=== PATIENT | male | born 1950 | race American Indian/Alaskan Native ===

== ENCOUNTER 2016-04-10 16:20 | Inpatient (IN) | payer MEDICARE, OTHER ==
[2016-04-10] MEDS ORDERED: NACL 0.9% 1000 ML 1,000 ML IV ONE ×2 (16:37→18:18)
[2016-04-10] MEDS ORDERED: DUONEB 0.5 MG-3 MG/3 ML SOLN IH ONE ×2 (16:52→20:00)
[2016-04-10] MEDS ORDERED: BABY ASPIRIN PO ONE (16:55)
--- NOTE | 2016-04-10 16:55 | Emergency Department Report ---
HPI - General Chief Complaint: Dyspnea/Respdistress Time Seen by Provider: 04/10/16 16:43 - HPI HPI: The patient is a 66-year-old male with a history of diabetes, HSV 2, autoimmune skin lesions, CVA, and residual left-sided hemiparesis, who presents for evaluation of dyspnea. The patient arrives via EMS from a detention. The patient admits to cough, constant dyspnea, and increased work of breathing since yesterday, for greater than the past 24 hours, worsening last night, severe for the past 2-4 hours. Per EMS the patient was found was seen to have an O2 sat in the 70%s, increased only into the mid 80s with supplement oxygenation. ED Past Medical Hx - Past Medical History Previous Medical History?: Yes Hx Hypertension: Yes Hx Diabetes: Yes Hx Dementia: Yes Hx HIV: No - Surgical History Past Surgical History?: Yes - Social History Smoking Status: Never Smoker Substance Use Type: None - Medications Home Medications: Home Medications Medication Instructions Recorded Confirmed Last Taken Type Atorvastatin Calcium [Lipitor] 20 mg PO HS 03/29/16 04/10/16 Unknown History Ibuprofen [Motrin 800 MG tab] 800 mg PO Q6HR PRN 03/29/16 04/10/16 Unknown History amLODIPine [Norvasc] 10 mg PO QAM 03/29/16 04/10/16 Unknown History cloNIDine [Catapres] 0.2 mg PO BID 03/29/16 04/10/16 Unknown History metFORMIN [Glucophage] 500 mg PO BIDDIAB tablet 04/01/16 04/10/16 Unknown Rx Insulin Aspart [NovoLOG Flexpen] 0 units SQ AC 04/10/16 04/10/16 Unknown History Zinc Sulfate 220 mg PO DAILY 04/10/16 04/10/16 Unknown History predniSONE [Deltasone] 10 mg PO QDAY 04/10/16 04/10/16 Unknown History ED Review of Systems ROS: Stated complaint: DIFFICULTY BREATHING Other details as noted in HPI Constitutional: denies: fever ENT: denies: throat or neck pain Respiratory: reports shortness of breath Cardiovascular: denies: chest pain Endocrine: denies unexplained weight loss or gain Gastrointestinal: denies: abdominal pain, nausea Genitourinary: denies: dysuria Musculoskeletal: denies: leg swelling Skin: denies: rash Neurological: denies: headache Hematological/Lymphatic: denies: easy bleeding or easy bruising Psych: denies sadness or hopelessness Physical Exam - Physical Exam Vital Signs: Vital Signs 04/10/16 16:31 Temperature 99.9 F H Pulse Rate 102 H Respiratory 52 H Rate Blood Pressure 103/71 Blood Pressure 103/72 [Left] O2 Sat by Pulse 78 L Oximetry Physical Exam: General: well-nourished, well-developed, no acute distress Head: Normocephalic, atraumatic Eyes: normal sclera ENT: Mucous membranes are pale and dry Neck: trachea midline, neck supple, No neck stiffness, no cervical adenopathy Respiratory: Patient tachypnea with severe costal retractions, Diminished breath sounds and wheezing present throughout lung sanchez, rhonchi present to right mid and lower lung sanchez, patient in mild to moderate respiratory distress Cardio: S1 and S2 present, no murmurs, rubs, gallops, capillary refill is delayed Abdomen: Normoactive bowel sounds, soft abdomen, no rigidity, no guarding or rebound tenderness Musc: No pitting edema Skin: No rash Neuro: alert, disoriented, patient follow commands, gag refles intact, left sided weakness present, Psych: Normal affect ED Course Vital Signs 04/10/16 16:31 Temperature 99.9 F H Pulse Rate 102 H Respiratory 52 H Rate Blood Pressure 103/71 Blood Pressure 103/72 [Left] O2 Sat by Pulse 78 L Oximetry ED Medical Decision Making - Lab Data Result diagrams: 04/10/16 16:54 04/10/16 16:54 - Medical Decision Making The patient was seen and examined by myself. Prior to arrival the patient was given an albuterol breathing treatment, IV magnesium, and IV Solu-Medrol via EMS in route. The patient is placed on a groundwater monitoring technician and continuous pulse ox. On initial evaluation, the patient was found to be in respiratory distress, with oxygen saturation of 85% on pulse ox. The patient was placed on BiPAP. The patient oxygen saturation increases to 90%. Evaluation orders were placed. Rectal Tylenol was ordered. Chest x-ray reveals right lower lobe pneumonia, and was negative for cardiomegaly or pulmonary vascular congestion findings suggestive of acute congestive heart failure. Zosyn, Levaquin, and vancomycin were ordered for treatment of likely healthcare associated pneumonia. Multiple bedside assessments were performed to evaluate patient for responsiveness to positive pressure ventilation. Lab results reveal PCO2 of 47 on ABG, elevated lactic acid 3.2, elevated glucose of 390, BUN 30, Cr. 1.2, BUN:Cr ratio >2:1, and elevated sodium level of 159. The patient is given half normal saline fluid bolus for treatment of dehydration, hyperglycemia, and hypertonic hypernatremia. The patient is also given a 5 mg IV insulin bolus for treatment of hyperglycemia. The patient was reevaluated and found to have normalization of oxygen saturation, O2 sat now 95- 98% on pulse ox. The on-call hospitalist service was contacted. They agreed to admit the patient for further treatment and close monitoring. The ED admit order was placed. The patient was admitted in guarded condition. Critical Care Time: Yes Critical care time in (mins) excluding proc time.: 35 Critical care attestation.: Due to the critical nature of this patients presentation, which necessitated multiple bedside assessments, manipulation and supportive measures to prevent further life threatening deterioration, I would like to bill for a total of 35 minutes of critical care time. This was exclusive of any separately billable procedures. Critical Care Time: 35 ED Disposition Clinical Impression: Dehydration, Acute hypernatremia, Acute hyperglycemia, Lactic acidosis Sepsis Qualifiers: Sepsis type: sepsis due to unspecified organism Qualified Code(s): A41.9 - Sepsis, unspecified organism Pneumonia Qualifiers: Pneumonia type: due to unspecified organism Laterality: right Lung location: lower lobe of lung Qualified Code(s): J18.9 - Pneumonia, unspecified organism Disposition: OP ADMITTED IP TO THIS HOSP Is pt being admited?: Yes Does the pt Need Aspirin: Yes Condition: Critical Instructions: Bacterial Pneumonia (ED) Time of Disposition: 16:53
[2016-04-10] MEDS ORDERED: VANCOMYCIN/NS 1 GM/250 ML 250 ML IV ONE (17:00)
[2016-04-10] MEDS ORDERED: LEVAQUIN 750MG/150ML 150 ML IV ONE (17:00)
[2016-04-10 17:09] LABS: Bilirubin,Urine NEG (Negative); Blood,Urine SM (Negative); Ketones,Urine NEG (Negative); Leukocyte Esterase,Urine SM (Negative); Mucus,Urine 1+ /HPF; Nitrite,Urine NEG (Negative)
--- NOTE | 2016-04-10 17:25 | Admit Criteria Form ---
Admission Criteria Documentation: SEVERE SEPSIS Clinical Indications for Admission to Inpatient Care (Place 'X' for any and all applicable criteria): Hospital admission is needed for appropriate care of the patient because of ANY ONE of the following: [X]I. Hemodynamic instability indicated by ANY ONE of the following(1)(2)(3)( 4)(5): []a. Vital sign abnormality not readily corrected by appropriate treatment within 12 to 24 hours indicated by ANY ONE of the following: []i) Tachycardia that persists despite appropriate treatment []ii) Hypotension that persists despite appropriate treatment []iii) Orthostatic vital sign changes that persist despite appropriate treatment [X]b. Vital sign abnormality that is severe indicated by ANY ONE of the following: [X]i. Inadequate perfusion indicated by ANY ONE of the following: [X]1) Lactic acidosis (greater than 2 mmol/L) []2) New abnormal capillary refill (greater than 3 seconds) []3) Reduced urine output []4) New altered mental status []5) Myocardial Ischemia []ii. Mean arterial pressure [A] less than 60 mm Hg []iii. Mean arterial pressure[A] less than 70 mm Hg after 30 minutes of appropriate treatment (eg, fluid resuscitation) []iv. Sustained heart rate greater than 120 beats per minute in adult []v. IV inotropic or vasopressor medication required to maintain adequate blood pressure or perfusion []II. Systemic or infectious condition causing severe symptoms or findings not responsive to emergency or observation care treatment (as appropriate) indicated by ANY ONE of the following: []a. Cardiac arrhythmias of immediate concern(1)(2)(3) []b. Severe endocrine disorder (eg, thyrotoxicosis, adrenal insufficiency)(4)(5) []c. Seizures (eg, new or recurrent)(6) []d. New-onset end organ failure or dysfunction as indicated by ANY ONE of the following: []i. Acute unexplained hypoxemia (eg, not from lung infection or chronic disease)(7)(8)(9) []ii. Acute renal failure as indicated by new onset of ANY ONE of the following(10)(11)(12)(13)(14): []1) 3-fold rise in serum creatinine from baseline []2) Serum creatinine greater than 4 mg/dL (354 micromoles/L) with acute rise greater than 0.5 mg/dL (44.2 micromoles/L) []3) Reduction of more than 75% in estimated glomerular filtration rate from baseline. []4) Estimated glomerular filtration rate less than 35 mL/min/1.73m2 ( 0.59 mL/sec/1.73m2) in child younger than 18 years. []5) Cessation of urine output indicated by ALL of the following: []A. Adequate volume status []B. Inadequate urine output as indicated by ANY ONE of the following: []a. Urine output less than 0.3 mL/kg/hr for 24 hours []b. Anuria (urine output less than 0.1 mL/kg/hr) for 12 hours []iii. Acute mental status changes(15) []iv. Acute hepatic failure (eg, plasma bilirubin greater than 4 mg/ dL (68 micromoles/L), new INR greater than 2.0)(16)(17) []e. Unmanageable nausea and vomiting(18) []f. New-onset or uncontrolled central diabetes insipidus(19)(20) []g. Clinically significant dehydration(18)(21) []h. Hypoglycemia(22) []i. Acidosis (pH less than 7.35) or alkalosis (pH greater than 7.45)( 22)(23) []j. Toxic drug level that indicates need for specific monitoring or treatment(24)(25) []k. Severe electrolyte abnormalities indicated by ALL of the following( 1)(2)(3): []i. Electrolytes and associated findings are not as expected for patient baseline or acceptable treatment effects. []ii. Severe abnormalities indicated by ANY ONE of the following: []1) Sodium less than 130 mEq/L (mmol/L) (new) []2) Sodium less than 135 mEq/L (mmol/L) with ANY ONE of the following: []A. Uncorrectable (to near normal or chronic baseline) after trial of outpatient and emergency treatment []B. Altered mental status []C. Seizures []D. Severe medical etiology requiring inpatient management (eg , heart failure, hypovolemia) []3) Sodium greater than 155 mEq/L (mmol/L) []4) Sodium greater than 150 mEq/L (mmol/L) with ANY ONE of the following: []A. Uncorrectable (to near normal or chronic baseline) with outpatient and emergency treatment []B. Altered mental status []C. Seizures []D. Severe medical etiology (eg, hypovolemia, diabetes insipidus) []5) Potassium less than 2.5 mEq/L (mmol/L) despite outpatient and emergency treatment []6) Potassium less than 3 mEq/L (mmol/L) with ANY ONE of the following : []A. Weakness []B. Cardiac abnormality (eg, arrhythmia, conduction disturbance ) []C. Cardiac ischemia []D. Ileus []E. Ongoing medical cause requiring inpatient management (eg, acute renal wasting or SIADH) []F. Other severe symptoms []7) Potassium greater than 6.5 mEq/L (mmol/L) []8) Potassium greater than 5 mEq/L (mmol/L) with ANY ONE of the following: []A. Uncorrectable (to near normal or chronic baseline) with outpatient and emergency treatment []B. Severe ECG findings[A] []C. Acute worsening of renal failure (creatinine greater than 2.5 mg/dL (221 micromoles/L) or significant elevation for age and size) []D. Severe weakness []E. Severe medical etiology (eg, hemolysis, infection, drug overdose) []9) Calcium less than 7 mg/dL (1.75 mmol/L) despite outpatient and emergency treatment(5) []10) Calcium less than 8 mg/dL (2 mmol/L) with significant symptoms or findings (eg, altered mental status, muscle spasms, seizures, breathing difficulty, cardiac abnormality (eg, arrhythmia or conduction disturbance))(5) []11) Calcium greater than 14 mg/dL (3.5 mmol/L)(5) []12) Calcium greater than 12 mg/dL (3 mmol/L) with ANY ONE of the following(5): []A. Uncorrectable (to near normal or chronic baseline) with outpatient and emergency treatment []B. Significant dehydration or hypovolemia as indicated by ALL of the following(3)(6)(7): []a. Not resolved with initial treatments []b. Clinically significant dehydration as indicated by ANY ONE of the following: [](1) Vomiting refractory to outpatient treatment (ie, precluding oral rehydration) [](2) Inability to drink [](3) Hypernatremia or other electrolyte abnormality unable to be corrected with outpatient and emergency treatment [](4) Failure to remain hydrated with outpatient therapy [](5) Reduced urine output [](6) Hypotension [](7) Serious cause for dehydration requiring acute hospitalization ( eg, bowel obstruction, increased intracranial pressure, infectious cause) [](8) Child with ANY ONE of the following(8): [](i) Severe abdominal tenderness [](ii) Adequate care not available at home [](iii) Severe dehydration (greater than 9% loss of body weight) []C. Significant symptoms or findings (eg, altered mental status , cardiac abnormality (eg, arrhythmia, conduction disturbance), malignant etiology requiring inpatient treatment) []13) Phosphorus less than 1 mg/dL (0.32 mmol/L) []14) Phosphorus less than 1.5 mg/dL (0.48 mmol/L) with ANY ONE of the following: []A. Patient unresponsive to outpatient and emergency treatment []B. Significant symptoms or findings (eg, weakness, altered mental status, breathing difficulty, seizures, rhabdomyolysis) []15) Phosphorus greater than 10 mg/dL (3.2 mmol/L) []16) Phosphorus greater than 4.5 mg/dL (1.45 mmol/L) (new) with ANY ONE of the following: []A. Severe medical etiology (eg, crush injury, acute renal failure) []B. Associated hypocalcemia with significant findings (eg, neurologic symptoms, altered mental status, muscle spasms, seizures, breathing difficulty, cardiac abnormality (eg, arrhythmia, conduction disturbance)) []16) Magnesium less than 1 mg/dL (0.41 mmol/L) []17) Magnesium less than 1.5 mg/dL (0.62 mmol/L) with ANY ONE of the following: []A. Patient unresponsive to outpatient and emergency treatment []B. Associated hypocalcemia with significant findings (eg, altered mental status, muscle spasms, seizures, breathing difficulty, cardiac abnormality (eg, arrhythmia, conduction disturbance)) []C. Associated hypokalemia (potassium less than 3 mEq/L (mmol/L )) with risk of arrhythmia []18) Magnesium greater than 4 mEq/L (2 mmol/L) []19) Magnesium greater than 2.5 mEq/L (1.25 mmol/L) with significant symptoms or findings (eg, weakness, altered mental status, cardiac abnormality (eg, arrhythmia, conduction disturbance), breathing difficulty, severe medical etiology (eg, renal failure, hypovolemia)) []20) Uric acid greater than 20 mg/dL (1190 micromoles/L)(9) []21) Uric acid greater than 8 mg/dL (476 micromoles/L) with significant symptoms or findings of tumor lysis syndrome (eg, creatinine greater than 1.5 times upper limit of normal, cardiac abnormality (eg , arrhythmia, conduction disturbance), seizure)(9) []III. High fever or other high-risk infection situation as indicated by ANY ONE of the following(26)(27)(28): []a. Outpatient and observation care antimicrobial treatment unavailable, not effective, or not appropriate []b. Documented bacteremia []c. Temperature greater than 104.9 degrees F (40.5 degrees C) (oral) []d. Temperature greater than 103.1 degrees F (39.5 degrees C) (oral) or less than 96.8 degrees F (36 degrees C) (rectal) that does not respond to emergency treatment and observation care []IV. High-risk febrile neutropenia[A] as indicated by ANY ONE of the following(29)(30)(31)(32): []a. Profound neutropenia[B] anticipated to extend for more than 7 days []b. Hemodynamic instability []c. Hypoxemia []d. Tachypnea []e. Altered mental status []f. New-onset abdominal pain []g. New-onset vomiting or diarrhea []h. Oral or gastrointestinal mucositis that interferes with swallowing or causes severe diarrhea []i. Focal infection (eg, cellulitis, pneumonia, central line or catheter infection, perirectal abscess) []j. Renal insufficiency (eg, GFR of less than 30 mL/min/1.73m2 (0.5 mL/sec /1.73m2)). []k. Severe liver dysfunction (transaminase levels greater than 5 times normal) []l. Platelet count less than 50,000/mm3 (50 x109/L)(33) []m. Leukemia or lymphoma induction therapy []n. Leukemia not in complete remission or with evidence of disease progression []o. Bone marrow transplant patient []p. Alemtuzumab being used for therapy []q. [employer] for Supportive Care in Cancer (MASCC) Risk Index score of less than 21[C](33)(35). []V. Isolation required (eg, tuberculosis that requires isolation, Ebola infection)[D](36)(37)(38)(39)(40) []. Gangrene that requires treatment beyond emergency or observation level care(41)(42) []VII. Antitoxin administration and ongoing observation required (eg, tetanus, botulism)(43)(44) []. Suspected infection with rapid progression or severe symptoms as indicated by ANY ONE of the following(45): []a. Streptococcal or staphylococcal toxic shock(46) []b. Diphtheria(47) []c. Hantavirus(48) []d. Severe acute respiratory syndrome(8)(49) []e. Anthrax(50) []f. Ebola[D](36)(37)(38) []g. Necrotizing soft tissue infection(41)(42) []h. Plague(50) []i. Other suspected infection that requires care beyond emergency or observation level care []VII. Severe adverse drug or systemic toxin reaction as indicated by ANY ONE of the following(24): []a. Serotonin syndrome(51)(52) []b. Neuroleptic malignant syndrome(51)(52) []c. Cholinergic syndrome with severe symptoms (eg, bronchorrhea, weakness , mental status changes, seizures)(53) []d. Anticholinergic syndrome []e. Sympathetic syndrome with severe symptoms (eg, seizures, mental status changes, cardiac dysrhythmias) []f. Other severe adverse drug or systemic toxin reaction that remains after emergency or observation level care (as appropriate) []VIII. Allergic reaction with severe symptoms (not responsive to emergency or observation care treatment as appropriate), including ANY ONE of the following(54): []a. Airway edema (pharyngeal, epiglottic, or laryngeal edema) []b. Stridor []c. Respiratory failure []d. Bronchospasm []e. Hypotension []IX. Environmental emergency (not responsive to emergency or observation care treatment as appropriate) as indicated by ANY ONE of the following(55)(56): []a. Hyperthermia []b. Heat stroke []c. Heat exhaustion []d. Hypothermia (temperature less than 95 degrees F (35 degrees C) rectal) (57) []e. Electrocution(58) []X. Complications of transplanted organ (ie, not covered elsewhere)[E] indicated by ANY ONE of the following(59): []a. Acute graft rejection (or graft vs. host disease)[F] requiring inpatient management (eg, intravenous immunosuppression)(60)(61)(62)( 63) []b. Acute failure of transplanted organ necessitating inpatient care (eg, cannot be managed in other setting) []c. Infection requiring inpatient management (eg, Hemodynamic instability, need for intravenous antimicrobial treatment)(64)(65) []d. Other complication of transplanted organ requiring inpatient management []XI. Systemic or Infectious Condition condition, symptom, or finding for which emergency and observation care have failed or are not considered appropriate. See General Criteria: Observation Care, General Admission Criteria or Pediatric General Admission Criteria guideline as appropriate. (Contents from SEVERE SEPSIS and SYSTEMIC OR INFECTIOUS CONDITION clinical indications for admission to inpatient care have been integrated in this form) The original [facility] content created by [facility] has been revised. The portions of the content which have been revised are identified through the use of italic text or in bold and [facility] has neither reviewed nor approved the modified material. All other unmodified content is copyright [facility]. Please see references footnoted in the original [facility] edition 2016 Admission Criteria Met: Yes
[2016-04-10 17:26] LABS: Hematocrit 41.3 % (35.5-45.6); Hemoglobin 13.1 gm/dl (11.8-15.2); Mean Corpuscular HGB Conc 32 % (32-34); Mean Corpuscular Volume 79 fl (84-94); Platelet Count 191 K/mm3 (140-440); Red Blood Count 5.24 M/mm3 (3.65-5.03); Red Cell Distribution Width 17.2 % (13.2-15.2); White Blood Count 10.8 K/mm3 (4.5-11.0)
[2016-04-10 17:29] LABS: Mean Corpuscular Hemoglobin 25 pg (28-32)
[2016-04-10 17:43] LABS: INR 1.13 (0.87-1.13)
[2016-04-10 17:49] LABS: Alanine Aminotransferase 37 units/L (7-56); Albumin 2.5 g/dL (3.9-5); Albumin/Globulin Ratio 0.5 %; Alkaline Phosphatase 102 units/L (35-129); Anion Gap 21 mmol/L; Bilirubin,Total 1.4 mg/dL (0.1-1.2); Blood Urea Nitrogen 30 mg/dL (9-20); Calcium 8.9 mg/dL (8.4-10.2); Carbon Dioxide 26 mmol/L (22-30); Chloride 115.6 mmol/L (98-107); Glucose 390 mg/dL (75-100); Sodium 159 mmol/L (137-145); Total Protein 7.7 g/dL (6.3-8.2)
[2016-04-10 17:56] LABS: ISTAT Base Excess 3; ISTAT HCO3 26.3; ISTAT PCO2 36.2 (35-45); ISTAT PH 7.469 (7.35-7.45); ISTAT PO2 47 (80-105); ISTAT SO2 86; ISTAT TCO2 27
[2016-04-10 18:05] LABS: Basophils % (Manual) 0 % (0.0-1.8); Blastocytes % (Manual) 0 %; Eosinophils % (Manual) 0 % (0.0-4.3); Hypochromasia 1+
[2016-04-10 18:06] LABS: Diff Status Complete; Large Platelets 1+; Platelet Estimate Consistent w Auto; Poikilocytosis 1+
[2016-04-10] MEDS ORDERED: NACL 0.9% 1000 ML 500 ML IV ONE (18:14)
[2016-04-10] MEDS: ZOSYN/NS 3.375GM/50ML 50 ML IV SCH (18:50)
[2016-04-10] MEDS ORDERED: NACL 0.45% 1000 ML 1,000 ML IV ONE (19:14)
[2016-04-10] MEDS ORDERED: TYLENOL PR ONE (19:18)
[2016-04-10] MEDS ORDERED: NACL 0.45% 1000 ML 500 ML IV SCH (20:00)
[2016-04-11] MEDS: ZOSYN/NS 3.375GM/50ML 50 ML IV SCH (00:45)
--- NOTE | 2016-04-11 02:15 | Event Note ---
Date: 04/11/16 See H/p in reports
[2016-04-11] MEDS ORDERED: DULCOLAX PR PRN (02:16)
[2016-04-11] MEDS ORDERED: DILAUDID IV PRN ×2 (02:16→02:25)
[2016-04-11] MEDS ORDERED: XANAX PO PRN (02:16)
[2016-04-11] MEDS ORDERED: ALUM-MAG HYDROX-SIMETH 200-200-20MG/5ML PO PRN (02:16)
[2016-04-11] MEDS ORDERED: MILK OF MAGNESIA PO PRN (02:16)
[2016-04-11] MEDS ORDERED: DUONEB 0.5 MG-3 MG/3 ML SOLN IH PRN (02:22)
[2016-04-11] MEDS ORDERED: PROVENTIL IH PRN (02:30)
[2016-04-11] MEDS: DUONEB 0.5 MG-3 MG/3 ML SOLN IH SCH ×4 (02:43→21:11)
[2016-04-11] MEDS: CATAPRES PO SCH ×3 (05:01→21:48)
[2016-04-11 05:34] LABS: Hemoglobin 12.5 gm/dl (11.8-15.2); Mean Corpuscular HGB Conc 31 % (32-34); Mean Corpuscular Volume 80 fl (84-94); Red Cell Distribution Width 17.5 % (13.2-15.2); White Blood Count 11.7 K/mm3 (4.5-11.0)
[2016-04-11 05:35] LABS: Mean Corpuscular Hemoglobin 25 pg (28-32)
[2016-04-11 05:44] LABS: Albumin 1.9 g/dL (3.9-5); Albumin/Globulin Ratio 0.4 %; BUN/Creatinine Ratio 30.66; Calcium 8.3 mg/dL (8.4-10.2); Chloride 117.6 mmol/L (98-107); Potassium 4.5 mmol/L (3.6-5.0)
[2016-04-11 07:16] LABS: Basophils % (Manual) 0 % (0.0-1.8); Blastocytes % (Manual) 0 %; Eosinophils % (Manual) 0 % (0.0-4.3)
[2016-04-11 07:17] LABS: Anisocytosis 1+; Burr Cells 1+; Diff Status Complete; Elliptocytes Rare; Large Platelets 1+; Ovalocytes 1+; Platelet Count 109 K/mm3 (140-440); Platelet Estimate R; Poikilocytosis 1+
[2016-04-11] MEDS ORDERED: ZOSYN/NS 4.5GM/100ML 100 ML IV SCH (08:00)
--- NOTE | 2016-04-11 09:12 | XRay Report ---
AP CHEST: HISTORY: Sepsis, fever. FINDINGS: No comparison. Right lower lobe infiltrate and atelectasis is suspected. There is opacity in the left lower lobe posterior to the heart as well which could represent infiltrate or atelectasis. The upper lung zones are clear. Normal heart size. No large pleural effusion or pneumothorax. IMPRESSION: Right lower lobe infiltrate concerning for pneumonia.
--- NOTE | 2016-04-11 09:47 | Progress Note ---
Assessment and Plan Assessment and plan: 1. Acute hypoxic respiratory failure. Patient will be continued on BiPAP. Pulmonary consultation pending. Etiology secondary to sepsis/pneumonia. 2. Sepsis. Etiology secondary to pneumonia/UTI. Patient with elevated lactic acid levels of 3.2 and 4.3 respectively. Continue to trend lactic acid levels. Follow-up blood and urine cultures. UA reveals 15 WBCs. Chest x-ray revealed right lower lobe pneumonia. 3. Healthcare associated pneumonia. Patient presented from longterm. Patient may also have component of aspiration pneumonia. Continue IV antibiotics and follow-up chest x-ray. 4. UTI. Follow-up urine cultures. 5. Hypernatremia. Continue hypotonic IV fluids. Follow-up BMP. 6. Toxic metabolic encephalopathy. Continue to treat underlying causes. 7. Diabetes mellitus type 2, uncontrolled. Patient currently on 125 mg of Solu -Medrol. We will taper steroids. We'll start long acting insulin. 8. Oropharyngeal dysphagia. Speech evaluation. The high probability of a clinically significant, sudden or life threatening deterioration of the [respiratory, endocrine and neurology] system(s) required my full and direct attention, intervention and personal management. The aggregate critical care time was [32] minutes. This time is in addition to time spent performing reported procedures but includes the following: [x] Data Review and interpretation [x] Patient assessment and monitoring of vital signs [x] Documentation [x] Medication orders and management History Interval history: The patient is a 66-year-old male with a history of diabetes, HSV 2, autoimmune skin lesions, CVA, and residual left-sided hemiparesis, who presents for evaluation of dyspnea. Patient presents from the longterm with acute hypoxic respiratory failure with saturations in the 70s. Patient currently on BiPAP. No new issues overnight. Hospitalist Physical - Constitutional Vitals: Temp Pulse Resp BP Pulse Ox 98.3 F 54 L 25 H 123/79 100 04/11/16 08:00 04/11/16 09:10 04/11/16 09:10 04/11/16 08:54 04/11/16 08:54 General appearance: Present: no acute distress, well-nourished, other (on Bipap) - EENT Eyes: Present: PERRL, EOM intact ENT: hearing intact, clear oral mucosa, dentition normal - Neck Neck: Present: supple, normal ROM - Respiratory Respiratory effort: normal Respiratory: bilateral: diminished, rhonchi - Cardiovascular Rhythm: regular Heart Sounds: Present: S1 & S2. Absent: gallop, rub - Extremities Extremities: no ischemia, No edema, Full ROM - Abdominal General gastrointestinal: soft, non-tender, non-distended, normal bowel sounds - Integumentary Integumentary: Present: clear, warm, dry - Neurologic Neurologic: CNII-XII intact, moves all extremities Results - Labs CBC & Chem 7: 04/11/16 05:02 04/11/16 05:02 Labs: Laboratory Last Values WBC 11.7 K/mm3 (4.5-11.0) H 04/11/16 05:02 RBC 5.00 M/mm3 (3.65-5.03) 04/11/16 05:02 Hgb 12.5 gm/dl (11.8-15.2) 04/11/16 05:02 Hct 40.0 % (35.5-45.6) 04/11/16 05:02 MCV 80 fl (84-94) L 04/11/16 05:02 MCH 25 pg (28-32) L 04/11/16 05:02 MCHC 31 % (32-34) L 04/11/16 05:02 RDW 17.5 % (13.2-15.2) H 04/11/16 05:02 Plt Count 109 K/mm3 (140-440) L 04/11/16 05:02 Add Manual Diff Complete 04/11/16 05:02 Total Counted 100 04/11/16 05:02 Seg Neutrophils % Head Of Art 04/11/16 05:02 Seg Neuts % (Manual) 91.0 % (40.0-70.0) H 04/11/16 05:02 Band Neutrophils % 3.0 % 04/11/16 05:02 Lymphocytes % (Manual) 3.0 % (13.4-35.0) L 04/11/16 05:02 Reactive Lymphs % (Man) 0 % 04/11/16 05:02 Monocytes % (Manual) 0 % (0.0-7.3) 04/11/16 05:02 Eosinophils % (Manual) 0 % (0.0-4.3) 04/11/16 05:02 Basophils % (Manual) 0 % (0.0-1.8) 04/11/16 05:02 Metamyelocytes % 3.0 % 04/11/16 05:02 Myelocytes % 0 % 04/11/16 05:02 Promyelocytes % 0 % 04/11/16 05:02 Blast Cells % 0 % 04/11/16 05:02 Nucleated RBC % 1.0 % (0.0-0.9) H 04/11/16 05:02 Seg Neutrophils # Man 10.6 K/mm3 (1.8-7.7) H 04/11/16 05:02 Band Neutrophils # 0.4 K/mm3 04/11/16 05:02 Lymphocytes # (Manual) 0.4 K/mm3 (1.2-5.4) L 04/11/16 05:02 Abs React Lymphs (Man) 0.0 K/mm3 04/11/16 05:02 Monocytes # (Manual) 0.0 K/mm3 (0.0-0.8) 04/11/16 05:02 Eosinophils # (Manual) 0.0 K/mm3 (0.0-0.4) 04/11/16 05:02 Basophils # (Manual) 0.0 K/mm3 (0.0-0.1) 04/11/16 05:02 Metamyelocytes # 0.4 K/mm3 04/11/16 05:02 Myelocytes # 0.0 K/mm3 04/11/16 05:02 Promyelocytes # 0.0 K/mm3 04/11/16 05:02 Blast Cells # 0.0 K/mm3 04/11/16 05:02 WBC Morphology Not Reportable 04/11/16 05:02 Hypersegmented Neuts Not Reportable 04/11/16 05:02 Hyposegmented Neuts Not Reportable 04/11/16 05:02 Hypogranular Neuts Not Reportable 04/11/16 05:02 Smudge Cells Not Reportable 04/11/16 05:02 Toxic Granulation Not Reportable 04/11/16 05:02 Toxic Vacuolation Not Reportable 04/11/16 05:02 Dohle Bodies Not Reportable 04/11/16 05:02 Pelger-Huet Anomaly Not Reportable 04/11/16 05:02 Ky Rods Not Reportable 04/11/16 05:02 Platelet Estimate R 04/11/16 05:02 Clumped Platelets Not Reportable 04/11/16 05:02 Plt Clumps, EDTA Not Reportable 04/11/16 05:02 Large Platelets 1+ 04/11/16 05:02 Giant Platelets Not Reportable 04/11/16 05:02 Platelet Satelliting Not Reportable 04/11/16 05:02 Plt Morphology Comment Not Reportable 04/11/16 05:02 RBC Morphology Not Reportable 04/11/16 05:02 Dimorphic RBCs Not Reportable 04/11/16 05:02 Polychromasia Not Reportable 04/11/16 05:02 Hypochromasia Not Reportable 04/11/16 05:02 Poikilocytosis 1+ 04/11/16 05:02 Anisocytosis 1+ 04/11/16 05:02 Microcytosis Not Reportable 04/11/16 05:02 Macrocytosis Not Reportable 04/11/16 05:02 Spherocytes Not Reportable 04/11/16 05:02 Pappenheimer Bodies Not Reportable 04/11/16 05:02 Sickle Cells Not Reportable 04/11/16 05:02 Target Cells Not Reportable 04/11/16 05:02 Tear Drop Cells Not Reportable 04/11/16 05:02 Ovalocytes 1+ 04/11/16 05:02 Helmet Cells Not Reportable 04/11/16 05:02 [place] Bodies Not Reportable 04/11/16 05:02 [place] Rings Not Reportable 04/11/16 05:02 [place] Cells 1+ 04/11/16 05:02 Bite Cells Not Reportable 04/11/16 05:02 Crenated Cell Not Reportable 04/11/16 05:02 Elliptocytes Rare 04/11/16 05:02 Acanthocytes (Spur) Not Reportable 04/11/16 05:02 Rouleaux Not Reportable 04/11/16 05:02 Hemoglobin C Crystals Not Reportable 04/11/16 05:02 Schistocytes Not Reportable 04/11/16 05:02 Malaria parasites Not Reportable 04/11/16 05:02 [place] Bodies Not Reportable 04/11/16 05:02 Hem Pathologist Commnt No 04/11/16 05:02 PT 14.4 Sec. (12.2-14.9) 04/10/16 16:54 INR 1.13 (0.87-1.13) 04/10/16 16:54 POC ABG pH 7.469 (7.35-7.45) H 04/10/16 17:40 POC ABG pCO2 36.2 (35-45) 04/10/16 17:40 POC ABG pO2 47 (80-105) L 04/10/16 17:40 POC ABG HCO3 26.3 04/10/16 17:40 POC ABG Total CO2 27 04/10/16 17:40 POC ABG O2 Sat 86 04/10/16 17:40 POC ABG Base Excess 3 04/10/16 17:40 VBG pH 7.437 (7.320-7.420) H 04/10/16 16:54 FiO2 100 % 04/10/16 17:40 Sodium 156 mmol/L (137-145) H 04/11/16 05:02 Potassium 4.5 mmol/L (3.6-5.0) 04/11/16 05:02 Chloride 117.6 mmol/L (98-107) H 04/11/16 05:02 Carbon Dioxide 21 mmol/L (22-30) L 04/11/16 05:02 Anion Gap 22 mmol/L 04/11/16 05:02 BUN 46 mg/dL (9-20) H 04/11/16 05:02 Creatinine 1.5 mg/dL (0.8-1.5) 04/11/16 05:02 Estimated GFR 56 ml/min 04/11/16 05:02 BUN/Creatinine Ratio 30.66 % 04/11/16 05:02 Glucose 496 mg/dL (75-100) H 04/11/16 05:02 Lactic Acid 4.3 mmol/L (0.7-2.0) H* 04/10/16 19:41 Calcium 8.3 mg/dL (8.4-10.2) L 04/11/16 05:02 Total Bilirubin 1.0 mg/dL (0.1-1.2) 04/11/16 05:02 AST 36 units/L (5-40) 04/11/16 05:02 ALT 40 units/L (7-56) 04/11/16 05:02 Alkaline Phosphatase 94 units/L (35-129) 04/11/16 05:02 NT-Pro-B Natriuret Pep 1287 pg/mL (0-900) H 04/10/16 17:06 Total Protein 7.0 g/dL (6.3-8.2) 04/11/16 05:02 Albumin 1.9 g/dL (3.9-5) L 04/11/16 05:02 Albumin/Globulin Ratio 0.4 % 04/11/16 05:02 Urine Color Eri (Yellow) 04/10/16 16:56 Urine Turbidity Clear (Clear) 04/10/16 16:56 Urine pH 5.0 (5.0-7.0) 04/10/16 16:56 Ur Specific [place] 1.020 (1.003-1.030) 04/10/16 16:56 Urine Protein 30 mg/dl mg/dL (Negative) 04/10/16 16:56 Urine Glucose (UA) 50 mg/dL (Negative) 04/10/16 16:56 Urine Ketones Neg mg/dL (Negative) 04/10/16 16:56 Urine Blood Sm (Negative) 04/10/16 16:56 Urine Nitrite Neg (Negative) 04/10/16 16:56 Urine Bilirubin Neg (Negative) 04/10/16 16:56 Urine Urobilinogen 4.0 mg/dL (<2.0) 04/10/16 16:56 Ur Leukocyte Esterase Sm (Negative) 04/10/16 16:56 Urine WBC (Auto) 15.0 /HPF (0.0-6.0) H 04/10/16 16:56 Urine RBC (Auto) 7.0 /HPF (0.0-6.0) 04/10/16 16:56 Amorphous Crystals Few 04/10/16 16:56 Urine Mucus 1+ /HPF 04/10/16 16:56
[2016-04-11] MEDS: NORVASC PO SCH (10:00)
[2016-04-11] MEDS ORDERED: LOVENOX SUB-Q SCH (10:00)
[2016-04-11] MEDS ORDERED: DELTASONE PO SCH (10:00)
--- NOTE | 2016-04-11 11:17 | Consultation ---
History of Present Illness Consult date: 04/11/16 Requesting physician: ROBBIE BURGESS Reason for consult: other (Acute Hypoxemic Respiratory Failure; HCAP) History of present illness: PULMONARY/CCM CONSULT NOTE (Full dictation # [id number]) Please see dictated notes for full details A&P: Acute Hypoxemic Respiratory Failure HCAP (Likely Aspiration) Oropharyngeal Dysphagia H/O Autoimmune dermatitia, HTN, CVA, Dementia, DM - continue RTC BIPAP and wean FiO2 to keep sats > 92% acutely - VTE w/up - aspiration precautions - continue bronchodilators and pulmonary toilet - systemic steroid taper - enteral nutriotion and ST evaluation once off BIPAP - change to Levaquin - folllow C&S - GI & VTE prophylaxis as is - Flu & pneumovax per protocol ...thanks for the consult ...we will follow along Medications and Allergies Allergies Allergy/AdvReac Type Severity Reaction Status Date / Time No Known Allergies Allergy Unverified 03/21/16 15:30 Home Medications Medication Instructions Recorded Confirmed Last Taken Type Atorvastatin Calcium [Lipitor] 20 mg PO HS 03/29/16 04/10/16 Unknown History Ibuprofen [Motrin 800 MG tab] 800 mg PO Q6HR PRN 03/29/16 04/10/16 Unknown History amLODIPine [Norvasc] 10 mg PO QAM 03/29/16 04/10/16 Unknown History cloNIDine [Catapres] 0.2 mg PO BID 03/29/16 04/10/16 Unknown History metFORMIN [Glucophage] 500 mg PO BIDDIAB tablet 04/01/16 04/10/16 Unknown Rx Insulin Aspart [NovoLOG Flexpen] 0 units SQ AC 04/10/16 04/10/16 Unknown History Zinc Sulfate 220 mg PO DAILY 04/10/16 04/10/16 Unknown History predniSONE [Deltasone] 10 mg PO QDAY 04/10/16 04/10/16 Unknown History Active Meds: Active Medications Al Hydrox/Mg Hydrox/Simethicone (Alum-Mag Hydrox-Simeth [phone]/5ml) 30 ml PO Q4H PRN PRN Reason: Indigestion Albuterol (Proventil) 2.5 mg IH Q3HRT PRN PRN Reason: Wheezing Albuterol/Ipratropium (Duoneb 0.5 Mg-3 Mg/3 Ml Soln) 1 ampul IH Q6HRT [facility] Last Admin: 04/11/16 02:43 Dose: 1 ampul Alprazolam (Xanax) 0.25 mg PO Q8H PRN PRN Reason: Anxiety Amlodipine Besylate (Norvasc) 10 mg PO QAM [facility] Bisacodyl (Dulcolax) 10 mg UT QDAY PRN PRN Reason: constipation unrelieved by MOM Clonidine HCl (Catapres) 0.2 mg PO BID [facility] Last Admin: 04/11/16 05:01 Dose: Not Given Enoxaparin Sodium (Lovenox) 40 mg SUB-Q QDAY [facility] Last Admin: 04/11/16 09:24 Dose: 40 mg Famotidine (Pepcid) 20 mg IV BID [facility] Hydromorphone HCl (Dilaudid) 0.5 mg IV Q3H PRN PRN Reason: Pain , Severe (7-10) Sodium Chloride (Nacl 0.45% 1000 Ml) 500 mls @ 250 mls/hr IV DIRECT [facility] Last Admin: 04/10/16 19:44 Dose: 250 mls/hr Piperacillin Sod/Tazobactam Sod (Zosyn/Ns 4.5gm/100ml) 100 mls @ 200 mls/hr IV Q8H [facility] PRN Reason: Protocol Last Admin: 04/11/16 09:24 Dose: 200 mls/hr Sodium Chloride (Nacl 0.45% 1000 Ml) 1,000 mls @ 75 mls/hr IV DIRECT [facility] Influenza Virus Vaccine Quadrival (Fluarix Quad [id number](36 Mos+)) 60 mcg IM .ONCE ONE Stop: 04/12/16 12:01 Insulin Detemir (Levemir) 10 units SUB-Q QHS [facility] Magnesium Hydroxide (Milk Of Magnesia) 30 ml PO Q4H PRN PRN Reason: Constipation Methylprednisolone Sodium Succinate (Solu-Medrol) 125 mg IV Q8HR [facility] Last Admin: 04/11/16 07:32 Dose: 125 mg Pneumococcal Polyvalent Vaccine (Pneumovax 23) 0.5 ml IM .ONCE ONE Stop: 04/12/16 12:01 Physical Examination Vital signs: Vital Signs Pulse Resp Pulse Ox 103 H 17 80 L 04/10/16 16:30 04/10/16 16:30 04/10/16 16:30 Results - Laboratory Findings CBC and BMP: 04/11/16 05:02 04/11/16 05:02 ABG POC ABG pH 7.469 (7.35-7.45) H 04/10/16 17:40 POC ABG pCO2 36.2 (35-45) 04/10/16 17:40 POC ABG pO2 47 (80-105) L 04/10/16 17:40 POC ABG HCO3 26.3 04/10/16 17:40 POC ABG Total CO2 27 04/10/16 17:40 POC ABG O2 Sat 86 04/10/16 17:40 PT/INR, D-dimer PT 14.4 Sec. (12.2-14.9) 04/10/16 16:54 INR 1.13 (0.87-1.13) 04/10/16 16:54 Abnormal lab findings: Abnormal Labs 04/11/16 04/11/16 05:02 05:02 WBC 11.7 H MCV 80 L MCH 25 L MCHC 31 L RDW 17.5 H Plt Count 109 L Seg Neuts % (Manual) 91.0 H Lymphocytes % (Manual) 3.0 L Nucleated RBC % 1.0 H Seg Neutrophils # Man 10.6 H Lymphocytes # (Manual) 0.4 L Sodium 156 H Chloride 117.6 H Carbon Dioxide 21 L BUN 46 H Glucose 496 H Calcium 8.3 L Albumin 1.9 L
[2016-04-11] MEDS: LEVEMIR SUB-Q SCH ×2 (11:54→21:47)
[2016-04-11] MEDS: LEVAQUIN 500MG/100ML 100 ML IV SCH (11:55)
[2016-04-11] MEDS: NACL 0.45% 1000 ML 1,000 ML IV SCH (11:58)
[2016-04-11 12:11] LABS: Magnesium 3.6 mg/dL (1.7-2.3)
[2016-04-11] MEDS ORDERED: SODIUM BICARBONATE FEEDTUBE PRN (13:40)
[2016-04-11] MEDS ORDERED: PANCREAZE DR 10,500 UNIT FEEDTUBE PRN (13:40)
[2016-04-11] MEDS ORDERED: SIMPLE SYRUP FEEDTUBE PRN ×2 (13:40)
[2016-04-11] MEDS ORDERED: LEVAQUIN 750MG/150ML 150 ML IV SCH (14:00)
--- NOTE | 2016-04-11 14:27 | History and Physical Report ---
CHIEF COMPLAINT: Increasing shortness of breath for the last 2 days, more so for the last 1 day. HISTORY OF PRESENT ILLNESS: A 66-year-old male with history of diabetes, hypertension, dementia, and COPD sent in from [facility] for increasing shortness of breath for the last 2 days. increased work of breathing since yesterday. Also, no fever. Cough productive of mucoid purulent sputum. O2 sat is 70% in the [facility], increased only to mid 80s with oxygen supplementation. The patient also has autoimmune skin lesions and CVA with left-sided hemiparesis. PAST MEDICAL HISTORY: Significant for hypertension, diabetes, dementia, cerebrovascular accident with left-sided hemiparesis, autoimmune skin lesions. PAST SURGICAL HISTORY: None. SOCIAL HISTORY: He does not smoke. No alcohol, no recreational drugs. FAMILY HISTORY: Significant for hypertension. CURRENT MEDICATIONS: Lipitor 20 mg daily, amlodipine 10 mg p.o. daily, clonidine 0.2 b.i.d., metformin 500 b.i.d., insulin 6 units subcutaneous a.c., zinc sulfate 220 mg p.o. daily, and prednisone 10 mg p.o. daily. REVIEW OF SYSTEMS: Significant for increasing shortness of breath and low oxygen saturations. Increased work of breathing. No fever, no chills. Also, skin lesions. Otherwise, review of systems is essentially negative. PHYSICAL EXAMINATION: GENERAL: Elderly male, cooperative during the examination. VITAL SIGNS: Blood pressure is 103/72, pulse oximetry is 78 on room air, respiratory rate is 52, temperature is 99.9, pulse is 102.8. HEENT: Unremarkable. Pupils equal and reactive. NECK: Supple, no lymphadenopathy, no thyromegaly. Accessory muscles of respiration are prominent. LUNGS AND CHEST: Bilateral inspiratory and expiratory rhonchi present. Intercostal retractions are present. Diminished breath sounds are present. CVS: S1, S2 heard. No gallop, no murmur, no rub. Apical impulse in the left fifth intercostal space and midclavicular line. ABDOMEN: Soft and benign. No hepatosplenomegaly. No guarding, no rigidity. Hernial orifices are normal. EXTREMITIES: Good pedal pulses. No pedal edema. CENTRAL NERVOUS SYSTEM: Alert, but oriented. Nonfocal exam. Trying to work hard for breathing. SKIN: Skin lesions all over consistent with severe dermatitis. He has a history of bullous dermatitis and bullous pemphigoid. Otherwise, other than increased work of breathing and low oxygen saturations, review of systems is essentially negative. On examination, elderly male with skin lesions all over. As mentioned, temperature is 99.9, pulse is 102, respiratory rate is 52, sats are 78%. LABORATORY DATA: Significant for white count of 10,800, H and H is 13.1 and 41.3, platelet count is 191,000. Blood gas, pH is 7.469, pCO2 of 36.2, pO2 of 47, bicarbonate of 26.3. Total CO2 of 27 and FiO2 100. Lactic acid 4.3, BUN and creatinine 30 and 1.2. Sodium is 159. BNP is elevated at 1287. Urine shows white blood cells 15. ASSESSMENT AND PLAN: 1. Acute respiratory failure with hypoxia. Continue breathing treatments and BiPAP machine, intubate if necessary. The patient also started on DuoNebs q.6 round the clock and q.3 p.r.n. and also IV Levaquin 750 mg daily, and methylprednisolone 40 mg IV q. 12. Prognosis, poor. 2. Insulin-dependent diabetes. Continue insulin 6 units a.c., metformin 500 b.i.d., and also long acting insulin Lantus 20 units at night time. 3. Bullous pemphigoid. Continue prednisone 10 mg daily. 4. Hyperlipidemia. Continue atorvastatin 20 mg daily. 5. Hypertension. Continue amlodipine 10 mg daily and clonidine 0.2 b.i.d. 6. Deep venous thrombosis prophylaxis, Lovenox 40 mg subcutaneous daily. CRITICAL CARE STATEMENT: There is a high probability of a clinically significant sudden or life-threatening deterioration or cardiorespiratory system required my full and direct attention, intervention, and personal management. The aggregate critical care time was 40 minutes. The time in addition to time spent performing reported procedures, but includes the following, 1. Data review and interpretation. 2. The patient's assessment and monitoring of her vital signs. 3. Documentation. 4. Medication orders and management. JOB# [id number] MUKESH/AZAM
[2016-04-11] MEDS ORDERED: AQUAPHOR TP PRN (15:07)
[2016-04-11] MEDS: HEPARIN/ 0.45% NACL-25,000 UNIT/500 ML 500 ML IV SCH (15:29)
[2016-04-11] MEDS: NOVOLOG SUB-Q SCH (15:46)
--- NOTE | 2016-04-11 16:17 | XRay Report ---
ABDOMEN RADIOGRAPH: INDICATION: Dobbhoff placement. COMPARISON: None similar. FINDINGS: Frontal abdominal radiograph demonstrates Dobbhoff tube in the proximal stomach, turned upon itself distally with its tip at the gastric fundus, pointing medially towards the GE junction. Generalized bowel gaseous distention with few small bowel loops measuring up to approximately 4 cm caliber. Grossly clear visualized lung bases. EKG leads. Few spinal degenerative changes. CONCLUSION: 1. Dobbhoff tube in the proximal stomach, as described, that may be remanipulated to attempt tip placement along the distal stomach, if so appropriate. 2. Possible small bowel ileus. Thank you for the opportunity to participate in this patient's care.
--- NOTE | 2016-04-11 17:45 | Echocardiography Report ---
Transthoracic Echocardiogram Indication: CHF BP: 115/89 Conclusions *Poor quality echo-no windows available for visualization of cardiac structures. *If clinically indicated, suggest MARISA or MUGA scan for cardiac structure/function assessment. Findings Procedure Info: The study quality is poor. The study is technically limited due to poor acoustic windows. The study is technically limited due to poor parasternal windows. The study is technically limited due to poor apical windows. The study is technically limited due to patient body habitus. The study was technically limited due to the patient's inability to lay in the left lateral decubitus position. Left Ventricle: The left ventricle is not well visualized. Summary: A transesophageal echocardiogram is recommended. Measurements Diastolic/Systolic Function Name Value Normal Range MV E-wave Vmax 0.31 m/sec - MV deceleration time 141 msec - MV A-wave Vmax 0.46 m/sec - MV E:A ratio 0.7 ratio - Mitral Valve Name Value Normal Range MV PHT 50 msec - MVA (PHT) 4.4 cm2 -
[2016-04-11] MEDS: PEPCID IV SCH (21:48)
[2016-04-12] MEDS: DUONEB 0.5 MG-3 MG/3 ML SOLN IH SCH ×7 (02:33→21:25)
[2016-04-12] MEDS: NACL 0.45% 1000 ML 1,000 ML IV SCH ×3 (02:43→23:11)
--- NOTE | 2016-04-12 03:34 | Consultation ---
CONSULTING PHYSICIAN: Ángela Pineda MD REASON FOR CONSULTATION: Acute hypoxemic respiratory failure. CHIEF COMPLAINT AND HISTORY OF PRESENT ILLNESS: The patient is a 66-year-old -Russian male, group home resident, past medical history significant amongst other things for a cerebrovascular accident, questionable dysphagia, brought in from the Emergency Room secondary to cough, dyspnea, increased work of breathing going on for about 24-48 hours, got really severe on the day of presentation. In the ER, he was found to be saturating in the 70s on room air. He ultimately required being placed on bilevel positive airway pressure ventilation therapy on 100% FiO2 and transferred to the Intensive Care Unit, where I stopped by to see him. When I stopped by to see him, he remained on the BiPAP machine lethargic. He was able to node his head yes or no. He denied pain in terms of chest pain. Denied any recent vomiting. The patient's tobacco use/abuse history is unknown. The emergency records say he was a never smoker. That really is as much of the history of presentation as I have. PAST MEDICAL HISTORY: According to his medical records include the following: The group home records mention cerebrovascular accident, again residual left-sided hemiparesis, oropharyngeal dysphagia, posttraumatic stress disorder, essential hypertension, diabetes type 2, insomnia, benign prostatic hyperplasia, hypertension, element of dementia, history of herpes simplex virus type 2 and has a skin lesion all over his body that is supposed to be an autoimmune. PAST SURGICAL HISTORY: Records say yes, but unclear what surgery he has had. MEDICATIONS: He was on at the time I stopped by to see him, according to the medication administration record included the following: DuoNeb treatments nebulized q. 6 hours, Xanax 0.25 mg p.o. q. 8 hours p.r.n., p.r.n. milk of magnesia, Norvasc 10 mg p.o. q.a.m. scheduled, clonidine 0.2 mg p.o. b.i.d., p.r.n. Dulcolax, Lovenox 40 mg subcutaneous daily, Pepcid 20 mg IV b.i.d., Dilaudid 0.5 mg IV q. 3 hours p.r.n., Levemir 10 units subcutaneous at bedtime that is Levemir insulin, Solu-Medrol 125 mg IV q. 8 hours, Zosyn 4.5 grams IV q. 8 hours. ALLERGIES: No known drug allergies. DIET: Appears to be a well built gentleman, acute weight loss or gain history though is unknown. FAMILY AND SOCIAL HISTORY: [facility] resident, had denied tobacco, alcohol, or illicit drug use or abuse at presentation. REVIEW OF SYSTEMS: Difficult to obtain secondary to the patient's medical and mental condition. Since he has been here, no gross hematochezia or melena, no gross hematuria, no hematemesis, no hemoptysis, no emesis, no seizure activity. Complete review of systems otherwise is unobtainable or as in the body of history above. PHYSICAL EXAMINATION: VITAL SIGNS: At presentation, he had a low grade fever of 99.9, pulse of 103, respiratory rate 17, blood pressure 103/71, respiratory rate soon went up to 52, oxygen sats 78%, inspired oxygen concentration was not reported. HEENT: Difficult to open his eyes; however, pupils appear to be equal, about 2-3 mm, sluggishly reactive to light. Extraocular muscle movements could not be assessed. He had a BiPAP mask machine over his eyes, so difficult to evaluate. Grossly, there were no palpable lymph nodes in the supraclavicular or submandibular lymph node chains. LUNGS: Auscultation of both lung sanchez, diminished bilateral breath sounds, occasional basilar rales, no wheezing, but prolonged expiratory phase. HEART: Sounds 1 and 2 are heard. There were regular rate and rhythm at the time of my evaluation. ABDOMEN: Soft. Bowel sounds are positive. Did not appear tender. EXTREMITIES: Without overt digital clubbing, cyanosis, or pedal edema. He had some slight left upper extremity edema. NEUROLOGIC: He had the residual left-sided weakness and was lethargic SKIN: He had the skin lesions all over his skin and look almost like target lesions, but multiples skin lesions with deep pigmentation and central areas of eschar formation. LABORATORY DATA: From my review are as follows: White cell count 10,800, hemoglobin 13.1, hematocrit 41.3, platelets 191. Serum INR was 1.13. Arterial blood gas showed a pH of 7.47, pCO2 of 36, pO2 of 47 that was on 100% FiO2. It is unclear if that was on BiPAP. Serum sodium was 159, potassium 4.0, chloride 116, bicarbonate 26, BUN 30, creatinine 1.2, glucose 390. Lactic acid level was . Total bilirubin 1.4. BNP was elevated at 1287. Urinalysis negative for nitrites, small leukocyte esterase, white cells 15 per high power field. Microbiology studies, all no growth to date. Influenza A and B rapid screen were negative. Chest x-ray has been reviewed. I have also reviewed the radiologist's interpretation, and I do agree with it. Main finding is right lower lobe infiltrate that indeed is consistent with a pneumonia and in this gentleman, I will suggest an aspiration pneumonia. ASSESSMENT AND PLAN: We have an elderly gentleman in with an acute hypoxemic respiratory failure that appears to be respiratory related, and probably due to an aspiration pneumonia. From a respiratory standpoint, he is improving and tolerating BiPAP well so far. We will keep him on bilevel positive airway pressure ventilation therapy with close observation in the Intensive Care Unit for now. Bronchodilators will be continued. Aspiration precautions will be maintained. We will have a low threshold for intubation. He will be treated with antibiotics as discussed below in the Infectious Disease section of this report. Oxygen will be weaned to keep sats greater than or equal to about 92%. He is on bilevel positive airway pressure ventilation therapy 02/04 with a backup rate of 14, I believe, I will continue with current settings. Considering his relatively sedentary lifestyle, venous thromboembolic disorder workup is going to be done, I am bothered about the left upper extremity in particular. I will go ahead and get a stat D-dimer level, but also do left upper extremity Dopplers and if those are negative, and the D-dimer is elevated, I will also do a bilateral lower extremity Dopplers plus or minus a CTA of his chest. From a cardiovascular standpoint, blood pressure is relatively stable. He is not on any vasopressors at this time. We will follow him clinically. From a GI and nutritional standpoint, feeding tube will be placed, a Dobhoff tube. Aspiration precautions will be maintained. He is appropriately on GI prophylaxis, enteral nutrition will be the feeding modality of choice, and he will need a swallow evaluation before his resuming diet as I do feel he might have aspirated. From an infectious disease standpoint, I will get a CRP level, the leukocytosis is not that impressive and certainly, we will get a CRP to try and help guide otherwise. Anti-infectives will ultimately be deescalated based on results of clinical and microbiologic data. I will go ahead and trend the lactic acid level also, and we will reduce his steroids which I am not sure if it is for COPD reasons of for stress dosing, but I will certainly begin to taper that right away. From a renal standpoint, there were no major electrolyte abnormalities. I will go ahead and also order magnesium and phosphorus levels and correct as necessary. I do note the relative hypoalbuminemia. Inputs and outputs will be monitored. Electrolytes will be corrected as necessary if the numbers suggest an element of prerenal azotemia. From a RESOURCE MANAGEMENT SPECIALIST standpoint, no gross new major focal deficits, no acute indication for neuro imaging. We will follow him clinically. From a general and hospital healthcare maintenance standpoint, he is appropriately on GI and DVT prophylaxis. Flu and pneumonia vaccination have been addressed per protocol. Thank you very much for the consult Dr. Pineda. We will follow along and make further recommendations as picture progresses/becomes clearer. At this time, I have spent about 35-40 minutes of critical care time without overlap and excluding any procedural time that may be necessary. He is critically ill on life-sustaining interventions including continuous noninvasive ventilation and at high risk for further deterioration including . JOB# [id number] TAISHA/AZAM
[2016-04-12 05:06] LABS: Hematocrit 35.8 % (35.5-45.6); Mean Corpuscular HGB Conc 31 % (32-34); Mean Corpuscular Volume 80 fl (84-94); Platelet Count 120 K/mm3 (140-440); Red Blood Count 4.49 M/mm3 (3.65-5.03); Red Cell Distribution Width 17.6 % (13.2-15.2); White Blood Count 16.4 K/mm3 (4.5-11.0)
[2016-04-12 05:07] LABS: Mean Corpuscular Hemoglobin 25 pg (28-32)
[2016-04-12 05:19] LABS: BUN/Creatinine Ratio 39.09; Blood Urea Nitrogen 43 mg/dL (9-20); Calcium 8.3 mg/dL (8.4-10.2); Carbon Dioxide 25 mmol/L (22-30); Chloride 122.8 mmol/L (98-107); Glucose 485 mg/dL (75-100); Potassium 3.3 mmol/L (3.6-5.0)
[2016-04-12 05:22] LABS: Anion Gap 17 mmol/L
[2016-04-12 05:23] LABS: Sodium 161 mmol/L (137-145)
[2016-04-12 07:06] LABS: ISTAT Base Excess 5; ISTAT HCO3 28.9; ISTAT PCO2 41.1 (35-45); ISTAT PH 7.454 (7.35-7.45); ISTAT PO2 116 (80-105); ISTAT SO2 99; ISTAT TCO2 30
[2016-04-12 07:54] LABS: Basophils % (Manual) 0 % (0.0-1.8); Blastocytes % (Manual) 0 %; Eosinophils % (Manual) 0 % (0.0-4.3); Total Cells Counted Percent 0
[2016-04-12 07:55] LABS: Anisocytosis 1+; Burr Cells 1+; Diff Status Complete; Elliptocytes Rare; Large Platelets 1+; Ovalocytes 1+; Platelet Estimate Appears Decreased; Poikilocytosis 1+
[2016-04-12] MEDS: LEVAQUIN 500MG/100ML 100 ML IV SCH ×2 (08:49→13:07)
[2016-04-12] MEDS: NORVASC PO SCH ×2 (08:49→13:07)
[2016-04-12] MEDS: CATAPRES PO SCH ×3 (08:50→23:09)
[2016-04-12] MEDS: NOVOLOG SUB-Q SCH ×5 (08:50→17:49)
[2016-04-12] MEDS: PEPCID IV SCH ×2 (08:50→13:06)
--- NOTE | 2016-04-12 09:41 | Progress Note ---
Assessment and Plan - Patient Problems (1) Acute hypoxemic respiratory failure Current Visit: Yes Status: Acute Plan to address problem: - continue qhs BIPAP for now - continue bronchodilators and pulmonary toilet - continue aspiration precautions - wean oxygen to keep sats > 94% - continue empiric AB's (2) HCAP (healthcare-associated pneumonia) Current Visit: Yes Status: Acute Plan to address problem: - as above (3) Sepsis syndrome Current Visit: Yes Status: Acute Plan to address problem: - as above - volume resuscitation (4) Pemphigus vulgaris Current Visit: Yes Status: Acute Plan to address problem: - continue systemic steroids at higher than baseline dose acutely - prn topical AB's / antifungals (5) Altered mental status Current Visit: Yes Status: Acute Plan to address problem: - suspect not far from baseline re: history of CVA but will discuss with (6) Discharge planning issues Current Visit: Yes Status: Acute Plan to address problem: - hopefully improves and can transfer back to [place] ..remains critically ill on life sustaining interventions including continuous MVS and at risk for further deterioration ...33' CCT Subjective Date of service: 04/12/16 Principal diagnosis: Acute Hypoxemic Respiratory Failure; VTE Interval history: Seen and examined at bedside; 24 hour events reviewed; nursing and respiratory care staff consulted; no adverse overnight events reported to me; remains on BIPAP but oxygenating better; no emesis or overt aspiration; no gross bleeding Objective Vital Signs - 12hr 04/11/16 04/11/16 04/11/16 21:42 22:00 23:00 Temperature Pulse Rate 92 H 83 Pulse Rate [ Anterior Bilateral Throughout] Respiratory 30 H 22 Rate Respiratory Rate [Anterior Bilateral Throughout] Respiratory 26 H Rate [denies] Blood Pressure 129/92 119/82 O2 Sat by Pulse 95 98 Oximetry 04/12/16 04/12/16 04/12/16 00:00 01:00 02:00 Temperature 98.3 F Pulse Rate 80 74 77 Pulse Rate [ Anterior Bilateral Throughout] Respiratory 24 24 23 Rate Respiratory Rate [Anterior Bilateral Throughout] Respiratory Rate [denies] Blood Pressure 115/79 122/83 111/78 O2 Sat by Pulse 98 96 97 Oximetry 04/12/16 04/12/16 04/12/16 02:08 02:16 02:20 Temperature Pulse Rate 77 77 79 Pulse Rate [ Anterior Bilateral Throughout] Respiratory 22 25 H 26 H Rate Respiratory Rate [Anterior Bilateral Throughout] Respiratory Rate [denies] Blood Pressure 111/78 111/78 111/78 O2 Sat by Pulse 98 100 100 Oximetry 04/12/16 04/12/16 04/12/16 02:33 02:52 03:00 Temperature Pulse Rate 76 85 Pulse Rate [ 100 H 84 Anterior Bilateral Throughout] Respiratory 16 26 H Rate Respiratory 26 H 24 Rate [Anterior Bilateral Throughout] Respiratory Rate [denies] Blood Pressure 111/78 129/81 O2 Sat by Pulse 100 99 Oximetry 04/12/16 04/12/16 04/12/16 03:12 04:00 05:00 Temperature 98.5 F Pulse Rate 79 81 79 Pulse Rate [ Anterior Bilateral Throughout] Respiratory 13 23 23 Rate Respiratory Rate [Anterior Bilateral Throughout] Respiratory Rate [denies] Blood Pressure 129/81 114/75 115/76 O2 Sat by Pulse 100 99 100 Oximetry 04/12/16 04/12/16 04/12/16 05:20 05:42 05:50 Temperature Pulse Rate 70 69 70 Pulse Rate [ Anterior Bilateral Throughout] Respiratory 15 16 14 Rate Respiratory Rate [Anterior Bilateral Throughout] Respiratory Rate [denies] Blood Pressure 115/76 115/76 115/76 O2 Sat by Pulse 100 100 100 Oximetry 04/12/16 04/12/16 04/12/16 06:00 06:36 07:00 Temperature Pulse Rate 76 77 76 Pulse Rate [ Anterior Bilateral Throughout] Respiratory 26 H 20 21 Rate Respiratory Rate [Anterior Bilateral Throughout] Respiratory Rate [denies] Blood Pressure 118/75 118/75 121/77 O2 Sat by Pulse 100 100 100 Oximetry 04/12/16 04/12/16 04/12/16 07:48 08:39 08:49 Temperature 98.1 F Pulse Rate 73 Pulse Rate [ 86 Anterior Bilateral Throughout] Respiratory Rate Respiratory 24 Rate [Anterior Bilateral Throughout] Respiratory Rate [denies] Blood Pressure 127/79 O2 Sat by Pulse Oximetry 04/12/16 08:50 Temperature Pulse Rate 73 Pulse Rate [ Anterior Bilateral Throughout] Respiratory Rate Respiratory Rate [Anterior Bilateral Throughout] Respiratory Rate [denies] Blood Pressure 127/79 O2 Sat by Pulse Oximetry Constitutional: no acute distress, lethargic Eyes: non-icteric ENT: oropharynx moist Neck: supple, no lymphadenopathy Effort: mildly labored Ascultation: Bilateral: diminished breath sounds, rales Cardiovascular: regular rate and rhythm Gastrointestinal: normoactive bowel sounds, soft, non-tender, non-distended Integumentary: other (diffuse skin rash; ? pemphigus vulgaris) Extremities: no cyanosis, no edema, pulses normal, no ischemia or petechiae Neurologic: unable to assess Psychiatric: other (unable to assess) CBC and BMP: 04/14/16 04:34 04/14/16 12:58 ABG, PT/INR, D-dimer: ABG POC ABG pH 7.454 (7.35-7.45) H 04/12/16 06:54 POC ABG pCO2 41.1 (35-45) 04/12/16 06:54 POC ABG pO2 116 (80-105) H 04/12/16 06:54 POC ABG HCO3 28.9 04/12/16 06:54 POC ABG Total CO2 30 04/12/16 06:54 POC ABG O2 Sat 99 04/12/16 06:54 PT/INR, D-dimer PT 14.4 Sec. (12.2-14.9) 04/10/16 16:54 INR 1.13 (0.87-1.13) 04/10/16 16:54 D-Dimer 3652.03 ng/mlDDU (0-234) H 04/11/16 11:37 Abnormal lab findings: Abnormal Labs 04/11/16 04/11/16 04/11/16 05:02 05:02 11:37 WBC 11.7 H Hgb MCV 80 L MCH 25 L MCHC 31 L RDW 17.5 H Plt Count 109 L Seg Neuts % (Manual) 91.0 H Lymphocytes % (Manual) 3.0 L Nucleated RBC % 1.0 H Seg Neutrophils # Man 10.6 H Lymphocytes # (Manual) 0.4 L D-Dimer Heparin Anti-Xa Level POC ABG pH POC ABG pO2 Sodium 156 H Potassium Chloride 117.6 H Carbon Dioxide 21 L BUN 46 H Glucose 496 H POC Glucose Lactic Acid Calcium 8.3 L Phosphorus 5.0 H Magnesium 3.6 H C-Reactive Protein Albumin 1.9 L 04/11/16 04/11/16 04/11/16 11:37 11:37 11:37 WBC Hgb MCV MCH MCHC RDW Plt Count Seg Neuts % (Manual) Lymphocytes % (Manual) Nucleated RBC % Seg Neutrophils # Man Lymphocytes # (Manual) D-Dimer 3652.03 H Heparin Anti-Xa Level POC ABG pH POC ABG pO2 Sodium Potassium Chloride Carbon Dioxide BUN Glucose POC Glucose Lactic Acid 2.5 H* Calcium Phosphorus Magnesium C-Reactive Protein 42.40 H Albumin 04/11/16 04/11/16 04/11/16 15:34 21:04 21:40 WBC Hgb MCV MCH MCHC RDW Plt Count Seg Neuts % (Manual) Lymphocytes % (Manual) Nucleated RBC % Seg Neutrophils # Man Lymphocytes # (Manual) D-Dimer Heparin Anti-Xa Level 0.27 L POC ABG pH POC ABG pO2 Sodium Potassium Chloride Carbon Dioxide BUN Glucose POC Glucose 430 H > 500 H Lactic Acid Calcium Phosphorus Magnesium C-Reactive Protein Albumin 04/11/16 04/12/16 04/12/16 22:37 02:07 04:45 WBC 16.4 H Hgb 11.0 L MCV 80 L MCH 25 L MCHC 31 L RDW 17.6 H Plt Count 120 L Seg Neuts % (Manual) 91.0 H Lymphocytes % (Manual) 1.0 L Nucleated RBC % Seg Neutrophils # Man 14.9 H Lymphocytes # (Manual) 0.2 L D-Dimer Heparin Anti-Xa Level POC ABG pH POC ABG pO2 Sodium Potassium Chloride Carbon Dioxide BUN Glucose 515 H* POC Glucose 399 H Lactic Acid Calcium Phosphorus Magnesium C-Reactive Protein Albumin 04/12/16 04/12/16 04/12/16 04:45 06:19 06:54 WBC Hgb MCV MCH MCHC RDW Plt Count Seg Neuts % (Manual) Lymphocytes % (Manual) Nucleated RBC % Seg Neutrophils # Man Lymphocytes # (Manual) D-Dimer Heparin Anti-Xa Level 0.21 L POC ABG pH 7.454 H POC ABG pO2 116 H Sodium 161 H* Potassium 3.3 L D Chloride 122.8 H Carbon Dioxide BUN 43 H Glucose 485 H POC Glucose Lactic Acid Calcium 8.3 L Phosphorus Magnesium C-Reactive Protein Albumin 04/12/16 07:38 WBC Hgb MCV MCH MCHC RDW Plt Count Seg Neuts % (Manual) Lymphocytes % (Manual) Nucleated RBC % Seg Neutrophils # Man Lymphocytes # (Manual) D-Dimer Heparin Anti-Xa Level POC ABG pH POC ABG pO2 Sodium Potassium Chloride Carbon Dioxide BUN Glucose POC Glucose 423 H Lactic Acid Calcium Phosphorus Magnesium C-Reactive Protein Albumin
--- NOTE | 2016-04-12 09:47 | Progress Note ---
Assessment and Plan Assessment and plan: 1. Acute hypoxic respiratory failure. Patient will be continued on BiPAP at night. Pulmonary following. Etiology secondary to sepsis/pneumonia. 2. Sepsis. Etiology secondary to pneumonia/UTI. Patient with elevated lactic acid levels of 3.2 and 4.3 respectively. Continue to trend lactic acid levels. Follow-up blood and urine cultures. UA reveals 15 WBCs. Chest x-ray revealed right lower lobe pneumonia. 3. Healthcare associated pneumonia. Patient presented from care home. Patient may also have component of aspiration pneumonia. Continue IV antibiotics and follow-up chest x-ray. 4. UTI. Follow-up urine cultures. 5. Hypernatremia. Worse today. Continue hypotonic IV fluids. Add free water every 6 hours. Follow-up BMP. 6. Toxic metabolic encephalopathy. Continue to treat underlying causes. 7. Diabetes mellitus type 2, uncontrolled. Change Solu-Medrol from 40 mg twice a day to prednisone 20 mg daily. Increase long acting insulin to 25 units daily. 8. Oropharyngeal dysphagia. Speech evaluation. 9. Hypokalemia. Replete potassium. 10. DVT. Patient currently with heparin drip. The high probability of a clinically significant, sudden or life threatening deterioration of the [respiratory, endocrine and neurology] system(s) required my full and direct attention, intervention and personal management. The aggregate critical care time was [31] minutes. This time is in addition to time spent performing reported procedures but includes the following: [x] Data Review and interpretation [x] Patient assessment and monitoring of vital signs [x] Documentation [x] Medication orders and management History Interval history: The patient is a 66-year-old male with a history of diabetes, HSV 2, autoimmune skin lesions, CVA, and residual left-sided hemiparesis, who presents for evaluation of dyspnea. Patient presents from the care home with acute hypoxic respiratory failure with saturations in the 70s. Patient currently on BiPAP. No new issues overnight. Hospitalist Physical - Constitutional Vitals: Temp Pulse Resp BP Pulse Ox 98.1 F 73 24 127/79 100 04/12/16 07:48 04/12/16 08:50 04/12/16 08:39 04/12/16 08:50 04/12/16 07:00 General appearance: Present: no acute distress, well-nourished, other (on Bipap) - EENT Eyes: Present: PERRL, EOM intact ENT: hearing intact, clear oral mucosa, dentition normal - Neck Neck: Present: supple, normal ROM - Respiratory Respiratory effort: normal Respiratory: bilateral: diminished, rhonchi - Cardiovascular Rhythm: regular Heart Sounds: Present: S1 & S2. Absent: gallop, rub - Extremities Extremities: no ischemia, No edema, Full ROM - Abdominal General gastrointestinal: soft, non-tender, non-distended, normal bowel sounds - Integumentary Integumentary: Present: clear, warm, dry - Neurologic Neurologic: CNII-XII intact, moves all extremities Results - Labs CBC & Chem 7: 04/12/16 04:45 04/12/16 04:45 Labs: Laboratory Last Values WBC 16.4 K/mm3 (4.5-11.0) H 04/12/16 04:45 RBC 4.49 M/mm3 (3.65-5.03) 04/12/16 04:45 Hgb 11.0 gm/dl (11.8-15.2) L 04/12/16 04:45 Hct 35.8 % (35.5-45.6) 04/12/16 04:45 MCV 80 fl (84-94) L 04/12/16 04:45 MCH 25 pg (28-32) L 04/12/16 04:45 MCHC 31 % (32-34) L 04/12/16 04:45 RDW 17.6 % (13.2-15.2) H 04/12/16 04:45 Plt Count 120 K/mm3 (140-440) L 04/12/16 04:45 Add Manual Diff Complete 04/12/16 04:45 Total Counted 100 04/12/16 04:45 Seg Neutrophils % Apparel Rental Clerk 04/12/16 04:45 Seg Neuts % (Manual) 91.0 % (40.0-70.0) H 04/12/16 04:45 Band Neutrophils % 8.0 % 04/12/16 04:45 Lymphocytes % (Manual) 1.0 % (13.4-35.0) L 04/12/16 04:45 Reactive Lymphs % (Man) 0 % 04/12/16 04:45 Monocytes % (Manual) 0 % (0.0-7.3) 04/12/16 04:45 Eosinophils % (Manual) 0 % (0.0-4.3) 04/12/16 04:45 Basophils % (Manual) 0 % (0.0-1.8) 04/12/16 04:45 Metamyelocytes % 0 % 04/12/16 04:45 Myelocytes % 0 % 04/12/16 04:45 Promyelocytes % 0 % 04/12/16 04:45 Blast Cells % 0 % 04/12/16 04:45 Nucleated RBC % Not Reportable 04/12/16 04:45 Seg Neutrophils # Man 14.9 K/mm3 (1.8-7.7) H 04/12/16 04:45 Band Neutrophils # 1.3 K/mm3 04/12/16 04:45 Lymphocytes # (Manual) 0.2 K/mm3 (1.2-5.4) L 04/12/16 04:45 Abs React Lymphs (Man) 0.0 K/mm3 04/12/16 04:45 Monocytes # (Manual) 0.0 K/mm3 (0.0-0.8) 04/12/16 04:45 Eosinophils # (Manual) 0.0 K/mm3 (0.0-0.4) 04/12/16 04:45 Basophils # (Manual) 0.0 K/mm3 (0.0-0.1) 04/12/16 04:45 Metamyelocytes # 0.0 K/mm3 04/12/16 04:45 Myelocytes # 0.0 K/mm3 04/12/16 04:45 Promyelocytes # 0.0 K/mm3 04/12/16 04:45 Blast Cells # 0.0 K/mm3 04/12/16 04:45 WBC Morphology Not Reportable 04/12/16 04:45 Hypersegmented Neuts Not Reportable 04/12/16 04:45 Hyposegmented Neuts Not Reportable 04/12/16 04:45 Hypogranular Neuts Not Reportable 04/12/16 04:45 Smudge Cells Not Reportable 04/12/16 04:45 Toxic Granulation Not Reportable 04/12/16 04:45 Toxic Vacuolation Not Reportable 04/12/16 04:45 Dohle Bodies Not Reportable 04/12/16 04:45 Pelger-Huet Anomaly Not Reportable 04/12/16 04:45 Ky Rods Not Reportable 04/12/16 04:45 Platelet Estimate Appears decreased 04/12/16 04:45 Clumped Platelets Not Reportable 04/12/16 04:45 Plt Clumps, EDTA Not Reportable 04/12/16 04:45 Large Platelets 1+ 04/12/16 04:45 Giant Platelets Not Reportable 04/12/16 04:45 Platelet Satelliting Not Reportable 04/12/16 04:45 Plt Morphology Comment Not Reportable 04/12/16 04:45 RBC Morphology Not Reportable 04/12/16 04:45 Dimorphic RBCs Not Reportable 04/12/16 04:45 Polychromasia Not Reportable 04/12/16 04:45 Hypochromasia Not Reportable 04/12/16 04:45 Poikilocytosis 1+ 04/12/16 04:45 Anisocytosis 1+ 04/12/16 04:45 Microcytosis Not Reportable 04/12/16 04:45 Macrocytosis Not Reportable 04/12/16 04:45 Spherocytes Not Reportable 04/12/16 04:45 Pappenheimer Bodies Not Reportable 04/12/16 04:45 Sickle Cells Not Reportable 04/12/16 04:45 Target Cells Not Reportable 04/12/16 04:45 Tear Drop Cells Not Reportable 04/12/16 04:45 Ovalocytes 1+ 04/12/16 04:45 Helmet Cells Not Reportable 04/12/16 04:45 Stein-[place] Bodies Not Reportable 04/12/16 04:45 [place] Rings Not Reportable 04/12/16 04:45 [place] Cells 1+ 04/12/16 04:45 Bite Cells Not Reportable 04/12/16 04:45 Crenated Cell Not Reportable 04/12/16 04:45 Elliptocytes Rare 04/12/16 04:45 Acanthocytes (Spur) Not Reportable 04/12/16 04:45 Rouleaux Not Reportable 04/12/16 04:45 Hemoglobin C Crystals Not Reportable 04/12/16 04:45 Schistocytes Not Reportable 04/12/16 04:45 Malaria parasites Not Reportable 04/12/16 04:45 [place] Bodies Not Reportable 04/12/16 04:45 Hem Pathologist Commnt No 04/12/16 04:45 PT 14.4 Sec. (12.2-14.9) 04/10/16 16:54 INR 1.13 (0.87-1.13) 04/10/16 16:54 APTT 34.3 Sec. (24.2-36.6) 04/11/16 11:50 D-Dimer 3652.03 ng/mlDDU (0-234) H 04/11/16 11:37 Heparin Anti-Xa Level 0.21 U.I./ml (0.3-0.7) L 04/12/16 06:19 POC ABG pH 7.454 (7.35-7.45) H 04/12/16 06:54 POC ABG pCO2 41.1 (35-45) 04/12/16 06:54 POC ABG pO2 116 (80-105) H 04/12/16 06:54 POC ABG HCO3 28.9 04/12/16 06:54 POC ABG Total CO2 30 04/12/16 06:54 POC ABG O2 Sat 99 04/12/16 06:54 POC ABG Base Excess 5 04/12/16 06:54 VBG pH 7.437 (7.320-7.420) H 04/10/16 16:54 FiO2 3 % 04/12/16 06:54 Sodium 161 mmol/L (137-145) H* 04/12/16 04:45 Potassium 3.3 mmol/L (3.6-5.0) L D 04/12/16 04:45 Chloride 122.8 mmol/L (98-107) H 04/12/16 04:45 Carbon Dioxide 25 mmol/L (22-30) 04/12/16 04:45 Anion Gap 17 mmol/L 04/12/16 04:45 BUN 43 mg/dL (9-20) H 04/12/16 04:45 Creatinine 1.1 mg/dL (0.8-1.5) 04/12/16 04:45 Estimated GFR > 60 ml/min 04/12/16 04:45 BUN/Creatinine Ratio 39.09 % 04/12/16 04:45 Glucose 485 mg/dL (75-100) H 04/12/16 04:45 POC Glucose 423 (70-105) H 04/12/16 07:38 Lactic Acid 2.5 mmol/L (0.7-2.0) H* 04/11/16 11:37 Calcium 8.3 mg/dL (8.4-10.2) L 04/12/16 04:45 Phosphorus 5.0 mg/dL (2.5-4.5) H 04/11/16 11:37 Magnesium 3.6 mg/dL (1.7-2.3) H 04/11/16 11:37 Total Bilirubin 1.0 mg/dL (0.1-1.2) 04/11/16 05:02 AST 36 units/L (5-40) 04/11/16 05:02 ALT 40 units/L (7-56) 04/11/16 05:02 Alkaline Phosphatase 94 units/L (35-129) 04/11/16 05:02 C-Reactive Protein 42.40 mg/dL (0.00-1.30) H 04/11/16 11:37 NT-Pro-B Natriuret Pep 1287 pg/mL (0-900) H 04/10/16 17:06 Total Protein 7.0 g/dL (6.3-8.2) 04/11/16 05:02 Albumin 1.9 g/dL (3.9-5) L 04/11/16 05:02 Albumin/Globulin Ratio 0.4 % 04/11/16 05:02 Urine Color Eri (Yellow) 04/10/16 16:56 Urine Turbidity Clear (Clear) 04/10/16 16:56 Urine pH 5.0 (5.0-7.0) 04/10/16 16:56 Ur Specific [place] 1.020 (1.003-1.030) 04/10/16 16:56 Urine Protein 30 mg/dl mg/dL (Negative) 04/10/16 16:56 Urine Glucose (UA) 50 mg/dL (Negative) 04/10/16 16:56 Urine Ketones Neg mg/dL (Negative) 04/10/16 16:56 Urine Blood Sm (Negative) 04/10/16 16:56 Urine Nitrite Neg (Negative) 04/10/16 16:56 Urine Bilirubin Neg (Negative) 04/10/16 16:56 Urine Urobilinogen 4.0 mg/dL (<2.0) 04/10/16 16:56 Ur Leukocyte Esterase Sm (Negative) 04/10/16 16:56 Urine WBC (Auto) 15.0 /HPF (0.0-6.0) H 04/10/16 16:56 Urine RBC (Auto) 7.0 /HPF (0.0-6.0) 04/10/16 16:56 Amorphous Crystals Few 04/10/16 16:56 Urine Mucus 1+ /HPF 04/10/16 16:56
[2016-04-12] MEDS ORDERED: K-DUR PO ONE (09:49)
[2016-04-12] MEDS ORDERED: FLUARIX QUAD 2016-2017(36 MOS+) IM ONE (12:00)
[2016-04-12] MEDS ORDERED: PNEUMOVAX 23 IM ONE (12:00)
[2016-04-12] MEDS ORDERED: POTASSIUM CHLORIDE FEEDTUBE ONE (14:00)
[2016-04-12] MEDS ORDERED: LEVEMIR SUB-Q SCH (22:00)
[2016-04-12] MEDS: LEVEMIR SUB-Q SCH (23:09)
[2016-04-13] MEDS: DUONEB 0.5 MG-3 MG/3 ML SOLN IH SCH ×4 (01:19→20:23)
--- NOTE | 2016-04-13 08:59 | Progress Note ---
Assessment and Plan Assessment and plan: 1. Acute hypoxic respiratory failure. Patient will be continued on BiPAP at night. Pulmonary following. Etiology secondary to sepsis/pneumonia. 2. Sepsis. Etiology secondary to pneumonia/UTI. Patient with elevated lactic acid levels of 3.2 and 4.3 respectively. Continue to trend lactic acid levels. Follow-up blood and urine cultures. UA reveals 15 WBCs. Chest x-ray revealed right lower lobe pneumonia. 3. Healthcare associated pneumonia. Patient presented from halfway. Patient may also have component of aspiration pneumonia. Continue IV antibiotics and follow-up chest x-ray. 4. UTI. Follow-up urine cultures. 5. Hypernatremia. Continue hypotonic IV fluids. Cont. free water every 6 hours. Follow-up BMP. 6. Toxic metabolic encephalopathy. Continue to treat underlying causes. 7. Diabetes mellitus type 2, uncontrolled. Change Solu-Medrol from 40 mg twice a day to prednisone 20 mg daily. Increase long acting insulin to 25 units daily. 8. Oropharyngeal dysphagia. Speech evaluation. 9. Hypokalemia. Replete potassium. 10. DVT. Patient currently with heparin drip. The high probability of a clinically significant, sudden or life threatening deterioration of the [respiratory, endocrine and neurology] system(s) required my full and direct attention, intervention and personal management. The aggregate critical care time was [31] minutes. This time is in addition to time spent performing reported procedures but includes the following: [x] Data Review and interpretation [x] Patient assessment and monitoring of vital signs [x] Documentation [x] Medication orders and management History Interval history: The patient is a 66-year-old male with a history of diabetes, HSV 2, autoimmune skin lesions, CVA, and residual left-sided hemiparesis, who presents for evaluation of dyspnea. Patient presents from the halfway with acute hypoxic respiratory failure with saturations in the 70s. Patient currently on BiPAP. No new issues overnight. Hospitalist Physical - Constitutional Vitals: Temp Pulse Resp BP Pulse Ox 98.9 F 74 20 121/79 98 04/13/16 01:00 04/13/16 07:59 04/13/16 07:59 04/13/16 01:00 04/13/16 07:59 General appearance: Present: mild distress, well-nourished, other (on Bipap) - EENT Eyes: Present: PERRL, EOM intact ENT: hearing intact, clear oral mucosa, dentition normal - Neck Neck: Present: supple, normal ROM - Respiratory Respiratory effort: normal Respiratory: bilateral: diminished, rhonchi - Cardiovascular Rhythm: regular Heart Sounds: Present: S1 & S2. Absent: gallop, rub - Extremities Extremities: no ischemia, No edema, Full ROM - Abdominal General gastrointestinal: soft, non-tender, non-distended, normal bowel sounds - Integumentary Integumentary: Present: clear, warm, dry - Neurologic Neurologic: CNII-XII intact, moves all extremities Results - Labs CBC & Chem 7: 04/12/16 04:45 04/12/16 04:45 Labs: Laboratory Last Values WBC 16.4 K/mm3 (4.5-11.0) H 04/12/16 04:45 RBC 4.49 M/mm3 (3.65-5.03) 04/12/16 04:45 Hgb 11.0 gm/dl (11.8-15.2) L 04/12/16 04:45 Hct 35.8 % (35.5-45.6) 04/12/16 04:45 MCV 80 fl (84-94) L 04/12/16 04:45 MCH 25 pg (28-32) L 04/12/16 04:45 MCHC 31 % (32-34) L 04/12/16 04:45 RDW 17.6 % (13.2-15.2) H 04/12/16 04:45 Plt Count 120 K/mm3 (140-440) L 04/12/16 04:45 Add Manual Diff Complete 04/12/16 04:45 Total Counted 100 04/12/16 04:45 Seg Neutrophils % Public Policy Mediator 04/12/16 04:45 Seg Neuts % (Manual) 91.0 % (40.0-70.0) H 04/12/16 04:45 Band Neutrophils % 8.0 % 04/12/16 04:45 Lymphocytes % (Manual) 1.0 % (13.4-35.0) L 04/12/16 04:45 Reactive Lymphs % (Man) 0 % 04/12/16 04:45 Monocytes % (Manual) 0 % (0.0-7.3) 04/12/16 04:45 Eosinophils % (Manual) 0 % (0.0-4.3) 04/12/16 04:45 Basophils % (Manual) 0 % (0.0-1.8) 04/12/16 04:45 Metamyelocytes % 0 % 04/12/16 04:45 Myelocytes % 0 % 04/12/16 04:45 Promyelocytes % 0 % 04/12/16 04:45 Blast Cells % 0 % 04/12/16 04:45 Nucleated RBC % Not Reportable 04/12/16 04:45 Seg Neutrophils # Man 14.9 K/mm3 (1.8-7.7) H 04/12/16 04:45 Band Neutrophils # 1.3 K/mm3 04/12/16 04:45 Lymphocytes # (Manual) 0.2 K/mm3 (1.2-5.4) L 04/12/16 04:45 Abs React Lymphs (Man) 0.0 K/mm3 04/12/16 04:45 Monocytes # (Manual) 0.0 K/mm3 (0.0-0.8) 04/12/16 04:45 Eosinophils # (Manual) 0.0 K/mm3 (0.0-0.4) 04/12/16 04:45 Basophils # (Manual) 0.0 K/mm3 (0.0-0.1) 04/12/16 04:45 Metamyelocytes # 0.0 K/mm3 04/12/16 04:45 Myelocytes # 0.0 K/mm3 04/12/16 04:45 Promyelocytes # 0.0 K/mm3 04/12/16 04:45 Blast Cells # 0.0 K/mm3 04/12/16 04:45 WBC Morphology Not Reportable 04/12/16 04:45 Hypersegmented Neuts Not Reportable 04/12/16 04:45 Hyposegmented Neuts Not Reportable 04/12/16 04:45 Hypogranular Neuts Not Reportable 04/12/16 04:45 Smudge Cells Not Reportable 04/12/16 04:45 Toxic Granulation Not Reportable 04/12/16 04:45 Toxic Vacuolation Not Reportable 04/12/16 04:45 Dohle Bodies Not Reportable 04/12/16 04:45 Pelger-Huet Anomaly Not Reportable 04/12/16 04:45 Ky Rods Not Reportable 04/12/16 04:45 Platelet Estimate Appears decreased 04/12/16 04:45 Clumped Platelets Not Reportable 04/12/16 04:45 Plt Clumps, EDTA Not Reportable 04/12/16 04:45 Large Platelets 1+ 04/12/16 04:45 Giant Platelets Not Reportable 04/12/16 04:45 Platelet Satelliting Not Reportable 04/12/16 04:45 Plt Morphology Comment Not Reportable 04/12/16 04:45 RBC Morphology Not Reportable 04/12/16 04:45 Dimorphic RBCs Not Reportable 04/12/16 04:45 Polychromasia Not Reportable 04/12/16 04:45 Hypochromasia Not Reportable 04/12/16 04:45 Poikilocytosis 1+ 04/12/16 04:45 Anisocytosis 1+ 04/12/16 04:45 Microcytosis Not Reportable 04/12/16 04:45 Macrocytosis Not Reportable 04/12/16 04:45 Spherocytes Not Reportable 04/12/16 04:45 Pappenheimer Bodies Not Reportable 04/12/16 04:45 Sickle Cells Not Reportable 04/12/16 04:45 Target Cells Not Reportable 04/12/16 04:45 Tear Drop Cells Not Reportable 04/12/16 04:45 Ovalocytes 1+ 04/12/16 04:45 Helmet Cells Not Reportable 04/12/16 04:45 Stein-[place] Bodies Not Reportable 04/12/16 04:45 [place] Rings Not Reportable 04/12/16 04:45 [place] Cells 1+ 04/12/16 04:45 Bite Cells Not Reportable 04/12/16 04:45 Crenated Cell Not Reportable 04/12/16 04:45 Elliptocytes Rare 04/12/16 04:45 Acanthocytes (Spur) Not Reportable 04/12/16 04:45 Rouleaux Not Reportable 04/12/16 04:45 Hemoglobin C Crystals Not Reportable 04/12/16 04:45 Schistocytes Not Reportable 04/12/16 04:45 Malaria parasites Not Reportable 04/12/16 04:45 [place] Bodies Not Reportable 04/12/16 04:45 Hem Pathologist Commnt No 04/12/16 04:45 PT 14.4 Sec. (12.2-14.9) 04/10/16 16:54 INR 1.13 (0.87-1.13) 04/10/16 16:54 APTT 34.3 Sec. (24.2-36.6) 04/11/16 11:50 D-Dimer 3652.03 ng/mlDDU (0-234) H 04/11/16 11:37 Heparin Anti-Xa Level 0.20 U.I./ml (0.3-0.7) L 04/12/16 20:39 POC ABG pH 7.454 (7.35-7.45) H 04/12/16 06:54 POC ABG pCO2 41.1 (35-45) 04/12/16 06:54 POC ABG pO2 116 (80-105) H 04/12/16 06:54 POC ABG HCO3 28.9 04/12/16 06:54 POC ABG Total CO2 30 04/12/16 06:54 POC ABG O2 Sat 99 04/12/16 06:54 POC ABG Base Excess 5 04/12/16 06:54 VBG pH 7.437 (7.320-7.420) H 04/10/16 16:54 FiO2 3 % 04/12/16 06:54 Sodium 161 mmol/L (137-145) H* 04/12/16 04:45 Potassium 3.3 mmol/L (3.6-5.0) L D 04/12/16 04:45 Chloride 122.8 mmol/L (98-107) H 04/12/16 04:45 Carbon Dioxide 25 mmol/L (22-30) 04/12/16 04:45 Anion Gap 17 mmol/L 04/12/16 04:45 BUN 43 mg/dL (9-20) H 04/12/16 04:45 Creatinine 1.1 mg/dL (0.8-1.5) 04/12/16 04:45 Estimated GFR > 60 ml/min 04/12/16 04:45 BUN/Creatinine Ratio 39.09 % 04/12/16 04:45 Glucose 485 mg/dL (75-100) H 04/12/16 04:45 POC Glucose 247 (70-105) H 04/13/16 06:12 Lactic Acid 2.5 mmol/L (0.7-2.0) H* 04/11/16 11:37 Calcium 8.3 mg/dL (8.4-10.2) L 04/12/16 04:45 Phosphorus 5.0 mg/dL (2.5-4.5) H 04/11/16 11:37 Magnesium 3.6 mg/dL (1.7-2.3) H 04/11/16 11:37 Total Bilirubin 1.0 mg/dL (0.1-1.2) 04/11/16 05:02 AST 36 units/L (5-40) 04/11/16 05:02 ALT 40 units/L (7-56) 04/11/16 05:02 Alkaline Phosphatase 94 units/L (35-129) 04/11/16 05:02 C-Reactive Protein 42.40 mg/dL (0.00-1.30) H 04/11/16 11:37 NT-Pro-B Natriuret Pep 1287 pg/mL (0-900) H 04/10/16 17:06 Total Protein 7.0 g/dL (6.3-8.2) 04/11/16 05:02 Albumin 1.9 g/dL (3.9-5) L 04/11/16 05:02 Albumin/Globulin Ratio 0.4 % 04/11/16 05:02 Urine Color Eri (Yellow) 04/10/16 16:56 Urine Turbidity Clear (Clear) 04/10/16 16:56 Urine pH 5.0 (5.0-7.0) 04/10/16 16:56 Ur Specific [place] 1.020 (1.003-1.030) 04/10/16 16:56 Urine Protein 30 mg/dl mg/dL (Negative) 04/10/16 16:56 Urine Glucose (UA) 50 mg/dL (Negative) 04/10/16 16:56 Urine Ketones Neg mg/dL (Negative) 04/10/16 16:56 Urine Blood Sm (Negative) 04/10/16 16:56 Urine Nitrite Neg (Negative) 04/10/16 16:56 Urine Bilirubin Neg (Negative) 04/10/16 16:56 Urine Urobilinogen 4.0 mg/dL (<2.0) 04/10/16 16:56 Ur Leukocyte Esterase Sm (Negative) 04/10/16 16:56 Urine WBC (Auto) 15.0 /HPF (0.0-6.0) H 04/10/16 16:56 Urine RBC (Auto) 7.0 /HPF (0.0-6.0) 04/10/16 16:56 Amorphous Crystals Few 04/10/16 16:56 Urine Mucus 1+ /HPF 04/10/16 16:56
[2016-04-13] MEDS: LEVAQUIN 500MG/100ML 100 ML IV SCH (09:15)
[2016-04-13] MEDS: PEPCID IV SCH ×3 (09:16→23:17)
[2016-04-13] MEDS: CATAPRES PO SCH ×2 (09:16→23:15)
[2016-04-13] MEDS: NORVASC PO SCH (09:17)
[2016-04-13] MEDS: DELTASONE PO SCH (09:17)
[2016-04-13] MEDS: NOVOLOG SUB-Q SCH ×3 (09:17→18:58)
[2016-04-13 10:12] LABS: Hematocrit 40.2 % (35.5-45.6); Hemoglobin 12.6 gm/dl (11.8-15.2); Mean Corpuscular HGB Conc 31 % (32-34); Mean Corpuscular Volume 79 fl (84-94); Platelet Count 107 K/mm3 (140-440); Red Blood Count 5.12 M/mm3 (3.65-5.03); Red Cell Distribution Width 17.6 % (13.2-15.2); White Blood Count 9.2 K/mm3 (4.5-11.0)
[2016-04-13 10:13] LABS: Mean Corpuscular Hemoglobin 25 pg (28-32)
[2016-04-13 10:33] LABS: Anion Gap 17 mmol/L; Blood Urea Nitrogen 36 mg/dL (9-20); Calcium 8.3 mg/dL (8.4-10.2); Carbon Dioxide 26 mmol/L (22-30); Chloride 121.3 mmol/L (98-107); Glucose 254 mg/dL (75-100); Sodium 160 mmol/L (137-145)
--- NOTE | 2016-04-13 11:07 | Progress Note ---
Assessment and Plan (1) Acute hypoxemic respiratory failure Current Visit: Yes Status: Acute Plan to address problem: - continue qhs BIPAP for now - continue bronchodilators and pulmonary toilet - continue aspiration precautions - wean oxygen to keep sats > 94% - continue empiric AB's (2) HCAP (healthcare-associated pneumonia) Current Visit: Yes Status: Acute Plan to address problem: - as above (3) Sepsis syndrome Current Visit: Yes Status: Acute Plan to address problem: - as above - volume resuscitation (4) Pemphigus vulgaris Current Visit: Yes Status: Acute Plan to address problem: - continue systemic steroids at higher than baseline dose acutely - prn topical AB's / antifungals (5) Altered mental status Current Visit: Yes Status: Acute Plan to address problem: - suspect not far from baseline re: history of CVA but will discuss with (6) VTE Current Visit: Yes Status: Acute Plan to address problem: - continue anticoagulation for now (7) Discharge planning issues Current Visit: Yes Status: Acute Plan to address problem: - hopefully improves and can transfer back to [place] Subjective Date of service: 04/13/16 Principal diagnosis: Acute Hypoxemic Respiratory Failure; VTE Interval history: Seen and examined at bedside; 24 hour events reviewed; nursing and respiratory care staff consulted; no adverse overnight events reported to me; resting peacefulkly; remains on supplemental oxygen; no emswis or overt aspiration Objective Vital Signs - 12hr 04/12/16 04/12/16 04/13/16 23:09 23:33 00:00 Temperature Pulse Rate 72 56 L Pulse Rate [ Anterior Bilateral Throughout] Pulse Rate [ Brachial] Pulse Rate [ Right Radial] Respiratory 18 Rate Respiratory Rate [Anterior Bilateral Throughout] Blood Pressure 122/84 O2 Sat by Pulse Oximetry 04/13/16 04/13/16 04/13/16 00:30 01:00 01:20 Temperature 98.9 F Pulse Rate 72 Pulse Rate [ 61 Anterior Bilateral Throughout] Pulse Rate [ 68 Brachial] Pulse Rate [ Right Radial] Respiratory 28 H 18 22 Rate Respiratory 16 Rate [Anterior Bilateral Throughout] Blood Pressure 121/79 O2 Sat by Pulse 96 98 Oximetry 04/13/16 04/13/16 04/13/16 01:36 06:40 07:57 Temperature 98.6 F Pulse Rate Pulse Rate [ 68 74 Anterior Bilateral Throughout] Pulse Rate [ Brachial] Pulse Rate [ 70 Right Radial] Respiratory 22 Rate Respiratory 18 20 Rate [Anterior Bilateral Throughout] Blood Pressure 130/80 O2 Sat by Pulse 94 Oximetry 04/13/16 07:59 Temperature Pulse Rate 74 Pulse Rate [ Anterior Bilateral Throughout] Pulse Rate [ Brachial] Pulse Rate [ Right Radial] Respiratory 20 Rate Respiratory Rate [Anterior Bilateral Throughout] Blood Pressure O2 Sat by Pulse 98 Oximetry Constitutional: no acute distress, lethargic Eyes: non-icteric ENT: oropharynx moist Neck: supple, no lymphadenopathy Effort: mildly labored Ascultation: Bilateral: diminished breath sounds, rhonchi Cardiovascular: regular rate and rhythm Gastrointestinal: normoactive bowel sounds, soft, non-tender, non-distended Integumentary: other (skin rash) Extremities: no cyanosis, pulses normal, no ischemia or petechiae Neurologic: unable to assess, other (residual CVA deficits) CBC and BMP: 04/14/16 04:34 04/14/16 12:58 ABG, PT/INR, D-dimer: ABG POC ABG pH 7.454 (7.35-7.45) H 04/12/16 06:54 POC ABG pCO2 41.1 (35-45) 04/12/16 06:54 POC ABG pO2 116 (80-105) H 04/12/16 06:54 POC ABG HCO3 28.9 04/12/16 06:54 POC ABG Total CO2 30 04/12/16 06:54 POC ABG O2 Sat 99 04/12/16 06:54 PT/INR, D-dimer PT 14.4 Sec. (12.2-14.9) 04/10/16 16:54 INR 1.13 (0.87-1.13) 04/10/16 16:54 D-Dimer 3652.03 ng/mlDDU (0-234) H 04/11/16 11:37 Abnormal lab findings: Abnormal Labs 04/11/16 04/11/16 04/11/16 05:02 05:02 11:37 WBC 11.7 H RBC Hgb MCV 80 L MCH 25 L MCHC 31 L RDW 17.5 H Plt Count 109 L Seg Neuts % (Manual) 91.0 H Lymphocytes % (Manual) 3.0 L Nucleated RBC % 1.0 H Seg Neutrophils # Man 10.6 H Lymphocytes # (Manual) 0.4 L D-Dimer Heparin Anti-Xa Level POC ABG pH POC ABG pO2 Sodium 156 H Potassium Chloride 117.6 H Carbon Dioxide 21 L BUN 46 H Glucose 496 H POC Glucose Lactic Acid Calcium 8.3 L Phosphorus 5.0 H Magnesium 3.6 H C-Reactive Protein Albumin 1.9 L 04/11/16 04/11/16 04/11/16 11:37 11:37 11:37 WBC RBC Hgb MCV MCH MCHC RDW Plt Count Seg Neuts % (Manual) Lymphocytes % (Manual) Nucleated RBC % Seg Neutrophils # Man Lymphocytes # (Manual) D-Dimer 3652.03 H Heparin Anti-Xa Level POC ABG pH POC ABG pO2 Sodium Potassium Chloride Carbon Dioxide BUN Glucose POC Glucose Lactic Acid 2.5 H* Calcium Phosphorus Magnesium C-Reactive Protein 42.40 H Albumin 04/11/16 04/11/16 04/11/16 15:34 21:04 21:40 WBC RBC Hgb MCV MCH MCHC RDW Plt Count Seg Neuts % (Manual) Lymphocytes % (Manual) Nucleated RBC % Seg Neutrophils # Man Lymphocytes # (Manual) D-Dimer Heparin Anti-Xa Level 0.27 L POC ABG pH POC ABG pO2 Sodium Potassium Chloride Carbon Dioxide BUN Glucose POC Glucose 430 H > 500 H Lactic Acid Calcium Phosphorus Magnesium C-Reactive Protein Albumin 04/11/16 04/12/16 04/12/16 22:37 02:07 04:45 WBC 16.4 H RBC Hgb 11.0 L MCV 80 L MCH 25 L MCHC 31 L RDW 17.6 H Plt Count 120 L Seg Neuts % (Manual) 91.0 H Lymphocytes % (Manual) 1.0 L Nucleated RBC % Seg Neutrophils # Man 14.9 H Lymphocytes # (Manual) 0.2 L D-Dimer Heparin Anti-Xa Level POC ABG pH POC ABG pO2 Sodium Potassium Chloride Carbon Dioxide BUN Glucose 515 H* POC Glucose 399 H Lactic Acid Calcium Phosphorus Magnesium C-Reactive Protein Albumin 04/12/16 04/12/16 04/12/16 04:45 06:19 06:54 WBC RBC Hgb MCV MCH MCHC RDW Plt Count Seg Neuts % (Manual) Lymphocytes % (Manual) Nucleated RBC % Seg Neutrophils # Man Lymphocytes # (Manual) D-Dimer Heparin Anti-Xa Level 0.21 L POC ABG pH 7.454 H POC ABG pO2 116 H Sodium 161 H* Potassium 3.3 L D Chloride 122.8 H Carbon Dioxide BUN 43 H Glucose 485 H POC Glucose Lactic Acid Calcium 8.3 L Phosphorus Magnesium C-Reactive Protein Albumin 04/12/16 04/12/16 04/12/16 07:38 11:42 16:41 WBC RBC Hgb MCV MCH MCHC RDW Plt Count Seg Neuts % (Manual) Lymphocytes % (Manual) Nucleated RBC % Seg Neutrophils # Man Lymphocytes # (Manual) D-Dimer Heparin Anti-Xa Level POC ABG pH POC ABG pO2 Sodium Potassium Chloride Carbon Dioxide BUN Glucose POC Glucose 423 H 315 H 159 H Lactic Acid Calcium Phosphorus Magnesium C-Reactive Protein Albumin 04/12/16 04/12/16 04/13/16 20:39 22:47 06:12 WBC RBC Hgb MCV MCH MCHC RDW Plt Count Seg Neuts % (Manual) Lymphocytes % (Manual) Nucleated RBC % Seg Neutrophils # Man Lymphocytes # (Manual) D-Dimer Heparin Anti-Xa Level 0.20 L POC ABG pH POC ABG pO2 Sodium Potassium Chloride Carbon Dioxide BUN Glucose POC Glucose 217 H 247 H Lactic Acid Calcium Phosphorus Magnesium C-Reactive Protein Albumin 04/13/16 04/13/16 04/13/16 09:30 09:30 09:30 WBC RBC 5.12 H Hgb MCV 79 L MCH 25 L MCHC 31 L RDW 17.6 H Plt Count 107 L Seg Neuts % (Manual) Lymphocytes % (Manual) Nucleated RBC % Seg Neutrophils # Man Lymphocytes # (Manual) D-Dimer Heparin Anti-Xa Level 2.00 H POC ABG pH POC ABG pO2 Sodium 160 H Potassium Chloride 121.3 H Carbon Dioxide BUN 36 H Glucose 254 H POC Glucose Lactic Acid Calcium 8.3 L Phosphorus Magnesium C-Reactive Protein Albumin
[2016-04-13 12:37] LABS: Anisocytosis 1+; Basophils % (Manual) 0 % (0.0-1.8); Blastocytes % (Manual) 0 %; Diff Status Complete; Eosinophils % (Manual) 0 % (0.0-4.3); Hypochromasia 1+; Platelet Estimate Appears Decreased; Total Cells Counted Percent 0
[2016-04-13] MEDS: NACL 0.45% 1000 ML 1,000 ML IV SCH (15:54)
[2016-04-13] MEDS ORDERED: HEPARIN 10,000 UNITS/10 ML IV ONE (17:00)
[2016-04-13] MEDS: LEVEMIR SUB-Q SCH (23:15)
[2016-04-14] MEDS: DUONEB 0.5 MG-3 MG/3 ML SOLN IH SCH ×4 (02:44→19:49)
[2016-04-14 05:43] LABS: Basophils % (Auto) 0.2 % (0.0-1.8); Eosinophils % (Auto) 0.5 % (0.0-4.3); Hematocrit 32.6 % (35.5-45.6); Hemoglobin 10.2 gm/dl (11.8-15.2); Mean Corpuscular HGB Conc 31 % (32-34); Mean Corpuscular Volume 79 fl (84-94); Red Blood Count 4.11 M/mm3 (3.65-5.03); Red Cell Distribution Width 17.7 % (13.2-15.2)
[2016-04-14 06:08] LABS: Mean Corpuscular Hemoglobin 25 pg (28-32); Platelet Count 87 K/mm3 (140-440)
[2016-04-14] MEDS: NOVOLOG SUB-Q SCH ×3 (08:52→18:47)
--- NOTE | 2016-04-14 09:53 | Progress Note ---
Assessment and Plan Assessment and plan: 1. Acute hypoxic respiratory failure. Patient will be continued on BiPAP at night. Pulmonary following. Etiology secondary to sepsis/pneumonia. 2. Sepsis. Etiology secondary to pneumonia and bacteremia. Chest x-ray revealed right lower lobe pneumonia. Blood cultures with MSSA--3/4 bottles. 3. MSSA bacteremia. Patient with 3/4 bottles. Culture also wrist reveals Diptheroids indicating contaminant. Patient currently with Levaquin and cultures revealing sensitivities to the antibiotics. 4. Healthcare associated pneumonia. Patient presented from retirement. Patient may also have component of aspiration pneumonia. Continue IV antibiotics and follow-up chest x-ray. 5. UTI. Follow-up urine cultures. 6. Hypernatremia. Continue hypotonic IV fluids. Cont. free water every 6 hours. Follow-up BMP. 7. Toxic metabolic encephalopathy. Continue to treat underlying causes. 8. Diabetes mellitus type 2, uncontrolled. Change Solu-Medrol from 40 mg twice a day to prednisone 20 mg daily. Increase long acting insulin to 25 units daily. 9. Oropharyngeal dysphagia. Speech evaluation pending. Continue NG tube to feedings at 50 mL per hour. 10. Hypokalemia. Replete potassium. 11. DVT. Patient currently with heparin drip. History Interval history: The patient is a 66-year-old male with a history of diabetes, HSV 2, autoimmune skin lesions, CVA, and residual left-sided hemiparesis, who presents for evaluation of dyspnea. Patient presents from the retirement with acute hypoxic respiratory failure with saturations in the 70s. Patient currently on BiPAP. No new issues overnight. Hospitalist Physical - Constitutional Vitals: Temp Pulse Resp BP Pulse Ox 98.5 F 69 18 123/70 97 04/14/16 04:00 04/14/16 07:50 04/14/16 07:50 04/14/16 04:00 04/14/16 07:44 General appearance: Present: no acute distress, well-nourished, other (on Bipap) - EENT Eyes: Present: PERRL, EOM intact ENT: hearing intact, clear oral mucosa, dentition normal - Neck Neck: Present: supple, normal ROM - Respiratory Respiratory effort: normal Respiratory: bilateral: CTA - Cardiovascular Rhythm: regular Heart Sounds: Present: S1 & S2. Absent: gallop, rub - Extremities Extremities: no ischemia, No edema, Full ROM - Abdominal General gastrointestinal: soft, non-tender, non-distended, normal bowel sounds - Integumentary Integumentary: Present: clear, warm, dry - Neurologic Neurologic: CNII-XII intact, moves all extremities Results - Labs CBC & Chem 7: 04/14/16 04:34 04/13/16 09:30 Labs: Laboratory Last Values WBC 9.0 K/mm3 (4.5-11.0) 04/14/16 04:34 RBC 4.11 M/mm3 (3.65-5.03) 04/14/16 04:34 Hgb 10.2 gm/dl (11.8-15.2) L 04/14/16 04:34 Hct 32.6 % (35.5-45.6) L D 04/14/16 04:34 MCV 79 fl (84-94) L 04/14/16 04:34 MCH 25 pg (28-32) L 04/14/16 04:34 MCHC 31 % (32-34) L 04/14/16 04:34 RDW 17.7 % (13.2-15.2) H 04/14/16 04:34 Plt Count 87 K/mm3 (140-440) L 04/14/16 04:34 Lymph % (Auto) 9.3 % (13.4-35.0) L 04/14/16 04:34 [place] % (Auto) 1.9 % (0.0-7.3) 04/14/16 04:34 Eos % (Auto) 0.5 % (0.0-4.3) 04/14/16 04:34 Baso % (Auto) 0.2 % (0.0-1.8) 04/14/16 04:34 Lymph # 0.8 K/mm3 (1.2-5.4) L 04/14/16 04:34 [place] # 0.2 K/mm3 (0.0-0.8) 04/14/16 04:34 Eos # 0.0 K/mm3 (0.0-0.4) 04/14/16 04:34 Baso # 0.0 K/mm3 (0.0-0.1) 04/14/16 04:34 Add Manual Diff Complete 04/13/16 09:30 Total Counted 100 04/13/16 09:30 Seg Neutrophils % 88.1 % (40.0-70.0) H 04/14/16 04:34 Seg Neuts % (Manual) 93.0 % (40.0-70.0) H 04/13/16 09:30 Band Neutrophils % 0 % 04/13/16 09:30 Lymphocytes % (Manual) 7.0 % (13.4-35.0) L 04/13/16 09:30 Reactive Lymphs % (Man) 0 % 04/13/16 09:30 Monocytes % (Manual) 0 % (0.0-7.3) 04/13/16 09:30 Eosinophils % (Manual) 0 % (0.0-4.3) 04/13/16 09:30 Basophils % (Manual) 0 % (0.0-1.8) 04/13/16 09:30 Metamyelocytes % 0 % 04/13/16 09:30 Myelocytes % 0 % 04/13/16 09:30 Promyelocytes % 0 % 04/13/16 09:30 Blast Cells % 0 % 04/13/16 09:30 Nucleated RBC % 1.0 % (0.0-0.9) H 04/13/16 09:30 Seg Neutrophils # 7.9 K/mm3 (1.8-7.7) H 04/14/16 04:34 Seg Neutrophils # Man 8.6 K/mm3 (1.8-7.7) H 04/13/16 09:30 Band Neutrophils # 0.0 K/mm3 04/13/16 09:30 Lymphocytes # (Manual) 0.6 K/mm3 (1.2-5.4) L 04/13/16 09:30 Abs React Lymphs (Man) 0.0 K/mm3 04/13/16 09:30 Monocytes # (Manual) 0.0 K/mm3 (0.0-0.8) 04/13/16 09:30 Eosinophils # (Manual) 0.0 K/mm3 (0.0-0.4) 04/13/16 09:30 Basophils # (Manual) 0.0 K/mm3 (0.0-0.1) 04/13/16 09:30 Metamyelocytes # 0.0 K/mm3 04/13/16 09:30 Myelocytes # 0.0 K/mm3 04/13/16 09:30 Promyelocytes # 0.0 K/mm3 04/13/16 09:30 Blast Cells # 0.0 K/mm3 04/13/16 09:30 WBC Morphology Not Reportable 04/13/16 09:30 Hypersegmented Neuts Not Reportable 04/13/16 09:30 Hyposegmented Neuts Not Reportable 04/13/16 09:30 Hypogranular Neuts Not Reportable 04/13/16 09:30 Smudge Cells Not Reportable 04/13/16 09:30 Toxic Granulation Not Reportable 04/13/16 09:30 Toxic Vacuolation Not Reportable 04/13/16 09:30 Dohle Bodies Not Reportable 04/13/16 09:30 Pelger-Huet Anomaly Not Reportable 04/13/16 09:30 Ky Rods Not Reportable 04/13/16 09:30 Platelet Estimate Appears decreased 04/13/16 09:30 Clumped Platelets Not Reportable 04/13/16 09:30 Plt Clumps, EDTA Not Reportable 04/13/16 09:30 Large Platelets Not Reportable 04/13/16 09:30 Giant Platelets Not Reportable 04/13/16 09:30 Platelet Satelliting Not Reportable 04/13/16 09:30 Plt Morphology Comment Not Reportable 04/13/16 09:30 RBC Morphology Not Reportable 04/13/16 09:30 Dimorphic RBCs Not Reportable 04/13/16 09:30 Polychromasia Not Reportable 04/13/16 09:30 Hypochromasia 1+ 04/13/16 09:30 Poikilocytosis Not Reportable 04/13/16 09:30 Anisocytosis 1+ 04/13/16 09:30 Microcytosis Not Reportable 04/13/16 09:30 Macrocytosis Not Reportable 04/13/16 09:30 Spherocytes Not Reportable 04/13/16 09:30 Pappenheimer Bodies Not Reportable 04/13/16 09:30 Sickle Cells Not Reportable 04/13/16 09:30 Target Cells Not Reportable 04/13/16 09:30 Tear Drop Cells Not Reportable 04/13/16 09:30 Ovalocytes Not Reportable 04/13/16 09:30 Helmet Cells Not Reportable 04/13/16 09:30 [place] Bodies Not Reportable 04/13/16 09:30 [place] Rings Not Reportable 04/13/16 09:30 [place] Cells Not Reportable 04/13/16 09:30 Bite Cells Not Reportable 04/13/16 09:30 Crenated Cell Not Reportable 04/13/16 09:30 Elliptocytes Not Reportable 04/13/16 09:30 Acanthocytes (Spur) Not Reportable 04/13/16 09:30 Rouleaux Not Reportable 04/13/16 09:30 Hemoglobin C Crystals Not Reportable 04/13/16 09:30 Schistocytes Not Reportable 04/13/16 09:30 Malaria parasites Not Reportable 04/13/16 09:30 [place] Bodies Not Reportable 04/13/16 09:30 Hem Pathologist Commnt No 04/13/16 09:30 PT 14.4 Sec. (12.2-14.9) 04/10/16 16:54 INR 1.13 (0.87-1.13) 04/10/16 16:54 APTT 34.3 Sec. (24.2-36.6) 04/11/16 11:50 D-Dimer 3652.03 ng/mlDDU (0-234) H 04/11/16 11:37 Heparin Anti-Xa Level 0.21 U.I./ml (0.3-0.7) L 04/14/16 00:03 POC ABG pH 7.454 (7.35-7.45) H 04/12/16 06:54 POC ABG pCO2 41.1 (35-45) 04/12/16 06:54 POC ABG pO2 116 (80-105) H 04/12/16 06:54 POC ABG HCO3 28.9 04/12/16 06:54 POC ABG Total CO2 30 04/12/16 06:54 POC ABG O2 Sat 99 04/12/16 06:54 POC ABG Base Excess 5 04/12/16 06:54 VBG pH 7.437 (7.320-7.420) H 04/10/16 16:54 FiO2 3 % 04/12/16 06:54 Sodium 160 mmol/L (137-145) H 04/13/16 09:30 Potassium 4.0 mmol/L (3.6-5.0) D 04/13/16 09:30 Chloride 121.3 mmol/L (98-107) H 04/13/16 09:30 Carbon Dioxide 26 mmol/L (22-30) 04/13/16 09:30 Anion Gap 17 mmol/L 04/13/16 09:30 BUN 36 mg/dL (9-20) H 04/13/16 09:30 Creatinine 1.0 mg/dL (0.8-1.5) 04/13/16 09:30 Estimated GFR > 60 ml/min 04/13/16 09:30 BUN/Creatinine Ratio 36.00 % 04/13/16 09:30 Glucose 254 mg/dL (75-100) H 04/13/16 09:30 POC Glucose 182 (70-105) H 04/14/16 06:13 Lactic Acid 2.5 mmol/L (0.7-2.0) H* 04/11/16 11:37 Calcium 8.3 mg/dL (8.4-10.2) L 04/13/16 09:30 Phosphorus 5.0 mg/dL (2.5-4.5) H 04/11/16 11:37 Magnesium 3.6 mg/dL (1.7-2.3) H 04/11/16 11:37 Total Bilirubin 1.0 mg/dL (0.1-1.2) 04/11/16 05:02 AST 36 units/L (5-40) 04/11/16 05:02 ALT 40 units/L (7-56) 04/11/16 05:02 Alkaline Phosphatase 94 units/L (35-129) 04/11/16 05:02 C-Reactive Protein 42.40 mg/dL (0.00-1.30) H 04/11/16 11:37 NT-Pro-B Natriuret Pep 1287 pg/mL (0-900) H 04/10/16 17:06 Total Protein 7.0 g/dL (6.3-8.2) 04/11/16 05:02 Albumin 1.9 g/dL (3.9-5) L 04/11/16 05:02 Albumin/Globulin Ratio 0.4 % 04/11/16 05:02 Urine Color Eri (Yellow) 04/10/16 16:56 Urine Turbidity Clear (Clear) 04/10/16 16:56 Urine pH 5.0 (5.0-7.0) 04/10/16 16:56 Ur Specific [place] 1.020 (1.003-1.030) 04/10/16 16:56 Urine Protein 30 mg/dl mg/dL (Negative) 04/10/16 16:56 Urine Glucose (UA) 50 mg/dL (Negative) 04/10/16 16:56 Urine Ketones Neg mg/dL (Negative) 04/10/16 16:56 Urine Blood Sm (Negative) 04/10/16 16:56 Urine Nitrite Neg (Negative) 04/10/16 16:56 Urine Bilirubin Neg (Negative) 04/10/16 16:56 Urine Urobilinogen 4.0 mg/dL (<2.0) 04/10/16 16:56 Ur Leukocyte Esterase Sm (Negative) 04/10/16 16:56 Urine WBC (Auto) 15.0 /HPF (0.0-6.0) H 04/10/16 16:56 Urine RBC (Auto) 7.0 /HPF (0.0-6.0) 04/10/16 16:56 Amorphous Crystals Few 04/10/16 16:56 Urine Mucus 1+ /HPF 04/10/16 16:56
[2016-04-14] MEDS: NORVASC PO SCH (10:41)
[2016-04-14] MEDS: LEVAQUIN 500MG/100ML 100 ML IV SCH (10:41)
[2016-04-14] MEDS: PEPCID IV SCH ×2 (10:42→22:57)
[2016-04-14] MEDS: CATAPRES PO SCH ×2 (10:42→22:56)
[2016-04-14] MEDS: DELTASONE PO SCH (10:42)
[2016-04-14] MEDS: HEPARIN/ 0.45% NACL-25,000 UNIT/500 ML 500 ML IV SCH (13:47)
--- NOTE | 2016-04-14 13:47 | Progress Note ---
Assessment and Plan (1) Acute hypoxemic respiratory failure Current Visit: Yes Status: Acute Plan to address problem: - continue qhs BIPAP for now - continue bronchodilators and pulmonary toilet - continue aspiration precautions - wean oxygen to keep sats > 94% - continue empiric AB's (2) HCAP (healthcare-associated pneumonia) Current Visit: Yes Status: Acute Plan to address problem: - as above - repeat CXR in am (3) Sepsis syndrome Current Visit: Yes Status: Acute Plan to address problem: - as above - volume resuscitation (4) Pemphigus vulgaris Current Visit: Yes Status: Acute Plan to address problem: - continue systemic steroids at higher than baseline dose acutely - prn topical AB's / antifungals (5) Altered mental status Current Visit: Yes Status: Acute Plan to address problem: - suspect not far from baseline re: history of CVA but will discuss with (6) VTE Current Visit: Yes Status: Acute Plan to address problem: - continue anticoagulation for now (7) Discharge planning issues Current Visit: Yes Status: Acute Plan to address problem: - hopefully improves and can transfer back to [facility] Date of service: 04/14/16 Principal diagnosis: Acute Hypoxemic Respiratory Failure; VTE Interval history: Seen and examined at bedside; 24 hour events reviewed; nursing and respiratory care staff consulted; no adverse overnight events reported to me; his is in the room and states that this is his baseline mental status; breathing improved Objective Vital Signs - 12hr 04/14/16 04/14/16 04/14/16 02:46 03:07 04:00 Temperature 98.5 F Pulse Rate [ 67 67 Anterior Bilateral Throughout] Pulse Rate [ 69 Left] Pulse Rate [ Right Radial] Respiratory 20 Rate Respiratory 21 19 Rate [Anterior Bilateral Throughout] Blood Pressure 123/70 O2 Sat by Pulse 98 Oximetry 04/14/16 04/14/16 04/14/16 07:40 07:44 07:50 Temperature 98.7 F Pulse Rate [ 68 69 Anterior Bilateral Throughout] Pulse Rate [ Left] Pulse Rate [ 63 Right Radial] Respiratory 17 18 Rate Respiratory 18 18 Rate [Anterior Bilateral Throughout] Blood Pressure 117/72 O2 Sat by Pulse 969 H 97 Oximetry 04/14/16 04/14/16 10:41 13:33 Temperature Pulse Rate [ 68 Anterior Bilateral Throughout] Pulse Rate [ Left] Pulse Rate [ Right Radial] Respiratory Rate Respiratory 18 Rate [Anterior Bilateral Throughout] Blood Pressure 126/64 O2 Sat by Pulse Oximetry Constitutional: no acute distress Eyes: non-icteric ENT: oropharynx moist Neck: supple, no lymphadenopathy Effort: mildly labored Ascultation: Bilateral: diminished breath sounds, rhonchi (scant) Cardiovascular: regular rate and rhythm Gastrointestinal: normoactive bowel sounds, soft, non-tender, non-distended Integumentary: other (rash) Neurologic: unable to assess CBC and BMP: 04/14/16 04:34 04/14/16 12:58 ABG, PT/INR, D-dimer: ABG POC ABG pH 7.454 (7.35-7.45) H 04/12/16 06:54 POC ABG pCO2 41.1 (35-45) 04/12/16 06:54 POC ABG pO2 116 (80-105) H 04/12/16 06:54 POC ABG HCO3 28.9 04/12/16 06:54 POC ABG Total CO2 30 04/12/16 06:54 POC ABG O2 Sat 99 04/12/16 06:54 PT/INR, D-dimer PT 14.4 Sec. (12.2-14.9) 04/10/16 16:54 INR 1.13 (0.87-1.13) 04/10/16 16:54 D-Dimer 3652.03 ng/mlDDU (0-234) H 04/11/16 11:37 Abnormal lab findings: Abnormal Labs 04/11/16 04/11/16 04/11/16 05:02 05:02 11:37 WBC 11.7 H RBC Hgb Hct MCV 80 L MCH 25 L MCHC 31 L RDW 17.5 H Plt Count 109 L Lymph % (Auto) Lymph # Seg Neutrophils % Seg Neuts % (Manual) 91.0 H Lymphocytes % (Manual) 3.0 L Nucleated RBC % 1.0 H Seg Neutrophils # Seg Neutrophils # Man 10.6 H Lymphocytes # (Manual) 0.4 L D-Dimer Heparin Anti-Xa Level POC ABG pH POC ABG pO2 Sodium 156 H Potassium Chloride 117.6 H Carbon Dioxide 21 L BUN 46 H Glucose 496 H POC Glucose Lactic Acid Calcium 8.3 L Phosphorus 5.0 H Magnesium 3.6 H C-Reactive Protein Albumin 1.9 L 04/11/16 04/11/16 04/11/16 11:37 11:37 11:37 WBC RBC Hgb Hct MCV MCH MCHC RDW Plt Count Lymph % (Auto) Lymph # Seg Neutrophils % Seg Neuts % (Manual) Lymphocytes % (Manual) Nucleated RBC % Seg Neutrophils # Seg Neutrophils # Man Lymphocytes # (Manual) D-Dimer 3652.03 H Heparin Anti-Xa Level POC ABG pH POC ABG pO2 Sodium Potassium Chloride Carbon Dioxide BUN Glucose POC Glucose Lactic Acid 2.5 H* Calcium Phosphorus Magnesium C-Reactive Protein 42.40 H Albumin 04/11/16 04/11/16 04/11/16 15:34 21:04 21:40 WBC RBC Hgb Hct MCV MCH MCHC RDW Plt Count Lymph % (Auto) Lymph # Seg Neutrophils % Seg Neuts % (Manual) Lymphocytes % (Manual) Nucleated RBC % Seg Neutrophils # Seg Neutrophils # Man Lymphocytes # (Manual) D-Dimer Heparin Anti-Xa Level 0.27 L POC ABG pH POC ABG pO2 Sodium Potassium Chloride Carbon Dioxide BUN Glucose POC Glucose 430 H > 500 H Lactic Acid Calcium Phosphorus Magnesium C-Reactive Protein Albumin 04/11/16 04/12/16 04/12/16 22:37 02:07 04:45 WBC 16.4 H RBC Hgb 11.0 L Hct MCV 80 L MCH 25 L MCHC 31 L RDW 17.6 H Plt Count 120 L Lymph % (Auto) Lymph # Seg Neutrophils % Seg Neuts % (Manual) 91.0 H Lymphocytes % (Manual) 1.0 L Nucleated RBC % Seg Neutrophils # Seg Neutrophils # Man 14.9 H Lymphocytes # (Manual) 0.2 L D-Dimer Heparin Anti-Xa Level POC ABG pH POC ABG pO2 Sodium Potassium Chloride Carbon Dioxide BUN Glucose 515 H* POC Glucose 399 H Lactic Acid Calcium Phosphorus Magnesium C-Reactive Protein Albumin 04/12/16 04/12/16 04/12/16 04:45 06:19 06:54 WBC RBC Hgb Hct MCV MCH MCHC RDW Plt Count Lymph % (Auto) Lymph # Seg Neutrophils % Seg Neuts % (Manual) Lymphocytes % (Manual) Nucleated RBC % Seg Neutrophils # Seg Neutrophils # Man Lymphocytes # (Manual) D-Dimer Heparin Anti-Xa Level 0.21 L POC ABG pH 7.454 H POC ABG pO2 116 H Sodium 161 H* Potassium 3.3 L D Chloride 122.8 H Carbon Dioxide BUN 43 H Glucose 485 H POC Glucose Lactic Acid Calcium 8.3 L Phosphorus Magnesium C-Reactive Protein Albumin 04/12/16 04/12/16 04/12/16 07:38 11:42 16:41 WBC RBC Hgb Hct MCV MCH MCHC RDW Plt Count Lymph % (Auto) Lymph # Seg Neutrophils % Seg Neuts % (Manual) Lymphocytes % (Manual) Nucleated RBC % Seg Neutrophils # Seg Neutrophils # Man Lymphocytes # (Manual) D-Dimer Heparin Anti-Xa Level POC ABG pH POC ABG pO2 Sodium Potassium Chloride Carbon Dioxide BUN Glucose POC Glucose 423 H 315 H 159 H Lactic Acid Calcium Phosphorus Magnesium C-Reactive Protein Albumin 04/12/16 04/12/16 04/13/16 20:39 22:47 06:12 WBC RBC Hgb Hct MCV MCH MCHC RDW Plt Count Lymph % (Auto) Lymph # Seg Neutrophils % Seg Neuts % (Manual) Lymphocytes % (Manual) Nucleated RBC % Seg Neutrophils # Seg Neutrophils # Man Lymphocytes # (Manual) D-Dimer Heparin Anti-Xa Level 0.20 L POC ABG pH POC ABG pO2 Sodium Potassium Chloride Carbon Dioxide BUN Glucose POC Glucose 217 H 247 H Lactic Acid Calcium Phosphorus Magnesium C-Reactive Protein Albumin 04/13/16 04/13/16 04/13/16 09:30 09:30 09:30 WBC RBC 5.12 H Hgb Hct MCV 79 L MCH 25 L MCHC 31 L RDW 17.6 H Plt Count 107 L Lymph % (Auto) Lymph # Seg Neutrophils % Seg Neuts % (Manual) 93.0 H Lymphocytes % (Manual) 7.0 L Nucleated RBC % 1.0 H Seg Neutrophils # Seg Neutrophils # Man 8.6 H Lymphocytes # (Manual) 0.6 L D-Dimer Heparin Anti-Xa Level 2.00 H POC ABG pH POC ABG pO2 Sodium 160 H Potassium Chloride 121.3 H Carbon Dioxide BUN 36 H Glucose 254 H POC Glucose Lactic Acid Calcium 8.3 L Phosphorus Magnesium C-Reactive Protein Albumin 04/13/16 04/13/16 04/13/16 12:29 13:20 17:06 WBC RBC Hgb Hct MCV MCH MCHC RDW Plt Count Lymph % (Auto) Lymph # Seg Neutrophils % Seg Neuts % (Manual) Lymphocytes % (Manual) Nucleated RBC % Seg Neutrophils # Seg Neutrophils # Man Lymphocytes # (Manual) D-Dimer Heparin Anti-Xa Level < 0.10 L POC ABG pH POC ABG pO2 Sodium Potassium Chloride Carbon Dioxide BUN Glucose POC Glucose 230 H 229 H Lactic Acid Calcium Phosphorus Magnesium C-Reactive Protein Albumin 04/13/16 04/14/16 04/14/16 21:22 00:03 04:34 WBC RBC Hgb 10.2 L Hct 32.6 L D MCV 79 L MCH 25 L MCHC 31 L RDW 17.7 H Plt Count 87 L Lymph % (Auto) 9.3 L Lymph # 0.8 L Seg Neutrophils % 88.1 H Seg Neuts % (Manual) Lymphocytes % (Manual) Nucleated RBC % Seg Neutrophils # 7.9 H Seg Neutrophils # Man Lymphocytes # (Manual) D-Dimer Heparin Anti-Xa Level 0.21 L POC ABG pH POC ABG pO2 Sodium Potassium Chloride Carbon Dioxide BUN Glucose POC Glucose 213 H Lactic Acid Calcium Phosphorus Magnesium C-Reactive Protein Albumin 04/14/16 06:13 WBC RBC Hgb Hct MCV MCH MCHC RDW Plt Count Lymph % (Auto) Lymph # Seg Neutrophils % Seg Neuts % (Manual) Lymphocytes % (Manual) Nucleated RBC % Seg Neutrophils # Seg Neutrophils # Man Lymphocytes # (Manual) D-Dimer Heparin Anti-Xa Level POC ABG pH POC ABG pO2 Sodium Potassium Chloride Carbon Dioxide BUN Glucose POC Glucose 182 H Lactic Acid Calcium Phosphorus Magnesium C-Reactive Protein Albumin
[2016-04-14 13:50] LABS: Anion Gap 13 mmol/L; BUN/Creatinine Ratio 31.25; Blood Urea Nitrogen 25 mg/dL (9-20); Carbon Dioxide 29 mmol/L (22-30); Chloride 118.4 mmol/L (98-107); Glucose 140 mg/dL (75-100); Potassium 3.7 mmol/L (3.6-5.0); Sodium 157 mmol/L (137-145)
[2016-04-14] MEDS: NACL 0.45% 1000 ML 1,000 ML IV SCH (18:47)
[2016-04-14] MEDS: LEVEMIR SUB-Q SCH (22:57)
[2016-04-15] MEDS: DUONEB 0.5 MG-3 MG/3 ML SOLN IH SCH ×4 (02:30→19:40)
[2016-04-15] MEDS: HEPARIN/ 0.45% NACL-25,000 UNIT/500 ML 500 ML IV SCH (07:55)
[2016-04-15] MEDS: NACL 0.45% 1000 ML 1,000 ML IV SCH ×2 (07:58→22:40)
[2016-04-15 08:50] LABS: Basophils % (Auto) 0.3 % (0.0-1.8); Eosinophils % (Auto) 1.1 % (0.0-4.3); Hematocrit 32.3 % (35.5-45.6); Hemoglobin 10.3 gm/dl (11.8-15.2); Mean Corpuscular HGB Conc 32 % (32-34); Mean Corpuscular Volume 80 fl (84-94); Red Blood Count 4.05 M/mm3 (3.65-5.03); Red Cell Distribution Width 17.5 % (13.2-15.2)
[2016-04-15 08:57] LABS: Mean Corpuscular Hemoglobin 25 pg (28-32); Platelet Count 85 K/mm3 (140-440)
[2016-04-15 09:00] LABS: Anion Gap 13 mmol/L; Blood Urea Nitrogen 22 mg/dL (9-20); Calcium 8.1 mg/dL (8.4-10.2); Carbon Dioxide 30 mmol/L (22-30); Chloride 117.9 mmol/L (98-107); Glucose 173 mg/dL (75-100); Potassium 3.6 mmol/L (3.6-5.0); Sodium 157 mmol/L (137-145)
[2016-04-15] MEDS: NOVOLOG SUB-Q SCH ×3 (09:55→17:48)
[2016-04-15] MEDS: DELTASONE PO SCH (09:57)
[2016-04-15] MEDS: CATAPRES PO SCH ×2 (09:57→22:36)
[2016-04-15] MEDS: NORVASC PO SCH (09:57)
[2016-04-15] MEDS: PEPCID IV SCH ×2 (09:58→22:40)
[2016-04-15] MEDS: LEVAQUIN 500MG/100ML 100 ML IV SCH (09:58)
--- NOTE | 2016-04-15 10:28 | Progress Note ---
Assessment and Plan Assessment and plan: 1. Acute hypoxic respiratory failure. Patient will be continued on BiPAP at night. Pulmonary following. Etiology secondary to sepsis/pneumonia. 2. Sepsis. Etiology secondary to pneumonia and bacteremia. Chest x-ray revealed right lower lobe pneumonia. Blood cultures with MSSA--3/4 bottles. 3. MSSA bacteremia. Patient with 3/4 bottles. Culture also reveals Diptheroids indicating contaminant. Patient currently with Levaquin and cultures revealing sensitivities to the antibiotics. 4. Healthcare associated pneumonia. [facility] Patient may also have component of aspiration pneumonia. Continue IV antibiotics and follow-up chest x-ray. 5. UTI. Follow-up urine cultures. 6. Hypernatremia. Continue hypotonic IV fluids. Increase free water every 4 hours. Follow-up BMP. 7. Toxic metabolic encephalopathy. Continue to treat underlying causes. 8. Diabetes mellitus type 2, uncontrolled. Change Solu-Medrol from 40 mg twice a day to prednisone 20 mg daily. Increased long acting insulin to 25 units daily. 9. Oropharyngeal dysphagia. Speech evaluation pending. Continue NG tube to feedings at 50 mL per hour. 10. Hypokalemia. Replete potassium. 11. DVT. Patient currently with heparin drip. History Interval history: The patient is a 66-year-old male with a history of diabetes, HSV 2, autoimmune skin lesions, CVA, and residual left-sided hemiparesis, who presents for evaluation of dyspnea. [facility] with acute hypoxic respiratory failure with saturations in the 70s. Patient currently on BiPAP. No new issues overnight. Hospitalist Physical - Constitutional Vitals: Temp Pulse Resp BP Pulse Ox 98.9 F 64 20 140/86 100 04/15/16 08:24 04/15/16 08:24 04/15/16 08:24 04/15/16 09:57 04/15/16 09:29 General appearance: Present: no acute distress, well-nourished, other (on Bipap) - EENT Eyes: Present: PERRL, EOM intact ENT: hearing intact, clear oral mucosa, dentition normal - Neck Neck: Present: supple, normal ROM - Respiratory Respiratory effort: normal Respiratory: bilateral: CTA - Cardiovascular Rhythm: regular Heart Sounds: Present: S1 & S2. Absent: gallop, rub - Extremities Extremities: no ischemia, No edema, Full ROM - Abdominal General gastrointestinal: soft, non-tender, non-distended, normal bowel sounds - Integumentary Integumentary: Present: clear, warm, dry - Neurologic Neurologic: CNII-XII intact, moves all extremities Results - Labs CBC & Chem 7: 04/15/16 07:42 04/15/16 07:42 Labs: Laboratory Last Values WBC 8.0 K/mm3 (4.5-11.0) 04/15/16 07:42 RBC 4.05 M/mm3 (3.65-5.03) 04/15/16 07:42 Hgb 10.3 gm/dl (11.8-15.2) L 04/15/16 07:42 Hct 32.3 % (35.5-45.6) L 04/15/16 07:42 MCV 80 fl (84-94) L 04/15/16 07:42 MCH 25 pg (28-32) L 04/15/16 07:42 MCHC 32 % (32-34) 04/15/16 07:42 RDW 17.5 % (13.2-15.2) H 04/15/16 07:42 Plt Count 85 K/mm3 (140-440) L 04/15/16 07:42 Lymph % (Auto) 10.6 % (13.4-35.0) L 04/15/16 07:42 Ogle % (Auto) 2.2 % (0.0-7.3) 04/15/16 07:42 Eos % (Auto) 1.1 % (0.0-4.3) 04/15/16 07:42 Baso % (Auto) 0.3 % (0.0-1.8) 04/15/16 07:42 Lymph # 0.8 K/mm3 (1.2-5.4) L 04/15/16 07:42 Ogle # 0.2 K/mm3 (0.0-0.8) 04/15/16 07:42 Eos # 0.1 K/mm3 (0.0-0.4) 04/15/16 07:42 Baso # 0.0 K/mm3 (0.0-0.1) 04/15/16 07:42 Add Manual Diff Complete 04/13/16 09:30 Total Counted 100 04/13/16 09:30 Seg Neutrophils % 85.8 % (40.0-70.0) H 04/15/16 07:42 Seg Neuts % (Manual) 93.0 % (40.0-70.0) H 04/13/16 09:30 Band Neutrophils % 0 % 04/13/16 09:30 Lymphocytes % (Manual) 7.0 % (13.4-35.0) L 04/13/16 09:30 Reactive Lymphs % (Man) 0 % 04/13/16 09:30 Monocytes % (Manual) 0 % (0.0-7.3) 04/13/16 09:30 Eosinophils % (Manual) 0 % (0.0-4.3) 04/13/16 09:30 Basophils % (Manual) 0 % (0.0-1.8) 04/13/16 09:30 Metamyelocytes % 0 % 04/13/16 09:30 Myelocytes % 0 % 04/13/16 09:30 Promyelocytes % 0 % 04/13/16 09:30 Blast Cells % 0 % 04/13/16 09:30 Nucleated RBC % 1.0 % (0.0-0.9) H 04/13/16 09:30 Seg Neutrophils # 6.8 K/mm3 (1.8-7.7) 04/15/16 07:42 Seg Neutrophils # Man 8.6 K/mm3 (1.8-7.7) H 04/13/16 09:30 Band Neutrophils # 0.0 K/mm3 04/13/16 09:30 Lymphocytes # (Manual) 0.6 K/mm3 (1.2-5.4) L 04/13/16 09:30 Abs React Lymphs (Man) 0.0 K/mm3 04/13/16 09:30 Monocytes # (Manual) 0.0 K/mm3 (0.0-0.8) 04/13/16 09:30 Eosinophils # (Manual) 0.0 K/mm3 (0.0-0.4) 04/13/16 09:30 Basophils # (Manual) 0.0 K/mm3 (0.0-0.1) 04/13/16 09:30 Metamyelocytes # 0.0 K/mm3 04/13/16 09:30 Myelocytes # 0.0 K/mm3 04/13/16 09:30 Promyelocytes # 0.0 K/mm3 04/13/16 09:30 Blast Cells # 0.0 K/mm3 04/13/16 09:30 WBC Morphology Not Reportable 04/13/16 09:30 Hypersegmented Neuts Not Reportable 04/13/16 09:30 Hyposegmented Neuts Not Reportable 04/13/16 09:30 Hypogranular Neuts Not Reportable 04/13/16 09:30 Smudge Cells Not Reportable 04/13/16 09:30 Toxic Granulation Not Reportable 04/13/16 09:30 Toxic Vacuolation Not Reportable 04/13/16 09:30 Dohle Bodies Not Reportable 04/13/16 09:30 Pelger-Huet Anomaly Not Reportable 04/13/16 09:30 Ky Rods Not Reportable 04/13/16 09:30 Platelet Estimate Appears decreased 04/13/16 09:30 Clumped Platelets Not Reportable 04/13/16 09:30 Plt Clumps, EDTA Not Reportable 04/13/16 09:30 Large Platelets Not Reportable 04/13/16 09:30 Giant Platelets Not Reportable 04/13/16 09:30 Platelet Satelliting Not Reportable 04/13/16 09:30 Plt Morphology Comment Not Reportable 04/13/16 09:30 RBC Morphology Not Reportable 04/13/16 09:30 Dimorphic RBCs Not Reportable 04/13/16 09:30 Polychromasia Not Reportable 04/13/16 09:30 Hypochromasia 1+ 04/13/16 09:30 Poikilocytosis Not Reportable 04/13/16 09:30 Anisocytosis 1+ 04/13/16 09:30 Microcytosis Not Reportable 04/13/16 09:30 Macrocytosis Not Reportable 04/13/16 09:30 Spherocytes Not Reportable 04/13/16 09:30 Pappenheimer Bodies Not Reportable 04/13/16 09:30 Sickle Cells Not Reportable 04/13/16 09:30 Target Cells Not Reportable 04/13/16 09:30 Tear Drop Cells Not Reportable 04/13/16 09:30 Ovalocytes Not Reportable 04/13/16 09:30 Helmet Cells Not Reportable 04/13/16 09:30 Stein-Mchenry Bodies Not Reportable 04/13/16 09:30 [place] Rings Not Reportable 04/13/16 09:30 Alcides Cells Not Reportable 04/13/16 09:30 Bite Cells Not Reportable 04/13/16 09:30 Crenated Cell Not Reportable 04/13/16 09:30 Elliptocytes Not Reportable 04/13/16 09:30 Acanthocytes (Spur) Not Reportable 04/13/16 09:30 Rouleaux Not Reportable 04/13/16 09:30 Hemoglobin C Crystals Not Reportable 04/13/16 09:30 Schistocytes Not Reportable 04/13/16 09:30 Malaria parasites Not Reportable 04/13/16 09:30 Maverick Bodies Not Reportable 04/13/16 09:30 Hem Pathologist Commnt No 04/13/16 09:30 PT 14.4 Sec. (12.2-14.9) 04/10/16 16:54 INR 1.13 (0.87-1.13) 04/10/16 16:54 APTT 34.3 Sec. (24.2-36.6) 04/11/16 11:50 D-Dimer 3652.03 ng/mlDDU (0-234) H 04/11/16 11:37 Heparin Anti-Xa Level 0.41 U.I./ml (0.3-0.7) 04/14/16 12:58 POC ABG pH 7.454 (7.35-7.45) H 04/12/16 06:54 POC ABG pCO2 41.1 (35-45) 04/12/16 06:54 POC ABG pO2 116 (80-105) H 04/12/16 06:54 POC ABG HCO3 28.9 04/12/16 06:54 POC ABG Total CO2 30 04/12/16 06:54 POC ABG O2 Sat 99 04/12/16 06:54 POC ABG Base Excess 5 04/12/16 06:54 VBG pH 7.437 (7.320-7.420) H 04/10/16 16:54 FiO2 3 % 04/12/16 06:54 Sodium 157 mmol/L (137-145) H 04/15/16 07:42 Potassium 3.6 mmol/L (3.6-5.0) 04/15/16 07:42 Chloride 117.9 mmol/L (98-107) H 04/15/16 07:42 Carbon Dioxide 30 mmol/L (22-30) 04/15/16 07:42 Anion Gap 13 mmol/L 04/15/16 07:42 BUN 22 mg/dL (9-20) H 04/15/16 07:42 Creatinine 0.8 mg/dL (0.8-1.5) 04/15/16 07:42 Estimated GFR > 60 ml/min 04/15/16 07:42 BUN/Creatinine Ratio 27.50 % 04/15/16 07:42 Glucose 173 mg/dL (75-100) H 04/15/16 07:42 POC Glucose 199 (70-105) H 04/15/16 07:00 Lactic Acid 2.5 mmol/L (0.7-2.0) H* 04/11/16 11:37 Calcium 8.1 mg/dL (8.4-10.2) L 04/15/16 07:42 Phosphorus 5.0 mg/dL (2.5-4.5) H 04/11/16 11:37 Magnesium 3.6 mg/dL (1.7-2.3) H 04/11/16 11:37 Total Bilirubin 1.0 mg/dL (0.1-1.2) 04/11/16 05:02 AST 36 units/L (5-40) 04/11/16 05:02 ALT 40 units/L (7-56) 04/11/16 05:02 Alkaline Phosphatase 94 units/L (35-129) 04/11/16 05:02 C-Reactive Protein 42.40 mg/dL (0.00-1.30) H 04/11/16 11:37 NT-Pro-B Natriuret Pep 1287 pg/mL (0-900) H 04/10/16 17:06 Total Protein 7.0 g/dL (6.3-8.2) 04/11/16 05:02 Albumin 1.9 g/dL (3.9-5) L 04/11/16 05:02 Albumin/Globulin Ratio 0.4 % 04/11/16 05:02 Urine Color Eri (Yellow) 04/10/16 16:56 Urine Turbidity Clear (Clear) 04/10/16 16:56 Urine pH 5.0 (5.0-7.0) 04/10/16 16:56 Ur Specific [place] 1.020 (1.003-1.030) 04/10/16 16:56 Urine Protein 30 mg/dl mg/dL (Negative) 04/10/16 16:56 Urine Glucose (UA) 50 mg/dL (Negative) 04/10/16 16:56 Urine Ketones Neg mg/dL (Negative) 04/10/16 16:56 Urine Blood Sm (Negative) 04/10/16 16:56 Urine Nitrite Neg (Negative) 04/10/16 16:56 Urine Bilirubin Neg (Negative) 04/10/16 16:56 Urine Urobilinogen 4.0 mg/dL (<2.0) 04/10/16 16:56 Ur Leukocyte Esterase Sm (Negative) 04/10/16 16:56 Urine WBC (Auto) 15.0 /HPF (0.0-6.0) H 04/10/16 16:56 Urine RBC (Auto) 7.0 /HPF (0.0-6.0) 04/10/16 16:56 Amorphous Crystals Few 04/10/16 16:56 Urine Mucus 1+ /HPF 04/10/16 16:56
[2016-04-15] MEDS: LEVEMIR SUB-Q SCH (22:40)
--- NOTE | 2016-04-15 22:58 | Progress Note ---
Assessment and Plan Patient sleeping on 2 litres O2, Weak, Not responding to the verbal stimuli.O2 satuaration 96%. - Patient Problems (1) Acute hypoxemic respiratory failure Current Visit: Yes Status: Acute Plan to address problem: O2 supplementation. Albuterol/atrovent aerosol treatments. Continue Prednisone. Patient is on I/V Heparin. Continue famotadine. (2) HCAP (healthcare-associated pneumonia) Current Visit: Yes Status: Acute Plan to address problem: Patient is on Levaquine. (3) Lactic acidosis Current Visit: Yes Status: Acute Plan to address problem: Improved. (4) Sepsis Current Visit: Yes Status: Acute Qualifiers: Sepsis type: sepsis due to unspecified organism Qualified Code(s): A41.9 - Sepsis, unspecified organism Plan to address problem: Patient is on I/V Levaquine. (5) CVA (cerebral vascular accident) Current Visit: No Status: Chronic Qualifiers: Laterality of affected vessel: left Plan to address problem: Management as per primary care and neuro (6) Elevated d-dimer Current Visit: Yes Status: Acute Plan to address problem: Patient is on I/V Heparin. Venous doppler studies of legs results pending. If venous doppler studies are negative, recommend to get V/Q scan. Subjective Date of service: 04/15/16 Principal diagnosis: Acute Hypoxemic Respiratory Failure; VTE Interval history: Patient sleeping on 2 litres O2, Weak, Not responding to the verbal stimuli.O2 satuaration 96%. Objective Vital Signs - 12hr 04/15/16 04/15/16 04/15/16 14:14 14:25 16:20 Temperature 97.8 F Pulse Rate Pulse Rate [ 68 73 Anterior Bilateral Throughout] Pulse Rate [ 79 From Monitor] Respiratory 20 Rate Respiratory 20 17 Rate [Anterior Bilateral Throughout] Blood Pressure Blood Pressure 118/78 [Left Arm] O2 Sat by Pulse Oximetry 04/15/16 04/15/16 04/15/16 19:41 19:44 19:50 Temperature Pulse Rate Pulse Rate [ 70 72 Anterior Bilateral Throughout] Pulse Rate [ From Monitor] Respiratory Rate Respiratory 21 17 Rate [Anterior Bilateral Throughout] Blood Pressure Blood Pressure [Left Arm] O2 Sat by Pulse 96 Oximetry 04/15/16 22:36 Temperature Pulse Rate 70 Pulse Rate [ Anterior Bilateral Throughout] Pulse Rate [ From Monitor] Respiratory Rate Respiratory Rate [Anterior Bilateral Throughout] Blood Pressure 117/70 Blood Pressure [Left Arm] O2 Sat by Pulse Oximetry Constitutional: no acute distress Eyes: non-icteric ENT: oropharynx moist Neck: supple, no lymphadenopathy Effort: mildly labored Ascultation: Bilateral: diminished breath sounds, rales, rhonchi (scant) Cardiovascular: regular rate and rhythm Gastrointestinal: normoactive bowel sounds, soft, non-tender, non-distended Integumentary: other (rash) Extremities: no cyanosis, pulses normal, no ischemia or petechiae Neurologic: unable to assess Psychiatric: other (unable to assess) CBC and BMP: 04/15/16 07:42 04/15/16 07:42 ABG, PT/INR, D-dimer: ABG POC ABG pH 7.454 (7.35-7.45) H 04/12/16 06:54 POC ABG pCO2 41.1 (35-45) 04/12/16 06:54 POC ABG pO2 116 (80-105) H 04/12/16 06:54 POC ABG HCO3 28.9 04/12/16 06:54 POC ABG Total CO2 30 04/12/16 06:54 POC ABG O2 Sat 99 04/12/16 06:54 PT/INR, D-dimer PT 14.4 Sec. (12.2-14.9) 04/10/16 16:54 INR 1.13 (0.87-1.13) 04/10/16 16:54 D-Dimer 3652.03 ng/mlDDU (0-234) H 04/11/16 11:37 Abnormal lab findings: Abnormal Labs 04/11/16 04/11/16 04/11/16 05:02 05:02 11:37 WBC 11.7 H RBC Hgb Hct MCV 80 L MCH 25 L MCHC 31 L RDW 17.5 H Plt Count 109 L Lymph % (Auto) Lymph # Seg Neutrophils % Seg Neuts % (Manual) 91.0 H Lymphocytes % (Manual) 3.0 L Nucleated RBC % 1.0 H Seg Neutrophils # Seg Neutrophils # Man 10.6 H Lymphocytes # (Manual) 0.4 L D-Dimer Heparin Anti-Xa Level POC ABG pH POC ABG pO2 Sodium 156 H Potassium Chloride 117.6 H Carbon Dioxide 21 L BUN 46 H Glucose 496 H POC Glucose Lactic Acid Calcium 8.3 L Phosphorus 5.0 H Magnesium 3.6 H C-Reactive Protein Albumin 1.9 L 04/11/16 04/11/16 04/11/16 11:37 11:37 11:37 WBC RBC Hgb Hct MCV MCH MCHC RDW Plt Count Lymph % (Auto) Lymph # Seg Neutrophils % Seg Neuts % (Manual) Lymphocytes % (Manual) Nucleated RBC % Seg Neutrophils # Seg Neutrophils # Man Lymphocytes # (Manual) D-Dimer 3652.03 H Heparin Anti-Xa Level POC ABG pH POC ABG pO2 Sodium Potassium Chloride Carbon Dioxide BUN Glucose POC Glucose Lactic Acid 2.5 H* Calcium Phosphorus Magnesium C-Reactive Protein 42.40 H Albumin 04/11/16 04/11/16 04/11/16 15:34 21:04 21:40 WBC RBC Hgb Hct MCV MCH MCHC RDW Plt Count Lymph % (Auto) Lymph # Seg Neutrophils % Seg Neuts % (Manual) Lymphocytes % (Manual) Nucleated RBC % Seg Neutrophils # Seg Neutrophils # Man Lymphocytes # (Manual) D-Dimer Heparin Anti-Xa Level 0.27 L POC ABG pH POC ABG pO2 Sodium Potassium Chloride Carbon Dioxide BUN Glucose POC Glucose 430 H > 500 H Lactic Acid Calcium Phosphorus Magnesium C-Reactive Protein Albumin 04/11/16 04/12/16 04/12/16 22:37 02:07 04:45 WBC 16.4 H RBC Hgb 11.0 L Hct MCV 80 L MCH 25 L MCHC 31 L RDW 17.6 H Plt Count 120 L Lymph % (Auto) Lymph # Seg Neutrophils % Seg Neuts % (Manual) 91.0 H Lymphocytes % (Manual) 1.0 L Nucleated RBC % Seg Neutrophils # Seg Neutrophils # Man 14.9 H Lymphocytes # (Manual) 0.2 L D-Dimer Heparin Anti-Xa Level POC ABG pH POC ABG pO2 Sodium Potassium Chloride Carbon Dioxide BUN Glucose 515 H* POC Glucose 399 H Lactic Acid Calcium Phosphorus Magnesium C-Reactive Protein Albumin 04/12/16 04/12/16 04/12/16 04:45 06:19 06:54 WBC RBC Hgb Hct MCV MCH MCHC RDW Plt Count Lymph % (Auto) Lymph # Seg Neutrophils % Seg Neuts % (Manual) Lymphocytes % (Manual) Nucleated RBC % Seg Neutrophils # Seg Neutrophils # Man Lymphocytes # (Manual) D-Dimer Heparin Anti-Xa Level 0.21 L POC ABG pH 7.454 H POC ABG pO2 116 H Sodium 161 H* Potassium 3.3 L D Chloride 122.8 H Carbon Dioxide BUN 43 H Glucose 485 H POC Glucose Lactic Acid Calcium 8.3 L Phosphorus Magnesium C-Reactive Protein Albumin 04/12/16 04/12/16 04/12/16 07:38 11:42 16:41 WBC RBC Hgb Hct MCV MCH MCHC RDW Plt Count Lymph % (Auto) Lymph # Seg Neutrophils % Seg Neuts % (Manual) Lymphocytes % (Manual) Nucleated RBC % Seg Neutrophils # Seg Neutrophils # Man Lymphocytes # (Manual) D-Dimer Heparin Anti-Xa Level POC ABG pH POC ABG pO2 Sodium Potassium Chloride Carbon Dioxide BUN Glucose POC Glucose 423 H 315 H 159 H Lactic Acid Calcium Phosphorus Magnesium C-Reactive Protein Albumin 04/12/16 04/12/16 04/13/16 20:39 22:47 06:12 WBC RBC Hgb Hct MCV MCH MCHC RDW Plt Count Lymph % (Auto) Lymph # Seg Neutrophils % Seg Neuts % (Manual) Lymphocytes % (Manual) Nucleated RBC % Seg Neutrophils # Seg Neutrophils # Man Lymphocytes # (Manual) D-Dimer Heparin Anti-Xa Level 0.20 L POC ABG pH POC ABG pO2 Sodium Potassium Chloride Carbon Dioxide BUN Glucose POC Glucose 217 H 247 H Lactic Acid Calcium Phosphorus Magnesium C-Reactive Protein Albumin 04/13/16 04/13/16 04/13/16 09:30 09:30 09:30 WBC RBC 5.12 H Hgb Hct MCV 79 L MCH 25 L MCHC 31 L RDW 17.6 H Plt Count 107 L Lymph % (Auto) Lymph # Seg Neutrophils % Seg Neuts % (Manual) 93.0 H Lymphocytes % (Manual) 7.0 L Nucleated RBC % 1.0 H Seg Neutrophils # Seg Neutrophils # Man 8.6 H Lymphocytes # (Manual) 0.6 L D-Dimer Heparin Anti-Xa Level 2.00 H POC ABG pH POC ABG pO2 Sodium 160 H Potassium Chloride 121.3 H Carbon Dioxide BUN 36 H Glucose 254 H POC Glucose Lactic Acid Calcium 8.3 L Phosphorus Magnesium C-Reactive Protein Albumin 04/13/16 04/13/16 04/13/16 12:29 13:20 17:06 WBC RBC Hgb Hct MCV MCH MCHC RDW Plt Count Lymph % (Auto) Lymph # Seg Neutrophils % Seg Neuts % (Manual) Lymphocytes % (Manual) Nucleated RBC % Seg Neutrophils # Seg Neutrophils # Man Lymphocytes # (Manual) D-Dimer Heparin Anti-Xa Level < 0.10 L POC ABG pH POC ABG pO2 Sodium Potassium Chloride Carbon Dioxide BUN Glucose POC Glucose 230 H 229 H Lactic Acid Calcium Phosphorus Magnesium C-Reactive Protein Albumin 04/13/16 04/14/16 04/14/16 21:22 00:03 04:34 WBC RBC Hgb 10.2 L Hct 32.6 L D MCV 79 L MCH 25 L MCHC 31 L RDW 17.7 H Plt Count 87 L Lymph % (Auto) 9.3 L Lymph # 0.8 L Seg Neutrophils % 88.1 H Seg Neuts % (Manual) Lymphocytes % (Manual) Nucleated RBC % Seg Neutrophils # 7.9 H Seg Neutrophils # Man Lymphocytes # (Manual) D-Dimer Heparin Anti-Xa Level 0.21 L POC ABG pH POC ABG pO2 Sodium Potassium Chloride Carbon Dioxide BUN Glucose POC Glucose 213 H Lactic Acid Calcium Phosphorus Magnesium C-Reactive Protein Albumin 04/14/16 04/14/16 04/14/16 06:13 11:23 12:58 WBC RBC Hgb Hct MCV MCH MCHC RDW Plt Count Lymph % (Auto) Lymph # Seg Neutrophils % Seg Neuts % (Manual) Lymphocytes % (Manual) Nucleated RBC % Seg Neutrophils # Seg Neutrophils # Man Lymphocytes # (Manual) D-Dimer Heparin Anti-Xa Level POC ABG pH POC ABG pO2 Sodium 157 H Potassium Chloride 118.4 H Carbon Dioxide BUN 25 H Glucose 140 H POC Glucose 182 H 143 H Lactic Acid Calcium 8.0 L Phosphorus Magnesium C-Reactive Protein Albumin 04/14/16 04/14/16 04/15/16 17:16 21:52 07:00 WBC RBC Hgb Hct MCV MCH MCHC RDW Plt Count Lymph % (Auto) Lymph # Seg Neutrophils % Seg Neuts % (Manual) Lymphocytes % (Manual) Nucleated RBC % Seg Neutrophils # Seg Neutrophils # Man Lymphocytes # (Manual) D-Dimer Heparin Anti-Xa Level POC ABG pH POC ABG pO2 Sodium Potassium Chloride Carbon Dioxide BUN Glucose POC Glucose 132 H 211 H 199 H Lactic Acid Calcium Phosphorus Magnesium C-Reactive Protein Albumin 04/15/16 04/15/16 04/15/16 07:42 07:42 11:35 WBC RBC Hgb 10.3 L Hct 32.3 L MCV 80 L MCH 25 L MCHC RDW 17.5 H Plt Count 85 L Lymph % (Auto) 10.6 L Lymph # 0.8 L Seg Neutrophils % 85.8 H Seg Neuts % (Manual) Lymphocytes % (Manual) Nucleated RBC % Seg Neutrophils # Seg Neutrophils # Man Lymphocytes # (Manual) D-Dimer Heparin Anti-Xa Level POC ABG pH POC ABG pO2 Sodium 157 H Potassium Chloride 117.9 H Carbon Dioxide BUN 22 H Glucose 173 H POC Glucose 130 H Lactic Acid Calcium 8.1 L Phosphorus Magnesium C-Reactive Protein Albumin 04/15/16 04/15/16 17:21 21:22 WBC RBC Hgb Hct MCV MCH MCHC RDW Plt Count Lymph % (Auto) Lymph # Seg Neutrophils % Seg Neuts % (Manual) Lymphocytes % (Manual) Nucleated RBC % Seg Neutrophils # Seg Neutrophils # Man Lymphocytes # (Manual) D-Dimer Heparin Anti-Xa Level POC ABG pH POC ABG pO2 Sodium Potassium Chloride Carbon Dioxide BUN Glucose POC Glucose 197 H 192 H Lactic Acid Calcium Phosphorus Magnesium C-Reactive Protein Albumin Chest x-ray: report reviewed (Right lower lobe infiltrate.), image reviewed
[2016-04-16] MEDS: DUONEB 0.5 MG-3 MG/3 ML SOLN IH SCH ×4 (01:53→20:14)
[2016-04-16] MEDS: HEPARIN/ 0.45% NACL-25,000 UNIT/500 ML 500 ML IV SCH ×2 (03:41→23:03)
[2016-04-16 07:32] LABS: Basophils % (Auto) 0.1 % (0.0-1.8); Eosinophils % (Auto) 1.6 % (0.0-4.3); Hematocrit 33.2 % (35.5-45.6); Hemoglobin 10.5 gm/dl (11.8-15.2); Mean Corpuscular HGB Conc 32 % (32-34); Mean Corpuscular Volume 78 fl (84-94); Red Blood Count 4.25 M/mm3 (3.65-5.03)
[2016-04-16 07:35] LABS: Mean Corpuscular Hemoglobin 25 pg (28-32); Platelet Count 94 K/mm3 (140-440)
[2016-04-16 07:48] LABS: Anion Gap 11 mmol/L; BUN/Creatinine Ratio 25.71; Blood Urea Nitrogen 18 mg/dL (9-20); Calcium 8.1 mg/dL (8.4-10.2); Carbon Dioxide 32 mmol/L (22-30); Chloride 108.1 mmol/L (98-107); Glucose 198 mg/dL (75-100); Potassium 3.5 mmol/L (3.6-5.0); Sodium 148 mmol/L (137-145)
[2016-04-16] MEDS: NOVOLOG SUB-Q SCH ×3 (08:15→16:53)
[2016-04-16] MEDS: CATAPRES PO SCH (09:43)
[2016-04-16] MEDS: PEPCID PO SCH (09:43)
[2016-04-16] MEDS: DELTASONE PO SCH (09:43)
[2016-04-16] MEDS: NORVASC PO SCH (09:43)
[2016-04-16] MEDS: LEVAQUIN 500MG/100ML 100 ML IV SCH (09:43)
[2016-04-16] MEDS: NACL 0.45% 1000 ML 1,000 ML IV SCH (13:34)
--- NOTE | 2016-04-16 14:09 | Progress Note ---
Assessment and Plan Assessment and plan: 1. Acute hypoxic respiratory failure-resolving. Wean supplemental oxygen as tolerated 2. Sepsis. Etiology secondary to pneumonia and MSSA bacteremia-resolving. White count is normal and he is afebrile; tinea Levaquin. We'll repeat blood cultures to check for clearance; persistent bacteremia will consult cardiology for MARISA 3. UTI-continue Levaquin, urine cultures no growth to date 4. Hypernatremia-improving,Continue hypotonic IV fluids and free water every 4 hours. Follow-up BMP. 5. Metabolic encephalopathy- cont supportive care. 6. Diabetes mellitus type 2- glucose control improving; cotn levemir 25 units daily. 7. Oropharyngeal dysphagia- for Speech evaluation pending. Continue NG tube to feedings at 50 mL per hour. 8. Hypokalemia- Replete potassium with po supplementation. check mag / Phosphorus level 9. DVT Lt IJ and subclavian- cotn heparin gtt; will transition to eliquis pending swallow eval and no PEG placement needed l; monitor for bleeding; monitor H/h and platelet count 10. DVT-on heparin drip. History Interval history: Follow-up for respiratory failure, sepsis, UTI, hypernatremia Patient is seen at the bedside, no family is present. Not Verbalizing much; NG tube in place Hospitalist Physical - Constitutional Vitals: Temp Pulse Resp BP Pulse Ox 98.6 F 64 16 136/89 96 04/16/16 10:47 04/16/16 10:47 04/16/16 10:47 04/16/16 10:47 04/16/16 10:47 General appearance: Present: no acute distress, well-nourished, other (on nasal cannula oxygen) - EENT Eyes: Present: PERRL. Absent: scleral icterus, conjunctival injection ENT: hearing intact, other (NG tube in place) - Neck Neck: Present: supple, normal ROM. Absent: enlarged thyroid, masses or JVD - Respiratory Respiratory effort: normal Respiratory: bilateral: diminished, negative: rales, rhonchi, wheezing - Cardiovascular Rhythm: regular Heart Sounds: Present: S1 & S2. Absent: gallop - Extremities Extremities: no ischemia, pulses intact, pulses symmetrical Peripheral Pulses: within normal limits - Abdominal General gastrointestinal: soft, non-tender, non-distended - Psychiatric Psychiatric: cooperative - Neurologic Neurologic: CNII-XII intact (is open spontaneously, tries to obey commands) Results - Labs CBC & Chem 7: 04/16/16 07:10 04/16/16 07:10 Labs: Laboratory Last Values WBC 8.0 K/mm3 (4.5-11.0) 04/16/16 07:10 RBC 4.25 M/mm3 (3.65-5.03) 04/16/16 07:10 Hgb 10.5 gm/dl (11.8-15.2) L 04/16/16 07:10 Hct 33.2 % (35.5-45.6) L 04/16/16 07:10 MCV 78 fl (84-94) L 04/16/16 07:10 MCH 25 pg (28-32) L 04/16/16 07:10 MCHC 32 % (32-34) 04/16/16 07:10 RDW 17.0 % (13.2-15.2) H 04/16/16 07:10 Plt Count 94 K/mm3 (140-440) L 04/16/16 07:10 Lymph % (Auto) 11.3 % (13.4-35.0) L 04/16/16 07:10 [place] % (Auto) 2.6 % (0.0-7.3) 04/16/16 07:10 Eos % (Auto) 1.6 % (0.0-4.3) 04/16/16 07:10 Baso % (Auto) 0.1 % (0.0-1.8) 04/16/16 07:10 Lymph # 0.9 K/mm3 (1.2-5.4) L 04/16/16 07:10 [place] # 0.2 K/mm3 (0.0-0.8) 04/16/16 07:10 Eos # 0.1 K/mm3 (0.0-0.4) 04/16/16 07:10 Baso # 0.0 K/mm3 (0.0-0.1) 04/16/16 07:10 Add Manual Diff Complete 04/13/16 09:30 Total Counted 100 04/13/16 09:30 Seg Neutrophils % 84.4 % (40.0-70.0) H 04/16/16 07:10 Seg Neuts % (Manual) 93.0 % (40.0-70.0) H 04/13/16 09:30 Band Neutrophils % 0 % 04/13/16 09:30 Lymphocytes % (Manual) 7.0 % (13.4-35.0) L 04/13/16 09:30 Reactive Lymphs % (Man) 0 % 04/13/16 09:30 Monocytes % (Manual) 0 % (0.0-7.3) 04/13/16 09:30 Eosinophils % (Manual) 0 % (0.0-4.3) 04/13/16 09:30 Basophils % (Manual) 0 % (0.0-1.8) 04/13/16 09:30 Metamyelocytes % 0 % 04/13/16 09:30 Myelocytes % 0 % 04/13/16 09:30 Promyelocytes % 0 % 04/13/16 09:30 Blast Cells % 0 % 04/13/16 09:30 Nucleated RBC % 1.0 % (0.0-0.9) H 04/13/16 09:30 Seg Neutrophils # 6.8 K/mm3 (1.8-7.7) 04/16/16 07:10 Seg Neutrophils # Man 8.6 K/mm3 (1.8-7.7) H 04/13/16 09:30 Band Neutrophils # 0.0 K/mm3 04/13/16 09:30 Lymphocytes # (Manual) 0.6 K/mm3 (1.2-5.4) L 04/13/16 09:30 Abs React Lymphs (Man) 0.0 K/mm3 04/13/16 09:30 Monocytes # (Manual) 0.0 K/mm3 (0.0-0.8) 04/13/16 09:30 Eosinophils # (Manual) 0.0 K/mm3 (0.0-0.4) 04/13/16 09:30 Basophils # (Manual) 0.0 K/mm3 (0.0-0.1) 04/13/16 09:30 Metamyelocytes # 0.0 K/mm3 04/13/16 09:30 Myelocytes # 0.0 K/mm3 04/13/16 09:30 Promyelocytes # 0.0 K/mm3 04/13/16 09:30 Blast Cells # 0.0 K/mm3 04/13/16 09:30 WBC Morphology Not Reportable 04/13/16 09:30 Hypersegmented Neuts Not Reportable 04/13/16 09:30 Hyposegmented Neuts Not Reportable 04/13/16 09:30 Hypogranular Neuts Not Reportable 04/13/16 09:30 Smudge Cells Not Reportable 04/13/16 09:30 Toxic Granulation Not Reportable 04/13/16 09:30 Toxic Vacuolation Not Reportable 04/13/16 09:30 Dohle Bodies Not Reportable 04/13/16 09:30 Pelger-Huet Anomaly Not Reportable 04/13/16 09:30 Ky Rods Not Reportable 04/13/16 09:30 Platelet Estimate Appears decreased 04/13/16 09:30 Clumped Platelets Not Reportable 04/13/16 09:30 Plt Clumps, EDTA Not Reportable 04/13/16 09:30 Large Platelets Not Reportable 04/13/16 09:30 Giant Platelets Not Reportable 04/13/16 09:30 Platelet Satelliting Not Reportable 04/13/16 09:30 Plt Morphology Comment Not Reportable 04/13/16 09:30 RBC Morphology Not Reportable 04/13/16 09:30 Dimorphic RBCs Not Reportable 04/13/16 09:30 Polychromasia Not Reportable 04/13/16 09:30 Hypochromasia 1+ 04/13/16 09:30 Poikilocytosis Not Reportable 04/13/16 09:30 Anisocytosis 1+ 04/13/16 09:30 Microcytosis Not Reportable 04/13/16 09:30 Macrocytosis Not Reportable 04/13/16 09:30 Spherocytes Not Reportable 04/13/16 09:30 Pappenheimer Bodies Not Reportable 04/13/16 09:30 Sickle Cells Not Reportable 04/13/16 09:30 Target Cells Not Reportable 04/13/16 09:30 Tear Drop Cells Not Reportable 04/13/16 09:30 Ovalocytes Not Reportable 04/13/16 09:30 Helmet Cells Not Reportable 04/13/16 09:30 Stein-Rewey Bodies Not Reportable 04/13/16 09:30 [place] Rings Not Reportable 04/13/16 09:30 [place] Cells Not Reportable 04/13/16 09:30 Bite Cells Not Reportable 04/13/16 09:30 Crenated Cell Not Reportable 04/13/16 09:30 Elliptocytes Not Reportable 04/13/16 09:30 Acanthocytes (Spur) Not Reportable 04/13/16 09:30 Rouleaux Not Reportable 04/13/16 09:30 Hemoglobin C Crystals Not Reportable 04/13/16 09:30 Schistocytes Not Reportable 04/13/16 09:30 Malaria parasites Not Reportable 04/13/16 09:30 Maverick Bodies Not Reportable 04/13/16 09:30 Hem Pathologist Commnt No 04/13/16 09:30 PT 14.4 Sec. (12.2-14.9) 04/10/16 16:54 INR 1.13 (0.87-1.13) 04/10/16 16:54 APTT 34.3 Sec. (24.2-36.6) 04/11/16 11:50 D-Dimer 3652.03 ng/mlDDU (0-234) H 04/11/16 11:37 Heparin Anti-Xa Level 0.32 U.I./ml (0.3-0.7) 04/16/16 11:16 POC ABG pH 7.454 (7.35-7.45) H 04/12/16 06:54 POC ABG pCO2 41.1 (35-45) 04/12/16 06:54 POC ABG pO2 116 (80-105) H 04/12/16 06:54 POC ABG HCO3 28.9 04/12/16 06:54 POC ABG Total CO2 30 04/12/16 06:54 POC ABG O2 Sat 99 04/12/16 06:54 POC ABG Base Excess 5 04/12/16 06:54 VBG pH 7.437 (7.320-7.420) H 04/10/16 16:54 FiO2 3 % 04/12/16 06:54 Sodium 148 mmol/L (137-145) H D 04/16/16 07:10 Potassium 3.5 mmol/L (3.6-5.0) L 04/16/16 07:10 Chloride 108.1 mmol/L (98-107) H 04/16/16 07:10 Carbon Dioxide 32 mmol/L (22-30) H 04/16/16 07:10 Anion Gap 11 mmol/L 04/16/16 07:10 BUN 18 mg/dL (9-20) 04/16/16 07:10 Creatinine 0.7 mg/dL (0.8-1.5) L 04/16/16 07:10 Estimated GFR > 60 ml/min 04/16/16 07:10 BUN/Creatinine Ratio 25.71 % 04/16/16 07:10 Glucose 198 mg/dL (75-100) H 04/16/16 07:10 POC Glucose 198 (70-105) H 04/16/16 05:59 Lactic Acid 2.5 mmol/L (0.7-2.0) H* 04/11/16 11:37 Calcium 8.1 mg/dL (8.4-10.2) L 04/16/16 07:10 Phosphorus 5.0 mg/dL (2.5-4.5) H 04/11/16 11:37 Magnesium 3.6 mg/dL (1.7-2.3) H 04/11/16 11:37 Total Bilirubin 1.0 mg/dL (0.1-1.2) 04/11/16 05:02 AST 36 units/L (5-40) 04/11/16 05:02 ALT 40 units/L (7-56) 04/11/16 05:02 Alkaline Phosphatase 94 units/L (35-129) 04/11/16 05:02 C-Reactive Protein 42.40 mg/dL (0.00-1.30) H 04/11/16 11:37 NT-Pro-B Natriuret Pep 1287 pg/mL (0-900) H 04/10/16 17:06 Total Protein 7.0 g/dL (6.3-8.2) 04/11/16 05:02 Albumin 1.9 g/dL (3.9-5) L 04/11/16 05:02 Albumin/Globulin Ratio 0.4 % 04/11/16 05:02 Urine Color Eri (Yellow) 04/10/16 16:56 Urine Turbidity Clear (Clear) 04/10/16 16:56 Urine pH 5.0 (5.0-7.0) 04/10/16 16:56 Ur Specific [place] 1.020 (1.003-1.030) 04/10/16 16:56 Urine Protein 30 mg/dl mg/dL (Negative) 04/10/16 16:56 Urine Glucose (UA) 50 mg/dL (Negative) 04/10/16 16:56 Urine Ketones Neg mg/dL (Negative) 04/10/16 16:56 Urine Blood Sm (Negative) 04/10/16 16:56 Urine Nitrite Neg (Negative) 04/10/16 16:56 Urine Bilirubin Neg (Negative) 04/10/16 16:56 Urine Urobilinogen 4.0 mg/dL (<2.0) 04/10/16 16:56 Ur Leukocyte Esterase Sm (Negative) 04/10/16 16:56 Urine WBC (Auto) 15.0 /HPF (0.0-6.0) H 04/10/16 16:56 Urine RBC (Auto) 7.0 /HPF (0.0-6.0) 04/10/16 16:56 Amorphous Crystals Few 04/10/16 16:56 Urine Mucus 1+ /HPF 04/10/16 16:56 Microbiology 04/10/16 16:54 Peripheral/Venous Blood Culture - Final Staphylococcus Aureus Diphtheroids 04/10/16 17:06 Peripheral/Venous Blood Culture - Final Staphylococcus Aureus Diphtheroids 04/10/16 16:56 Urine,Catheterized - Indwelling Catheter Urine Culture - Final 04/10/16 20:25 Nasopharyngeal Swab Influenza Types A,B Antigen (TED) - Final Echocardiogram-poor quality echo. VASCULAR LAB.PRELIMINARY REPORT.LUE VENOUS DUPLEX DONE BEDSIDE.EVIDENCE OF ACUTE DVT IN THE LT.IJV AND LT.SUBCLAVIAN VEIN. Initialized on 04/11/16 13:01 - END OF NOTE
[2016-04-16] MEDS ORDERED: POTASSIUM CHLORIDE FEEDTUBE ONE (15:00)
[2016-04-16] MEDS: LEVEMIR SUB-Q SCH (22:00)
--- NOTE | 2016-04-16 22:28 | Progress Note ---
Assessment and Plan Patient sleeping on 2 litres O2, Weak, Not responding to the verbal stimuli.O2 satuaration 99%. - Patient Problems (1) Acute hypoxemic respiratory failure Current Visit: Yes Status: Acute Plan to address problem: O2 supplementation. Albuterol/atrovent aerosol treatments. Continue Prednisone. Patient is on I/V Heparin. Continue famotadine. (2) HCAP (healthcare-associated pneumonia) Current Visit: Yes Status: Acute Plan to address problem: Patient is on Levaquine. (3) Lactic acidosis Current Visit: Yes Status: Acute Plan to address problem: Improved. (4) Sepsis Current Visit: Yes Status: Acute Qualifiers: Sepsis type: sepsis due to unspecified organism Qualified Code(s): A41.9 - Sepsis, unspecified organism Plan to address problem: Patient is on I/V Levaquine. (5) CVA (cerebral vascular accident) Current Visit: No Status: Chronic Qualifiers: Laterality of affected vessel: left Plan to address problem: Management as per primary care and neuro (6) Elevated d-dimer Current Visit: Yes Status: Acute Plan to address problem: Patient is on I/V Heparin. Venous doppler studies of legs results pending. If venous doppler studies are negative, recommend to get V/Q scan. Subjective Date of service: 04/16/16 Principal diagnosis: Acute Hypoxemic Respiratory Failure; VTE Interval history: Patient sleeping on 2 litres O2, Weak, Not responding to the verbal stimuli.O2 satuaration 99%. Objective Vital Signs - 12hr 04/16/16 04/16/16 04/16/16 10:47 14:19 14:39 Temperature 98.6 F 98.6 F Pulse Rate [ 78 Anterior Bilateral Throughout] Pulse Rate [ Bilateral] Pulse Rate [ 64 62 From Monitor] Respiratory 16 16 Rate Respiratory 18 Rate [Anterior Bilateral Throughout] Respiratory Rate [Bilateral ] Blood Pressure 136/89 131/81 [Left Arm] O2 Sat by Pulse 96 97 Oximetry 04/16/16 04/16/16 20:00 20:17 Temperature Pulse Rate [ 58 L Anterior Bilateral Throughout] Pulse Rate [ 63 Bilateral] Pulse Rate [ From Monitor] Respiratory Rate Respiratory 16 Rate [Anterior Bilateral Throughout] Respiratory 18 Rate [Bilateral ] Blood Pressure [Left Arm] O2 Sat by Pulse 99 Oximetry Constitutional: no acute distress Eyes: non-icteric ENT: oropharynx moist Neck: supple, no lymphadenopathy Effort: mildly labored Ascultation: Bilateral: diminished breath sounds, rales, rhonchi (scant) Cardiovascular: regular rate and rhythm Gastrointestinal: normoactive bowel sounds, soft, non-tender, non-distended Integumentary: other (rash) Extremities: no cyanosis, pulses normal, no ischemia or petechiae Neurologic: unable to assess Psychiatric: other (unable to assess) CBC and BMP: 04/16/16 07:10 04/16/16 07:10 ABG, PT/INR, D-dimer: ABG POC ABG pH 7.454 (7.35-7.45) H 04/12/16 06:54 POC ABG pCO2 41.1 (35-45) 04/12/16 06:54 POC ABG pO2 116 (80-105) H 04/12/16 06:54 POC ABG HCO3 28.9 04/12/16 06:54 POC ABG Total CO2 30 04/12/16 06:54 POC ABG O2 Sat 99 04/12/16 06:54 PT/INR, D-dimer PT 14.4 Sec. (12.2-14.9) 04/10/16 16:54 INR 1.13 (0.87-1.13) 04/10/16 16:54 D-Dimer 3652.03 ng/mlDDU (0-234) H 04/11/16 11:37 Abnormal lab findings: Abnormal Labs 04/11/16 04/11/16 04/11/16 05:02 05:02 11:37 WBC 11.7 H RBC Hgb Hct MCV 80 L MCH 25 L MCHC 31 L RDW 17.5 H Plt Count 109 L Lymph % (Auto) Lymph # Seg Neutrophils % Seg Neuts % (Manual) 91.0 H Lymphocytes % (Manual) 3.0 L Nucleated RBC % 1.0 H Seg Neutrophils # Seg Neutrophils # Man 10.6 H Lymphocytes # (Manual) 0.4 L D-Dimer Heparin Anti-Xa Level POC ABG pH POC ABG pO2 Sodium 156 H Potassium Chloride 117.6 H Carbon Dioxide 21 L BUN 46 H Creatinine Glucose 496 H POC Glucose Lactic Acid Calcium 8.3 L Phosphorus 5.0 H Magnesium 3.6 H C-Reactive Protein Albumin 1.9 L 04/11/16 04/11/16 04/11/16 11:37 11:37 11:37 WBC RBC Hgb Hct MCV MCH MCHC RDW Plt Count Lymph % (Auto) Lymph # Seg Neutrophils % Seg Neuts % (Manual) Lymphocytes % (Manual) Nucleated RBC % Seg Neutrophils # Seg Neutrophils # Man Lymphocytes # (Manual) D-Dimer 3652.03 H Heparin Anti-Xa Level POC ABG pH POC ABG pO2 Sodium Potassium Chloride Carbon Dioxide BUN Creatinine Glucose POC Glucose Lactic Acid 2.5 H* Calcium Phosphorus Magnesium C-Reactive Protein 42.40 H Albumin 04/11/16 04/11/16 04/11/16 15:34 21:04 21:40 WBC RBC Hgb Hct MCV MCH MCHC RDW Plt Count Lymph % (Auto) Lymph # Seg Neutrophils % Seg Neuts % (Manual) Lymphocytes % (Manual) Nucleated RBC % Seg Neutrophils # Seg Neutrophils # Man Lymphocytes # (Manual) D-Dimer Heparin Anti-Xa Level 0.27 L POC ABG pH POC ABG pO2 Sodium Potassium Chloride Carbon Dioxide BUN Creatinine Glucose POC Glucose 430 H > 500 H Lactic Acid Calcium Phosphorus Magnesium C-Reactive Protein Albumin 04/11/16 04/12/16 04/12/16 22:37 02:07 04:45 WBC 16.4 H RBC Hgb 11.0 L Hct MCV 80 L MCH 25 L MCHC 31 L RDW 17.6 H Plt Count 120 L Lymph % (Auto) Lymph # Seg Neutrophils % Seg Neuts % (Manual) 91.0 H Lymphocytes % (Manual) 1.0 L Nucleated RBC % Seg Neutrophils # Seg Neutrophils # Man 14.9 H Lymphocytes # (Manual) 0.2 L D-Dimer Heparin Anti-Xa Level POC ABG pH POC ABG pO2 Sodium Potassium Chloride Carbon Dioxide BUN Creatinine Glucose 515 H* POC Glucose 399 H Lactic Acid Calcium Phosphorus Magnesium C-Reactive Protein Albumin 04/12/16 04/12/16 04/12/16 04:45 06:19 06:54 WBC RBC Hgb Hct MCV MCH MCHC RDW Plt Count Lymph % (Auto) Lymph # Seg Neutrophils % Seg Neuts % (Manual) Lymphocytes % (Manual) Nucleated RBC % Seg Neutrophils # Seg Neutrophils # Man Lymphocytes # (Manual) D-Dimer Heparin Anti-Xa Level 0.21 L POC ABG pH 7.454 H POC ABG pO2 116 H Sodium 161 H* Potassium 3.3 L D Chloride 122.8 H Carbon Dioxide BUN 43 H Creatinine Glucose 485 H POC Glucose Lactic Acid Calcium 8.3 L Phosphorus Magnesium C-Reactive Protein Albumin 04/12/16 04/12/16 04/12/16 07:38 11:42 16:41 WBC RBC Hgb Hct MCV MCH MCHC RDW Plt Count Lymph % (Auto) Lymph # Seg Neutrophils % Seg Neuts % (Manual) Lymphocytes % (Manual) Nucleated RBC % Seg Neutrophils # Seg Neutrophils # Man Lymphocytes # (Manual) D-Dimer Heparin Anti-Xa Level POC ABG pH POC ABG pO2 Sodium Potassium Chloride Carbon Dioxide BUN Creatinine Glucose POC Glucose 423 H 315 H 159 H Lactic Acid Calcium Phosphorus Magnesium C-Reactive Protein Albumin 04/12/16 04/12/16 04/13/16 20:39 22:47 06:12 WBC RBC Hgb Hct MCV MCH MCHC RDW Plt Count Lymph % (Auto) Lymph # Seg Neutrophils % Seg Neuts % (Manual) Lymphocytes % (Manual) Nucleated RBC % Seg Neutrophils # Seg Neutrophils # Man Lymphocytes # (Manual) D-Dimer Heparin Anti-Xa Level 0.20 L POC ABG pH POC ABG pO2 Sodium Potassium Chloride Carbon Dioxide BUN Creatinine Glucose POC Glucose 217 H 247 H Lactic Acid Calcium Phosphorus Magnesium C-Reactive Protein Albumin 04/13/16 04/13/16 04/13/16 09:30 09:30 09:30 WBC RBC 5.12 H Hgb Hct MCV 79 L MCH 25 L MCHC 31 L RDW 17.6 H Plt Count 107 L Lymph % (Auto) Lymph # Seg Neutrophils % Seg Neuts % (Manual) 93.0 H Lymphocytes % (Manual) 7.0 L Nucleated RBC % 1.0 H Seg Neutrophils # Seg Neutrophils # Man 8.6 H Lymphocytes # (Manual) 0.6 L D-Dimer Heparin Anti-Xa Level 2.00 H POC ABG pH POC ABG pO2 Sodium 160 H Potassium Chloride 121.3 H Carbon Dioxide BUN 36 H Creatinine Glucose 254 H POC Glucose Lactic Acid Calcium 8.3 L Phosphorus Magnesium C-Reactive Protein Albumin 04/13/16 04/13/16 04/13/16 12:29 13:20 17:06 WBC RBC Hgb Hct MCV MCH MCHC RDW Plt Count Lymph % (Auto) Lymph # Seg Neutrophils % Seg Neuts % (Manual) Lymphocytes % (Manual) Nucleated RBC % Seg Neutrophils # Seg Neutrophils # Man Lymphocytes # (Manual) D-Dimer Heparin Anti-Xa Level < 0.10 L POC ABG pH POC ABG pO2 Sodium Potassium Chloride Carbon Dioxide BUN Creatinine Glucose POC Glucose 230 H 229 H Lactic Acid Calcium Phosphorus Magnesium C-Reactive Protein Albumin 04/13/16 04/14/16 04/14/16 21:22 00:03 04:34 WBC RBC Hgb 10.2 L Hct 32.6 L D MCV 79 L MCH 25 L MCHC 31 L RDW 17.7 H Plt Count 87 L Lymph % (Auto) 9.3 L Lymph # 0.8 L Seg Neutrophils % 88.1 H Seg Neuts % (Manual) Lymphocytes % (Manual) Nucleated RBC % Seg Neutrophils # 7.9 H Seg Neutrophils # Man Lymphocytes # (Manual) D-Dimer Heparin Anti-Xa Level 0.21 L POC ABG pH POC ABG pO2 Sodium Potassium Chloride Carbon Dioxide BUN Creatinine Glucose POC Glucose 213 H Lactic Acid Calcium Phosphorus Magnesium C-Reactive Protein Albumin 04/14/16 04/14/16 04/14/16 06:13 11:23 12:58 WBC RBC Hgb Hct MCV MCH MCHC RDW Plt Count Lymph % (Auto) Lymph # Seg Neutrophils % Seg Neuts % (Manual) Lymphocytes % (Manual) Nucleated RBC % Seg Neutrophils # Seg Neutrophils # Man Lymphocytes # (Manual) D-Dimer Heparin Anti-Xa Level POC ABG pH POC ABG pO2 Sodium 157 H Potassium Chloride 118.4 H Carbon Dioxide BUN 25 H Creatinine Glucose 140 H POC Glucose 182 H 143 H Lactic Acid Calcium 8.0 L Phosphorus Magnesium C-Reactive Protein Albumin 04/14/16 04/14/16 04/15/16 17:16 21:52 07:00 WBC RBC Hgb Hct MCV MCH MCHC RDW Plt Count Lymph % (Auto) Lymph # Seg Neutrophils % Seg Neuts % (Manual) Lymphocytes % (Manual) Nucleated RBC % Seg Neutrophils # Seg Neutrophils # Man Lymphocytes # (Manual) D-Dimer Heparin Anti-Xa Level POC ABG pH POC ABG pO2 Sodium Potassium Chloride Carbon Dioxide BUN Creatinine Glucose POC Glucose 132 H 211 H 199 H Lactic Acid Calcium Phosphorus Magnesium C-Reactive Protein Albumin 04/15/16 04/15/16 04/15/16 07:42 07:42 11:35 WBC RBC Hgb 10.3 L Hct 32.3 L MCV 80 L MCH 25 L MCHC RDW 17.5 H Plt Count 85 L Lymph % (Auto) 10.6 L Lymph # 0.8 L Seg Neutrophils % 85.8 H Seg Neuts % (Manual) Lymphocytes % (Manual) Nucleated RBC % Seg Neutrophils # Seg Neutrophils # Man Lymphocytes # (Manual) D-Dimer Heparin Anti-Xa Level POC ABG pH POC ABG pO2 Sodium 157 H Potassium Chloride 117.9 H Carbon Dioxide BUN 22 H Creatinine Glucose 173 H POC Glucose 130 H Lactic Acid Calcium 8.1 L Phosphorus Magnesium C-Reactive Protein Albumin 04/15/16 04/15/16 04/16/16 17:21 21:22 05:59 WBC RBC Hgb Hct MCV MCH MCHC RDW Plt Count Lymph % (Auto) Lymph # Seg Neutrophils % Seg Neuts % (Manual) Lymphocytes % (Manual) Nucleated RBC % Seg Neutrophils # Seg Neutrophils # Man Lymphocytes # (Manual) D-Dimer Heparin Anti-Xa Level POC ABG pH POC ABG pO2 Sodium Potassium Chloride Carbon Dioxide BUN Creatinine Glucose POC Glucose 197 H 192 H 198 H Lactic Acid Calcium Phosphorus Magnesium C-Reactive Protein Albumin 04/16/16 04/16/16 04/16/16 07:10 07:10 11:44 WBC RBC Hgb 10.5 L Hct 33.2 L MCV 78 L MCH 25 L MCHC RDW 17.0 H Plt Count 94 L Lymph % (Auto) 11.3 L Lymph # 0.9 L Seg Neutrophils % 84.4 H Seg Neuts % (Manual) Lymphocytes % (Manual) Nucleated RBC % Seg Neutrophils # Seg Neutrophils # Man Lymphocytes # (Manual) D-Dimer Heparin Anti-Xa Level POC ABG pH POC ABG pO2 Sodium 148 H D Potassium 3.5 L Chloride 108.1 H Carbon Dioxide 32 H BUN Creatinine 0.7 L Glucose 198 H POC Glucose 212 H Lactic Acid Calcium 8.1 L Phosphorus Magnesium C-Reactive Protein Albumin 04/16/16 04/16/16 16:15 21:06 WBC RBC Hgb Hct MCV MCH MCHC RDW Plt Count Lymph % (Auto) Lymph # Seg Neutrophils % Seg Neuts % (Manual) Lymphocytes % (Manual) Nucleated RBC % Seg Neutrophils # Seg Neutrophils # Man Lymphocytes # (Manual) D-Dimer Heparin Anti-Xa Level POC ABG pH POC ABG pO2 Sodium Potassium Chloride Carbon Dioxide BUN Creatinine Glucose POC Glucose 195 H 168 H Lactic Acid Calcium Phosphorus Magnesium C-Reactive Protein Albumin
[2016-04-17] MEDS: PEPCID PO SCH ×2 (01:01→09:45)
[2016-04-17] MEDS: CATAPRES PO SCH ×2 (01:01→09:45)
[2016-04-17] MEDS: DUONEB 0.5 MG-3 MG/3 ML SOLN IH SCH ×4 (02:01→20:14)
[2016-04-17] MEDS: NACL 0.45% 1000 ML 1,000 ML IV SCH ×2 (02:54→17:56)
[2016-04-17 05:45] LABS: Hematocrit 34.1 % (35.5-45.6); Mean Corpuscular HGB Conc 32 % (32-34); Mean Corpuscular Volume 78 fl (84-94); Red Blood Count 4.37 M/mm3 (3.65-5.03); White Blood Count 8.1 K/mm3 (4.5-11.0)
[2016-04-17 06:06] LABS: Mean Corpuscular Hemoglobin 25 pg (28-32); Platelet Count 98 K/mm3 (140-440)
[2016-04-17] MEDS: NOVOLOG SUB-Q SCH ×3 (08:20→16:30)
[2016-04-17 08:33] LABS: Basophils % (Manual) 0 % (0.0-1.8); Blastocytes % (Manual) 0 %; Eosinophils % (Manual) 0 % (0.0-4.3)
[2016-04-17 08:34] LABS: Hypochromasia 1+
[2016-04-17 08:35] LABS: Anisocytosis 1+; Diff Status Complete; Ovalocytes 1+; Platelet Estimate Appears Decreased; Polychromasia Few
[2016-04-17] MEDS: DELTASONE PO SCH (09:45)
[2016-04-17] MEDS: NORVASC PO SCH (09:45)
[2016-04-17] MEDS: LEVAQUIN 500MG/100ML 100 ML IV SCH (09:45)
--- NOTE | 2016-04-17 09:47 | Progress Note ---
Assessment and Plan Assessment and plan: 1. Acute hypoxic respiratory failure-resolving. Wean supplemental oxygen as tolerated 2. Sepsis. Etiology secondary to pneumonia and MSSA bacteremia-resolving. White remains normal and he is afebrile; continue Levaquin. We'll repeat blood cultures to check for clearance; persistent bacteremia will consult cardiology for MARISA 3. UTI-continue Levaquin, urine cultures no growth to date 4. Hypernatremia-improving,Continue hypotonic IV fluids and free water every 4 hours. Follow-up BMP. 5. Metabolic encephalopathy- cont supportive care. Unable to get CT scan head as it is not working; 6. Diabetes mellitus type 2- glucose control improving; cotn levemr 25 units daily. 7. Oropharyngeal dysphagia- for modified Ba swallow as per speech recommendations; Continue NG tube to feedings at 50 mL per hour. 8. Hypokalemia- was Repleted; f/u level 9. DVT Lt IJ and subclavian- cotn heparin gtt; will transition to eliquis pending swallow eval and no PEG placement needed l; monitor for bleeding; monitor H/h and platelet count 10. DVT-on heparin drip. History Interval history: Follow-up for respiratory failure, sepsis, UTI, hypernatremia Patient is seen at the bedside, no family is present. tries to communicate; mouths that he is OK; NG tube in place Hospitalist Physical - Constitutional Vitals: Temp Pulse Resp BP Pulse Ox 98.6 F 64 16 147/84 97 04/17/16 06:45 04/17/16 06:45 04/17/16 06:45 04/17/16 06:45 04/17/16 06:45 General appearance: Present: no acute distress, well-nourished, other (on nasal cannula oxygen) - EENT Eyes: Present: PERRL, EOM intact. Absent: scleral icterus, conjunctival injection ENT: hearing intact, other (NGT in place) - Neck Neck: Present: supple, normal ROM. Absent: enlarged thyroid, masses or JVD - Respiratory Respiratory effort: normal Respiratory: bilateral: diminished (bases), negative: rales, rhonchi, wheezing - Cardiovascular Rhythm: regular Heart Sounds: Present: S1 & S2. Absent: gallop - Extremities Extremities: no ischemia, pulses intact, pulses symmetrical, No edema Peripheral Pulses: within normal limits - Abdominal General gastrointestinal: soft, non-tender, non-distended, normal bowel sounds - Integumentary Integumentary: Present: clear - Psychiatric Psychiatric: cooperative - Neurologic Neurologic: CNII-XII intact (LT facial assymmetry), focal deficits (power 3 LT UE; 1 in RT UE and RT LE ) Results - Labs CBC & Chem 7: 04/17/16 05:21 04/16/16 07:10 Labs: Laboratory Last Values WBC 8.1 K/mm3 (4.5-11.0) 04/17/16 05:21 RBC 4.37 M/mm3 (3.65-5.03) 04/17/16 05:21 Hgb 11.0 gm/dl (11.8-15.2) L 04/17/16 05:21 Hct 34.1 % (35.5-45.6) L 04/17/16 05:21 MCV 78 fl (84-94) L 04/17/16 05:21 MCH 25 pg (28-32) L 04/17/16 05:21 MCHC 32 % (32-34) 04/17/16 05:21 RDW 17.0 % (13.2-15.2) H 04/17/16 05:21 Plt Count 98 K/mm3 (140-440) L 04/17/16 05:21 Lymph % (Auto) 11.3 % (13.4-35.0) L 04/16/16 07:10 [place] % (Auto) 2.6 % (0.0-7.3) 04/16/16 07:10 Eos % (Auto) 1.6 % (0.0-4.3) 04/16/16 07:10 Baso % (Auto) 0.1 % (0.0-1.8) 04/16/16 07:10 Lymph # 0.9 K/mm3 (1.2-5.4) L 04/16/16 07:10 [place] # 0.2 K/mm3 (0.0-0.8) 04/16/16 07:10 Eos # 0.1 K/mm3 (0.0-0.4) 04/16/16 07:10 Baso # 0.0 K/mm3 (0.0-0.1) 04/16/16 07:10 Add Manual Diff Complete 04/17/16 05:21 Total Counted 100 04/17/16 05:21 Seg Neutrophils % 84.4 % (40.0-70.0) H 04/16/16 07:10 Seg Neuts % (Manual) 81.0 % (40.0-70.0) H 04/17/16 05:21 Band Neutrophils % 1.0 % 04/17/16 05:21 Lymphocytes % (Manual) 12.0 % (13.4-35.0) L 04/17/16 05:21 Reactive Lymphs % (Man) 0 % 04/17/16 05:21 Monocytes % (Manual) 6.0 % (0.0-7.3) 04/17/16 05:21 Eosinophils % (Manual) 0 % (0.0-4.3) 04/17/16 05:21 Basophils % (Manual) 0 % (0.0-1.8) 04/17/16 05:21 Metamyelocytes % 0 % 04/17/16 05:21 Myelocytes % 0 % 04/17/16 05:21 Promyelocytes % 0 % 04/17/16 05:21 Blast Cells % 0 % 04/17/16 05:21 Nucleated RBC % Not Reportable 04/17/16 05:21 Seg Neutrophils # 6.8 K/mm3 (1.8-7.7) 04/16/16 07:10 Seg Neutrophils # Man 6.6 K/mm3 (1.8-7.7) 04/17/16 05:21 Band Neutrophils # 0.1 K/mm3 04/17/16 05:21 Lymphocytes # (Manual) 1.0 K/mm3 (1.2-5.4) L 04/17/16 05:21 Abs React Lymphs (Man) 0.0 K/mm3 04/17/16 05:21 Monocytes # (Manual) 0.5 K/mm3 (0.0-0.8) 04/17/16 05:21 Eosinophils # (Manual) 0.0 K/mm3 (0.0-0.4) 04/17/16 05:21 Basophils # (Manual) 0.0 K/mm3 (0.0-0.1) 04/17/16 05:21 Metamyelocytes # 0.0 K/mm3 04/17/16 05:21 Myelocytes # 0.0 K/mm3 04/17/16 05:21 Promyelocytes # 0.0 K/mm3 04/17/16 05:21 Blast Cells # 0.0 K/mm3 04/17/16 05:21 WBC Morphology Not Reportable 04/17/16 05:21 Hypersegmented Neuts Not Reportable 04/17/16 05:21 Hyposegmented Neuts Not Reportable 04/17/16 05:21 Hypogranular Neuts Not Reportable 04/17/16 05:21 Smudge Cells Not Reportable 04/17/16 05:21 Toxic Granulation Not Reportable 04/17/16 05:21 Toxic Vacuolation Not Reportable 04/17/16 05:21 Dohle Bodies Not Reportable 04/17/16 05:21 Pelger-Huet Anomaly Not Reportable 04/17/16 05:21 Ky Rods Not Reportable 04/17/16 05:21 Platelet Estimate Appears decreased 04/17/16 05:21 Clumped Platelets Not Reportable 04/17/16 05:21 Plt Clumps, EDTA Not Reportable 04/17/16 05:21 Large Platelets Not Reportable 04/17/16 05:21 Giant Platelets Not Reportable 04/17/16 05:21 Platelet Satelliting Not Reportable 04/17/16 05:21 Plt Morphology Comment Not Reportable 04/17/16 05:21 RBC Morphology Not Reportable 04/17/16 05:21 Dimorphic RBCs Not Reportable 04/17/16 05:21 Polychromasia Few 04/17/16 05:21 Hypochromasia 1+ 04/17/16 05:21 Poikilocytosis Not Reportable 04/17/16 05:21 Anisocytosis 1+ 04/17/16 05:21 Microcytosis Not Reportable 04/17/16 05:21 Macrocytosis Not Reportable 04/17/16 05:21 Spherocytes Not Reportable 04/17/16 05:21 Pappenheimer Bodies Not Reportable 04/17/16 05:21 Sickle Cells Not Reportable 04/17/16 05:21 Target Cells Not Reportable 04/17/16 05:21 Tear Drop Cells Not Reportable 04/17/16 05:21 Ovalocytes 1+ 04/17/16 05:21 Helmet Cells Not Reportable 04/17/16 05:21 [place] Bodies Not Reportable 04/17/16 05:21 [place] Rings Not Reportable 04/17/16 05:21 [place] Cells Not Reportable 04/17/16 05:21 Bite Cells Not Reportable 04/17/16 05:21 Crenated Cell Not Reportable 04/17/16 05:21 Elliptocytes Not Reportable 04/17/16 05:21 Acanthocytes (Spur) Not Reportable 04/17/16 05:21 Rouleaux Not Reportable 04/17/16 05:21 Hemoglobin C Crystals Not Reportable 04/17/16 05:21 Schistocytes Not Reportable 04/17/16 05:21 Malaria parasites Not Reportable 04/17/16 05:21 [place] Bodies Not Reportable 04/17/16 05:21 Hem Pathologist Commnt No 04/17/16 05:21 PT 14.4 Sec. (12.2-14.9) 04/10/16 16:54 INR 1.13 (0.87-1.13) 04/10/16 16:54 APTT 34.3 Sec. (24.2-36.6) 04/11/16 11:50 D-Dimer 3652.03 ng/mlDDU (0-234) H 04/11/16 11:37 Heparin Anti-Xa Level 0.32 U.I./ml (0.3-0.7) 04/16/16 11:16 POC ABG pH 7.454 (7.35-7.45) H 04/12/16 06:54 POC ABG pCO2 41.1 (35-45) 04/12/16 06:54 POC ABG pO2 116 (80-105) H 04/12/16 06:54 POC ABG HCO3 28.9 04/12/16 06:54 POC ABG Total CO2 30 04/12/16 06:54 POC ABG O2 Sat 99 04/12/16 06:54 POC ABG Base Excess 5 04/12/16 06:54 VBG pH 7.437 (7.320-7.420) H 04/10/16 16:54 FiO2 3 % 04/12/16 06:54 Sodium 148 mmol/L (137-145) H D 04/16/16 07:10 Potassium 3.5 mmol/L (3.6-5.0) L 04/16/16 07:10 Chloride 108.1 mmol/L (98-107) H 04/16/16 07:10 Carbon Dioxide 32 mmol/L (22-30) H 04/16/16 07:10 Anion Gap 11 mmol/L 04/16/16 07:10 BUN 18 mg/dL (9-20) 04/16/16 07:10 Creatinine 0.7 mg/dL (0.8-1.5) L 04/16/16 07:10 Estimated GFR > 60 ml/min 04/16/16 07:10 BUN/Creatinine Ratio 25.71 % 04/16/16 07:10 Glucose 198 mg/dL (75-100) H 04/16/16 07:10 POC Glucose 186 (70-105) H 04/17/16 05:44 Lactic Acid 2.5 mmol/L (0.7-2.0) H* 04/11/16 11:37 Calcium 8.1 mg/dL (8.4-10.2) L 04/16/16 07:10 Phosphorus 5.0 mg/dL (2.5-4.5) H 04/11/16 11:37 Magnesium 3.6 mg/dL (1.7-2.3) H 04/11/16 11:37 Total Bilirubin 1.0 mg/dL (0.1-1.2) 04/11/16 05:02 AST 36 units/L (5-40) 04/11/16 05:02 ALT 40 units/L (7-56) 04/11/16 05:02 Alkaline Phosphatase 94 units/L (35-129) 04/11/16 05:02 C-Reactive Protein 42.40 mg/dL (0.00-1.30) H 04/11/16 11:37 NT-Pro-B Natriuret Pep 1287 pg/mL (0-900) H 04/10/16 17:06 Total Protein 7.0 g/dL (6.3-8.2) 04/11/16 05:02 Albumin 1.9 g/dL (3.9-5) L 04/11/16 05:02 Albumin/Globulin Ratio 0.4 % 04/11/16 05:02 Urine Color Eri (Yellow) 04/10/16 16:56 Urine Turbidity Clear (Clear) 04/10/16 16:56 Urine pH 5.0 (5.0-7.0) 04/10/16 16:56 Ur Specific [place] 1.020 (1.003-1.030) 04/10/16 16:56 Urine Protein 30 mg/dl mg/dL (Negative) 04/10/16 16:56 Urine Glucose (UA) 50 mg/dL (Negative) 04/10/16 16:56 Urine Ketones Neg mg/dL (Negative) 04/10/16 16:56 Urine Blood Sm (Negative) 04/10/16 16:56 Urine Nitrite Neg (Negative) 04/10/16 16:56 Urine Bilirubin Neg (Negative) 04/10/16 16:56 Urine Urobilinogen 4.0 mg/dL (<2.0) 04/10/16 16:56 Ur Leukocyte Esterase Sm (Negative) 04/10/16 16:56 Urine WBC (Auto) 15.0 /HPF (0.0-6.0) H 04/10/16 16:56 Urine RBC (Auto) 7.0 /HPF (0.0-6.0) 04/10/16 16:56 Amorphous Crystals Few 04/10/16 16:56 Urine Mucus 1+ /HPF 04/10/16 16:56
[2016-04-17 09:50] LABS: Anion Gap 15 mmol/L; Blood Urea Nitrogen 15 mg/dL (9-20); Calcium 8.1 mg/dL (8.4-10.2); Carbon Dioxide 28 mmol/L (22-30); Chloride 99.9 mmol/L (98-107); Glucose 178 mg/dL (75-100); Sodium 139 mmol/L (137-145)
[2016-04-17] MEDS: HEPARIN/ 0.45% NACL-25,000 UNIT/500 ML 500 ML IV SCH ×2 (11:30→17:56)
--- NOTE | 2016-04-17 13:45 | Fluoroscopy Report ---
MODIFIED BARIUM SWALLOW INDICATION: Dysphagia. COMPARISON: None similar. FINDINGS: Fluoroscopy provided by radiologist for speech therapist to assess the swallowing mechanism. Food items of various consistencies given. Penetration/aspiration noted. Dobbhoff tube. Numerous radiopaque dental fillings. Cervical spondylosis. IMPRESSION: Successful modified barium swallow. Please refer to detailed report from speech pathologist. Thank you for the opportunity to participate in this patient's care.
--- NOTE | 2016-04-17 17:23 | Progress Note ---
Assessment and Plan Patient sleeping on 2 litres O2, Weak, Not responding to the verbal stimuli.O2 satuaration 100%. Talk to the patients and explained patients respiratory status. - Patient Problems (1) Acute hypoxemic respiratory failure Current Visit: Yes Status: Acute Plan to address problem: O2 supplementation. Albuterol/atrovent aerosol treatments. Continue Prednisone. Patient is on I/V Heparin. Continue famotadine. (2) HCAP (healthcare-associated pneumonia) Current Visit: Yes Status: Acute Plan to address problem: Patient is on Levaquine. (3) Lactic acidosis Current Visit: Yes Status: Acute Plan to address problem: Improved. (4) Sepsis Current Visit: Yes Status: Acute Qualifiers: Sepsis type: sepsis due to unspecified organism Qualified Code(s): A41.9 - Sepsis, unspecified organism Plan to address problem: Patient is on I/V Levaquine. (5) CVA (cerebral vascular accident) Current Visit: No Status: Chronic Qualifiers: Laterality of affected vessel: left Plan to address problem: Management as per primary care and neuro (6) Elevated d-dimer Current Visit: Yes Status: Acute Plan to address problem: Patient is on I/V Heparin. Venous doppler studies of legs results pending. If venous doppler studies are negative, recommend to get V/Q scan. Subjective Date of service: 04/17/16 Principal diagnosis: Acute Hypoxemic Respiratory Failure; VTE Interval history: Patient sleeping on 2 litres O2, Weak, Not responding to the verbal stimuli.O2 satuaration 100%. Objective Vital Signs - 12hr 04/17/16 04/17/16 06:45 14:02 Temperature 98.6 F 99 F Pulse Rate [ 64 79 Right Radial] Respiratory 16 20 Rate Blood Pressure 147/84 161/95 [Right Arm] O2 Sat by Pulse 97 100 Oximetry Constitutional: no acute distress, asleep Eyes: non-icteric ENT: oropharynx moist Neck: supple, no lymphadenopathy Effort: mildly labored Ascultation: Bilateral: diminished breath sounds, rales, rhonchi (scant) Cardiovascular: regular rate and rhythm Gastrointestinal: normoactive bowel sounds, soft, non-tender, non-distended Integumentary: other (rash) Extremities: no cyanosis, pulses normal, no ischemia or petechiae Neurologic: unable to assess Psychiatric: other (unable to assess) CBC and BMP: 04/17/16 05:21 04/17/16 09:14 ABG, PT/INR, D-dimer: ABG POC ABG pH 7.454 (7.35-7.45) H 04/12/16 06:54 POC ABG pCO2 41.1 (35-45) 04/12/16 06:54 POC ABG pO2 116 (80-105) H 04/12/16 06:54 POC ABG HCO3 28.9 04/12/16 06:54 POC ABG Total CO2 30 04/12/16 06:54 POC ABG O2 Sat 99 04/12/16 06:54 PT/INR, D-dimer PT 14.4 Sec. (12.2-14.9) 04/10/16 16:54 INR 1.13 (0.87-1.13) 04/10/16 16:54 D-Dimer 3652.03 ng/mlDDU (0-234) H 04/11/16 11:37 Abnormal lab findings: Abnormal Labs 04/11/16 04/11/16 04/11/16 05:02 05:02 11:37 WBC 11.7 H RBC Hgb Hct MCV 80 L MCH 25 L MCHC 31 L RDW 17.5 H Plt Count 109 L Lymph % (Auto) Lymph # Seg Neutrophils % Seg Neuts % (Manual) 91.0 H Lymphocytes % (Manual) 3.0 L Nucleated RBC % 1.0 H Seg Neutrophils # Seg Neutrophils # Man 10.6 H Lymphocytes # (Manual) 0.4 L D-Dimer Heparin Anti-Xa Level POC ABG pH POC ABG pO2 Sodium 156 H Potassium Chloride 117.6 H Carbon Dioxide 21 L BUN 46 H Creatinine Glucose 496 H POC Glucose Lactic Acid Calcium 8.3 L Phosphorus 5.0 H Magnesium 3.6 H C-Reactive Protein Albumin 1.9 L 04/11/16 04/11/16 04/11/16 11:37 11:37 11:37 WBC RBC Hgb Hct MCV MCH MCHC RDW Plt Count Lymph % (Auto) Lymph # Seg Neutrophils % Seg Neuts % (Manual) Lymphocytes % (Manual) Nucleated RBC % Seg Neutrophils # Seg Neutrophils # Man Lymphocytes # (Manual) D-Dimer 3652.03 H Heparin Anti-Xa Level POC ABG pH POC ABG pO2 Sodium Potassium Chloride Carbon Dioxide BUN Creatinine Glucose POC Glucose Lactic Acid 2.5 H* Calcium Phosphorus Magnesium C-Reactive Protein 42.40 H Albumin 04/11/16 04/11/16 04/11/16 15:34 21:04 21:40 WBC RBC Hgb Hct MCV MCH MCHC RDW Plt Count Lymph % (Auto) Lymph # Seg Neutrophils % Seg Neuts % (Manual) Lymphocytes % (Manual) Nucleated RBC % Seg Neutrophils # Seg Neutrophils # Man Lymphocytes # (Manual) D-Dimer Heparin Anti-Xa Level 0.27 L POC ABG pH POC ABG pO2 Sodium Potassium Chloride Carbon Dioxide BUN Creatinine Glucose POC Glucose 430 H > 500 H Lactic Acid Calcium Phosphorus Magnesium C-Reactive Protein Albumin 04/11/16 04/12/16 04/12/16 22:37 02:07 04:45 WBC 16.4 H RBC Hgb 11.0 L Hct MCV 80 L MCH 25 L MCHC 31 L RDW 17.6 H Plt Count 120 L Lymph % (Auto) Lymph # Seg Neutrophils % Seg Neuts % (Manual) 91.0 H Lymphocytes % (Manual) 1.0 L Nucleated RBC % Seg Neutrophils # Seg Neutrophils # Man 14.9 H Lymphocytes # (Manual) 0.2 L D-Dimer Heparin Anti-Xa Level POC ABG pH POC ABG pO2 Sodium Potassium Chloride Carbon Dioxide BUN Creatinine Glucose 515 H* POC Glucose 399 H Lactic Acid Calcium Phosphorus Magnesium C-Reactive Protein Albumin 04/12/16 04/12/16 04/12/16 04:45 06:19 06:54 WBC RBC Hgb Hct MCV MCH MCHC RDW Plt Count Lymph % (Auto) Lymph # Seg Neutrophils % Seg Neuts % (Manual) Lymphocytes % (Manual) Nucleated RBC % Seg Neutrophils # Seg Neutrophils # Man Lymphocytes # (Manual) D-Dimer Heparin Anti-Xa Level 0.21 L POC ABG pH 7.454 H POC ABG pO2 116 H Sodium 161 H* Potassium 3.3 L D Chloride 122.8 H Carbon Dioxide BUN 43 H Creatinine Glucose 485 H POC Glucose Lactic Acid Calcium 8.3 L Phosphorus Magnesium C-Reactive Protein Albumin 04/12/16 04/12/16 04/12/16 07:38 11:42 16:41 WBC RBC Hgb Hct MCV MCH MCHC RDW Plt Count Lymph % (Auto) Lymph # Seg Neutrophils % Seg Neuts % (Manual) Lymphocytes % (Manual) Nucleated RBC % Seg Neutrophils # Seg Neutrophils # Man Lymphocytes # (Manual) D-Dimer Heparin Anti-Xa Level POC ABG pH POC ABG pO2 Sodium Potassium Chloride Carbon Dioxide BUN Creatinine Glucose POC Glucose 423 H 315 H 159 H Lactic Acid Calcium Phosphorus Magnesium C-Reactive Protein Albumin 04/12/16 04/12/16 04/13/16 20:39 22:47 06:12 WBC RBC Hgb Hct MCV MCH MCHC RDW Plt Count Lymph % (Auto) Lymph # Seg Neutrophils % Seg Neuts % (Manual) Lymphocytes % (Manual) Nucleated RBC % Seg Neutrophils # Seg Neutrophils # Man Lymphocytes # (Manual) D-Dimer Heparin Anti-Xa Level 0.20 L POC ABG pH POC ABG pO2 Sodium Potassium Chloride Carbon Dioxide BUN Creatinine Glucose POC Glucose 217 H 247 H Lactic Acid Calcium Phosphorus Magnesium C-Reactive Protein Albumin 04/13/16 04/13/16 04/13/16 09:30 09:30 09:30 WBC RBC 5.12 H Hgb Hct MCV 79 L MCH 25 L MCHC 31 L RDW 17.6 H Plt Count 107 L Lymph % (Auto) Lymph # Seg Neutrophils % Seg Neuts % (Manual) 93.0 H Lymphocytes % (Manual) 7.0 L Nucleated RBC % 1.0 H Seg Neutrophils # Seg Neutrophils # Man 8.6 H Lymphocytes # (Manual) 0.6 L D-Dimer Heparin Anti-Xa Level 2.00 H POC ABG pH POC ABG pO2 Sodium 160 H Potassium Chloride 121.3 H Carbon Dioxide BUN 36 H Creatinine Glucose 254 H POC Glucose Lactic Acid Calcium 8.3 L Phosphorus Magnesium C-Reactive Protein Albumin 04/13/16 04/13/16 04/13/16 12:29 13:20 17:06 WBC RBC Hgb Hct MCV MCH MCHC RDW Plt Count Lymph % (Auto) Lymph # Seg Neutrophils % Seg Neuts % (Manual) Lymphocytes % (Manual) Nucleated RBC % Seg Neutrophils # Seg Neutrophils # Man Lymphocytes # (Manual) D-Dimer Heparin Anti-Xa Level < 0.10 L POC ABG pH POC ABG pO2 Sodium Potassium Chloride Carbon Dioxide BUN Creatinine Glucose POC Glucose 230 H 229 H Lactic Acid Calcium Phosphorus Magnesium C-Reactive Protein Albumin 04/13/16 04/14/16 04/14/16 21:22 00:03 04:34 WBC RBC Hgb 10.2 L Hct 32.6 L D MCV 79 L MCH 25 L MCHC 31 L RDW 17.7 H Plt Count 87 L Lymph % (Auto) 9.3 L Lymph # 0.8 L Seg Neutrophils % 88.1 H Seg Neuts % (Manual) Lymphocytes % (Manual) Nucleated RBC % Seg Neutrophils # 7.9 H Seg Neutrophils # Man Lymphocytes # (Manual) D-Dimer Heparin Anti-Xa Level 0.21 L POC ABG pH POC ABG pO2 Sodium Potassium Chloride Carbon Dioxide BUN Creatinine Glucose POC Glucose 213 H Lactic Acid Calcium Phosphorus Magnesium C-Reactive Protein Albumin 04/14/16 04/14/16 04/14/16 06:13 11:23 12:58 WBC RBC Hgb Hct MCV MCH MCHC RDW Plt Count Lymph % (Auto) Lymph # Seg Neutrophils % Seg Neuts % (Manual) Lymphocytes % (Manual) Nucleated RBC % Seg Neutrophils # Seg Neutrophils # Man Lymphocytes # (Manual) D-Dimer Heparin Anti-Xa Level POC ABG pH POC ABG pO2 Sodium 157 H Potassium Chloride 118.4 H Carbon Dioxide BUN 25 H Creatinine Glucose 140 H POC Glucose 182 H 143 H Lactic Acid Calcium 8.0 L Phosphorus Magnesium C-Reactive Protein Albumin 04/14/16 04/14/16 04/15/16 17:16 21:52 07:00 WBC RBC Hgb Hct MCV MCH MCHC RDW Plt Count Lymph % (Auto) Lymph # Seg Neutrophils % Seg Neuts % (Manual) Lymphocytes % (Manual) Nucleated RBC % Seg Neutrophils # Seg Neutrophils # Man Lymphocytes # (Manual) D-Dimer Heparin Anti-Xa Level POC ABG pH POC ABG pO2 Sodium Potassium Chloride Carbon Dioxide BUN Creatinine Glucose POC Glucose 132 H 211 H 199 H Lactic Acid Calcium Phosphorus Magnesium C-Reactive Protein Albumin 04/15/16 04/15/16 04/15/16 07:42 07:42 11:35 WBC RBC Hgb 10.3 L Hct 32.3 L MCV 80 L MCH 25 L MCHC RDW 17.5 H Plt Count 85 L Lymph % (Auto) 10.6 L Lymph # 0.8 L Seg Neutrophils % 85.8 H Seg Neuts % (Manual) Lymphocytes % (Manual) Nucleated RBC % Seg Neutrophils # Seg Neutrophils # Man Lymphocytes # (Manual) D-Dimer Heparin Anti-Xa Level POC ABG pH POC ABG pO2 Sodium 157 H Potassium Chloride 117.9 H Carbon Dioxide BUN 22 H Creatinine Glucose 173 H POC Glucose 130 H Lactic Acid Calcium 8.1 L Phosphorus Magnesium C-Reactive Protein Albumin 04/15/16 04/15/16 04/16/16 17:21 21:22 05:59 WBC RBC Hgb Hct MCV MCH MCHC RDW Plt Count Lymph % (Auto) Lymph # Seg Neutrophils % Seg Neuts % (Manual) Lymphocytes % (Manual) Nucleated RBC % Seg Neutrophils # Seg Neutrophils # Man Lymphocytes # (Manual) D-Dimer Heparin Anti-Xa Level POC ABG pH POC ABG pO2 Sodium Potassium Chloride Carbon Dioxide BUN Creatinine Glucose POC Glucose 197 H 192 H 198 H Lactic Acid Calcium Phosphorus Magnesium C-Reactive Protein Albumin 04/16/16 04/16/16 04/16/16 07:10 07:10 11:44 WBC RBC Hgb 10.5 L Hct 33.2 L MCV 78 L MCH 25 L MCHC RDW 17.0 H Plt Count 94 L Lymph % (Auto) 11.3 L Lymph # 0.9 L Seg Neutrophils % 84.4 H Seg Neuts % (Manual) Lymphocytes % (Manual) Nucleated RBC % Seg Neutrophils # Seg Neutrophils # Man Lymphocytes # (Manual) D-Dimer Heparin Anti-Xa Level POC ABG pH POC ABG pO2 Sodium 148 H D Potassium 3.5 L Chloride 108.1 H Carbon Dioxide 32 H BUN Creatinine 0.7 L Glucose 198 H POC Glucose 212 H Lactic Acid Calcium 8.1 L Phosphorus Magnesium C-Reactive Protein Albumin 04/16/16 04/16/16 04/17/16 16:15 21:06 05:21 WBC RBC Hgb 11.0 L Hct 34.1 L MCV 78 L MCH 25 L MCHC RDW 17.0 H Plt Count 98 L Lymph % (Auto) Lymph # Seg Neutrophils % Seg Neuts % (Manual) 81.0 H Lymphocytes % (Manual) 12.0 L Nucleated RBC % Seg Neutrophils # Seg Neutrophils # Man Lymphocytes # (Manual) 1.0 L D-Dimer Heparin Anti-Xa Level POC ABG pH POC ABG pO2 Sodium Potassium Chloride Carbon Dioxide BUN Creatinine Glucose POC Glucose 195 H 168 H Lactic Acid Calcium Phosphorus Magnesium C-Reactive Protein Albumin 04/17/16 04/17/16 04/17/16 05:44 09:14 13:58 WBC RBC Hgb Hct MCV MCH MCHC RDW Plt Count Lymph % (Auto) Lymph # Seg Neutrophils % Seg Neuts % (Manual) Lymphocytes % (Manual) Nucleated RBC % Seg Neutrophils # Seg Neutrophils # Man Lymphocytes # (Manual) D-Dimer Heparin Anti-Xa Level POC ABG pH POC ABG pO2 Sodium Potassium Chloride Carbon Dioxide BUN Creatinine 0.6 L Glucose 178 H POC Glucose 186 H 189 H Lactic Acid Calcium 8.1 L Phosphorus Magnesium C-Reactive Protein Albumin
--- NOTE | 2016-04-17 22:00 | XRay Report ---
FINAL REPORT EXAM: XR CHEST 1V AP HISTORY: Kun noted hanging out... Aspiration TECHNIQUE: AP portable view of the chest PRIORS: None. FINDINGS: Lines, tubes, and devices: No evidence for feeding tube is in place. Lungs and pleura: Trachea is normal in position. Lungs are clear of infiltrate, pleural effusion, vascular congestion, or pneumothorax. No evidence for infiltrate in the lung base to suggest aspiration is noted. Cardiomediastinal silhouette: Cardiac and mediastinal silhouettes are unremarkable. Other: Bony structures are intact. Oral contrast is present in the stomach. IMPRESSION: No acute cardiopulmonary process seen. No evidence for infiltrate to suggest aspiration. No feeding tube is in place.
[2016-04-18] MEDS: LEVEMIR SUB-Q SCH ×2 (00:47→23:04)
[2016-04-18] MEDS: DUONEB 0.5 MG-3 MG/3 ML SOLN IH SCH ×4 (02:19→20:33)
--- NOTE | 2016-04-18 03:03 | XRay Report ---
FINAL REPORT EXAM: XR ABDOMEN 1V AP HISTORY: placement TECHNIQUE: KUB view of upper abdomen. PRIORS: None. FINDINGS: Enteric tube extends below the diaphragm, with tip directed laterally. Enteric tube tip and some associated contrast material projects over left upper quadrant and probable stomach. Nonspecific bowel gas pattern. No apparent pneumoperitoneum. Osseous structures grossly unremarkable. IMPRESSION: 1. Enteric tube position as reported. 2. Nonspecific bowel gas pattern, which may represent adynamic ileus. Followup may be warranted.
[2016-04-18 05:28] LABS: Hematocrit 35.4 % (35.5-45.6); Hemoglobin 11.4 gm/dl (11.8-15.2); Mean Corpuscular HGB Conc 32 % (32-34); Mean Corpuscular Hemoglobin 25 pg (28-32); Mean Corpuscular Volume 78 fl (84-94); Platelet Count 121 K/mm3 (140-440); Red Blood Count 4.55 M/mm3 (3.65-5.03); Red Cell Distribution Width 16.8 % (13.2-15.2); White Blood Count 9.7 K/mm3 (4.5-11.0)
[2016-04-18 05:40] LABS: Blood Urea Nitrogen 12 mg/dL (9-20); Calcium 8.7 mg/dL (8.4-10.2); Carbon Dioxide 34 mmol/L (22-30); Chloride 101.1 mmol/L (98-107); Glucose 105 mg/dL (75-100); Magnesium 2.2 mg/dL (1.7-2.3); Phosphorous 3.5 mg/dL (2.5-4.5); Potassium 3.5 mmol/L (3.6-5.0); Sodium 143 mmol/L (137-145)
[2016-04-18 05:41] LABS: Anion Gap 11 mmol/L
[2016-04-18] MEDS: CATAPRES PO SCH ×3 (06:49→23:04)
[2016-04-18] MEDS: PEPCID PO SCH ×3 (06:51→23:04)
[2016-04-18 07:29] LABS: Anisocytosis 1+; Basophils % (Manual) 0 % (0.0-1.8); Blastocytes % (Manual) 0 %; Diff Status Complete; Hypochromasia 1+; Polychromasia 1+
[2016-04-18 07:30] LABS: Platelet Estimate Consistent w Auto
[2016-04-18] MEDS: NACL 0.45% 1000 ML 1,000 ML IV SCH (07:42)
--- NOTE | 2016-04-18 08:01 | Vascular Lab Report ---
LEFT UPPER EXTREMITY VENOUS DUPLEX: REASON FOR EXAM: Swelling COMMENTS ON THE LEFT: Deep venous thrombosis is noted in the subclavian and internal jugular veins. The remaining veins visualized are freely compressible without evidence of internal echogenicity. Spontaneous and phasic flow is absent proximally. COMMENTS ON THE RIGHT: The subclavian and internal jugular veins are free of thrombus. IMPRESSION: Deep venous thrombosis in the left upper extremity
--- NOTE | 2016-04-18 08:16 | XRay Report ---
Portable KUB: There is a Dobbhoff catheter coiled in the proximal stomach. The left hemidiaphragm is obscured possibly due to an infiltrate or fluid. No other significant findings.
[2016-04-18] MEDS: NOVOLOG SUB-Q SCH ×3 (08:46→17:46)
--- NOTE | 2016-04-18 10:04 | XRay Report ---
AP chest: There is nasogastric tube coiled in the stomach. There is increased opacity at the left base obscuring the hemidiaphragm. The lungs otherwise appear clear. The left ventricle may be slightly enlarged but there is no vascular congestion. Compared to the prior study of April 17 the opacity at the left base appears new as does the nasogastric tube. Impression: Suspect left basilar pathology such as atelectasis or consolidation.
[2016-04-18] MEDS: NORVASC PO SCH (10:48)
[2016-04-18] MEDS: LEVAQUIN 500MG/100ML 100 ML IV SCH (10:48)
[2016-04-18] MEDS: DELTASONE PO SCH (10:48)
--- NOTE | 2016-04-18 11:48 | Cat Scan Report ---
CRANIAL CT WITHOUT CONTRAST. FINDINGS: There is no evidence of an acute hemorrhage or infarct. Extensive periventricular hypodensities are present. Chronic lacunar infarcts are seen in the right basal ganglia, right kade, and left periventricular white matter. There are no masses or extra-axial collections. The calvarium is intact. IMPRESSION: 1. No acute findings. 2. Multiple chronic lacunar infarcts and chronic microangiopathic ischemic changes are described.
--- NOTE | 2016-04-18 11:56 | Progress Note ---
Assessment and Plan Assessment and plan: 1. Acute hypoxic respiratory failure-resolving. Wean supplemental oxygen as tolerated 2. Sepsis. Etiology secondary to pneumonia and MSSA bacteremia-resolving. Repeat blood c/s NGTD after 24 hrs; White remains normal and he is afebrile; continue Levaquin. 3. UTI-continue Levaquin, urine cultures no growth to date 4. Hypernatremia-resolved; cotn free water every 4 hours. Follow-up BMP. 5. Metabolic encephalopathy- cont supportive care. 6. Diabetes mellitus type 2- glucose control improving; cotn levemr 25 units daily. 7. Oropharyngeal dysphagia- post swallow eval; NPO status recommended; consult GI for PEG placement 8. Hypokalemia-will replace with po supplementation; monitor; check mag level 9. 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 DVT Lt IJ and subclavian-cotn heparin gtt; will transition to eliquis pending swallow eval and no PEG placement needed l; monitor for bleeding; monitor H/h and platelet count 11. DVT-on heparin drip History Interval history: Follow-up for respiratory failure, sepsis, UTI, hypernatremia Patient is seen at the bedside, no family is present. not vebalizing today; NPO status recommended from swallow eval Hospitalist Physical - Constitutional Vitals: Temp Pulse Resp BP Pulse Ox 98.9 F 83 32 H 142/78 97 04/18/16 08:15 04/18/16 08:15 04/18/16 08:15 04/18/16 10:49 04/18/16 08:15 General appearance: Present: no acute distress, well-nourished, other (on nasal cannula oxygen; not talking today) - EENT Eyes: Present: PERRL - Neck Neck: Present: supple, normal ROM. Absent: enlarged thyroid, masses or JVD - Respiratory Respiratory effort: normal Respiratory: bilateral: diminished, negative: rales, rhonchi, wheezing - Cardiovascular Rhythm: regular Heart Sounds: Present: S1 & S2. Absent: gallop - Extremities Extremities: no ischemia, pulses intact, pulses symmetrical, No edema - Abdominal General gastrointestinal: soft, non-tender, non-distended - Integumentary Integumentary: Present: warm - Psychiatric Psychiatric: other (unbable to assess; not verbalizing; opens eye spontanoeusly ) Results - Labs CBC & Chem 7: 04/18/16 04:29 04/18/16 04:29 Labs: Laboratory Last Values WBC 9.7 K/mm3 (4.5-11.0) 04/18/16 04:29 RBC 4.55 M/mm3 (3.65-5.03) 04/18/16 04:29 Hgb 11.4 gm/dl (11.8-15.2) L 04/18/16 04:29 Hct 35.4 % (35.5-45.6) L 04/18/16 04:29 MCV 78 fl (84-94) L 04/18/16 04:29 MCH 25 pg (28-32) L 04/18/16 04:29 MCHC 32 % (32-34) 04/18/16 04:29 RDW 16.8 % (13.2-15.2) H 04/18/16 04:29 Plt Count 121 K/mm3 (140-440) L 04/18/16 04:29 Lymph % (Auto) 11.3 % (13.4-35.0) L 04/16/16 07:10 [place] % (Auto) 2.6 % (0.0-7.3) 04/16/16 07:10 Eos % (Auto) 1.6 % (0.0-4.3) 04/16/16 07:10 Baso % (Auto) 0.1 % (0.0-1.8) 04/16/16 07:10 Lymph # 0.9 K/mm3 (1.2-5.4) L 04/16/16 07:10 [place] # 0.2 K/mm3 (0.0-0.8) 04/16/16 07:10 Eos # 0.1 K/mm3 (0.0-0.4) 04/16/16 07:10 Baso # 0.0 K/mm3 (0.0-0.1) 04/16/16 07:10 Add Manual Diff Complete 04/18/16 04:29 Total Counted 100 04/18/16 04:29 Seg Neutrophils % 84.4 % (40.0-70.0) H 04/16/16 07:10 Seg Neuts % (Manual) 79.0 % (40.0-70.0) H 04/18/16 04:29 Band Neutrophils % 9.0 % 04/18/16 04:29 Lymphocytes % (Manual) 6.0 % (13.4-35.0) L 04/18/16 04:29 Reactive Lymphs % (Man) 0 % 04/18/16 04:29 Monocytes % (Manual) 3.0 % (0.0-7.3) 04/18/16 04:29 Eosinophils % (Manual) 3.0 % (0.0-4.3) 04/18/16 04:29 Basophils % (Manual) 0 % (0.0-1.8) 04/18/16 04:29 Metamyelocytes % 0 % 04/18/16 04:29 Myelocytes % 0 % 04/18/16 04:29 Promyelocytes % 0 % 04/18/16 04:29 Blast Cells % 0 % 04/18/16 04:29 Nucleated RBC % Not Reportable 04/18/16 04:29 Seg Neutrophils # 6.8 K/mm3 (1.8-7.7) 04/16/16 07:10 Seg Neutrophils # Man 7.7 K/mm3 (1.8-7.7) 04/18/16 04:29 Band Neutrophils # 0.9 K/mm3 04/18/16 04:29 Lymphocytes # (Manual) 0.6 K/mm3 (1.2-5.4) L 04/18/16 04:29 Abs React Lymphs (Man) 0.0 K/mm3 04/18/16 04:29 Monocytes # (Manual) 0.3 K/mm3 (0.0-0.8) 04/18/16 04:29 Eosinophils # (Manual) 0.3 K/mm3 (0.0-0.4) 04/18/16 04:29 Basophils # (Manual) 0.0 K/mm3 (0.0-0.1) 04/18/16 04:29 Metamyelocytes # 0.0 K/mm3 04/18/16 04:29 Myelocytes # 0.0 K/mm3 04/18/16 04:29 Promyelocytes # 0.0 K/mm3 04/18/16 04:29 Blast Cells # 0.0 K/mm3 04/18/16 04:29 WBC Morphology Not Reportable 04/18/16 04:29 Hypersegmented Neuts Not Reportable 04/18/16 04:29 Hyposegmented Neuts Not Reportable 04/18/16 04:29 Hypogranular Neuts Not Reportable 04/18/16 04:29 Smudge Cells Not Reportable 04/18/16 04:29 Toxic Granulation Not Reportable 04/18/16 04:29 Toxic Vacuolation Not Reportable 04/18/16 04:29 Dohle Bodies Not Reportable 04/18/16 04:29 Pelger-Huet Anomaly Not Reportable 04/18/16 04:29 Ky Rods Not Reportable 04/18/16 04:29 Platelet Estimate Consistent w auto 04/18/16 04:29 Clumped Platelets Not Reportable 04/18/16 04:29 Plt Clumps, EDTA Not Reportable 04/18/16 04:29 Large Platelets Not Reportable 04/18/16 04:29 Giant Platelets Not Reportable 04/18/16 04:29 Platelet Satelliting Not Reportable 04/18/16 04:29 Plt Morphology Comment Not Reportable 04/18/16 04:29 RBC Morphology Not Reportable 04/18/16 04:29 Dimorphic RBCs Not Reportable 04/18/16 04:29 Polychromasia 1+ 04/18/16 04:29 Hypochromasia 1+ 04/18/16 04:29 Poikilocytosis Not Reportable 04/18/16 04:29 Anisocytosis 1+ 04/18/16 04:29 Microcytosis Not Reportable 04/18/16 04:29 Macrocytosis Not Reportable 04/18/16 04:29 Spherocytes Not Reportable 04/18/16 04:29 Pappenheimer Bodies Not Reportable 04/18/16 04:29 Sickle Cells Not Reportable 04/18/16 04:29 Target Cells Not Reportable 04/18/16 04:29 Tear Drop Cells Not Reportable 04/18/16 04:29 Ovalocytes Not Reportable 04/18/16 04:29 Helmet Cells Not Reportable 04/18/16 04:29 Stein-[place] Bodies Not Reportable 04/18/16 04:29 [place] Rings Not Reportable 04/18/16 04:29 Alcides Cells Not Reportable 04/18/16 04:29 Bite Cells Not Reportable 04/18/16 04:29 Crenated Cell Not Reportable 04/18/16 04:29 Elliptocytes Not Reportable 04/18/16 04:29 Acanthocytes (Spur) Not Reportable 04/18/16 04:29 Rouleaux Not Reportable 04/18/16 04:29 Hemoglobin C Crystals Not Reportable 04/18/16 04:29 Schistocytes Not Reportable 04/18/16 04:29 Malaria parasites Not Reportable 04/18/16 04:29 [place] Bodies Not Reportable 04/18/16 04:29 Hem Pathologist Commnt No 04/18/16 04:29 PT 14.4 Sec. (12.2-14.9) 04/10/16 16:54 INR 1.13 (0.87-1.13) 04/10/16 16:54 APTT 34.3 Sec. (24.2-36.6) 04/11/16 11:50 D-Dimer 3652.03 ng/mlDDU (0-234) H 04/11/16 11:37 Heparin Anti-Xa Level 0.35 U.I./ml (0.3-0.7) 04/17/16 11:16 POC ABG pH 7.454 (7.35-7.45) H 04/12/16 06:54 POC ABG pCO2 41.1 (35-45) 04/12/16 06:54 POC ABG pO2 116 (80-105) H 04/12/16 06:54 POC ABG HCO3 28.9 04/12/16 06:54 POC ABG Total CO2 30 04/12/16 06:54 POC ABG O2 Sat 99 04/12/16 06:54 POC ABG Base Excess 5 04/12/16 06:54 VBG pH 7.437 (7.320-7.420) H 04/10/16 16:54 FiO2 3 % 04/12/16 06:54 Sodium 143 mmol/L (137-145) 04/18/16 04:29 Potassium 3.5 mmol/L (3.6-5.0) L 04/18/16 04:29 Chloride 101.1 mmol/L (98-107) 04/18/16 04:29 Carbon Dioxide 34 mmol/L (22-30) H 04/18/16 04:29 Anion Gap 11 mmol/L 04/18/16 04:29 BUN 12 mg/dL (9-20) 04/18/16 04:29 Creatinine 0.5 mg/dL (0.8-1.5) L 04/18/16 04:29 Estimated GFR > 60 ml/min 04/18/16 04:29 BUN/Creatinine Ratio 24.00 % 04/18/16 04:29 Glucose 105 mg/dL (75-100) H 04/18/16 04:29 POC Glucose 74 (70-105) 04/18/16 06:17 Lactic Acid 2.5 mmol/L (0.7-2.0) H* 04/11/16 11:37 Calcium 8.7 mg/dL (8.4-10.2) 04/18/16 04:29 Phosphorus 3.5 mg/dL (2.5-4.5) 04/18/16 04:29 Magnesium 2.2 mg/dL (1.7-2.3) 04/18/16 04:29 Total Bilirubin 1.0 mg/dL (0.1-1.2) 04/11/16 05:02 AST 36 units/L (5-40) 04/11/16 05:02 ALT 40 units/L (7-56) 04/11/16 05:02 Alkaline Phosphatase 94 units/L (35-129) 04/11/16 05:02 C-Reactive Protein 42.40 mg/dL (0.00-1.30) H 04/11/16 11:37 NT-Pro-B Natriuret Pep 1287 pg/mL (0-900) H 04/10/16 17:06 Total Protein 7.0 g/dL (6.3-8.2) 04/11/16 05:02 Albumin 1.9 g/dL (3.9-5) L 04/11/16 05:02 Albumin/Globulin Ratio 0.4 % 04/11/16 05:02 Urine Color Eri (Yellow) 04/10/16 16:56 Urine Turbidity Clear (Clear) 04/10/16 16:56 Urine pH 5.0 (5.0-7.0) 04/10/16 16:56 Ur Specific [place] 1.020 (1.003-1.030) 04/10/16 16:56 Urine Protein 30 mg/dl mg/dL (Negative) 04/10/16 16:56 Urine Glucose (UA) 50 mg/dL (Negative) 04/10/16 16:56 Urine Ketones Neg mg/dL (Negative) 04/10/16 16:56 Urine Blood Sm (Negative) 04/10/16 16:56 Urine Nitrite Neg (Negative) 04/10/16 16:56 Urine Bilirubin Neg (Negative) 04/10/16 16:56 Urine Urobilinogen 4.0 mg/dL (<2.0) 04/10/16 16:56 Ur Leukocyte Esterase Sm (Negative) 04/10/16 16:56 Urine WBC (Auto) 15.0 /HPF (0.0-6.0) H 04/10/16 16:56 Urine RBC (Auto) 7.0 /HPF (0.0-6.0) 04/10/16 16:56 Amorphous Crystals Few 04/10/16 16:56 Urine Mucus 1+ /HPF 04/10/16 16:56 - Imaging and Cardiology CT Scan - head: report reviewed (CT head- mulitple chronic lacunar infarcts and chronic microangiopathic ischemic changes )
--- NOTE | 2016-04-18 12:37 | Gastroenterology Consultation ---
<WANDA ALONSO - Last Filed: 04/18/16 12:40> History of Present Illness - Reason for Consult Consult date: 04/18/16 PEG evaluation - History of Present Illness Mr Pena is a 66 y/o male admitted with progressive SOB. Information is obtained per chart as no family available at this time. The patient has been treated for respiratory failure with sepsis 2/2 PNA, and UTI. He is alert but not responsive to questions. I am unclear as to his mental baseline. He has a hx of prior CVA with left sided weakness. He is currently on a Heparin gtt for DVT to L IJ and subclavian area. The patient did not pass swallow eval, therefore, we were asked to evaluate for PEG placement. Past History Past Medical History: diabetes, hypertension, other (dementia) Past Surgical History: Other (unknown) Social history: denies: smoking, alcohol abuse Family history: other (unknown) Medications and Allergies Allergies Allergy/AdvReac Type Severity Reaction Status Date / Time No Known Allergies Allergy Unverified 03/21/16 15:30 Home Medications Medication Instructions Recorded Confirmed Last Taken Type Atorvastatin Calcium [Lipitor] 20 mg PO HS 03/29/16 04/10/16 Unknown History Ibuprofen [Motrin 800 MG tab] 800 mg PO Q6HR PRN 03/29/16 04/10/16 Unknown History amLODIPine [Norvasc] 10 mg PO QAM 03/29/16 04/10/16 Unknown History cloNIDine [Catapres] 0.2 mg PO BID 03/29/16 04/10/16 Unknown History metFORMIN [Glucophage] 500 mg PO BIDDIAB tablet 04/01/16 04/10/16 Unknown Rx Insulin Aspart [NovoLOG Flexpen] 0 units SQ AC 04/10/16 04/10/16 Unknown History Zinc Sulfate 220 mg PO DAILY 04/10/16 04/10/16 Unknown History predniSONE [Deltasone] 10 mg PO QDAY 04/10/16 04/10/16 Unknown History Active Meds: Active Medications Al Hydrox/Mg Hydrox/Simethicone (Alum-Mag Hydrox-Simeth 961-971-22zz/5ml) 30 ml PO Q4H PRN PRN Reason: Indigestion Albuterol (Proventil) 2.5 mg IH Q3HRT PRN PRN Reason: Wheezing Albuterol/Ipratropium (Duoneb 0.5 Mg-3 Mg/3 Ml Soln) 1 ampul IH Q6HRT [facility] Last Admin: 04/18/16 08:15 Dose: 1 ampul Alprazolam (Xanax) 0.25 mg PO Q8H PRN PRN Reason: Anxiety Last Admin: 04/17/16 01:01 Dose: 0.25 mg Amlodipine Besylate (Norvasc) 10 mg PO QAM [facility] Last Admin: 04/18/16 10:48 Dose: 10 mg Lipase/Protease/Amylase (Pancreaze Dr 10,500 Unit) 1 each FEEDTUBE PRN PRN PRN Reason: For Clogged Feeding Tube Bisacodyl (Dulcolax) 10 mg MN QDAY PRN PRN Reason: constipation unrelieved by MOM Clonidine HCl (Catapres) 0.2 mg PO BID [facility] Last Admin: 04/18/16 10:49 Dose: 0.2 mg Famotidine (Pepcid) 20 mg PO BID [facility] Last Admin: 04/18/16 10:48 Dose: 20 mg Hydromorphone HCl (Dilaudid) 0.5 mg IV Q3H PRN PRN Reason: Pain , Severe (7-10) Last Admin: 04/17/16 01:00 Dose: 0.5 mg Hydrophilic Ointment (Aquaphor) 1 applic TP QDAY PRN PRN Reason: DRY SKIN Last Admin: 04/11/16 21:49 Dose: 1 applic Sodium Chloride (Nacl 0.45% 1000 Ml) 1,000 mls @ 75 mls/hr IV DIRECT [facility] Last Admin: 04/18/16 07:42 Dose: 75 mls/hr Levofloxacin/Dextrose (Levaquin 500mg/100ml) 100 mls @ 100 mls/hr IV Q24HR [facility] PRN Reason: Protocol Last Admin: 04/18/16 10:48 Dose: 100 mls/hr Heparin Sodium/Sodium Chloride (Heparin/ 0.45% Nacl-25,000 Unit/500 Ml) 500 mls @ 21 mls/hr IV TITR [facility]; 1,050 UNITS/HR PRN Reason: Protocol Last Admin: 04/17/16 17:56 Dose: 28 mls/hr Insulin Aspart (Novolog) 0 units SUB-Q AC [facility] PRN Reason: Protocol Last Admin: 04/18/16 08:46 Dose: Not Given Insulin Detemir (Levemir) 25 units SUB-Q QHS [facility] Last Admin: 04/18/16 00:47 Dose: 25 units Magnesium Hydroxide (Milk Of Magnesia) 30 ml PO Q4H PRN PRN Reason: Constipation Prednisone (Deltasone) 20 mg PO QDAY [facility] Last Admin: 04/18/16 10:48 Dose: 20 mg Simple Syrup (Simple Syrup) 15 ml FEEDTUBE PRN PRN PRN Reason: Hypoglycemia Simple Syrup (Simple Syrup) 30 ml FEEDTUBE PRN PRN PRN Reason: Hypoglycemia Sodium Bicarbonate (Sodium Bicarbonate) 325 mg FEEDTUBE PRN PRN PRN Reason: For Clogged Feeding Tube Review of Systems - Review of Systems ROS unobtainable: due to mental status Exam - Constitutional Vital Signs: Temp Pulse Resp BP Pulse Ox 98.9 F 76 20 142/78 97 04/18/16 08:15 04/18/16 08:25 04/18/16 08:25 04/18/16 10:49 04/18/16 08:15 General appearance: no acute distress, other (non verbal) - Neck Neck: supple - Respiratory Respiratory: bilateral: diminished - Cardiovascular Rhythm: regular Extremities: abnormal (skin discoloration ) - Gastrointestinal General gastrointestinal: Present: soft, non-tender, normal bowel sounds - Integumentary Integumentary: Present: warm, dry - Neurologic Neurological: other (alert, nonverbal) - Psychiatric Psychiatric: appropriate mood/affect, cooperative - Labs CBC & Chem 7: 04/18/16 04:29 04/18/16 04:29 Lab Results: Laboratory Results - last 24 hr 04/17/16 04/17/16 04/17/16 13:58 16:59 21:19 WBC RBC Hgb Hct MCV MCH MCHC RDW Plt Count Add Manual Diff Total Counted Seg Neuts % (Manual) Band Neutrophils % Lymphocytes % (Manual) Reactive Lymphs % (Man) Monocytes % (Manual) Eosinophils % (Manual) Basophils % (Manual) Metamyelocytes % Myelocytes % Promyelocytes % Blast Cells % Nucleated RBC % Seg Neutrophils # Man Band Neutrophils # Lymphocytes # (Manual) Abs React Lymphs (Man) Monocytes # (Manual) Eosinophils # (Manual) Basophils # (Manual) Metamyelocytes # Myelocytes # Promyelocytes # Blast Cells # WBC Morphology Hypersegmented Neuts Hyposegmented Neuts Hypogranular Neuts Smudge Cells Toxic Granulation Toxic Vacuolation Dohle Bodies Pelger-Huet Anomaly Ky Rods Platelet Estimate Clumped Platelets Plt Clumps, EDTA Large Platelets Giant Platelets Platelet Satelliting Plt Morphology Comment RBC Morphology Dimorphic RBCs Polychromasia Hypochromasia Poikilocytosis Anisocytosis Microcytosis Macrocytosis Spherocytes Pappenheimer Bodies Sickle Cells Target Cells Tear Drop Cells Ovalocytes Helmet Cells Stein-[place] Bodies Martelle Rings [place] Cells Bite Cells Crenated Cell Elliptocytes Acanthocytes (Spur) Rouleaux Hemoglobin C Crystals Schistocytes Malaria parasites Maverick Bodies Hem Pathologist Commnt Heparin Anti-Xa Level Sodium Potassium Chloride Carbon Dioxide Anion Gap BUN Creatinine Estimated GFR BUN/Creatinine Ratio Glucose POC Glucose 189 H 159 H 146 H Calcium Phosphorus Magnesium 04/18/16 04/18/16 04/18/16 04:29 04:29 06:17 WBC 9.7 RBC 4.55 Hgb 11.4 L Hct 35.4 L MCV 78 L MCH 25 L MCHC 32 RDW 16.8 H Plt Count 121 L Add Manual Diff Complete Total Counted 100 Seg Neuts % (Manual) 79.0 H Band Neutrophils % 9.0 Lymphocytes % (Manual) 6.0 L Reactive Lymphs % (Man) 0 Monocytes % (Manual) 3.0 Eosinophils % (Manual) 3.0 Basophils % (Manual) 0 Metamyelocytes % 0 Myelocytes % 0 Promyelocytes % 0 Blast Cells % 0 Nucleated RBC % Not Reportable Seg Neutrophils # Man 7.7 Band Neutrophils # 0.9 Lymphocytes # (Manual) 0.6 L Abs React Lymphs (Man) 0.0 Monocytes # (Manual) 0.3 Eosinophils # (Manual) 0.3 Basophils # (Manual) 0.0 Metamyelocytes # 0.0 Myelocytes # 0.0 Promyelocytes # 0.0 Blast Cells # 0.0 WBC Morphology Not Reportable Hypersegmented Neuts Not Reportable Hyposegmented Neuts Not Reportable Hypogranular Neuts Not Reportable Smudge Cells Not Reportable Toxic Granulation Not Reportable Toxic Vacuolation Not Reportable Dohle Bodies Not Reportable Pelger-Huet Anomaly Not Reportable Ky Rods Not Reportable Platelet Estimate Consistent w auto Clumped Platelets Not Reportable Plt Clumps, EDTA Not Reportable Large Platelets Not Reportable Giant Platelets Not Reportable Platelet Satelliting Not Reportable Plt Morphology Comment Not Reportable RBC Morphology Not Reportable Dimorphic RBCs Not Reportable Polychromasia 1+ Hypochromasia 1+ Poikilocytosis Not Reportable Anisocytosis 1+ Microcytosis Not Reportable Macrocytosis Not Reportable Spherocytes Not Reportable Pappenheimer Bodies Not Reportable Sickle Cells Not Reportable Target Cells Not Reportable Tear Drop Cells Not Reportable Ovalocytes Not Reportable Helmet Cells Not Reportable Stein-[place] Bodies Not Reportable Martelle Rings Not Reportable [place] Cells Not Reportable Bite Cells Not Reportable Crenated Cell Not Reportable Elliptocytes Not Reportable Acanthocytes (Spur) Not Reportable Rouleaux Not Reportable Hemoglobin C Crystals Not Reportable Schistocytes Not Reportable Malaria parasites Not Reportable Maverick Bodies Not Reportable Hem Pathologist Commnt No Heparin Anti-Xa Level Sodium 143 Potassium 3.5 L Chloride 101.1 Carbon Dioxide 34 H Anion Gap 11 BUN 12 Creatinine 0.5 L Estimated GFR > 60 BUN/Creatinine Ratio 24.00 Glucose 105 H POC Glucose 74 Calcium 8.7 Phosphorus 3.5 Magnesium 2.2 04/18/16 11:41 WBC RBC Hgb Hct MCV MCH MCHC RDW Plt Count Add Manual Diff Total Counted Seg Neuts % (Manual) Band Neutrophils % Lymphocytes % (Manual) Reactive Lymphs % (Man) Monocytes % (Manual) Eosinophils % (Manual) Basophils % (Manual) Metamyelocytes % Myelocytes % Promyelocytes % Blast Cells % Nucleated RBC % Seg Neutrophils # Man Band Neutrophils # Lymphocytes # (Manual) Abs React Lymphs (Man) Monocytes # (Manual) Eosinophils # (Manual) Basophils # (Manual) Metamyelocytes # Myelocytes # Promyelocytes # Blast Cells # WBC Morphology Hypersegmented Neuts Hyposegmented Neuts Hypogranular Neuts Smudge Cells Toxic Granulation Toxic Vacuolation Dohle Bodies Pelger-Huet Anomaly Ky Rods Platelet Estimate Clumped Platelets Plt Clumps, EDTA Large Platelets Giant Platelets Platelet Satelliting Plt Morphology Comment RBC Morphology Dimorphic RBCs Polychromasia Hypochromasia Poikilocytosis Anisocytosis Microcytosis Macrocytosis Spherocytes Pappenheimer Bodies Sickle Cells Target Cells Tear Drop Cells Ovalocytes Helmet Cells Stein-[place] Bodies Martelle Rings Alcides Cells Bite Cells Crenated Cell Elliptocytes Acanthocytes (Spur) Rouleaux Hemoglobin C Crystals Schistocytes Malaria parasites Maverick Bodies Hem Pathologist Commnt Heparin Anti-Xa Level 0.35 Sodium Potassium Chloride Carbon Dioxide Anion Gap BUN Creatinine Estimated GFR BUN/Creatinine Ratio Glucose POC Glucose Calcium Phosphorus Magnesium Assessment and Plan 1. Dysphagia -Patient failed swallow exam -Currently on Heparin gtt for DVT -Will need to discuss options with family to obtain consent for PEG -Continue Dobbhoff feedings for now. -Will need to hold Heparin gtt 4 hours prior to procedure if family is agreeable. -WIll follow. <ELSI VASQUEZ - Last Filed: 04/18/16 14:06> History of Present Illness - Reason for Consult Consult date: 04/18/16 Medications and Allergies Active Meds: Active Medications Al Hydrox/Mg Hydrox/Simethicone (Alum-Mag Hydrox-Simeth [id number]/5ml) 30 ml PO Q4H PRN PRN Reason: Indigestion Albuterol (Proventil) 2.5 mg IH Q3HRT PRN PRN Reason: Wheezing Albuterol/Ipratropium (Duoneb 0.5 Mg-3 Mg/3 Ml Soln) 1 ampul IH Q6HRT [facility] Last Admin: 04/18/16 13:43 Dose: 1 ampul Alprazolam (Xanax) 0.25 mg PO Q8H PRN PRN Reason: Anxiety Last Admin: 04/17/16 01:01 Dose: 0.25 mg Amlodipine Besylate (Norvasc) 10 mg PO QAM [facility] Last Admin: 04/18/16 10:48 Dose: 10 mg Lipase/Protease/Amylase (Pancreaze Dr 10,500 Unit) 1 each FEEDTUBE PRN PRN PRN Reason: For Clogged Feeding Tube Bisacodyl (Dulcolax) 10 mg MN QDAY PRN PRN Reason: constipation unrelieved by MOM Clonidine HCl (Catapres) 0.2 mg PO BID [facility] Last Admin: 04/18/16 10:49 Dose: 0.2 mg Famotidine (Pepcid) 20 mg PO BID [facility] Last Admin: 04/18/16 10:48 Dose: 20 mg Hydromorphone HCl (Dilaudid) 0.5 mg IV Q3H PRN PRN Reason: Pain , Severe (7-10) Last Admin: 04/17/16 01:00 Dose: 0.5 mg Hydrophilic Ointment (Aquaphor) 1 applic TP QDAY PRN PRN Reason: DRY SKIN Last Admin: 04/11/16 21:49 Dose: 1 applic Sodium Chloride (Nacl 0.45% 1000 Ml) 1,000 mls @ 75 mls/hr IV DIRECT [facility] Last Admin: 04/18/16 07:42 Dose: 75 mls/hr Levofloxacin/Dextrose (Levaquin 500mg/100ml) 100 mls @ 100 mls/hr IV Q24HR [facility] PRN Reason: Protocol Last Admin: 04/18/16 10:48 Dose: 100 mls/hr Heparin Sodium/Sodium Chloride (Heparin/ 0.45% Nacl-25,000 Unit/500 Ml) 500 mls @ 21 mls/hr IV TITR [facility]; 1,050 UNITS/HR PRN Reason: Protocol Last Titration: 04/18/16 12:46 Dose: 1,400 units/hr Insulin Aspart (Novolog) 0 units SUB-Q AC [facility] PRN Reason: Protocol Last Admin: 04/18/16 12:43 Dose: Not Given Insulin Detemir (Levemir) 25 units SUB-Q QHS [facility] Last Admin: 04/18/16 00:47 Dose: 25 units Magnesium Hydroxide (Milk Of Magnesia) 30 ml PO Q4H PRN PRN Reason: Constipation Prednisone (Deltasone) 20 mg PO QDAY [facility] Last Admin: 04/18/16 10:48 Dose: 20 mg Simple Syrup (Simple Syrup) 15 ml FEEDTUBE PRN PRN PRN Reason: Hypoglycemia Simple Syrup (Simple Syrup) 30 ml FEEDTUBE PRN PRN PRN Reason: Hypoglycemia Sodium Bicarbonate (Sodium Bicarbonate) 325 mg FEEDTUBE PRN PRN PRN Reason: For Clogged Feeding Tube Exam - Constitutional Vital Signs: Temp Pulse Resp BP Pulse Ox 98.9 F 85 18 142/78 97 04/18/16 08:15 04/18/16 13:43 04/18/16 13:43 04/18/16 10:49 04/18/16 08:15 - Labs CBC & Chem 7: 04/18/16 04:29 04/18/16 04:29 Lab Results: Laboratory Results - last 24 hr 04/17/16 04/17/16 04/17/16 13:58 16:59 21:19 WBC RBC Hgb Hct MCV MCH MCHC RDW Plt Count Add Manual Diff Total Counted Seg Neuts % (Manual) Band Neutrophils % Lymphocytes % (Manual) Reactive Lymphs % (Man) Monocytes % (Manual) Eosinophils % (Manual) Basophils % (Manual) Metamyelocytes % Myelocytes % Promyelocytes % Blast Cells % Nucleated RBC % Seg Neutrophils # Man Band Neutrophils # Lymphocytes # (Manual) Abs React Lymphs (Man) Monocytes # (Manual) Eosinophils # (Manual) Basophils # (Manual) Metamyelocytes # Myelocytes # Promyelocytes # Blast Cells # WBC Morphology Hypersegmented Neuts Hyposegmented Neuts Hypogranular Neuts Smudge Cells Toxic Granulation Toxic Vacuolation Dohle Bodies Pelger-Huet Anomaly Ky Rods Platelet Estimate Clumped Platelets Plt Clumps, EDTA Large Platelets Giant Platelets Platelet Satelliting Plt Morphology Comment RBC Morphology Dimorphic RBCs Polychromasia Hypochromasia Poikilocytosis Anisocytosis Microcytosis Macrocytosis Spherocytes Pappenheimer Bodies Sickle Cells Target Cells Tear Drop Cells Ovalocytes Helmet Cells Stein-[place] Bodies Martelle Rings Alcides Cells Bite Cells Crenated Cell Elliptocytes Acanthocytes (Spur) Rouleaux Hemoglobin C Crystals Schistocytes Malaria parasites Maverick Bodies Hem Pathologist Commnt Heparin Anti-Xa Level Sodium Potassium Chloride Carbon Dioxide Anion Gap BUN Creatinine Estimated GFR BUN/Creatinine Ratio Glucose POC Glucose 189 H 159 H 146 H Calcium Phosphorus Magnesium 04/18/16 04/18/16 04/18/16 04:29 04:29 06:17 WBC 9.7 RBC 4.55 Hgb 11.4 L Hct 35.4 L MCV 78 L MCH 25 L MCHC 32 RDW 16.8 H Plt Count 121 L Add Manual Diff Complete Total Counted 100 Seg Neuts % (Manual) 79.0 H Band Neutrophils % 9.0 Lymphocytes % (Manual) 6.0 L Reactive Lymphs % (Man) 0 Monocytes % (Manual) 3.0 Eosinophils % (Manual) 3.0 Basophils % (Manual) 0 Metamyelocytes % 0 Myelocytes % 0 Promyelocytes % 0 Blast Cells % 0 Nucleated RBC % Not Reportable Seg Neutrophils # Man 7.7 Band Neutrophils # 0.9 Lymphocytes # (Manual) 0.6 L Abs React Lymphs (Man) 0.0 Monocytes # (Manual) 0.3 Eosinophils # (Manual) 0.3 Basophils # (Manual) 0.0 Metamyelocytes # 0.0 Myelocytes # 0.0 Promyelocytes # 0.0 Blast Cells # 0.0 WBC Morphology Not Reportable Hypersegmented Neuts Not Reportable Hyposegmented Neuts Not Reportable Hypogranular Neuts Not Reportable Smudge Cells Not Reportable Toxic Granulation Not Reportable Toxic Vacuolation Not Reportable Dohle Bodies Not Reportable Pelger-Huet Anomaly Not Reportable Ky Rods Not Reportable Platelet Estimate Consistent w auto Clumped Platelets Not Reportable Plt Clumps, EDTA Not Reportable Large Platelets Not Reportable Giant Platelets Not Reportable Platelet Satelliting Not Reportable Plt Morphology Comment Not Reportable RBC Morphology Not Reportable Dimorphic RBCs Not Reportable Polychromasia 1+ Hypochromasia 1+ Poikilocytosis Not Reportable Anisocytosis 1+ Microcytosis Not Reportable Macrocytosis Not Reportable Spherocytes Not Reportable Pappenheimer Bodies Not Reportable Sickle Cells Not Reportable Target Cells Not Reportable Tear Drop Cells Not Reportable Ovalocytes Not Reportable Helmet Cells Not Reportable Stein-[place] Bodies Not Reportable Martelle Rings Not Reportable Alcides Cells Not Reportable Bite Cells Not Reportable Crenated Cell Not Reportable Elliptocytes Not Reportable Acanthocytes (Spur) Not Reportable Rouleaux Not Reportable Hemoglobin C Crystals Not Reportable Schistocytes Not Reportable Malaria parasites Not Reportable Maverick Bodies Not Reportable Hem Pathologist Commnt No Heparin Anti-Xa Level Sodium 143 Potassium 3.5 L Chloride 101.1 Carbon Dioxide 34 H Anion Gap 11 BUN 12 Creatinine 0.5 L Estimated GFR > 60 BUN/Creatinine Ratio 24.00 Glucose 105 H POC Glucose 74 Calcium 8.7 Phosphorus 3.5 Magnesium 2.2 04/18/16 04/18/16 11:41 12:00 WBC RBC Hgb Hct MCV MCH MCHC RDW Plt Count Add Manual Diff Total Counted Seg Neuts % (Manual) Band Neutrophils % Lymphocytes % (Manual) Reactive Lymphs % (Man) Monocytes % (Manual) Eosinophils % (Manual) Basophils % (Manual) Metamyelocytes % Myelocytes % Promyelocytes % Blast Cells % Nucleated RBC % Seg Neutrophils # Man Band Neutrophils # Lymphocytes # (Manual) Abs React Lymphs (Man) Monocytes # (Manual) Eosinophils # (Manual) Basophils # (Manual) Metamyelocytes # Myelocytes # Promyelocytes # Blast Cells # WBC Morphology Hypersegmented Neuts Hyposegmented Neuts Hypogranular Neuts Smudge Cells Toxic Granulation Toxic Vacuolation Dohle Bodies Pelger-Huet Anomaly Ky Rods Platelet Estimate Clumped Platelets Plt Clumps, EDTA Large Platelets Giant Platelets Platelet Satelliting Plt Morphology Comment RBC Morphology Dimorphic RBCs Polychromasia Hypochromasia Poikilocytosis Anisocytosis Microcytosis Macrocytosis Spherocytes Pappenheimer Bodies Sickle Cells Target Cells Tear Drop Cells Ovalocytes Helmet Cells Stein-[place] Bodies Martelle Rings [place] Cells Bite Cells Crenated Cell Elliptocytes Acanthocytes (Spur) Rouleaux Hemoglobin C Crystals Schistocytes Malaria parasites Maverick Bodies Hem Pathologist Commnt Heparin Anti-Xa Level 0.35 Sodium Potassium Chloride Carbon Dioxide Anion Gap BUN Creatinine Estimated GFR BUN/Creatinine Ratio Glucose POC Glucose 88 Calcium Phosphorus Magnesium Assessment and Plan Pt seen and examined. Plan as noted.
--- NOTE | 2016-04-18 13:20 | Progress Note ---
Assessment and Plan - Patient Problems (1) Acute hypoxemic respiratory failure Current Visit: Yes Status: Acute (2) HCAP (healthcare-associated pneumonia) Current Visit: Yes Status: Acute (3) Sepsis syndrome Current Visit: Yes Status: Acute (4) Pemphigus vulgaris Current Visit: Yes Status: Acute (5) Altered mental status Current Visit: Yes Status: Acute (6) Discharge planning issues Current Visit: Yes Status: Acute Subjective Date of service: 04/18/16 Principal diagnosis: Acute Hypoxemic Respiratory Failure; VTE Interval history: Seen and examined at bedside; 24 hour events reviewed; nursing and respiratory care staff consulted; no adverse overnight events reported to me; Objective Vital Signs - 12hr 04/18/16 04/18/16 04/18/16 02:20 02:29 04:11 Temperature Pulse Rate Pulse Rate [ 79 78 Anterior Bilateral Throughout] Pulse Rate [ 72 Left Radial] Pulse Rate [ Left] Pulse Rate [ Right Radial] Respiratory 24 Rate Respiratory 16 20 Rate [Anterior Bilateral Throughout] Blood Pressure Blood Pressure [Right Arm] O2 Sat by Pulse Oximetry 04/18/16 04/18/16 04/18/16 04:49 06:49 08:15 Temperature 97.5 F L 98.9 F Pulse Rate 88 Pulse Rate [ 78 Anterior Bilateral Throughout] Pulse Rate [ Left Radial] Pulse Rate [ 89 Left] Pulse Rate [ 83 Right Radial] Respiratory 18 32 H Rate Respiratory 18 Rate [Anterior Bilateral Throughout] Blood Pressure 142/83 142/78 Blood Pressure 125/78 [Right Arm] O2 Sat by Pulse 97 Oximetry 04/18/16 04/18/16 04/18/16 08:25 10:48 10:49 Temperature Pulse Rate Pulse Rate [ 76 Anterior Bilateral Throughout] Pulse Rate [ Left Radial] Pulse Rate [ Left] Pulse Rate [ Right Radial] Respiratory Rate Respiratory 20 Rate [Anterior Bilateral Throughout] Blood Pressure 142/78 142/78 Blood Pressure [Right Arm] O2 Sat by Pulse Oximetry Constitutional: no acute distress, asleep Eyes: non-icteric ENT: oropharynx moist Neck: supple, no lymphadenopathy Effort: mildly labored Ascultation: Bilateral: diminished breath sounds, rales, rhonchi (scant) Cardiovascular: regular rate and rhythm Gastrointestinal: normoactive bowel sounds, soft, non-tender, non-distended Integumentary: other (rash) Extremities: no cyanosis, pulses normal, no ischemia or petechiae Neurologic: unable to assess Psychiatric: other (unable to assess) CBC and BMP: 04/18/16 04:29 04/18/16 04:29 ABG, PT/INR, D-dimer: ABG POC ABG pH 7.454 (7.35-7.45) H 04/12/16 06:54 POC ABG pCO2 41.1 (35-45) 04/12/16 06:54 POC ABG pO2 116 (80-105) H 04/12/16 06:54 POC ABG HCO3 28.9 04/12/16 06:54 POC ABG Total CO2 30 04/12/16 06:54 POC ABG O2 Sat 99 04/12/16 06:54 PT/INR, D-dimer PT 14.4 Sec. (12.2-14.9) 04/10/16 16:54 INR 1.13 (0.87-1.13) 04/10/16 16:54 D-Dimer 3652.03 ng/mlDDU (0-234) H 04/11/16 11:37 Abnormal lab findings: Abnormal Labs 04/11/16 04/11/16 04/11/16 05:02 05:02 11:37 WBC 11.7 H RBC Hgb Hct MCV 80 L MCH 25 L MCHC 31 L RDW 17.5 H Plt Count 109 L Lymph % (Auto) Lymph # Seg Neutrophils % Seg Neuts % (Manual) 91.0 H Lymphocytes % (Manual) 3.0 L Nucleated RBC % 1.0 H Seg Neutrophils # Seg Neutrophils # Man 10.6 H Lymphocytes # (Manual) 0.4 L D-Dimer Heparin Anti-Xa Level POC ABG pH POC ABG pO2 Sodium 156 H Potassium Chloride 117.6 H Carbon Dioxide 21 L BUN 46 H Creatinine Glucose 496 H POC Glucose Lactic Acid Calcium 8.3 L Phosphorus 5.0 H Magnesium 3.6 H C-Reactive Protein Albumin 1.9 L 04/11/16 04/11/16 04/11/16 11:37 11:37 11:37 WBC RBC Hgb Hct MCV MCH MCHC RDW Plt Count Lymph % (Auto) Lymph # Seg Neutrophils % Seg Neuts % (Manual) Lymphocytes % (Manual) Nucleated RBC % Seg Neutrophils # Seg Neutrophils # Man Lymphocytes # (Manual) D-Dimer 3652.03 H Heparin Anti-Xa Level POC ABG pH POC ABG pO2 Sodium Potassium Chloride Carbon Dioxide BUN Creatinine Glucose POC Glucose Lactic Acid 2.5 H* Calcium Phosphorus Magnesium C-Reactive Protein 42.40 H Albumin 04/11/16 04/11/16 04/11/16 15:34 21:04 21:40 WBC RBC Hgb Hct MCV MCH MCHC RDW Plt Count Lymph % (Auto) Lymph # Seg Neutrophils % Seg Neuts % (Manual) Lymphocytes % (Manual) Nucleated RBC % Seg Neutrophils # Seg Neutrophils # Man Lymphocytes # (Manual) D-Dimer Heparin Anti-Xa Level 0.27 L POC ABG pH POC ABG pO2 Sodium Potassium Chloride Carbon Dioxide BUN Creatinine Glucose POC Glucose 430 H > 500 H Lactic Acid Calcium Phosphorus Magnesium C-Reactive Protein Albumin 04/11/16 04/12/16 04/12/16 22:37 02:07 04:45 WBC 16.4 H RBC Hgb 11.0 L Hct MCV 80 L MCH 25 L MCHC 31 L RDW 17.6 H Plt Count 120 L Lymph % (Auto) Lymph # Seg Neutrophils % Seg Neuts % (Manual) 91.0 H Lymphocytes % (Manual) 1.0 L Nucleated RBC % Seg Neutrophils # Seg Neutrophils # Man 14.9 H Lymphocytes # (Manual) 0.2 L D-Dimer Heparin Anti-Xa Level POC ABG pH POC ABG pO2 Sodium Potassium Chloride Carbon Dioxide BUN Creatinine Glucose 515 H* POC Glucose 399 H Lactic Acid Calcium Phosphorus Magnesium C-Reactive Protein Albumin 04/12/16 04/12/16 04/12/16 04:45 06:19 06:54 WBC RBC Hgb Hct MCV MCH MCHC RDW Plt Count Lymph % (Auto) Lymph # Seg Neutrophils % Seg Neuts % (Manual) Lymphocytes % (Manual) Nucleated RBC % Seg Neutrophils # Seg Neutrophils # Man Lymphocytes # (Manual) D-Dimer Heparin Anti-Xa Level 0.21 L POC ABG pH 7.454 H POC ABG pO2 116 H Sodium 161 H* Potassium 3.3 L D Chloride 122.8 H Carbon Dioxide BUN 43 H Creatinine Glucose 485 H POC Glucose Lactic Acid Calcium 8.3 L Phosphorus Magnesium C-Reactive Protein Albumin 04/12/16 04/12/16 04/12/16 07:38 11:42 16:41 WBC RBC Hgb Hct MCV MCH MCHC RDW Plt Count Lymph % (Auto) Lymph # Seg Neutrophils % Seg Neuts % (Manual) Lymphocytes % (Manual) Nucleated RBC % Seg Neutrophils # Seg Neutrophils # Man Lymphocytes # (Manual) D-Dimer Heparin Anti-Xa Level POC ABG pH POC ABG pO2 Sodium Potassium Chloride Carbon Dioxide BUN Creatinine Glucose POC Glucose 423 H 315 H 159 H Lactic Acid Calcium Phosphorus Magnesium C-Reactive Protein Albumin 04/12/16 04/12/16 04/13/16 20:39 22:47 06:12 WBC RBC Hgb Hct MCV MCH MCHC RDW Plt Count Lymph % (Auto) Lymph # Seg Neutrophils % Seg Neuts % (Manual) Lymphocytes % (Manual) Nucleated RBC % Seg Neutrophils # Seg Neutrophils # Man Lymphocytes # (Manual) D-Dimer Heparin Anti-Xa Level 0.20 L POC ABG pH POC ABG pO2 Sodium Potassium Chloride Carbon Dioxide BUN Creatinine Glucose POC Glucose 217 H 247 H Lactic Acid Calcium Phosphorus Magnesium C-Reactive Protein Albumin 04/13/16 04/13/16 04/13/16 09:30 09:30 09:30 WBC RBC 5.12 H Hgb Hct MCV 79 L MCH 25 L MCHC 31 L RDW 17.6 H Plt Count 107 L Lymph % (Auto) Lymph # Seg Neutrophils % Seg Neuts % (Manual) 93.0 H Lymphocytes % (Manual) 7.0 L Nucleated RBC % 1.0 H Seg Neutrophils # Seg Neutrophils # Man 8.6 H Lymphocytes # (Manual) 0.6 L D-Dimer Heparin Anti-Xa Level 2.00 H POC ABG pH POC ABG pO2 Sodium 160 H Potassium Chloride 121.3 H Carbon Dioxide BUN 36 H Creatinine Glucose 254 H POC Glucose Lactic Acid Calcium 8.3 L Phosphorus Magnesium C-Reactive Protein Albumin 04/13/16 04/13/16 04/13/16 12:29 13:20 17:06 WBC RBC Hgb Hct MCV MCH MCHC RDW Plt Count Lymph % (Auto) Lymph # Seg Neutrophils % Seg Neuts % (Manual) Lymphocytes % (Manual) Nucleated RBC % Seg Neutrophils # Seg Neutrophils # Man Lymphocytes # (Manual) D-Dimer Heparin Anti-Xa Level < 0.10 L POC ABG pH POC ABG pO2 Sodium Potassium Chloride Carbon Dioxide BUN Creatinine Glucose POC Glucose 230 H 229 H Lactic Acid Calcium Phosphorus Magnesium C-Reactive Protein Albumin 04/13/16 04/14/16 04/14/16 21:22 00:03 04:34 WBC RBC Hgb 10.2 L Hct 32.6 L D MCV 79 L MCH 25 L MCHC 31 L RDW 17.7 H Plt Count 87 L Lymph % (Auto) 9.3 L Lymph # 0.8 L Seg Neutrophils % 88.1 H Seg Neuts % (Manual) Lymphocytes % (Manual) Nucleated RBC % Seg Neutrophils # 7.9 H Seg Neutrophils # Man Lymphocytes # (Manual) D-Dimer Heparin Anti-Xa Level 0.21 L POC ABG pH POC ABG pO2 Sodium Potassium Chloride Carbon Dioxide BUN Creatinine Glucose POC Glucose 213 H Lactic Acid Calcium Phosphorus Magnesium C-Reactive Protein Albumin 04/14/16 04/14/16 04/14/16 06:13 11:23 12:58 WBC RBC Hgb Hct MCV MCH MCHC RDW Plt Count Lymph % (Auto) Lymph # Seg Neutrophils % Seg Neuts % (Manual) Lymphocytes % (Manual) Nucleated RBC % Seg Neutrophils # Seg Neutrophils # Man Lymphocytes # (Manual) D-Dimer Heparin Anti-Xa Level POC ABG pH POC ABG pO2 Sodium 157 H Potassium Chloride 118.4 H Carbon Dioxide BUN 25 H Creatinine Glucose 140 H POC Glucose 182 H 143 H Lactic Acid Calcium 8.0 L Phosphorus Magnesium C-Reactive Protein Albumin 04/14/16 04/14/16 04/15/16 17:16 21:52 07:00 WBC RBC Hgb Hct MCV MCH MCHC RDW Plt Count Lymph % (Auto) Lymph # Seg Neutrophils % Seg Neuts % (Manual) Lymphocytes % (Manual) Nucleated RBC % Seg Neutrophils # Seg Neutrophils # Man Lymphocytes # (Manual) D-Dimer Heparin Anti-Xa Level POC ABG pH POC ABG pO2 Sodium Potassium Chloride Carbon Dioxide BUN Creatinine Glucose POC Glucose 132 H 211 H 199 H Lactic Acid Calcium Phosphorus Magnesium C-Reactive Protein Albumin 04/15/16 04/15/16 04/15/16 07:42 07:42 11:35 WBC RBC Hgb 10.3 L Hct 32.3 L MCV 80 L MCH 25 L MCHC RDW 17.5 H Plt Count 85 L Lymph % (Auto) 10.6 L Lymph # 0.8 L Seg Neutrophils % 85.8 H Seg Neuts % (Manual) Lymphocytes % (Manual) Nucleated RBC % Seg Neutrophils # Seg Neutrophils # Man Lymphocytes # (Manual) D-Dimer Heparin Anti-Xa Level POC ABG pH POC ABG pO2 Sodium 157 H Potassium Chloride 117.9 H Carbon Dioxide BUN 22 H Creatinine Glucose 173 H POC Glucose 130 H Lactic Acid Calcium 8.1 L Phosphorus Magnesium C-Reactive Protein Albumin 04/15/16 04/15/16 04/16/16 17:21 21:22 05:59 WBC RBC Hgb Hct MCV MCH MCHC RDW Plt Count Lymph % (Auto) Lymph # Seg Neutrophils % Seg Neuts % (Manual) Lymphocytes % (Manual) Nucleated RBC % Seg Neutrophils # Seg Neutrophils # Man Lymphocytes # (Manual) D-Dimer Heparin Anti-Xa Level POC ABG pH POC ABG pO2 Sodium Potassium Chloride Carbon Dioxide BUN Creatinine Glucose POC Glucose 197 H 192 H 198 H Lactic Acid Calcium Phosphorus Magnesium C-Reactive Protein Albumin 04/16/16 04/16/16 04/16/16 07:10 07:10 11:44 WBC RBC Hgb 10.5 L Hct 33.2 L MCV 78 L MCH 25 L MCHC RDW 17.0 H Plt Count 94 L Lymph % (Auto) 11.3 L Lymph # 0.9 L Seg Neutrophils % 84.4 H Seg Neuts % (Manual) Lymphocytes % (Manual) Nucleated RBC % Seg Neutrophils # Seg Neutrophils # Man Lymphocytes # (Manual) D-Dimer Heparin Anti-Xa Level POC ABG pH POC ABG pO2 Sodium 148 H D Potassium 3.5 L Chloride 108.1 H Carbon Dioxide 32 H BUN Creatinine 0.7 L Glucose 198 H POC Glucose 212 H Lactic Acid Calcium 8.1 L Phosphorus Magnesium C-Reactive Protein Albumin 04/16/16 04/16/16 04/17/16 16:15 21:06 05:21 WBC RBC Hgb 11.0 L Hct 34.1 L MCV 78 L MCH 25 L MCHC RDW 17.0 H Plt Count 98 L Lymph % (Auto) Lymph # Seg Neutrophils % Seg Neuts % (Manual) 81.0 H Lymphocytes % (Manual) 12.0 L Nucleated RBC % Seg Neutrophils # Seg Neutrophils # Man Lymphocytes # (Manual) 1.0 L D-Dimer Heparin Anti-Xa Level POC ABG pH POC ABG pO2 Sodium Potassium Chloride Carbon Dioxide BUN Creatinine Glucose POC Glucose 195 H 168 H Lactic Acid Calcium Phosphorus Magnesium C-Reactive Protein Albumin 04/17/16 04/17/16 04/17/16 05:44 09:14 13:58 WBC RBC Hgb Hct MCV MCH MCHC RDW Plt Count Lymph % (Auto) Lymph # Seg Neutrophils % Seg Neuts % (Manual) Lymphocytes % (Manual) Nucleated RBC % Seg Neutrophils # Seg Neutrophils # Man Lymphocytes # (Manual) D-Dimer Heparin Anti-Xa Level POC ABG pH POC ABG pO2 Sodium Potassium Chloride Carbon Dioxide BUN Creatinine 0.6 L Glucose 178 H POC Glucose 186 H 189 H Lactic Acid Calcium 8.1 L Phosphorus Magnesium C-Reactive Protein Albumin 04/17/16 04/17/16 04/18/16 16:59 21:19 04:29 WBC RBC Hgb 11.4 L Hct 35.4 L MCV 78 L MCH 25 L MCHC RDW 16.8 H Plt Count 121 L Lymph % (Auto) Lymph # Seg Neutrophils % Seg Neuts % (Manual) 79.0 H Lymphocytes % (Manual) 6.0 L Nucleated RBC % Seg Neutrophils # Seg Neutrophils # Man Lymphocytes # (Manual) 0.6 L D-Dimer Heparin Anti-Xa Level POC ABG pH POC ABG pO2 Sodium Potassium Chloride Carbon Dioxide BUN Creatinine Glucose POC Glucose 159 H 146 H Lactic Acid Calcium Phosphorus Magnesium C-Reactive Protein Albumin 04/18/16 04:29 WBC RBC Hgb Hct MCV MCH MCHC RDW Plt Count Lymph % (Auto) Lymph # Seg Neutrophils % Seg Neuts % (Manual) Lymphocytes % (Manual) Nucleated RBC % Seg Neutrophils # Seg Neutrophils # Man Lymphocytes # (Manual) D-Dimer Heparin Anti-Xa Level POC ABG pH POC ABG pO2 Sodium Potassium 3.5 L Chloride Carbon Dioxide 34 H BUN Creatinine 0.5 L Glucose 105 H POC Glucose Lactic Acid Calcium Phosphorus Magnesium C-Reactive Protein Albumin
--- NOTE | 2016-04-18 15:03 | Event Note ---
Date: 04/18/16 Lengthy discussion with patient's re: PEG vs. Hospice and comfort measures only. She is considering and will decide.
[2016-04-19] MEDS: DUONEB 0.5 MG-3 MG/3 ML SOLN IH SCH ×4 (01:48→22:17)
[2016-04-19] MEDS: HEPARIN/ 0.45% NACL-25,000 UNIT/500 ML 500 ML IV SCH (05:35)
--- NOTE | 2016-04-19 07:21 | Gastroenterology Progress Note ---
<WANDA ALONSO - Last Filed: 04/19/16 07:21> Assessment and Plan 1. Dysphagia -Patient failed swallow exam -Currently on Heparin gtt for DVT -Continue Dobbhoff feedings for now. -Discussion per Dr Guevara with regarding PEG vs Comfort Care with Hospice. She is deciding how she would like to proceed. -Will need to hold Heparin gtt 4 hours prior to procedure if family is agreeable. -PEG placement if consent obtained. Subjective Principal diagnosis: Acute Hypoxemic Respiratory Failure; VTE Interval history: No acute changes overnight. Patient currently receiving breathing treatment. Objective - Constitutional Vitals: Temp Pulse Resp BP Pulse Ox 98.0 F 76 20 129/80 100 04/19/16 05:10 04/19/16 05:10 04/19/16 05:10 04/19/16 05:10 04/19/16 05:10 General appearance: no acute distress - EENT Eyes: EOM intact - Respiratory Respiratory: bilateral: diminished - Cardiovascular Rhythm: regular - Gastrointestinal General gastrointestinal: Present: soft, non-tender - Integumentary Integumentary: Present: warm, dry - Neurologic Neurological: other (alert, nonverbal) - Labs CBC & Chem 7: 04/18/16 04:29 04/18/16 04:29 Labs: Laboratory Results - last 24 hr 04/18/16 04/18/16 04/18/16 04:29 11:41 12:00 Add Manual Diff Complete Total Counted 100 Seg Neuts % (Manual) 79.0 H Band Neutrophils % 9.0 Lymphocytes % (Manual) 6.0 L Reactive Lymphs % (Man) 0 Monocytes % (Manual) 3.0 Eosinophils % (Manual) 3.0 Basophils % (Manual) 0 Metamyelocytes % 0 Myelocytes % 0 Promyelocytes % 0 Blast Cells % 0 Nucleated RBC % Not Reportable Seg Neutrophils # Man 7.7 Band Neutrophils # 0.9 Lymphocytes # (Manual) 0.6 L Abs React Lymphs (Man) 0.0 Monocytes # (Manual) 0.3 Eosinophils # (Manual) 0.3 Basophils # (Manual) 0.0 Metamyelocytes # 0.0 Myelocytes # 0.0 Promyelocytes # 0.0 Blast Cells # 0.0 WBC Morphology Not Reportable Hypersegmented Neuts Not Reportable Hyposegmented Neuts Not Reportable Hypogranular Neuts Not Reportable Smudge Cells Not Reportable Toxic Granulation Not Reportable Toxic Vacuolation Not Reportable Dohle Bodies Not Reportable Pelger-Huet Anomaly Not Reportable [place] Rods Not Reportable Platelet Estimate Consistent w auto Clumped Platelets Not Reportable Plt Clumps, EDTA Not Reportable Large Platelets Not Reportable Giant Platelets Not Reportable Platelet Satelliting Not Reportable Plt Morphology Comment Not Reportable RBC Morphology Not Reportable Dimorphic RBCs Not Reportable Polychromasia 1+ Hypochromasia 1+ Poikilocytosis Not Reportable Anisocytosis 1+ Microcytosis Not Reportable Macrocytosis Not Reportable Spherocytes Not Reportable Pappenheimer Bodies Not Reportable Sickle Cells Not Reportable Target Cells Not Reportable Tear Drop Cells Not Reportable Ovalocytes Not Reportable Helmet Cells Not Reportable Stein-Zimmerman Bodies Not Reportable White Rings Not Reportable [place] Cells Not Reportable Bite Cells Not Reportable Crenated Cell Not Reportable Elliptocytes Not Reportable Acanthocytes (Spur) Not Reportable Rouleaux Not Reportable Hemoglobin C Crystals Not Reportable Schistocytes Not Reportable Malaria parasites Not Reportable Maverick Bodies Not Reportable Hem Pathologist Commnt No Heparin Anti-Xa Level 0.35 POC Glucose 88 04/18/16 04/18/16 04/19/16 16:53 21:28 05:54 Add Manual Diff Total Counted Seg Neuts % (Manual) Band Neutrophils % Lymphocytes % (Manual) Reactive Lymphs % (Man) Monocytes % (Manual) Eosinophils % (Manual) Basophils % (Manual) Metamyelocytes % Myelocytes % Promyelocytes % Blast Cells % Nucleated RBC % Seg Neutrophils # Man Band Neutrophils # Lymphocytes # (Manual) Abs React Lymphs (Man) Monocytes # (Manual) Eosinophils # (Manual) Basophils # (Manual) Metamyelocytes # Myelocytes # Promyelocytes # Blast Cells # WBC Morphology Hypersegmented Neuts Hyposegmented Neuts Hypogranular Neuts Smudge Cells Toxic Granulation Toxic Vacuolation Dohle Bodies Pelger-Huet Anomaly [place] Rods Platelet Estimate Clumped Platelets Plt Clumps, EDTA Large Platelets Giant Platelets Platelet Satelliting Plt Morphology Comment RBC Morphology Dimorphic RBCs Polychromasia Hypochromasia Poikilocytosis Anisocytosis Microcytosis Macrocytosis Spherocytes Pappenheimer Bodies Sickle Cells Target Cells Tear Drop Cells Ovalocytes Helmet Cells Stein-Zimmerman Bodies White Rings [place] Cells Bite Cells Crenated Cell Elliptocytes Acanthocytes (Spur) Rouleaux Hemoglobin C Crystals Schistocytes Malaria parasites Maverick Bodies Hem Pathologist Commnt Heparin Anti-Xa Level POC Glucose 156 H 149 H 172 H <ELSI GUEVARA R - Last Filed: 04/19/16 13:14> Assessment and Plan Lengthy discussion with pt's , in room. Decided to go to Hospice, Comfort measures only. No G-tube. Will sign off. Thanks. Subjective Date of service: 04/19/16 Objective - Constitutional Vitals: Temp Pulse Resp BP Pulse Ox 97.4 F L 76 18 125/74 100 04/19/16 08:44 04/19/16 08:44 04/19/16 08:44 04/19/16 08:44 04/19/16 08:44 - Labs CBC & Chem 7: 04/19/16 08:38 04/18/16 04:29 Labs: Laboratory Results - last 24 hr 04/18/16 04/18/16 04/19/16 16:53 21:28 05:54 Hgb Hct Plt Count Heparin Anti-Xa Level POC Glucose 156 H 149 H 172 H 04/19/16 04/19/16 08:38 11:54 Hgb 10.3 L Hct 32.2 L Plt Count 131 L Heparin Anti-Xa Level 0.34 POC Glucose
[2016-04-19] MEDS: NOVOLOG SUB-Q SCH ×3 (08:51→20:10)
[2016-04-19 09:00] LABS: Hematocrit 32.2 % (35.5-45.6); Hemoglobin 10.3 gm/dl (11.8-15.2)
[2016-04-19] MEDS: CATAPRES PO SCH ×2 (10:07→22:12)
[2016-04-19] MEDS: LEVAQUIN 500MG/100ML 100 ML IV SCH (10:08)
[2016-04-19] MEDS: NORVASC PO SCH (10:08)
[2016-04-19] MEDS: PEPCID PO SCH ×2 (10:08→22:13)
[2016-04-19] MEDS: DELTASONE PO SCH (10:08)
--- NOTE | 2016-04-19 11:39 | Progress Note ---
Assessment and Plan - Patient Problems (1) Acute hypoxemic respiratory failure Current Visit: Yes Status: Acute (2) HCAP (healthcare-associated pneumonia) Current Visit: Yes Status: Acute (3) Sepsis syndrome Current Visit: Yes Status: Acute (4) Pemphigus vulgaris Current Visit: Yes Status: Acute (5) Altered mental status Current Visit: Yes Status: Acute (6) Discharge planning issues Current Visit: Yes Status: Acute Subjective Date of service: 04/19/16 Principal diagnosis: Acute Hypoxemic Respiratory Failure; VTE Interval history: Seen and examined at bedside; 24 hour events reviewed; nursing and respiratory care staff consulted; no adverse overnight events reported to me; Objective Vital Signs - 12hr 04/19/16 04/19/16 04/19/16 01:48 02:05 05:10 Temperature 98.0 F Pulse Rate [ Anterior Bilateral Throughout] Pulse Rate [ 86 88 Bilateral] Pulse Rate [ From Monitor] Pulse Rate [ 76 Right Radial] Respiratory 20 Rate Respiratory Rate [Anterior Bilateral Throughout] Respiratory 16 20 Rate [Bilateral ] Blood Pressure [Left Arm] Blood Pressure 129/80 [Right Arm] O2 Sat by Pulse 100 Oximetry 04/19/16 04/19/16 04/19/16 07:13 07:23 08:44 Temperature 97.4 F L Pulse Rate [ 70 78 Anterior Bilateral Throughout] Pulse Rate [ Bilateral] Pulse Rate [ 76 From Monitor] Pulse Rate [ Right Radial] Respiratory 18 Rate Respiratory 18 18 Rate [Anterior Bilateral Throughout] Respiratory Rate [Bilateral ] Blood Pressure 125/74 [Left Arm] Blood Pressure [Right Arm] O2 Sat by Pulse 99 100 Oximetry Constitutional: no acute distress, asleep Eyes: non-icteric ENT: oropharynx moist Neck: supple, no lymphadenopathy Effort: mildly labored Ascultation: Bilateral: diminished breath sounds, rales, rhonchi (scant) Cardiovascular: regular rate and rhythm Gastrointestinal: normoactive bowel sounds, soft, non-tender, non-distended Integumentary: other (rash) Extremities: no cyanosis, pulses normal, no ischemia or petechiae Neurologic: unable to assess Psychiatric: other (unable to assess) CBC and BMP: 04/19/16 08:38 04/18/16 04:29 ABG, PT/INR, D-dimer: ABG POC ABG pH 7.454 (7.35-7.45) H 04/12/16 06:54 POC ABG pCO2 41.1 (35-45) 04/12/16 06:54 POC ABG pO2 116 (80-105) H 04/12/16 06:54 POC ABG HCO3 28.9 04/12/16 06:54 POC ABG Total CO2 30 04/12/16 06:54 POC ABG O2 Sat 99 04/12/16 06:54 PT/INR, D-dimer PT 14.4 Sec. (12.2-14.9) 04/10/16 16:54 INR 1.13 (0.87-1.13) 04/10/16 16:54 D-Dimer 3652.03 ng/mlDDU (0-234) H 04/11/16 11:37 Abnormal lab findings: Abnormal Labs 04/11/16 04/11/16 04/11/16 05:02 05:02 11:37 WBC 11.7 H RBC Hgb Hct MCV 80 L MCH 25 L MCHC 31 L RDW 17.5 H Plt Count 109 L Lymph % (Auto) Lymph # Seg Neutrophils % Seg Neuts % (Manual) 91.0 H Lymphocytes % (Manual) 3.0 L Nucleated RBC % 1.0 H Seg Neutrophils # Seg Neutrophils # Man 10.6 H Lymphocytes # (Manual) 0.4 L D-Dimer Heparin Anti-Xa Level POC ABG pH POC ABG pO2 Sodium 156 H Potassium Chloride 117.6 H Carbon Dioxide 21 L BUN 46 H Creatinine Glucose 496 H POC Glucose Lactic Acid Calcium 8.3 L Phosphorus 5.0 H Magnesium 3.6 H C-Reactive Protein Albumin 1.9 L 04/11/16 04/11/16 04/11/16 11:37 11:37 11:37 WBC RBC Hgb Hct MCV MCH MCHC RDW Plt Count Lymph % (Auto) Lymph # Seg Neutrophils % Seg Neuts % (Manual) Lymphocytes % (Manual) Nucleated RBC % Seg Neutrophils # Seg Neutrophils # Man Lymphocytes # (Manual) D-Dimer 3652.03 H Heparin Anti-Xa Level POC ABG pH POC ABG pO2 Sodium Potassium Chloride Carbon Dioxide BUN Creatinine Glucose POC Glucose Lactic Acid 2.5 H* Calcium Phosphorus Magnesium C-Reactive Protein 42.40 H Albumin 04/11/16 04/11/16 04/11/16 15:34 21:04 21:40 WBC RBC Hgb Hct MCV MCH MCHC RDW Plt Count Lymph % (Auto) Lymph # Seg Neutrophils % Seg Neuts % (Manual) Lymphocytes % (Manual) Nucleated RBC % Seg Neutrophils # Seg Neutrophils # Man Lymphocytes # (Manual) D-Dimer Heparin Anti-Xa Level 0.27 L POC ABG pH POC ABG pO2 Sodium Potassium Chloride Carbon Dioxide BUN Creatinine Glucose POC Glucose 430 H > 500 H Lactic Acid Calcium Phosphorus Magnesium C-Reactive Protein Albumin 04/11/16 04/12/16 04/12/16 22:37 02:07 04:45 WBC 16.4 H RBC Hgb 11.0 L Hct MCV 80 L MCH 25 L MCHC 31 L RDW 17.6 H Plt Count 120 L Lymph % (Auto) Lymph # Seg Neutrophils % Seg Neuts % (Manual) 91.0 H Lymphocytes % (Manual) 1.0 L Nucleated RBC % Seg Neutrophils # Seg Neutrophils # Man 14.9 H Lymphocytes # (Manual) 0.2 L D-Dimer Heparin Anti-Xa Level POC ABG pH POC ABG pO2 Sodium Potassium Chloride Carbon Dioxide BUN Creatinine Glucose 515 H* POC Glucose 399 H Lactic Acid Calcium Phosphorus Magnesium C-Reactive Protein Albumin 04/12/16 04/12/16 04/12/16 04:45 06:19 06:54 WBC RBC Hgb Hct MCV MCH MCHC RDW Plt Count Lymph % (Auto) Lymph # Seg Neutrophils % Seg Neuts % (Manual) Lymphocytes % (Manual) Nucleated RBC % Seg Neutrophils # Seg Neutrophils # Man Lymphocytes # (Manual) D-Dimer Heparin Anti-Xa Level 0.21 L POC ABG pH 7.454 H POC ABG pO2 116 H Sodium 161 H* Potassium 3.3 L D Chloride 122.8 H Carbon Dioxide BUN 43 H Creatinine Glucose 485 H POC Glucose Lactic Acid Calcium 8.3 L Phosphorus Magnesium C-Reactive Protein Albumin 04/12/16 04/12/16 04/12/16 07:38 11:42 16:41 WBC RBC Hgb Hct MCV MCH MCHC RDW Plt Count Lymph % (Auto) Lymph # Seg Neutrophils % Seg Neuts % (Manual) Lymphocytes % (Manual) Nucleated RBC % Seg Neutrophils # Seg Neutrophils # Man Lymphocytes # (Manual) D-Dimer Heparin Anti-Xa Level POC ABG pH POC ABG pO2 Sodium Potassium Chloride Carbon Dioxide BUN Creatinine Glucose POC Glucose 423 H 315 H 159 H Lactic Acid Calcium Phosphorus Magnesium C-Reactive Protein Albumin 12/04/12/16 04/13/16 20:39 22:47 06:12 WBC RBC Hgb Hct MCV MCH MCHC RDW Plt Count Lymph % (Auto) Lymph # Seg Neutrophils % Seg Neuts % (Manual) Lymphocytes % (Manual) Nucleated RBC % Seg Neutrophils # Seg Neutrophils # Man Lymphocytes # (Manual) D-Dimer Heparin Anti-Xa Level 0.20 L POC ABG pH POC ABG pO2 Sodium Potassium Chloride Carbon Dioxide BUN Creatinine Glucose POC Glucose 217 H 247 H Lactic Acid Calcium Phosphorus Magnesium C-Reactive Protein Albumin 04/13/16 04/13/16 04/13/16 09:30 09:30 09:30 WBC RBC 5.12 H Hgb Hct MCV 79 L MCH 25 L MCHC 31 L RDW 17.6 H Plt Count 107 L Lymph % (Auto) Lymph # Seg Neutrophils % Seg Neuts % (Manual) 93.0 H Lymphocytes % (Manual) 7.0 L Nucleated RBC % 1.0 H Seg Neutrophils # Seg Neutrophils # Man 8.6 H Lymphocytes # (Manual) 0.6 L D-Dimer Heparin Anti-Xa Level 2.00 H POC ABG pH POC ABG pO2 Sodium 160 H Potassium Chloride 121.3 H Carbon Dioxide BUN 36 H Creatinine Glucose 254 H POC Glucose Lactic Acid Calcium 8.3 L Phosphorus Magnesium C-Reactive Protein Albumin 04/13/16 04/13/16 04/13/16 12:29 13:20 17:06 WBC RBC Hgb Hct MCV MCH MCHC RDW Plt Count Lymph % (Auto) Lymph # Seg Neutrophils % Seg Neuts % (Manual) Lymphocytes % (Manual) Nucleated RBC % Seg Neutrophils # Seg Neutrophils # Man Lymphocytes # (Manual) D-Dimer Heparin Anti-Xa Level < 0.10 L POC ABG pH POC ABG pO2 Sodium Potassium Chloride Carbon Dioxide BUN Creatinine Glucose POC Glucose 230 H 229 H Lactic Acid Calcium Phosphorus Magnesium C-Reactive Protein Albumin 04/13/16 04/14/16 04/14/16 21:22 00:03 04:34 WBC RBC Hgb 10.2 L Hct 32.6 L D MCV 79 L MCH 25 L MCHC 31 L RDW 17.7 H Plt Count 87 L Lymph % (Auto) 9.3 L Lymph # 0.8 L Seg Neutrophils % 88.1 H Seg Neuts % (Manual) Lymphocytes % (Manual) Nucleated RBC % Seg Neutrophils # 7.9 H Seg Neutrophils # Man Lymphocytes # (Manual) D-Dimer Heparin Anti-Xa Level 0.21 L POC ABG pH POC ABG pO2 Sodium Potassium Chloride Carbon Dioxide BUN Creatinine Glucose POC Glucose 213 H Lactic Acid Calcium Phosphorus Magnesium C-Reactive Protein Albumin 04/14/16 04/14/16 04/14/16 06:13 11:23 12:58 WBC RBC Hgb Hct MCV MCH MCHC RDW Plt Count Lymph % (Auto) Lymph # Seg Neutrophils % Seg Neuts % (Manual) Lymphocytes % (Manual) Nucleated RBC % Seg Neutrophils # Seg Neutrophils # Man Lymphocytes # (Manual) D-Dimer Heparin Anti-Xa Level POC ABG pH POC ABG pO2 Sodium 157 H Potassium Chloride 118.4 H Carbon Dioxide BUN 25 H Creatinine Glucose 140 H POC Glucose 182 H 143 H Lactic Acid Calcium 8.0 L Phosphorus Magnesium C-Reactive Protein Albumin 04/14/16 04/14/16 04/15/16 17:16 21:52 07:00 WBC RBC Hgb Hct MCV MCH MCHC RDW Plt Count Lymph % (Auto) Lymph # Seg Neutrophils % Seg Neuts % (Manual) Lymphocytes % (Manual) Nucleated RBC % Seg Neutrophils # Seg Neutrophils # Man Lymphocytes # (Manual) D-Dimer Heparin Anti-Xa Level POC ABG pH POC ABG pO2 Sodium Potassium Chloride Carbon Dioxide BUN Creatinine Glucose POC Glucose 132 H 211 H 199 H Lactic Acid Calcium Phosphorus Magnesium C-Reactive Protein Albumin 04/15/16 04/15/16 04/15/16 07:42 07:42 11:35 WBC RBC Hgb 10.3 L Hct 32.3 L MCV 80 L MCH 25 L MCHC RDW 17.5 H Plt Count 85 L Lymph % (Auto) 10.6 L Lymph # 0.8 L Seg Neutrophils % 85.8 H Seg Neuts % (Manual) Lymphocytes % (Manual) Nucleated RBC % Seg Neutrophils # Seg Neutrophils # Man Lymphocytes # (Manual) D-Dimer Heparin Anti-Xa Level POC ABG pH POC ABG pO2 Sodium 157 H Potassium Chloride 117.9 H Carbon Dioxide BUN 22 H Creatinine Glucose 173 H POC Glucose 130 H Lactic Acid Calcium 8.1 L Phosphorus Magnesium C-Reactive Protein Albumin 04/15/16 04/15/16 04/16/16 17:21 21:22 05:59 WBC RBC Hgb Hct MCV MCH MCHC RDW Plt Count Lymph % (Auto) Lymph # Seg Neutrophils % Seg Neuts % (Manual) Lymphocytes % (Manual) Nucleated RBC % Seg Neutrophils # Seg Neutrophils # Man Lymphocytes # (Manual) D-Dimer Heparin Anti-Xa Level POC ABG pH POC ABG pO2 Sodium Potassium Chloride Carbon Dioxide BUN Creatinine Glucose POC Glucose 197 H 192 H 198 H Lactic Acid Calcium Phosphorus Magnesium C-Reactive Protein Albumin 04/16/16 04/16/16 04/16/16 07:10 07:10 11:44 WBC RBC Hgb 10.5 L Hct 33.2 L MCV 78 L MCH 25 L MCHC RDW 17.0 H Plt Count 94 L Lymph % (Auto) 11.3 L Lymph # 0.9 L Seg Neutrophils % 84.4 H Seg Neuts % (Manual) Lymphocytes % (Manual) Nucleated RBC % Seg Neutrophils # Seg Neutrophils # Man Lymphocytes # (Manual) D-Dimer Heparin Anti-Xa Level POC ABG pH POC ABG pO2 Sodium 148 H D Potassium 3.5 L Chloride 108.1 H Carbon Dioxide 32 H BUN Creatinine 0.7 L Glucose 198 H POC Glucose 212 H Lactic Acid Calcium 8.1 L Phosphorus Magnesium C-Reactive Protein Albumin 04/16/16 04/16/16 04/17/16 16:15 21:06 05:21 WBC RBC Hgb 11.0 L Hct 34.1 L MCV 78 L MCH 25 L MCHC RDW 17.0 H Plt Count 98 L Lymph % (Auto) Lymph # Seg Neutrophils % Seg Neuts % (Manual) 81.0 H Lymphocytes % (Manual) 12.0 L Nucleated RBC % Seg Neutrophils # Seg Neutrophils # Man Lymphocytes # (Manual) 1.0 L D-Dimer Heparin Anti-Xa Level POC ABG pH POC ABG pO2 Sodium Potassium Chloride Carbon Dioxide BUN Creatinine Glucose POC Glucose 195 H 168 H Lactic Acid Calcium Phosphorus Magnesium C-Reactive Protein Albumin 04/17/16 04/17/16 04/17/16 05:44 09:14 13:58 WBC RBC Hgb Hct MCV MCH MCHC RDW Plt Count Lymph % (Auto) Lymph # Seg Neutrophils % Seg Neuts % (Manual) Lymphocytes % (Manual) Nucleated RBC % Seg Neutrophils # Seg Neutrophils # Man Lymphocytes # (Manual) D-Dimer Heparin Anti-Xa Level POC ABG pH POC ABG pO2 Sodium Potassium Chloride Carbon Dioxide BUN Creatinine 0.6 L Glucose 178 H POC Glucose 186 H 189 H Lactic Acid Calcium 8.1 L Phosphorus Magnesium C-Reactive Protein Albumin 04/17/16 04/17/16 04/18/16 16:59 21:19 04:29 WBC RBC Hgb 11.4 L Hct 35.4 L MCV 78 L MCH 25 L MCHC RDW 16.8 H Plt Count 121 L Lymph % (Auto) Lymph # Seg Neutrophils % Seg Neuts % (Manual) 79.0 H Lymphocytes % (Manual) 6.0 L Nucleated RBC % Seg Neutrophils # Seg Neutrophils # Man Lymphocytes # (Manual) 0.6 L D-Dimer Heparin Anti-Xa Level POC ABG pH POC ABG pO2 Sodium Potassium Chloride Carbon Dioxide BUN Creatinine Glucose POC Glucose 159 H 146 H Lactic Acid Calcium Phosphorus Magnesium C-Reactive Protein Albumin 04/18/16 04/18/16 04/18/16 04:29 16:53 21:28 WBC RBC Hgb Hct MCV MCH MCHC RDW Plt Count Lymph % (Auto) Lymph # Seg Neutrophils % Seg Neuts % (Manual) Lymphocytes % (Manual) Nucleated RBC % Seg Neutrophils # Seg Neutrophils # Man Lymphocytes # (Manual) D-Dimer Heparin Anti-Xa Level POC ABG pH POC ABG pO2 Sodium Potassium 3.5 L Chloride Carbon Dioxide 34 H BUN Creatinine 0.5 L Glucose 105 H POC Glucose 156 H 149 H Lactic Acid Calcium Phosphorus Magnesium C-Reactive Protein Albumin 04/19/16 04/19/16 05:54 08:38 WBC RBC Hgb 10.3 L Hct 32.2 L MCV MCH MCHC RDW Plt Count 131 L Lymph % (Auto) Lymph # Seg Neutrophils % Seg Neuts % (Manual) Lymphocytes % (Manual) Nucleated RBC % Seg Neutrophils # Seg Neutrophils # Man Lymphocytes # (Manual) D-Dimer Heparin Anti-Xa Level POC ABG pH POC ABG pO2 Sodium Potassium Chloride Carbon Dioxide BUN Creatinine Glucose POC Glucose 172 H Lactic Acid Calcium Phosphorus Magnesium C-Reactive Protein Albumin
[2016-04-19] MEDS ORDERED: D50W (25GM) IV ONE (12:15)
--- NOTE | 2016-04-19 12:29 | Progress Note ---
Assessment and Plan Assessment and plan: 1. Acute hypoxic respiratory failure-resolving. Wean supplemental oxygen as tolerated 2.Pneumonia and MSSA bacteremia-with resolved sepsis. Repeat blood c/s NGTD after 24 hrs; White remains normal and he is afebrile; continue Levaquin day 12. 3. UTI-treated 4. Metabolic encephalopathy- cont supportive care. 6. Diabetes mellitus type 2- glucose control improving; cotn levemr 25 units daily. 7. Oropharyngeal dysphagia- post swallow eval; NPO status recommended; consult GI for PEG placement; is agreeable 8. Hypokalemia-will replace with po supplementation; monitor; check mag level 9. 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 DVT Lt IJ and subclavian-cotn heparin gtt; will transition to eliquis pending swallow eval and no PEG placement needed l; monitor for bleeding; monitor H/h and platelet count 11. DVT-on heparin drip for d/c once PEG placed History Interval history: Follow-up for respiratory failure, sepsis, UTI, hypernatremia Patient is seen at the bedside, no family is present. not verbalizing today; NPO status recommended from swallow eval; spoke with via phone and she will make a decision about PEG placement Hospitalist Physical - Constitutional Vitals: Temp Pulse Resp BP Pulse Ox 97.4 F L 76 18 125/74 100 04/19/16 08:44 04/19/16 08:44 04/19/16 08:44 04/19/16 08:44 04/19/16 08:44 General appearance: Present: no acute distress, well-nourished, other (on nasal cannula oxygen; not talking today) - EENT Eyes: Present: PERRL, EOM intact. Absent: scleral icterus, conjunctival injection ENT: hearing intact, other (NGT in place ) - Neck Neck: Present: supple, normal ROM. Absent: enlarged thyroid, masses or JVD - Respiratory Respiratory effort: normal Respiratory: bilateral: diminished, negative: rales, rhonchi, wheezing - Cardiovascular Rhythm: regular Heart Sounds: Present: S1 & S2. Absent: gallop - Extremities Extremities: no ischemia, pulses intact, pulses symmetrical Peripheral Pulses: within normal limits - Abdominal General gastrointestinal: soft, non-tender, non-distended - Integumentary Integumentary: Present: clear, warm - Psychiatric Psychiatric: cooperative - Neurologic Neurologic: focal deficits, other (tries to talk; ) Results - Labs CBC & Chem 7: 04/19/16 08:38 04/18/16 04:29 Labs: Laboratory Last Values WBC 9.7 K/mm3 (4.5-11.0) 04/18/16 04:29 RBC 4.55 M/mm3 (3.65-5.03) 04/18/16 04:29 Hgb 10.3 gm/dl (11.8-15.2) L 04/19/16 08:38 Hct 32.2 % (35.5-45.6) L 04/19/16 08:38 MCV 78 fl (84-94) L 04/18/16 04:29 MCH 25 pg (28-32) L 04/18/16 04:29 MCHC 32 % (32-34) 04/18/16 04:29 RDW 16.8 % (13.2-15.2) H 04/18/16 04:29 Plt Count 131 K/mm3 (140-440) L 04/19/16 08:38 Lymph % (Auto) 11.3 % (13.4-35.0) L 04/16/16 07:10 [place] % (Auto) 2.6 % (0.0-7.3) 04/16/16 07:10 Eos % (Auto) 1.6 % (0.0-4.3) 04/16/16 07:10 Baso % (Auto) 0.1 % (0.0-1.8) 04/16/16 07:10 Lymph # 0.9 K/mm3 (1.2-5.4) L 04/16/16 07:10 [place] # 0.2 K/mm3 (0.0-0.8) 04/16/16 07:10 Eos # 0.1 K/mm3 (0.0-0.4) 04/16/16 07:10 Baso # 0.0 K/mm3 (0.0-0.1) 04/16/16 07:10 Add Manual Diff Complete 04/18/16 04:29 Total Counted 100 04/18/16 04:29 Seg Neutrophils % 84.4 % (40.0-70.0) H 04/16/16 07:10 Seg Neuts % (Manual) 79.0 % (40.0-70.0) H 04/18/16 04:29 Band Neutrophils % 9.0 % 04/18/16 04:29 Lymphocytes % (Manual) 6.0 % (13.4-35.0) L 04/18/16 04:29 Reactive Lymphs % (Man) 0 % 04/18/16 04:29 Monocytes % (Manual) 3.0 % (0.0-7.3) 04/18/16 04:29 Eosinophils % (Manual) 3.0 % (0.0-4.3) 04/18/16 04:29 Basophils % (Manual) 0 % (0.0-1.8) 04/18/16 04:29 Metamyelocytes % 0 % 04/18/16 04:29 Myelocytes % 0 % 04/18/16 04:29 Promyelocytes % 0 % 04/18/16 04:29 Blast Cells % 0 % 04/18/16 04:29 Nucleated RBC % Not Reportable 04/18/16 04:29 Seg Neutrophils # 6.8 K/mm3 (1.8-7.7) 04/16/16 07:10 Seg Neutrophils # Man 7.7 K/mm3 (1.8-7.7) 04/18/16 04:29 Band Neutrophils # 0.9 K/mm3 04/18/16 04:29 Lymphocytes # (Manual) 0.6 K/mm3 (1.2-5.4) L 04/18/16 04:29 Abs React Lymphs (Man) 0.0 K/mm3 04/18/16 04:29 Monocytes # (Manual) 0.3 K/mm3 (0.0-0.8) 04/18/16 04:29 Eosinophils # (Manual) 0.3 K/mm3 (0.0-0.4) 04/18/16 04:29 Basophils # (Manual) 0.0 K/mm3 (0.0-0.1) 04/18/16 04:29 Metamyelocytes # 0.0 K/mm3 04/18/16 04:29 Myelocytes # 0.0 K/mm3 04/18/16 04:29 Promyelocytes # 0.0 K/mm3 04/18/16 04:29 Blast Cells # 0.0 K/mm3 04/18/16 04:29 WBC Morphology Not Reportable 04/18/16 04:29 Hypersegmented Neuts Not Reportable 04/18/16 04:29 Hyposegmented Neuts Not Reportable 04/18/16 04:29 Hypogranular Neuts Not Reportable 04/18/16 04:29 Smudge Cells Not Reportable 04/18/16 04:29 Toxic Granulation Not Reportable 04/18/16 04:29 Toxic Vacuolation Not Reportable 04/18/16 04:29 Dohle Bodies Not Reportable 04/18/16 04:29 Pelger-Huet Anomaly Not Reportable 04/18/16 04:29 Ky Rods Not Reportable 04/18/16 04:29 Platelet Estimate Consistent w auto 04/18/16 04:29 Clumped Platelets Not Reportable 04/18/16 04:29 Plt Clumps, EDTA Not Reportable 04/18/16 04:29 Large Platelets Not Reportable 04/18/16 04:29 Giant Platelets Not Reportable 04/18/16 04:29 Platelet Satelliting Not Reportable 04/18/16 04:29 Plt Morphology Comment Not Reportable 04/18/16 04:29 RBC Morphology Not Reportable 04/18/16 04:29 Dimorphic RBCs Not Reportable 04/18/16 04:29 Polychromasia 1+ 04/18/16 04:29 Hypochromasia 1+ 04/18/16 04:29 Poikilocytosis Not Reportable 04/18/16 04:29 Anisocytosis 1+ 04/18/16 04:29 Microcytosis Not Reportable 04/18/16 04:29 Macrocytosis Not Reportable 04/18/16 04:29 Spherocytes Not Reportable 04/18/16 04:29 Pappenheimer Bodies Not Reportable 04/18/16 04:29 Sickle Cells Not Reportable 04/18/16 04:29 Target Cells Not Reportable 04/18/16 04:29 Tear Drop Cells Not Reportable 04/18/16 04:29 Ovalocytes Not Reportable 04/18/16 04:29 Helmet Cells Not Reportable 04/18/16 04:29 [place] Bodies Not Reportable 04/18/16 04:29 [place] Rings Not Reportable 04/18/16 04:29 [place] Cells Not Reportable 04/18/16 04:29 Bite Cells Not Reportable 04/18/16 04:29 Crenated Cell Not Reportable 04/18/16 04:29 Elliptocytes Not Reportable 04/18/16 04:29 Acanthocytes (Spur) Not Reportable 04/18/16 04:29 Rouleaux Not Reportable 04/18/16 04:29 Hemoglobin C Crystals Not Reportable 04/18/16 04:29 Schistocytes Not Reportable 04/18/16 04:29 Malaria parasites Not Reportable 04/18/16 04:29 [place] Bodies Not Reportable 04/18/16 04:29 Hem Pathologist Commnt No 04/18/16 04:29 PT 14.4 Sec. (12.2-14.9) 04/10/16 16:54 INR 1.13 (0.87-1.13) 04/10/16 16:54 APTT 34.3 Sec. (24.2-36.6) 04/11/16 11:50 D-Dimer 3652.03 ng/mlDDU (0-234) H 04/11/16 11:37 Heparin Anti-Xa Level 0.34 U.I./ml (0.3-0.7) 04/19/16 11:54 POC ABG pH 7.454 (7.35-7.45) H 04/12/16 06:54 POC ABG pCO2 41.1 (35-45) 04/12/16 06:54 POC ABG pO2 116 (80-105) H 04/12/16 06:54 POC ABG HCO3 28.9 04/12/16 06:54 POC ABG Total CO2 30 04/12/16 06:54 POC ABG O2 Sat 99 04/12/16 06:54 POC ABG Base Excess 5 04/12/16 06:54 VBG pH 7.437 (7.320-7.420) H 04/10/16 16:54 FiO2 3 % 04/12/16 06:54 Sodium 143 mmol/L (137-145) 04/18/16 04:29 Potassium 3.5 mmol/L (3.6-5.0) L 04/18/16 04:29 Chloride 101.1 mmol/L (98-107) 04/18/16 04:29 Carbon Dioxide 34 mmol/L (22-30) H 04/18/16 04:29 Anion Gap 11 mmol/L 04/18/16 04:29 BUN 12 mg/dL (9-20) 04/18/16 04:29 Creatinine 0.5 mg/dL (0.8-1.5) L 04/18/16 04:29 Estimated GFR > 60 ml/min 04/18/16 04:29 BUN/Creatinine Ratio 24.00 % 04/18/16 04:29 Glucose 105 mg/dL (75-100) H 04/18/16 04:29 POC Glucose 172 (70-105) H 04/19/16 05:54 Lactic Acid 2.5 mmol/L (0.7-2.0) H* 04/11/16 11:37 Calcium 8.7 mg/dL (8.4-10.2) 04/18/16 04:29 Phosphorus 3.5 mg/dL (2.5-4.5) 04/18/16 04:29 Magnesium 2.2 mg/dL (1.7-2.3) 04/18/16 04:29 Total Bilirubin 1.0 mg/dL (0.1-1.2) 04/11/16 05:02 AST 36 units/L (5-40) 04/11/16 05:02 ALT 40 units/L (7-56) 04/11/16 05:02 Alkaline Phosphatase 94 units/L (35-129) 04/11/16 05:02 C-Reactive Protein 42.40 mg/dL (0.00-1.30) H 04/11/16 11:37 NT-Pro-B Natriuret Pep 1287 pg/mL (0-900) H 04/10/16 17:06 Total Protein 7.0 g/dL (6.3-8.2) 04/11/16 05:02 Albumin 1.9 g/dL (3.9-5) L 04/11/16 05:02 Albumin/Globulin Ratio 0.4 % 04/11/16 05:02 Urine Color Eri (Yellow) 04/10/16 16:56 Urine Turbidity Clear (Clear) 04/10/16 16:56 Urine pH 5.0 (5.0-7.0) 04/10/16 16:56 Ur Specific [place] 1.020 (1.003-1.030) 04/10/16 16:56 Urine Protein 30 mg/dl mg/dL (Negative) 04/10/16 16:56 Urine Glucose (UA) 50 mg/dL (Negative) 04/10/16 16:56 Urine Ketones Neg mg/dL (Negative) 04/10/16 16:56 Urine Blood Sm (Negative) 04/10/16 16:56 Urine Nitrite Neg (Negative) 04/10/16 16:56 Urine Bilirubin Neg (Negative) 04/10/16 16:56 Urine Urobilinogen 4.0 mg/dL (<2.0) 04/10/16 16:56 Ur Leukocyte Esterase Sm (Negative) 04/10/16 16:56 Urine WBC (Auto) 15.0 /HPF (0.0-6.0) H 04/10/16 16:56 Urine RBC (Auto) 7.0 /HPF (0.0-6.0) 04/10/16 16:56 Amorphous Crystals Few 04/10/16 16:56 Urine Mucus 1+ /HPF 04/10/16 16:56 Microbiology 04/16/16 20:35 Peripheral/Venous Blood Culture - Preliminary NO GROWTH AFTER 48 HOURS 04/16/16 20:35 Peripheral/Venous Blood Culture - Preliminary NO GROWTH AFTER 48 HOURS 04/10/16 16:54 Peripheral/Venous Blood Culture - Final Staphylococcus Aureus Diphtheroids 04/10/16 17:06 Peripheral/Venous Blood Culture - Final Staphylococcus Aureus Diphtheroids 04/10/16 16:56 Urine,Catheterized - Indwelling Catheter Urine Culture - Final 04/10/16 20:25 Nasopharyngeal Swab Influenza Types A,B Antigen (TED) - Final
--- NOTE | 2016-04-19 13:43 | Discharge Summary ---
Providers - Providers Date of Admission: 04/11/16 02:16 Date of discharge: 04/26/16 Attending physician: ARETHA BLOCK 04/16/16 10:16 Speech Therapy Evaluation and Treat [CONS] Routine Reason For Exam: swallow evaluation 04/18/16 07:28 Consult to Physician [CONS] Routine Consulting Provider: ELSI VASQUEZ Reason For Exam: dysphagia; eval for PEG placement Place consult to:: mellissa gastro Notified:: office Phone number called:: [phone] Was contact made?: Yes If yes, spoke with:: michelle Time called:: 10:04 Comment:: BRIAN NOTIFIED 04/11/16 06:42 Consult to Wound/ET Nurse [CONS] Urgent Reason For Exam: wound eval 04/11/16 07:48 Speech Therapy Evaluation and Treat [CONS] Urgent Reason For Exam: dysphagia 04/11/16 11:27 Consult to Dietitian/Nutrition [CONS] Routine Physician Instructions: Reason For Exam: Reason for Consult: Write/Manage Tube Feeding Primary care physician: [employer] Hospitalization Reason for admission: sepsis, acute respiratory failure Condition: Critical Pertinent studies: Chest x-ray-right lower lobe infiltrate concerning for pneumonia Microbiology 04/16/16 20:35 Peripheral/Venous Blood Culture - Preliminary NO GROWTH AFTER 48 HOURS 04/16/16 20:35 Peripheral/Venous Blood Culture - Preliminary NO GROWTH AFTER 48 HOURS 04/10/16 16:54 Peripheral/Venous Blood Culture - Final Staphylococcus Aureus Diphtheroids 04/10/16 17:06 Peripheral/Venous Blood Culture - Final Staphylococcus Aureus Diphtheroids 04/10/16 16:56 Urine,Catheterized - Indwelling Catheter Urine Culture - Final 04/10/16 20:25 Nasopharyngeal Swab Influenza Types A,B Antigen (TED) - Final Hospital course: Mr. Palomares is a 66-year-old gentleman who presented to the emergency room from the senior living with increasing shortness of breath. He was diagnosed as sepsis secondary to pneumonia and urinary tract infection with acute respiratory failure. He was started on IV antibiotics and BiPAP and admitted to the ICU. He was subsequently transferred to the medical floor where continuation of treatment continued. He also was treated for Staphylococcus bacteremia and repeat cultures were negative prior to discharge. He also had metabolic encephalopathy while he was here and had a swallowing evaluation which he failed. His made a decision to transition him to hospice and arrangements were putting place for that. condition at discharge-stable 32 minutes spent preparing discharge Disposition: [facility] HOSPICE (MEDICAL FACILITY) - Discharge Diagnoses (1) Acute hypoxemic respiratory failure Status: Acute (2) Altered mental status Status: Acute (3) Dehydration Status: Acute (4) HCAP (healthcare-associated pneumonia) Status: Acute (5) Sepsis Status: Acute Qualifiers: Sepsis type: sepsis due to unspecified organism Qualified Code(s): A41.9 - Sepsis, unspecified organism (6) CVA (cerebral vascular accident) Status: Chronic Qualifiers: Laterality of affected vessel: left (7) Dysphagia Status: Acute (8) Bacteremia Status: Acute Core Measure Documentation - Palliative Care Palliative Care/ Comfort Measures: Palliative Care/Comfort Measures - Core Measures Any of the following diagnoses?: none Exam - Constitutional Vitals: Temp Pulse Resp BP Pulse Ox 97.4 F L 76 18 125/74 100 04/19/16 08:44 04/19/16 08:44 04/19/16 08:44 04/19/16 08:44 04/19/16 08:44 see exam exam dictated for 04/29/2016 Plan Activity: advance as tolerated Diet: advance as tolerated Special Instructions: other (hospice) Additional Instructions: aspiration precautions; failed swallow evaluation Follow up with: PRIMARY CAREMD [Primary Care Provider] - 3-5 Days
[2016-04-19] MEDS: LEVEMIR SUB-Q SCH (22:13)
[2016-04-20] MEDS: HEPARIN/ 0.45% NACL-25,000 UNIT/500 ML 500 ML IV SCH (01:41)
[2016-04-20] MEDS: DUONEB 0.5 MG-3 MG/3 ML SOLN IH SCH ×2 (02:18→09:00)
[2016-04-20 07:56] VITALS: BP 124/78
[2016-04-20] MEDS: NOVOLOG SUB-Q SCH (09:18)
--- NOTE | 2016-04-20 11:33 | Event Note ---
Date: 04/20/16 Patient did not go to SNF yesterday as he was not being accepted as per nursing staff but he is for d/c today to SNF Exam - chest chest clear Temp Pulse Resp BP Pulse Ox 97.7 F 70 12 124/78 100 04/20/16 07:55 04/20/16 07:55 04/20/16 07:55 04/20/16 07:55 04/20/16 07:55 see discharge summary for 04/19/16 which has reviewed. 31 minutes spent preparing discharge and reviewing previous summary
== END 2016-04-20 10:15 | disposition hospice, inpatient (51) | DRG 871 ==
LOC: ED 16:20 → CC1 04-11 02:16 → 3A 04-13 00:49
PROVIDERS: ADMIT Internal Medicine; ATTEND Hospitalist
PROC: 5A09557 Assistance with Respiratory Ventilation, Greater than 96 Consecutive Hours, Continuous Positive Airway Pressure (ICD-10-PCS; principal; 2016-04-10)
DX: A41.01 Sepsis due to Methicillin susceptible Staphylococcus aureus (principal); J69.0 Pneumonitis due to inhalation of food and vomit; J96.01 Acute respiratory failure with hypoxia; G92 Toxic encephalopathy; N39.0 Urinary tract infection, site not specified; E87.0 Hyperosmolality and hypernatremia; L12.0 Bullous pemphigoid; I82.C12 Acute embolism and thrombosis of left internal jugular vein; I82.B12 Acute embolism and thrombosis of left subclavian vein; I69.354 Hemiplegia and hemiparesis following cerebral infarction affecting left non-dominant side; E11.65 Type 2 diabetes mellitus with hyperglycemia; R13.12 Dysphagia, oropharyngeal phase; F03.90 Unspecified dementia, unspecified severity, without behavioral disturbance, psychotic disturbance, mood disturbance, and anxiety; J44.9 Chronic obstructive pulmonary disease, unspecified; E87.6 Hypokalemia; N40.0 Benign prostatic hyperplasia without lower urinary tract symptoms; F43.10 Post-traumatic stress disorder, unspecified; Z79.4 Long term (current) use of insulin; Z82.49 Family history of ischemic heart disease and other diseases of the circulatory system; Z79.899 Other long term (current) drug therapy; Z22.4 Carrier of infections with a predominantly sexual mode of transmission; Z86.19 Personal history of other infectious and parasitic diseases; Z98.890 Other specified postprocedural states
CPT/HCPCS: 36415; 36600; 70450; 71010; 71020; 74000; 74230; 80048; 80053; 81001; 82140; 82803; 82805; 82947; 82962; 83735; 83880; 84100; 85007; 85014; 85018; 85025; 85049; 85379; 85520; 85610; 85730; 86140; 86403; 87040; 87076; 87086; 87186; 87400; 90686; 90732; 93005; 93010; 93306; 94640; 94660; 94760; 96361; 96365; 96367; 96368; 96375; G8996-GN; G8997-GN; J1170; J1644; J1650; J1815; J1818; J1956; J2543; J2930; J3370; J7030; J7512

== ENCOUNTER 2016-04-22 13:50 | Inpatient (IN) | payer MEDICARE, OTHER ==
[2016-04-22 16:00] LABS: Urine Drugs of Abuse Note Disclamer
[2016-04-22 16:08] LABS: Basophils % (Auto) 0.4 % (0.0-1.8); Eosinophils % (Auto) 0.5 % (0.0-4.3); Hematocrit 35.1 % (35.5-45.6); Hemoglobin 11.1 gm/dl (11.8-15.2); Mean Corpuscular HGB Conc 32 % (32-34); Mean Corpuscular Volume 80 fl (84-94); Platelet Count 250 K/mm3 (140-440); Red Cell Distribution Width 18.1 % (13.2-15.2); White Blood Count 8.8 K/mm3 (4.5-11.0)
[2016-04-22] MEDS ORDERED: ZOSYN/NS 3.375GM/50ML 50 ML IV ONE (16:11)
[2016-04-22] MEDS ORDERED: NACL 0.9% 1000 ML 1,000 ML IV ONE (16:11)
[2016-04-22 16:17] LABS: Bilirubin,Urine NEG (Negative); Blood,Urine NEG (Negative); Ketones,Urine 20 mg/dL (Negative); Leukocyte Esterase,Urine TR (Negative); Mucus,Urine FEW /HPF; Nitrite,Urine NEG (Negative); Protein,Urine <15 mg/dL mg/dL (Negative)
[2016-04-22 16:18] LABS: Mean Corpuscular Hemoglobin 25 pg (28-32)
[2016-04-22 16:29] LABS: Alanine Aminotransferase 13 units/L (7-56); Albumin 2.7 g/dL (3.9-5); Albumin/Globulin Ratio 0.7 %; Alkaline Phosphatase 59 units/L (35-129); BUN/Creatinine Ratio 18.33; Bilirubin,Total 0.5 mg/dL (0.1-1.2); Blood Urea Nitrogen 11 mg/dL (9-20); Calcium 8.9 mg/dL (8.4-10.2); Carbon Dioxide 31 mmol/L (22-30); Chloride 106.9 mmol/L (98-107); Glucose 141 mg/dL (75-100); Magnesium 2.3 mg/dL (1.7-2.3); Potassium 3.5 mmol/L (3.6-5.0); Sodium 150 mmol/L (137-145); Total Protein 6.6 g/dL (6.3-8.2)
[2016-04-22 16:46] LABS: Anion Gap 16 mmol/L
--- NOTE | 2016-04-22 17:49 | Emergency Department Report ---
ED General Adult HPI - General Chief complaint: Altered Mental Status Stated complaint: AMS Time Seen by Provider: 04/22/16 16:09 Source: family, EMS Mode of arrival: Stretcher Limitations: Altered Mental Status, Physical Limitation - History of Present Illness Initial comments: Patient was sent from the skilled nursing for lethargy. Apparently he has not been eating although the skilled nursing has been attempting to feed him. He was admitted here and discharged 2 days ago. The refused a G-tube that time. He had a positive swallow screen for aspiration and was treated for domo aspiration at that time. The skilled nursing is not reporting respiratory distress cough or fever. Obviously the patient has continued risk of aspiration. He is unable to provide any historical information. states that he has not spoke for more than 6 months since he has been in a skilled nursing. He has end-stage dementia. -: Gradual Severity scale (0 -10): 0 Improves with: none Worsens with: none - Related Data Home Medications Medication Instructions Recorded Confirmed Last Taken Atorvastatin Calcium [Lipitor] 20 mg PO HS 03/29/16 04/22/16 Unknown Ibuprofen [Motrin 800 MG tab] 800 mg PO Q6HR PRN 03/29/16 04/22/16 Unknown amLODIPine [Norvasc] 10 mg PO QAM 03/29/16 04/22/16 Unknown cloNIDine [Catapres] 0.2 mg PO BID 03/29/16 04/22/16 Unknown Insulin Aspart [NovoLOG Flexpen] 0 units SQ AC 04/10/16 04/22/16 Unknown Zinc Sulfate 220 mg PO DAILY 04/10/16 04/22/16 Unknown predniSONE [Deltasone] 10 mg PO QDAY 04/10/16 04/22/16 Unknown Previous Rx's Medication Instructions Recorded Last Taken Type metFORMIN [Glucophage] 500 mg PO BIDDIAB tablet 04/01/16 Unknown Rx Enoxaparin [Lovenox] 70 mg SQ Q12HR 7 Days 04/19/16 Unknown Rx Warfarin [Coumadin] 7.5 mg PO QDAY 14 Days 04/19/16 Unknown Rx Allergies Allergy/AdvReac Type Severity Reaction Status Date / Time mirtazapine [From Remeron] Allergy Rash Verified 04/22/16 15:25 ED Review of Systems ROS: Stated complaint: AMS Other details as noted in HPI Comment: Unobtainable due to pts medical conditions ED Past Medical Hx - Past Medical History Hx Hypertension: Yes Hx CVA: Yes Hx Diabetes: Yes Hx Dementia: Yes Hx HIV: No Additional medical history: PTSD, 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 - Surgical History Past Surgical History?: No - Social History Smoking Status: Never Smoker Substance Use Type: None - Medications Home Medications: Home Medications Medication Instructions Recorded Confirmed Last Taken Type Atorvastatin Calcium [Lipitor] 20 mg PO HS 03/29/16 04/22/16 Unknown History Ibuprofen [Motrin 800 MG tab] 800 mg PO Q6HR PRN 03/29/16 04/22/16 Unknown History amLODIPine [Norvasc] 10 mg PO QAM 03/29/16 04/22/16 Unknown History cloNIDine [Catapres] 0.2 mg PO BID 03/29/16 04/22/16 Unknown History metFORMIN [Glucophage] 500 mg PO BIDDIAB tablet 04/01/16 04/22/16 Unknown Rx Insulin Aspart [NovoLOG Flexpen] 0 units SQ AC 04/10/16 04/22/16 Unknown History Zinc Sulfate 220 mg PO DAILY 04/10/16 04/22/16 Unknown History predniSONE [Deltasone] 10 mg PO QDAY 04/10/16 04/22/16 Unknown History Enoxaparin [Lovenox] 70 mg SQ Q12HR 7 Days 04/19/16 04/22/16 Unknown Rx Warfarin [Coumadin] 7.5 mg PO QDAY 14 Days 04/19/16 04/22/16 Unknown Rx ED Physical Exam - General Limitations: Altered Mental Status, Physical Limitation General appearance: other (altered) - Head Head exam: Present: atraumatic ( headache but altered) - Eye Eye exam: Present: normal appearance. Absent: scleral icterus - ENT ENT exam: Present: mucous membranes moist - Neck Neck exam: Present: normal inspection. Absent: tenderness, meningismus - Respiratory Respiratory exam: Present: normal lung sounds bilaterally. Absent: respiratory distress - Cardiovascular Cardiovascular Exam: Present: regular rate, normal rhythm. Absent: systolic murmur, diastolic murmur, rubs, gallop - GI/Abdominal GI/Abdominal exam: Present: soft, normal bowel sounds. Absent: distended, tenderness, guarding, rebound - Extremities Exam Extremities exam: Absent: pedal edema, calf tenderness - Back Exam Back exam: Present: other (she is instructed the patient to check the status of his decubiti) ED Course Vital Signs 04/22/16 04/22/16 04/22/16 14:57 15:00 15:05 Temperature 100 F H Pulse Rate 81 80 Respiratory 11 L 18 Rate Blood Pressure 139/83 136/82 136/82 Blood Pressure 139/83 [Right] O2 Sat by Pulse 99 Oximetry 04/22/16 04/22/16 04/22/16 15:16 15:24 15:30 Temperature Pulse Rate 80 79 77 Respiratory 20 15 Rate Blood Pressure 139/83 148/92 Blood Pressure [Right] O2 Sat by Pulse 99 99 Oximetry 04/22/16 04/22/16 04/22/16 16:00 16:12 16:30 Temperature Pulse Rate 80 79 83 Respiratory 21 20 27 H Rate Blood Pressure 139/89 139/89 149/100 Blood Pressure [Right] O2 Sat by Pulse 99 100 96 Oximetry - Reevaluation(s) Reevaluation #1: Given IV fluids Zosyn and Vanco and consideration of his low-grade fever and history of recent hospitalizations/aspiration and decubiti. Discussed the PEG tube with the . She states she now would like to consent to this procedure and requests hospitalization. 04/22/16 17:48 ED Medical Decision Making - Lab Data Result diagrams: 04/22/16 15:53 04/22/16 15:53 Laboratory Results - last 24 hr 04/22/16 04/22/16 04/22/16 15:27 15:27 15:53 WBC 8.8 RBC 4.40 Hgb 11.1 L Hct 35.1 L MCV 80 L MCH 25 L MCHC 32 RDW 18.1 H Plt Count 250 Lymph % (Auto) 11.0 L [place] % (Auto) 7.7 H Eos % (Auto) 0.5 Baso % (Auto) 0.4 Lymph # 1.0 L [place] # 0.7 Eos # 0.0 Baso # 0.0 Seg Neutrophils % 80.4 H Seg Neutrophils # 7.0 Sodium Potassium Chloride Carbon Dioxide Anion Gap BUN Creatinine Estimated GFR BUN/Creatinine Ratio Glucose Lactic Acid Calcium Magnesium Total Bilirubin AST ALT Alkaline Phosphatase Total Protein Albumin Albumin/Globulin Ratio TSH Urine Color Yellow Urine Turbidity Clear Urine pH 6.0 Ur Specific [place] 1.016 Urine Protein <15 mg/dl Urine Glucose (UA) Neg Urine Ketones 20 Urine Blood Neg Urine Nitrite Neg Urine Bilirubin Neg Urine Urobilinogen 2.0 Ur Leukocyte Esterase Tr Urine WBC (Auto) 6.0 Urine RBC (Auto) 7.0 Urine Mucus Few Salicylates Urine Opiates Screen Presumptive negative Urine Methadone Screen Presumptive negative Acetaminophen Ur Barbiturates Screen Presumptive negative Ur Phencyclidine Scrn Presumptive negative Ur Amphetamines Screen Presumptive negative U Benzodiazepines Scrn Presumptive negative Urine Cocaine Screen Presumptive negative U Marijuana (THC) Screen Presumptive negative Drugs of Abuse Note Disclamer Plasma/Serum Alcohol 04/22/16 04/22/16 04/22/16 15:53 15:53 15:53 WBC RBC Hgb Hct MCV MCH MCHC RDW Plt Count Lymph % (Auto) [place] % (Auto) Eos % (Auto) Baso % (Auto) Lymph # [place] # Eos # Baso # Seg Neutrophils % Seg Neutrophils # Sodium 150 H Potassium 3.5 L Chloride 106.9 Carbon Dioxide 31 H Anion Gap 16 BUN 11 Creatinine 0.6 L Estimated GFR > 60 BUN/Creatinine Ratio 18.33 Glucose 141 H Lactic Acid 1.0 Calcium 8.9 Magnesium 2.3 Total Bilirubin 0.5 AST 15 ALT 13 Alkaline Phosphatase 59 Total Protein 6.6 Albumin 2.7 L Albumin/Globulin Ratio 0.7 TSH 1.520 Urine Color Urine Turbidity Urine pH Ur Specific [place] Urine Protein Urine Glucose (UA) Urine Ketones Urine Blood Urine Nitrite Urine Bilirubin Urine Urobilinogen Ur Leukocyte Esterase Urine WBC (Auto) Urine RBC (Auto) Urine Mucus Salicylates Urine Opiates Screen Urine Methadone Screen Acetaminophen Ur Barbiturates Screen Ur Phencyclidine Scrn Ur Amphetamines Screen U Benzodiazepines Scrn Urine Cocaine Screen U Marijuana (THC) Screen Drugs of Abuse Note Plasma/Serum Alcohol 04/22/16 04/22/16 04/22/16 15:53 15:53 15:53 WBC RBC Hgb Hct MCV MCH MCHC RDW Plt Count Lymph % (Auto) [place] % (Auto) Eos % (Auto) Baso % (Auto) Lymph # [place] # Eos # Baso # Seg Neutrophils % Seg Neutrophils # Sodium Potassium Chloride Carbon Dioxide Anion Gap BUN Creatinine Estimated GFR BUN/Creatinine Ratio Glucose Lactic Acid Calcium Magnesium Total Bilirubin AST ALT Alkaline Phosphatase Total Protein Albumin Albumin/Globulin Ratio TSH Urine Color Urine Turbidity Urine pH Ur Specific [place] Urine Protein Urine Glucose (UA) Urine Ketones Urine Blood Urine Nitrite Urine Bilirubin Urine Urobilinogen Ur Leukocyte Esterase Urine WBC (Auto) Urine RBC (Auto) Urine Mucus Salicylates < 0.3 L Urine Opiates Screen Urine Methadone Screen Acetaminophen < 15.0 Ur Barbiturates Screen Ur Phencyclidine Scrn Ur Amphetamines Screen U Benzodiazepines Scrn Urine Cocaine Screen U Marijuana (THC) Screen Drugs of Abuse Note Plasma/Serum Alcohol < 0.01 - Radiology Data interpreted by me: Left hemidiaphragm is poorly seen. No interval change from previous x-ray. Critical care attestation.: If time is entered above; I have spent that time in minutes in the direct care of this critically ill patient, excluding procedure time. ED Disposition Clinical Impression: Hypernatremia, Volume depletion Aspiration into airway Qualifiers: Encounter type: subsequent encounter Qualified Code(s): T17.908D - Unspecified foreign body in respiratory tract, part unspecified causing other injury, subsequent encounter Dementia Qualifiers: Dementia type: Alzheimer's disease Alzheimer's disease onset: unspecified onset Dementia behavioral disturbance: without behavioral disturbance Qualified Code(s): G30.9 - Alzheimer's disease, unspecified; F02.80 - Dementia in other diseases classified elsewhere without behavioral disturbance Decubitus ulcer Qualifiers: Pressure ulcer stage: unspecified pressure ulcer stage Qualified Code(s): L89.90 - Pressure ulcer of unspecified site, unspecified stage Disposition: OP ADMITTED IP TO THIS HOSP Is pt being admited?: Yes Does the pt Need Aspirin: Yes Condition: Stable Time of Disposition: 17:54
[2016-04-22] MEDS ORDERED: BABY ASPIRIN PO ONE (17:55)
[2016-04-22] MEDS ORDERED: LOVENOX SUB-Q SCH (18:00)
[2016-04-22] MEDS ORDERED: DELTASONE PO SCH (18:00)
[2016-04-22] MEDS ORDERED: NON-FORMULARY (Zinc Sulfate [Zinc Sulfate] 220 MG) PO SCH (18:00)
--- NOTE | 2016-04-22 18:27 | Admit Criteria Form ---
Admission Criteria Documentation: DEHYDRATION Clinical Indications for Admission to Inpatient Care (Place 'X' for any and all applicable criteria): Admission is indicated for ANY ONE of the following (1)(2)(3)(4)(5): [X ]I. Inpatient admission required rather than observation care (see Dehydration: Observation Care guideline as appropriate) because of ANY ONE of the following: [ ]a) Vomiting that is severe or persistent [ X]b) Severe electrolyte abnormalities requiring inpatient care [ ]c) Hemodynamic instability [ ]d) IV fluid to replace significant ongoing losses (greater than 3 L/m2 per day (10) (11) [ ]e) Parenteral nutrition regimen that must be implemented on inpatient basis [ ]f) Other condition,treatment or monitoring requiring inpatient admission [ ]II. Serious cause for dehydration requiring acute hospitalization (eg, bowel obstruction, increased intracranial pressure, infectious cause) Extended stay beyond goal length of stay may be needed for(1)(3 )(4)(17): [ ]a) Chronic severe dehydration [ ]b) Persistent vital sign changes, severe electrolyte imbalance, or diagnosed cause of dehydration that requires continued hospitalization (eg, bowel obstruction, increased intracranial pressure) [ ]c) Older patients (65 years or older) [ ]d) Severe comorbid illness (eg, renal failure, heart failure, poorly controlled diabetes) The original [employer] content created by [employer] has been revised. The portions of the content which have been revised are identified through the use of italic text or in bold, and [facility] has neither reviewed nor approved the modified material. All other unmodified content is copyright [facility]. Please see references footnoted in the original [facility] edition 2016 Admission Criteria Met: Yes
[2016-04-22] MEDS ORDERED: VANCOMYCIN PHARMACY TO DOSE IV SCH (19:00)
[2016-04-22] MEDS: ZOSYN/NS 3.375GM/50ML 50 ML IV SCH (19:28)
[2016-04-22] MEDS ORDERED: ASPIRIN PR ONE ×2 (19:48→21:51)
[2016-04-22] MEDS: VANCOMYCIN/NS 1 GM/250 ML 250 ML IV SCH (20:07)
[2016-04-22] MEDS: NACL 0.45% 1000 ML 1,000 ML IV SCH (20:08)
[2016-04-22 20:33] LABS: INR 1.12 (0.87-1.13)
[2016-04-22 21:09] LABS: Alanine Aminotransferase 12 units/L (7-56); Albumin 2.4 g/dL (3.9-5); Albumin/Globulin Ratio 0.6 %; Alkaline Phosphatase 56 units/L (35-129); BUN/Creatinine Ratio 18.33; Bilirubin,Total 0.6 mg/dL (0.1-1.2); Blood Urea Nitrogen 11 mg/dL (9-20); Calcium 8.5 mg/dL (8.4-10.2); Carbon Dioxide 27 mmol/L (22-30); Chloride 106.4 mmol/L (98-107); Glucose 134 mg/dL (75-100); Potassium 3.5 mmol/L (3.6-5.0); Sodium 148 mmol/L (137-145); Total Protein 6.3 g/dL (6.3-8.2)
[2016-04-22 21:12] LABS: Anion Gap 18 mmol/L
--- NOTE | 2016-04-22 23:52 | History and Physical Report ---
History of Present Illness Date of examination: 04/22/16 Date of admission: 04/22/16 17:43 Chief complaint: Altered mental status History of present illness: Patient is a 66-year-old gentleman who is a resident of a [place] [facility], with a history of Alzheimer's dementia, oropharyngeal dysphagia was discharged from this was about 2 days ago. Because of dysphagia and PEG tube was ordered for the patient and her last admission to this hospital. Patient's declined. Since getting to the care home and patient has not been eating better weather. Progressive has been declining in his mental status. Became very lethargic for which care home staff brought the patient to the emergency department. Patient had vomited. The vomitus was yellowish in color. Denies any fever. No chills. Past History Past Medical History: COPD, diabetes, hypertension, hyperlipidemia Past Surgical History: Other (none) Social history: denies: smoking, alcohol abuse, prescription drug abuse, IV drug use Family history: no significant family history Medications and Allergies Allergies Allergy/AdvReac Type Severity Reaction Status Date / Time mirtazapine [From Remeron] Allergy Rash Verified 04/22/16 15:25 Home Medications Medication Instructions Recorded Confirmed Last Taken Type Atorvastatin Calcium [Lipitor] 20 mg PO HS 03/29/16 04/22/16 Unknown History Ibuprofen [Motrin 800 MG tab] 800 mg PO Q6HR PRN 03/29/16 04/22/16 Unknown History amLODIPine [Norvasc] 10 mg PO QAM 03/29/16 04/22/16 Unknown History cloNIDine [Catapres] 0.2 mg PO BID 03/29/16 04/22/16 Unknown History metFORMIN [Glucophage] 500 mg PO BIDDIAB tablet 04/01/16 04/22/16 Unknown Rx Insulin Aspart [NovoLOG Flexpen] 0 units SQ AC 04/10/16 04/22/16 Unknown History Zinc Sulfate 220 mg PO DAILY 04/10/16 04/22/16 Unknown History predniSONE [Deltasone] 10 mg PO QDAY 04/10/16 04/22/16 Unknown History Enoxaparin [Lovenox] 70 mg SQ Q12HR 7 Days 04/19/16 04/22/16 Unknown Rx Warfarin [Coumadin] 7.5 mg PO QDAY 14 Days 04/19/16 04/22/16 Unknown Rx Active Meds: Active Medications Amlodipine Besylate (Norvasc) 10 mg PO QAM [facility] Atorvastatin Calcium (Lipitor) 20 mg PO HS [facility] Clonidine HCl (Catapres) 0.2 mg PO BID [facility] Enoxaparin Sodium (Lovenox) 30 mg SUB-Q QDAY [facility] Last Admin: 04/22/16 20:12 Dose: 30 mg Levofloxacin/Dextrose (Levaquin 500mg/100ml) 100 mls @ 100 mls/hr IV Q24HR [facility] PRN Reason: Protocol Piperacillin Sod/Tazobactam Sod (Zosyn/Ns 3.375gm/50ml) 50 mls @ 100 mls/hr IV Q6HR [facility] Last Admin: 04/22/16 19:28 Dose: Not Given Vancomycin HCl (Vancomycin/Ns 1 Gm/250 Ml) 250 mls @ 166.667 mls/hr IV Q12H [facility] Last Admin: 04/22/16 20:07 Dose: 166.667 mls/hr Sodium Chloride (Nacl 0.45% 1000 Ml) 1,000 mls @ 75 mls/hr IV DIRECT [facility] Last Admin: 04/22/16 20:08 Dose: 75 mls/hr Insulin Human Regular (Novolin R) 0 units SUB-Q ACHS [facility] PRN Reason: Protocol Metformin HCl (Glucophage) 500 mg PO BIDDIAB [facility] Methylprednisolone Sodium Succinate (Solu-Medrol) 20 mg IV Q24HR [facility] Last Admin: 04/22/16 20:10 Dose: 20 mg Vancomycin HCl (Vancomycin Pharmacy To Dose) 1 each IV PKCONSULT [facility] PRN Reason: Protocol Zinc Sulfate (Zinc Sulfate) 220 mg PO QDAY [facility] Review of Systems ROS unobtainable: due to mental status Exam - Constitutional Vitals: Temp Pulse Resp BP Pulse Ox 99.0 F 82 20 153/88 93 04/22/16 22:49 04/22/16 22:49 04/22/16 22:49 04/22/16 22:49 04/22/16 22:49 General appearance: Present: no acute distress, cachectic - EENT Eyes: Present: scleral icterus ENT: hearing intact, clear oral mucosa - Neck Neck: Present: supple, normal ROM - Respiratory Respiratory effort: normal Respiratory: bilateral: CTA - Cardiovascular Heart Sounds: Present: S1 & S2. Absent: rub, click - Extremities Extremities: pulses symmetrical, No edema Peripheral Pulses: within normal limits - Abdominal General gastrointestinal: Present: soft, non-tender, non-distended, normal bowel sounds Male genitourinary: Present: normal - Integumentary Integumentary: Present: clear, warm, dry - Musculoskeletal Musculoskeletal: gait normal, strength equal bilaterally - Psychiatric Psychiatric: appropriate mood/affect, intact judgment & insight - Neurologic Neurologic: CNII-XII intact, moves all extremities Results - Labs CBC & Chem 7: 04/22/16 15:53 04/22/16 19:55 Labs: Abnormal lab results 04/22/16 Range/Units 19:55 Sodium 148 H (137-145) mmol/L Potassium 3.5 L (3.6-5.0) mmol/L Creatinine 0.6 L (0.8-1.5) mg/dL Glucose 134 H (75-100) mg/dL Albumin 2.4 L (3.9-5) g/dL Assessment and Plan Altered mental status secondary to metabolic encephalopathy Aspiration pneumonia Dementia - Patient Problems (1) Aspiration into airway Diagnosis Date: 04/22/16 Current Visit: Yes Status: Acute Qualifiers: Encounter type: subsequent encounter Qualified Code(s): T17.908D - Unspecified foreign body in respiratory tract, part unspecified causing other injury, subsequent encounter Plan to address problem: Patient on IV vancomycin and Rocephin and Levaquin. Continue to monitor patient for any signs of acute respiratory distress (2) Decubitus ulcer Diagnosis Date: 04/22/16 Current Visit: Yes Status: Acute Qualifiers: Pressure ulcer stage: unspecified pressure ulcer stage Qualified Code(s): L89.90 - Pressure ulcer of unspecified site, unspecified stage Plan to address problem: Wound Care. ET consult (3) Hypernatremia Diagnosis Date: 04/23/16 Current Visit: Yes Status: Acute Plan to address problem: IV hydration (4) Volume depletion Diagnosis Date: 04/23/16 Current Visit: Yes Status: Acute Plan to address problem: IV hydration (5) Acute hyperglycemia Diagnosis Date: 04/23/16 Current Visit: No Status: Acute Plan to address problem: Sliding-scale insulin obtain hemoglobin A1c
[2016-04-22] MEDS: CATAPRES PO SCH (23:59)
[2016-04-23] MEDS: ZOSYN/NS 3.375GM/50ML 50 ML IV SCH ×4 (00:01→18:01)
[2016-04-23] MEDS: KCL 10MEQ/100ML 100 ML IV SCH ×2 (00:06→01:11)
[2016-04-23] MEDS: VANCOMYCIN/NS 1 GM/250 ML 250 ML IV SCH ×2 (08:27→21:41)
[2016-04-23] MEDS: GLUCOPHAGE PO SCH ×2 (08:36→17:06)
--- NOTE | 2016-04-23 09:49 | XRay Report ---
PORTABLE CHEST INDICATION: Shortness of breath. COMPARISON: 04/18/2016 FINDINGS: Portable, frontal chest radiograph again demonstrates left retrocardiac airspace opacity with obscured left hemidiaphragm, though overall less dense with left hemidiaphragm now partially visible medially. Stable cardiomediastinal silhouette with slight aortic knob calcifications and clear remainder aerated lungs. Interval Dobbhoff tube removal. EKG leads. Few stable bony degenerative changes. CONCLUSION: 1. Persistent, though improving left basilar opacity. 2. Interval Dobbhoff tube removal. Thank you for the opportunity to participate in this patient's care.
[2016-04-23] MEDS: LOVENOX SUB-Q SCH (09:54)
[2016-04-23] MEDS ORDERED: LEVAQUIN 500MG/100ML 100 ML IV SCH (10:00)
--- NOTE | 2016-04-23 12:07 | Progress Note ---
Assessment and Plan Assessment and plan: 1. Aspiration pneumonia. Patient will be continued on antibiotics. We will de -escalate antibiotics as cultures become available. 2. Sacral decubitus ulcer. Continue wound care. 3. Hypernatremia. Continue IV fluid hydration. 4. Toxic metabolic encephalopathy. Etiology secondary to above. Continue to treat underlying causes. 5. Oropharyngeal dysphagia. GI consultation for PEG tube placement. History Interval history: 66-year-old male admitted with toxic metabolic encephalopathy and aspiration pneumonia. Apparently refused PEG tube placement on last admission. Case management reports that she now agrees for PEG tube placement. Hospitalist Physical - Constitutional Vitals: Temp Pulse Resp BP Pulse Ox 97.2 F L 72 18 139/83 98 04/23/16 08:24 04/23/16 08:24 04/23/16 08:24 04/23/16 08:24 04/23/16 08:24 General appearance: Present: no acute distress, cachectic - EENT Eyes: Present: PERRL, EOM intact ENT: hearing intact, clear oral mucosa, dentition normal - Neck Neck: Present: supple, normal ROM - Respiratory Respiratory effort: normal Respiratory: bilateral: diminished - Cardiovascular Rhythm: regular Heart Sounds: Present: S1 & S2. Absent: gallop, rub - Extremities Extremities: no ischemia, No edema, Full ROM - Abdominal General gastrointestinal: soft, non-tender, non-distended, normal bowel sounds - Integumentary Integumentary: Present: clear, warm, dry - Neurologic Neurologic: CNII-XII intact, moves all extremities Results - Labs CBC & Chem 7: 04/22/16 15:53 04/22/16 19:55 Labs: Laboratory Last Values WBC 8.8 K/mm3 (4.5-11.0) 04/22/16 15:53 RBC 4.40 M/mm3 (3.65-5.03) 04/22/16 15:53 Hgb 11.1 gm/dl (11.8-15.2) L 04/22/16 15:53 Hct 35.1 % (35.5-45.6) L 04/22/16 15:53 MCV 80 fl (84-94) L 04/22/16 15:53 MCH 25 pg (28-32) L 04/22/16 15:53 MCHC 32 % (32-34) 04/22/16 15:53 RDW 18.1 % (13.2-15.2) H 04/22/16 15:53 Plt Count 250 K/mm3 (140-440) 04/22/16 15:53 Lymph % (Auto) 11.0 % (13.4-35.0) L 04/22/16 15:53 [place] % (Auto) 7.7 % (0.0-7.3) H 04/22/16 15:53 Eos % (Auto) 0.5 % (0.0-4.3) 04/22/16 15:53 Baso % (Auto) 0.4 % (0.0-1.8) 04/22/16 15:53 Lymph # 1.0 K/mm3 (1.2-5.4) L 04/22/16 15:53 [place] # 0.7 K/mm3 (0.0-0.8) 04/22/16 15:53 Eos # 0.0 K/mm3 (0.0-0.4) 04/22/16 15:53 Baso # 0.0 K/mm3 (0.0-0.1) 04/22/16 15:53 Seg Neutrophils % 80.4 % (40.0-70.0) H 04/22/16 15:53 Seg Neutrophils # 7.0 K/mm3 (1.8-7.7) 04/22/16 15:53 PT 14.3 Sec. (12.2-14.9) 04/22/16 19:55 INR 1.12 (0.87-1.13) 04/22/16 19:55 Sodium 148 mmol/L (137-145) H 04/22/16 19:55 Potassium 3.5 mmol/L (3.6-5.0) L 04/22/16 19:55 Chloride 106.4 mmol/L (98-107) 04/22/16 19:55 Carbon Dioxide 27 mmol/L (22-30) 04/22/16 19:55 Anion Gap 18 mmol/L 04/22/16 19:55 BUN 11 mg/dL (9-20) 04/22/16 19:55 Creatinine 0.6 mg/dL (0.8-1.5) L 04/22/16 19:55 Estimated GFR > 60 ml/min 04/22/16 19:55 BUN/Creatinine Ratio 18.33 % 04/22/16 19:55 Glucose 134 mg/dL (75-100) H 04/22/16 19:55 POC Glucose 174 (70-105) H 04/22/16 23:50 Lactic Acid 0.7 mmol/L (0.7-2.0) 04/22/16 19:55 Calcium 8.5 mg/dL (8.4-10.2) 04/22/16 19:55 Magnesium 2.3 mg/dL (1.7-2.3) 04/22/16 15:53 Total Bilirubin 0.6 mg/dL (0.1-1.2) 04/22/16 19:55 AST 14 units/L (5-40) 04/22/16 19:55 ALT 12 units/L (7-56) 04/22/16 19:55 Alkaline Phosphatase 56 units/L (35-129) 04/22/16 19:55 Total Protein 6.3 g/dL (6.3-8.2) 04/22/16 19:55 Albumin 2.4 g/dL (3.9-5) L 04/22/16 19:55 Albumin/Globulin Ratio 0.6 % 04/22/16 19:55 TSH 1.520 mlU/mL (0.270-4.200) 04/22/16 15:53 Urine Color Yellow (Yellow) 04/22/16 15:27 Urine Turbidity Clear (Clear) 04/22/16 15:27 Urine pH 6.0 (5.0-7.0) 04/22/16 15:27 Ur Specific [place] 1.016 (1.003-1.030) 04/22/16 15:27 Urine Protein <15 mg/dl mg/dL (Negative) 04/22/16 15:27 Urine Glucose (UA) Neg mg/dL (Negative) 04/22/16 15:27 Urine Ketones 20 mg/dL (Negative) 04/22/16 15:27 Urine Blood Neg (Negative) 04/22/16 15:27 Urine Nitrite Neg (Negative) 04/22/16 15:27 Urine Bilirubin Neg (Negative) 04/22/16 15:27 Urine Urobilinogen 2.0 mg/dL (<2.0) 04/22/16 15:27 Ur Leukocyte Esterase Tr (Negative) 04/22/16 15:27 Urine WBC (Auto) 6.0 /HPF (0.0-6.0) 04/22/16 15:27 Urine RBC (Auto) 7.0 /HPF (0.0-6.0) 04/22/16 15:27 Urine Mucus Few /HPF 04/22/16 15:27 Salicylates < 0.3 mg/dL (2.8-20.0) L 04/22/16 15:53 Urine Opiates Screen Presumptive negative 04/22/16 15:27 Urine Methadone Screen Presumptive negative 04/22/16 15:27 Acetaminophen < 15.0 ug/mL (10.0-30.0) 04/22/16 15:53 Ur Barbiturates Screen Presumptive negative 04/22/16 15:27 Ur Phencyclidine Scrn Presumptive negative 04/22/16 15:27 Ur Amphetamines Screen Presumptive negative 04/22/16 15:27 U Benzodiazepines Scrn Presumptive negative 04/22/16 15:27 Urine Cocaine Screen Presumptive negative 04/22/16 15:27 U Marijuana (THC) Screen Presumptive negative 04/22/16 15:27 Drugs of Abuse Note Disclamer 04/22/16 15:27 Plasma/Serum Alcohol < 0.01 gm% (0-0.07) 04/22/16 15:53
[2016-04-23] MEDS: NACL 0.45% 1000 ML 1,000 ML IV SCH (14:15)
[2016-04-23] MEDS: CATAPRES PO SCH ×2 (17:06→21:43)
[2016-04-23] MEDS: ZINC SULFATE PO SCH (17:06)
[2016-04-23] MEDS: NORVASC PO SCH (17:06)
[2016-04-23 18:20] LABS: Hemoglobin 10.1 gm/dl (11.8-15.2); Mean Corpuscular HGB Conc 31 % (32-34); Mean Corpuscular Volume 81 fl (84-94); Platelet Count 253 K/mm3 (140-440); Red Blood Count 4.07 M/mm3 (3.65-5.03); Red Cell Distribution Width 18.1 % (13.2-15.2)
[2016-04-23 18:22] LABS: Mean Corpuscular Hemoglobin 25 pg (28-32)
[2016-04-23 18:30] LABS: INR 1.18 (0.87-1.13)
[2016-04-23 18:46] LABS: Alanine Aminotransferase 10 units/L (7-56); Albumin 2.3 g/dL (3.9-5); Albumin/Globulin Ratio 0.6 %; Alkaline Phosphatase 52 units/L (35-129); Bilirubin,Total 0.6 mg/dL (0.1-1.2); Blood Urea Nitrogen 15 mg/dL (9-20); Calcium 8.2 mg/dL (8.4-10.2); Carbon Dioxide 24 mmol/L (22-30); Chloride 108.8 mmol/L (98-107); Glucose 164 mg/dL (75-100); Potassium 3.9 mmol/L (3.6-5.0); Sodium 148 mmol/L (137-145)
[2016-04-23 18:47] LABS: Anion Gap 19 mmol/L
[2016-04-23 19:30] LABS: Anisocytosis 1+; Basophils % (Manual) 0 % (0.0-1.8); Blastocytes % (Manual) 0 %; Diff Status Complete; Eosinophils % (Manual) 0 % (0.0-4.3); Hypochromasia 1+; Platelet Estimate Consistent w Auto; Poikilocytosis 1+
[2016-04-24] MEDS: ZOSYN/NS 3.375GM/50ML 50 ML IV SCH ×4 (00:03→19:26)
[2016-04-24] MEDS: GLUCOPHAGE PO SCH ×2 (08:42→18:10)
[2016-04-24] MEDS: NACL 0.45% 1000 ML 1,000 ML IV SCH (09:27)
[2016-04-24] MEDS: LOVENOX SUB-Q SCH (09:27)
[2016-04-24] MEDS: VANCOMYCIN/NS 1 GM/250 ML 250 ML IV SCH ×2 (09:27→22:32)
[2016-04-24] MEDS: NORVASC PO SCH (09:28)
[2016-04-24] MEDS: CATAPRES PO SCH ×2 (09:28→22:34)
[2016-04-24] MEDS: ZINC SULFATE PO SCH (09:28)
--- NOTE | 2016-04-24 11:00 | Progress Note ---
Assessment and Plan Assessment and plan: 1. Aspiration pneumonia. Patient will be continued on antibiotics. We will de -escalate antibiotics as cultures become available. 2. Sacral decubitus ulcer. Continue wound care. 3. Hypernatremia. Continue IV fluid hydration. 4. Toxic metabolic encephalopathy. Etiology secondary to above. Continue to treat underlying causes. 5. Oropharyngeal dysphagia. GI consultation for PEG tube placement. History Interval history: 66-year-old male admitted with toxic metabolic encephalopathy and aspiration pneumonia. Apparently refused PEG tube placement on last admission. discussed with me that she now is amenable to PEG tube placement. Hospitalist Physical - Constitutional Vitals: Temp Pulse Resp BP Pulse Ox 97.6 F 61 20 153/80 100 04/24/16 08:00 04/24/16 08:00 04/24/16 08:00 04/24/16 08:00 04/24/16 08:00 General appearance: Present: no acute distress, cachectic - EENT Eyes: Present: PERRL, EOM intact ENT: hearing intact, clear oral mucosa, dentition normal - Neck Neck: Present: supple, normal ROM - Respiratory Respiratory effort: normal Respiratory: bilateral: CTA - Cardiovascular Rhythm: regular Heart Sounds: Present: S1 & S2. Absent: gallop, rub - Extremities Extremities: no ischemia, No edema, Full ROM - Abdominal General gastrointestinal: soft, non-tender, non-distended, normal bowel sounds - Integumentary Integumentary: Present: clear, warm, dry - Neurologic Neurologic: CNII-XII intact, moves all extremities Results - Labs CBC & Chem 7: 04/23/16 18:01 04/23/16 18:01 Labs: Laboratory Last Values WBC 10.0 K/mm3 (4.5-11.0) 04/23/16 18:01 RBC 4.07 M/mm3 (3.65-5.03) 04/23/16 18:01 Hgb 10.1 gm/dl (11.8-15.2) L 04/23/16 18:01 Hct 33.0 % (35.5-45.6) L 04/23/16 18:01 MCV 81 fl (84-94) L 04/23/16 18:01 MCH 25 pg (28-32) L 04/23/16 18:01 MCHC 31 % (32-34) L 04/23/16 18:01 RDW 18.1 % (13.2-15.2) H 04/23/16 18:01 Plt Count 253 K/mm3 (140-440) 04/23/16 18:01 Lymph % (Auto) 11.0 % (13.4-35.0) L 04/22/16 15:53 [place] % (Auto) 7.7 % (0.0-7.3) H 04/22/16 15:53 Eos % (Auto) 0.5 % (0.0-4.3) 04/22/16 15:53 Baso % (Auto) 0.4 % (0.0-1.8) 04/22/16 15:53 Lymph # 1.0 K/mm3 (1.2-5.4) L 04/22/16 15:53 [place] # 0.7 K/mm3 (0.0-0.8) 04/22/16 15:53 Eos # 0.0 K/mm3 (0.0-0.4) 04/22/16 15:53 Baso # 0.0 K/mm3 (0.0-0.1) 04/22/16 15:53 Add Manual Diff Complete 04/23/16 18:01 Total Counted 100 04/23/16 18:01 Seg Neutrophils % [place] Artist 04/23/16 18:01 Seg Neuts % (Manual) 95.0 % (40.0-70.0) H 04/23/16 18:01 Band Neutrophils % 0 % 04/23/16 18:01 Lymphocytes % (Manual) 4.0 % (13.4-35.0) L 04/23/16 18:01 Reactive Lymphs % (Man) 0 % 04/23/16 18:01 Monocytes % (Manual) 1.0 % (0.0-7.3) 04/23/16 18:01 Eosinophils % (Manual) 0 % (0.0-4.3) 04/23/16 18:01 Basophils % (Manual) 0 % (0.0-1.8) 04/23/16 18:01 Metamyelocytes % 0 % 04/23/16 18:01 Myelocytes % 0 % 04/23/16 18:01 Promyelocytes % 0 % 04/23/16 18:01 Blast Cells % 0 % 04/23/16 18:01 Nucleated RBC % Not Reportable 04/23/16 18:01 Seg Neutrophils # 7.0 K/mm3 (1.8-7.7) 04/22/16 15:53 Seg Neutrophils # Man 9.5 K/mm3 (1.8-7.7) H 04/23/16 18:01 Band Neutrophils # 0.0 K/mm3 04/23/16 18:01 Lymphocytes # (Manual) 0.4 K/mm3 (1.2-5.4) L 04/23/16 18:01 Abs React Lymphs (Man) 0.0 K/mm3 04/23/16 18:01 Monocytes # (Manual) 0.1 K/mm3 (0.0-0.8) 04/23/16 18:01 Eosinophils # (Manual) 0.0 K/mm3 (0.0-0.4) 04/23/16 18:01 Basophils # (Manual) 0.0 K/mm3 (0.0-0.1) 04/23/16 18:01 Metamyelocytes # 0.0 K/mm3 04/23/16 18:01 Myelocytes # 0.0 K/mm3 04/23/16 18:01 Promyelocytes # 0.0 K/mm3 04/23/16 18:01 Blast Cells # 0.0 K/mm3 04/23/16 18:01 WBC Morphology Not Reportable 04/23/16 18:01 Hypersegmented Neuts Not Reportable 04/23/16 18:01 Hyposegmented Neuts Not Reportable 04/23/16 18:01 Hypogranular Neuts Not Reportable 04/23/16 18:01 Smudge Cells Not Reportable 04/23/16 18:01 Toxic Granulation Not Reportable 04/23/16 18:01 Toxic Vacuolation Not Reportable 04/23/16 18:01 Dohle Bodies Not Reportable 04/23/16 18:01 Pelger-Huet Anomaly Not Reportable 04/23/16 18:01 Ky Rods Not Reportable 04/23/16 18:01 Platelet Estimate Consistent w auto 04/23/16 18:01 Clumped Platelets Not Reportable 04/23/16 18:01 Plt Clumps, EDTA Not Reportable 04/23/16 18:01 Large Platelets Not Reportable 04/23/16 18:01 Giant Platelets Not Reportable 04/23/16 18:01 Platelet Satelliting Not Reportable 04/23/16 18:01 Plt Morphology Comment Not Reportable 04/23/16 18:01 RBC Morphology Not Reportable 04/23/16 18:01 Dimorphic RBCs Not Reportable 04/23/16 18:01 Polychromasia Not Reportable 04/23/16 18:01 Hypochromasia 1+ 04/23/16 18:01 Poikilocytosis 1+ 04/23/16 18:01 Anisocytosis 1+ 04/23/16 18:01 Microcytosis Not Reportable 04/23/16 18:01 Macrocytosis Not Reportable 04/23/16 18:01 Spherocytes Not Reportable 04/23/16 18:01 Pappenheimer Bodies Not Reportable 04/23/16 18:01 Sickle Cells Not Reportable 04/23/16 18:01 Target Cells Not Reportable 04/23/16 18:01 Tear Drop Cells Not Reportable 04/23/16 18:01 Ovalocytes Not Reportable 04/23/16 18:01 Helmet Cells Not Reportable 04/23/16 18:01 [place] Bodies Not Reportable 04/23/16 18:01 [place] Rings Not Reportable 04/23/16 18:01 [place] Cells Not Reportable 04/23/16 18:01 Bite Cells Not Reportable 04/23/16 18:01 Crenated Cell Not Reportable 04/23/16 18:01 Elliptocytes Not Reportable 04/23/16 18:01 Acanthocytes (Spur) Not Reportable 04/23/16 18:01 Rouleaux Not Reportable 04/23/16 18:01 Hemoglobin C Crystals Not Reportable 04/23/16 18:01 Schistocytes Not Reportable 04/23/16 18:01 Malaria parasites Not Reportable 04/23/16 18:01 [place] Bodies Not Reportable 04/23/16 18:01 Hem Pathologist Commnt No 04/23/16 18:01 PT 14.9 Sec. (12.2-14.9) 04/23/16 18:01 INR 1.18 (0.87-1.13) H 04/23/16 18:01 Sodium 148 mmol/L (137-145) H 04/23/16 18:01 Potassium 3.9 mmol/L (3.6-5.0) 04/23/16 18:01 Chloride 108.8 mmol/L (98-107) H 04/23/16 18:01 Carbon Dioxide 24 mmol/L (22-30) 04/23/16 18:01 Anion Gap 19 mmol/L 04/23/16 18:01 BUN 15 mg/dL (9-20) 04/23/16 18:01 Creatinine 0.6 mg/dL (0.8-1.5) L 04/23/16 18:01 Estimated GFR > 60 ml/min 04/23/16 18:01 BUN/Creatinine Ratio 25.00 % 04/23/16 18:01 Glucose 164 mg/dL (75-100) H 04/23/16 18:01 POC Glucose 118 (70-105) H 04/24/16 08:09 Lactic Acid 0.7 mmol/L (0.7-2.0) 04/22/16 19:55 Calcium 8.2 mg/dL (8.4-10.2) L 04/23/16 18:01 Magnesium 2.3 mg/dL (1.7-2.3) 04/22/16 15:53 Total Bilirubin 0.6 mg/dL (0.1-1.2) 04/23/16 18:01 AST 15 units/L (5-40) 04/23/16 18:01 ALT 10 units/L (7-56) 04/23/16 18:01 Alkaline Phosphatase 52 units/L (35-129) 04/23/16 18:01 Total Protein 6.0 g/dL (6.3-8.2) L 04/23/16 18:01 Albumin 2.3 g/dL (3.9-5) L 04/23/16 18:01 Albumin/Globulin Ratio 0.6 % 04/23/16 18:01 TSH 1.520 mlU/mL (0.270-4.200) 04/22/16 15:53 Urine Color Yellow (Yellow) 04/22/16 15:27 Urine Turbidity Clear (Clear) 04/22/16 15:27 Urine pH 6.0 (5.0-7.0) 04/22/16 15:27 Ur Specific [place] 1.016 (1.003-1.030) 04/22/16 15:27 Urine Protein <15 mg/dl mg/dL (Negative) 04/22/16 15:27 Urine Glucose (UA) Neg mg/dL (Negative) 04/22/16 15:27 Urine Ketones 20 mg/dL (Negative) 04/22/16 15:27 Urine Blood Neg (Negative) 04/22/16 15:27 Urine Nitrite Neg (Negative) 04/22/16 15:27 Urine Bilirubin Neg (Negative) 04/22/16 15:27 Urine Urobilinogen 2.0 mg/dL (<2.0) 04/22/16 15:27 Ur Leukocyte Esterase Tr (Negative) 04/22/16 15:27 Urine WBC (Auto) 6.0 /HPF (0.0-6.0) 04/22/16 15:27 Urine RBC (Auto) 7.0 /HPF (0.0-6.0) 04/22/16 15:27 Urine Mucus Few /HPF 04/22/16 15:27 Salicylates < 0.3 mg/dL (2.8-20.0) L 04/22/16 15:53 Urine Opiates Screen Presumptive negative 04/22/16 15:27 Urine Methadone Screen Presumptive negative 04/22/16 15:27 Acetaminophen < 15.0 ug/mL (10.0-30.0) 04/22/16 15:53 Ur Barbiturates Screen Presumptive negative 04/22/16 15:27 Ur Phencyclidine Scrn Presumptive negative 04/22/16 15:27 Ur Amphetamines Screen Presumptive negative 04/22/16 15:27 U Benzodiazepines Scrn Presumptive negative 04/22/16 15:27 Urine Cocaine Screen Presumptive negative 04/22/16 15:27 U Marijuana (THC) Screen Presumptive negative 04/22/16 15:27 Drugs of Abuse Note Disclamer 04/22/16 15:27 Plasma/Serum Alcohol < 0.01 gm% (0-0.07) 04/22/16 15:53
[2016-04-24] MEDS ORDERED: APRESOLINE IV SCH (14:00)
[2016-04-24] MEDS ORDERED: APRESOLINE IV PRN (15:20)
--- NOTE | 2016-04-24 18:02 | Progress Note ---
Assessment and Plan 1. Oropharyngeal dysphagia - proceed with G-tube placement. Discussed with pt' s . Subjective Date of service: 04/24/16 Principal diagnosis: Oropharyngeal dysphagia Interval history: Pt well-known to me from 04/18/16 consultation note. Pt has oropharyngeal dysphagia, and at last admission, had decided to make him Hospice, with comfort measures only. He went to OR, and due to progressive lethargy and poor po intake, was brought back in. has changed her mind, and wishes to proceed with G-tube placement. Objective - Constitutional Vitals: Vital Signs - 12hr 04/24/16 04/24/16 08:00 12:00 Temperature 97.6 F 97.3 F L Pulse Rate 61 Pulse Rate [ 61 56 L Right] Respiratory 20 20 Rate Blood Pressure 153/80 152/80 [Right Arm] O2 Sat by Pulse 100 99 Oximetry General appearance: Present: no acute distress - EENT Eyes: PERRL, EOM intact ENT: hearing intact - Respiratory Respiratory effort: normal Respiratory: bilateral: CTA (anteriorly) - Cardiovascular Rhythm: regular Heart Sounds: Present: S1 & S2 - Gastrointestinal General gastrointestinal: Present: soft, non-tender - Labs CBC & Chem 7: 04/23/16 18:01 04/23/16 18:01 Labs: Abnormal lab results 04/23/16 04/23/16 04/23/16 Range/Units 16:56 18:01 18:01 Hgb 10.1 L (11.8-15.2) gm/dl Hct 33.0 L (35.5-45.6) % MCV 81 L (84-94) fl MCH 25 L (28-32) pg MCHC 31 L (32-34) % RDW 18.1 H (13.2-15.2) % Seg Neuts % (Manual) 95.0 H (40.0-70.0) % Lymphocytes % (Manual) 4.0 L (13.4-35.0) % Seg Neutrophils # Man 9.5 H (1.8-7.7) K/mm3 Lymphocytes # (Manual) 0.4 L (1.2-5.4) K/mm3 INR 1.18 H (0.87-1.13) Sodium (137-145) mmol/L Chloride (98-107) mmol/L Creatinine (0.8-1.5) mg/dL Glucose (75-100) mg/dL POC Glucose 175 H (70-105) Calcium (8.4-10.2) mg/dL Total Protein (6.3-8.2) g/dL Albumin (3.9-5) g/dL 04/23/16 04/23/16 04/24/16 Range/Units 18:01 21:31 08:09 Hgb (11.8-15.2) gm/dl Hct (35.5-45.6) % MCV (84-94) fl MCH (28-32) pg MCHC (32-34) % RDW (13.2-15.2) % Seg Neuts % (Manual) (40.0-70.0) % Lymphocytes % (Manual) (13.4-35.0) % Seg Neutrophils # Man (1.8-7.7) K/mm3 Lymphocytes # (Manual) (1.2-5.4) K/mm3 INR (0.87-1.13) Sodium 148 H (137-145) mmol/L Chloride 108.8 H (98-107) mmol/L Creatinine 0.6 L (0.8-1.5) mg/dL Glucose 164 H (75-100) mg/dL POC Glucose 134 H 118 H (70-105) Calcium 8.2 L (8.4-10.2) mg/dL Total Protein 6.0 L (6.3-8.2) g/dL Albumin 2.3 L (3.9-5) g/dL
[2016-04-24 18:08] LABS: Hematocrit 33.3 % (35.5-45.6); Hemoglobin 10.4 gm/dl (11.8-15.2); Mean Corpuscular HGB Conc 31 % (32-34); Mean Corpuscular Volume 79 fl (84-94); Platelet Count 266 K/mm3 (140-440); Red Cell Distribution Width 18.2 % (13.2-15.2); White Blood Count 9.9 K/mm3 (4.5-11.0)
[2016-04-24 18:11] LABS: Mean Corpuscular Hemoglobin 25 pg (28-32)
[2016-04-24 18:31] LABS: Alanine Aminotransferase 9 units/L (7-56); Albumin 2.6 g/dL (3.9-5); Albumin/Globulin Ratio 0.7 %; Alkaline Phosphatase 55 units/L (35-129); Anion Gap 19 mmol/L; BUN/Creatinine Ratio 21.66; Bilirubin,Total 0.5 mg/dL (0.1-1.2); Blood Urea Nitrogen 13 mg/dL (9-20); Calcium 8.4 mg/dL (8.4-10.2); Carbon Dioxide 23 mmol/L (22-30); Chloride 107.4 mmol/L (98-107); Glucose 139 mg/dL (75-100); Potassium 3.5 mmol/L (3.6-5.0); Sodium 146 mmol/L (137-145); Total Protein 6.2 g/dL (6.3-8.2)
[2016-04-24 18:54] LABS: INR 1.09 (0.87-1.13)
[2016-04-24 19:10] LABS: Basophils % (Manual) 0 % (0.0-1.8); Blastocytes % (Manual) 0 %; Eosinophils % (Manual) 0 % (0.0-4.3)
[2016-04-24 19:11] LABS: Diff Status Complete; Microcytosis 1+; Platelet Estimate Consistent w Auto; Poikilocytosis 1+
[2016-04-25] MEDS: ZOSYN/NS 3.375GM/50ML 50 ML IV SCH ×5 (00:48→20:18)
[2016-04-25] MEDS: NACL 0.45% 1000 ML 1,000 ML IV SCH (03:38)
[2016-04-25 06:00] LABS: Basophils % (Auto) 0.3 % (0.0-1.8); Eosinophils % (Auto) 0.3 % (0.0-4.3); Hemoglobin 10.6 gm/dl (11.8-15.2); Mean Corpuscular HGB Conc 32 % (32-34); Mean Corpuscular Volume 79 fl (84-94); Platelet Count 243 K/mm3 (140-440); Red Blood Count 4.18 M/mm3 (3.65-5.03); Red Cell Distribution Width 18.2 % (13.2-15.2); White Blood Count 10.3 K/mm3 (4.5-11.0)
[2016-04-25 06:01] LABS: Mean Corpuscular Hemoglobin 25 pg (28-32)
[2016-04-25 06:17] LABS: Anion Gap 18 mmol/L; BUN/Creatinine Ratio 16.66; Blood Urea Nitrogen 10 mg/dL (9-20); Calcium 8.3 mg/dL (8.4-10.2); Carbon Dioxide 24 mmol/L (22-30); Chloride 108.3 mmol/L (98-107); Glucose 87 mg/dL (75-100); Potassium 3.3 mmol/L (3.6-5.0); Sodium 147 mmol/L (137-145)
[2016-04-25] MEDS: GLUCOPHAGE PO SCH ×2 (08:25→16:35)
[2016-04-25] MEDS ORDERED: SODIUM BICARBONATE FEEDTUBE PRN (08:57)
[2016-04-25] MEDS ORDERED: PANCREAZE DR 10,500 UNIT FEEDTUBE PRN (08:57)
[2016-04-25] MEDS ORDERED: SIMPLE SYRUP FEEDTUBE PRN ×2 (08:57)
[2016-04-25] MEDS: VANCOMYCIN/NS 1 GM/250 ML 250 ML IV SCH (09:43)
[2016-04-25] MEDS: NORVASC PO SCH (09:46)
[2016-04-25] MEDS: ZINC SULFATE PO SCH (09:47)
[2016-04-25] MEDS: CATAPRES PO SCH ×2 (09:47→21:37)
--- NOTE | 2016-04-25 09:48 | Progress Note ---
Assessment and Plan Assessment and plan: 1. Aspiration pneumonia. Patient will be continued on antibiotics. We will de -escalate antibiotics as cultures become available. Vanco and levaquin discontinued. 2. Sacral decubitus ulcer. Continue wound care. 3. Hypernatremia. Continue IV fluid hydration. 4. Toxic metabolic encephalopathy. Etiology secondary to above. Continue to treat underlying causes. 5. Oropharyngeal dysphagia. GI consultation for PEG tube placement. History Interval history: 66-year-old male admitted with toxic metabolic encephalopathy and aspiration pneumonia. Apparently refused PEG tube placement on last admission. discussed with me that she now is amenable to PEG tube placement. Hospitalist Physical - Constitutional Vitals: Temp Pulse Resp BP Pulse Ox 98.0 F 62 20 135/72 100 04/25/16 08:11 04/25/16 08:11 04/25/16 08:11 04/25/16 08:11 04/25/16 08:11 General appearance: Present: no acute distress - EENT Eyes: Present: PERRL, EOM intact ENT: hearing intact, clear oral mucosa, dentition normal - Neck Neck: Present: supple, normal ROM - Respiratory Respiratory effort: normal Respiratory: bilateral: CTA - Cardiovascular Rhythm: regular Heart Sounds: Present: S1 & S2. Absent: gallop, rub - Extremities Extremities: no ischemia, No edema, Full ROM - Abdominal General gastrointestinal: soft, non-tender, non-distended, normal bowel sounds - Integumentary Integumentary: Present: clear, warm, dry - Neurologic Neurologic: CNII-XII intact, moves all extremities Results - Labs CBC & Chem 7: 04/25/16 04:54 04/25/16 04:54 Labs: Laboratory Last Values WBC 10.3 K/mm3 (4.5-11.0) 04/25/16 04:54 RBC 4.18 M/mm3 (3.65-5.03) 04/25/16 04:54 Hgb 10.6 gm/dl (11.8-15.2) L 04/25/16 04:54 Hct 33.0 % (35.5-45.6) L 04/25/16 04:54 MCV 79 fl (84-94) L 04/25/16 04:54 MCH 25 pg (28-32) L 04/25/16 04:54 MCHC 32 % (32-34) 04/25/16 04:54 RDW 18.2 % (13.2-15.2) H 04/25/16 04:54 Plt Count 243 K/mm3 (140-440) 04/25/16 04:54 Lymph % (Auto) 10.1 % (13.4-35.0) L 04/25/16 04:54 [place] % (Auto) 5.4 % (0.0-7.3) 04/25/16 04:54 Eos % (Auto) 0.3 % (0.0-4.3) 04/25/16 04:54 Baso % (Auto) 0.3 % (0.0-1.8) 04/25/16 04:54 Lymph # 1.0 K/mm3 (1.2-5.4) L 04/25/16 04:54 [place] # 0.6 K/mm3 (0.0-0.8) 04/25/16 04:54 Eos # 0.0 K/mm3 (0.0-0.4) 04/25/16 04:54 Baso # 0.0 K/mm3 (0.0-0.1) 04/25/16 04:54 Add Manual Diff Complete 04/24/16 17:24 Total Counted 100 04/24/16 17:24 Seg Neutrophils % 83.9 % (40.0-70.0) H 04/25/16 04:54 Seg Neuts % (Manual) 89.0 % (40.0-70.0) H 04/24/16 17:24 Band Neutrophils % 0 % 04/24/16 17:24 Lymphocytes % (Manual) 10.0 % (13.4-35.0) L 04/24/16 17:24 Reactive Lymphs % (Man) 0 % 04/24/16 17:24 Monocytes % (Manual) 1.0 % (0.0-7.3) 04/24/16 17:24 Eosinophils % (Manual) 0 % (0.0-4.3) 04/24/16 17:24 Basophils % (Manual) 0 % (0.0-1.8) 04/24/16 17:24 Metamyelocytes % 0 % 04/24/16 17:24 Myelocytes % 0 % 04/24/16 17:24 Promyelocytes % 0 % 04/24/16 17:24 Blast Cells % 0 % 04/24/16 17:24 Nucleated RBC % Not Reportable 04/24/16 17:24 Seg Neutrophils # 8.6 K/mm3 (1.8-7.7) H 04/25/16 04:54 Seg Neutrophils # Man 8.8 K/mm3 (1.8-7.7) H 04/24/16 17:24 Band Neutrophils # 0.0 K/mm3 04/24/16 17:24 Lymphocytes # (Manual) 1.0 K/mm3 (1.2-5.4) L 04/24/16 17:24 Abs React Lymphs (Man) 0.0 K/mm3 04/24/16 17:24 Monocytes # (Manual) 0.1 K/mm3 (0.0-0.8) 04/24/16 17:24 Eosinophils # (Manual) 0.0 K/mm3 (0.0-0.4) 04/24/16 17:24 Basophils # (Manual) 0.0 K/mm3 (0.0-0.1) 04/24/16 17:24 Metamyelocytes # 0.0 K/mm3 04/24/16 17:24 Myelocytes # 0.0 K/mm3 04/24/16 17:24 Promyelocytes # 0.0 K/mm3 04/24/16 17:24 Blast Cells # 0.0 K/mm3 04/24/16 17:24 WBC Morphology Not Reportable 04/24/16 17:24 Hypersegmented Neuts Not Reportable 04/24/16 17:24 Hyposegmented Neuts Not Reportable 04/24/16 17:24 Hypogranular Neuts Not Reportable 04/24/16 17:24 Smudge Cells Not Reportable 04/24/16 17:24 Toxic Granulation Not Reportable 04/24/16 17:24 Toxic Vacuolation Not Reportable 04/24/16 17:24 Dohle Bodies Not Reportable 04/24/16 17:24 Pelger-Huet Anomaly Not Reportable 04/24/16 17:24 Ky Rods Not Reportable 04/24/16 17:24 Platelet Estimate Consistent w auto 04/24/16 17:24 Clumped Platelets Not Reportable 04/24/16 17:24 Plt Clumps, EDTA Not Reportable 04/24/16 17:24 Large Platelets Not Reportable 04/24/16 17:24 Giant Platelets Not Reportable 04/24/16 17:24 Platelet Satelliting Not Reportable 04/24/16 17:24 Plt Morphology Comment Not Reportable 04/24/16 17:24 RBC Morphology Not Reportable 04/24/16 17:24 Dimorphic RBCs Not Reportable 04/24/16 17:24 Polychromasia Not Reportable 04/24/16 17:24 Hypochromasia Not Reportable 04/24/16 17:24 Poikilocytosis 1+ 04/24/16 17:24 Anisocytosis Not Reportable 04/24/16 17:24 Microcytosis 1+ 04/24/16 17:24 Macrocytosis Not Reportable 04/24/16 17:24 Spherocytes Not Reportable 04/24/16 17:24 Pappenheimer Bodies Not Reportable 04/24/16 17:24 Sickle Cells Not Reportable 04/24/16 17:24 Target Cells Not Reportable 04/24/16 17:24 Tear Drop Cells Not Reportable 04/24/16 17:24 Ovalocytes Not Reportable 04/24/16 17:24 Helmet Cells Not Reportable 04/24/16 17:24 [place] Bodies Not Reportable 04/24/16 17:24 [place] Rings Not Reportable 04/24/16 17:24 [place] Cells Not Reportable 04/24/16 17:24 Bite Cells Not Reportable 04/24/16 17:24 Crenated Cell Not Reportable 04/24/16 17:24 Elliptocytes Not Reportable 04/24/16 17:24 Acanthocytes (Spur) Not Reportable 04/24/16 17:24 Rouleaux Not Reportable 04/24/16 17:24 Hemoglobin C Crystals Not Reportable 04/24/16 17:24 Schistocytes Not Reportable 04/24/16 17:24 Malaria parasites Not Reportable 04/24/16 17:24 [place] Bodies Not Reportable 04/24/16 17:24 Hem Pathologist Commnt No 04/24/16 17:24 PT 14.0 Sec. (12.2-14.9) 04/24/16 17:28 INR 1.09 (0.87-1.13) 04/24/16 17:28 Sodium 147 mmol/L (137-145) H 04/25/16 04:54 Potassium 3.3 mmol/L (3.6-5.0) L 04/25/16 04:54 Chloride 108.3 mmol/L (98-107) H 04/25/16 04:54 Carbon Dioxide 24 mmol/L (22-30) 04/25/16 04:54 Anion Gap 18 mmol/L 04/25/16 04:54 BUN 10 mg/dL (9-20) 04/25/16 04:54 Creatinine 0.6 mg/dL (0.8-1.5) L 04/25/16 04:54 Estimated GFR > 60 ml/min 04/25/16 04:54 BUN/Creatinine Ratio 16.66 % 04/25/16 04:54 Glucose 87 mg/dL (75-100) 04/25/16 04:54 POC Glucose 104 (70-105) 04/25/16 08:03 Lactic Acid 0.7 mmol/L (0.7-2.0) 04/22/16 19:55 Calcium 8.3 mg/dL (8.4-10.2) L 04/25/16 04:54 Magnesium 2.3 mg/dL (1.7-2.3) 04/22/16 15:53 Total Bilirubin 0.5 mg/dL (0.1-1.2) 04/24/16 17:30 AST 9 units/L (5-40) 04/24/16 17:30 ALT 9 units/L (7-56) 04/24/16 17:30 Alkaline Phosphatase 55 units/L (35-129) 04/24/16 17:30 Total Protein 6.2 g/dL (6.3-8.2) L 04/24/16 17:30 Albumin 2.6 g/dL (3.9-5) L 04/24/16 17:30 Albumin/Globulin Ratio 0.7 % 04/24/16 17:30 TSH 1.520 mlU/mL (0.270-4.200) 04/22/16 15:53 Urine Color Yellow (Yellow) 04/22/16 15:27 Urine Turbidity Clear (Clear) 04/22/16 15:27 Urine pH 6.0 (5.0-7.0) 04/22/16 15:27 Ur Specific [place] 1.016 (1.003-1.030) 04/22/16 15:27 Urine Protein <15 mg/dl mg/dL (Negative) 04/22/16 15:27 Urine Glucose (UA) Neg mg/dL (Negative) 04/22/16 15:27 Urine Ketones 20 mg/dL (Negative) 04/22/16 15:27 Urine Blood Neg (Negative) 04/22/16 15:27 Urine Nitrite Neg (Negative) 04/22/16 15:27 Urine Bilirubin Neg (Negative) 04/22/16 15:27 Urine Urobilinogen 2.0 mg/dL (<2.0) 04/22/16 15:27 Ur Leukocyte Esterase Tr (Negative) 04/22/16 15:27 Urine WBC (Auto) 6.0 /HPF (0.0-6.0) 04/22/16 15:27 Urine RBC (Auto) 7.0 /HPF (0.0-6.0) 04/22/16 15:27 Urine Mucus Few /HPF 04/22/16 15:27 Salicylates < 0.3 mg/dL (2.8-20.0) L 04/22/16 15:53 Urine Opiates Screen Presumptive negative 04/22/16 15:27 Urine Methadone Screen Presumptive negative 04/22/16 15:27 Acetaminophen < 15.0 ug/mL (10.0-30.0) 04/22/16 15:53 Ur Barbiturates Screen Presumptive negative 04/22/16 15:27 Ur Phencyclidine Scrn Presumptive negative 04/22/16 15:27 Ur Amphetamines Screen Presumptive negative 04/22/16 15:27 U Benzodiazepines Scrn Presumptive negative 04/22/16 15:27 Urine Cocaine Screen Presumptive negative 04/22/16 15:27 U Marijuana (THC) Screen Presumptive negative 04/22/16 15:27 Drugs of Abuse Note Disclamer 04/22/16 15:27 Plasma/Serum Alcohol < 0.01 gm% (0-0.07) 04/22/16 15:53
[2016-04-25] MEDS ORDERED: WATER FOR IRRIG STERILE IR ONE (13:50)
[2016-04-25] MEDS ORDERED: NACL 0.9% 1000 ML 1,000 ML ONE (13:51)
[2016-04-25] MEDS ORDERED: DIPRIVAN 10 MG/ML IV ONE ×2 (14:11)
[2016-04-25] MEDS ORDERED: XYLOCAINE MPF 2% ONE (14:13)
[2016-04-25] MEDS ORDERED: ANCEF ONE (14:15)
--- NOTE | 2016-04-25 14:23 | Anesthesia Consultation ---
Anesthesia Consult and Med Hx Date of service: 04/25/16 - Airway Intubation Access Assessment: Possibly Difficult - Pulmonary Exam CTA: Yes - Cardiac Exam Cardiac Exam: RRR - Pre-Operative Health Status ASA Pre-Surgery Classification: ASA4 Proposed Anesthetic Plan: MAC - Pre-Anesthesia Comment Pre-Anesthesia Comments: dysphagia - Pulmonary COPD: Yes - Cardiovascular System Hx Hypertension: Yes - Central Nervous System CVA: Yes (Left hemiparesis, hemeplegia, dysphagia, dementia) Hx Psychiatric Problems: Yes (PTSD) - Endocrine Hx Non-Insulin Dependent Diabetes: Yes - Other Systems Hx Cancer: No - Additional Comments Anesthesia Medical History Comments: hyperlipidemia
--- NOTE | 2016-04-25 14:23 | Anesthesia Day of Surgery ---
Anesthesia Day of Surgery - Day of Surgery Patient Examined: Yes Patient H&P Reviewed: Yes Patient is NPO: Yes
--- NOTE | 2016-04-25 14:47 | Post Operative Note ---
Pre-op diagnosis: Neurogenic dysphagia Post-op diagnosis: other (Same; s/p PEG tube placement) Findings: 1. Small HH 2. Successful 20Fr Pull-type gastrostomy in body of stomach Procedure: EGD with PEG insertion Anesthesia: MAC Surgeon: ALICIA FRANCISCO Estimated blood loss: minimal Pathology: none Specimen disposition: other (N/A) Condition: stable Disposition: floor (Recs: 1. OK to use tube for feeds, meds and flushes in 4 hours. 2. Monitor for complications. 3. May d/c in 24 hours if stable. 4. Protonix daily therapy and avoid NSAIDs x 7 days.)
[2016-04-25] MEDS: PROTONIX FEEDTUBE SCH ×2 (18:09→21:39)
--- NOTE | 2016-04-25 19:59 | Operative Report ---
PROCEDURE PERFORMED: Esophagogastroduodenoscopy with percutaneous gastrostomy tube placement. PREOPERATIVE DIAGNOSIS: Neurogenic dysphagia. POSTOPERATIVE DIAGNOSES: Neurogenic dysphagia, hiatal hernia, status post gastrostomy tube placement. ENDOSCOPIST: Boone Alcazar MD INSTRUMENT: Educabilia video endoscope. MEDICATIONS: MAC anesthesia by Anesthesia Services as well as Ancef 2 grams given preoperatively. ESTIMATED BLOOD LOSS: Minimal. COMPLICATIONS: None. IMPLANTS: A 20-[place] pull type gastrostomy tube. ASSISTANTS: None. CONDITION AT COMPLETION: Stable. TECHNIQUE: The patient's was informed of the risks and benefits of the procedure. Due to the patient's chronic dysphagia, consent was obtained from her. After consent was obtained, the patient was placed in the supine position. The above sedative medications were given. His vital signs remained stable throughout the procedure. The instrument was advanced from the mouth to the second portion of the duodenum under direct visualization. At that point, the bowel was insufflated and the endoscope was slowly withdrawn into the stomach, there was a good red light reflex and indentation seen on an area 2 cm below the left sternal border. This area was sterilely draped and prepped and a 20-[place] pull type gastrostomy tube was placed over a guide wire in the usual fashion. The external bumper was fixed at 5.5 cm. The placement in the body of the stomach was confirmed with the endoscope, and then the procedure was terminated. FINDINGS: 1. Small hiatal hernia. 2. Otherwise, normal upper GI tract. 3. Successful 20-[place] pull type gastrostomy tube placed in the body of the stomach 2 cm below the left sternal margin. A. The external bumper was fixed at 5.5 cm. RECOMMENDATIONS: 1. Okay to use the tube for feeding, medication and flushes within 4 hours. 2. Monitor for complications. 3. May discharge in 24 hours if stable. 4. Protonix daily therapy and avoid nonsteroidal anti-inflammatory drugs for the next 7 days. JOB# [id number] DILCIA/NTS
[2016-04-26] MEDS ORDERED: ZOSYN/NS 3.375GM/50ML 50 ML IV SCH
[2016-04-26] MEDS: ZOSYN/NS 3.375GM/50ML 50 ML IV SCH (02:10)
--- NOTE | 2016-04-26 08:35 | Discharge Summary ---
Providers - Providers Date of Admission: 04/22/16 17:43 Date of discharge: 04/26/16 Attending physician: PEACE COUGHLIN 04/22/16 20:15 Speech Therapy Evaluation and Treat [CONS] Routine Reason For Exam: swallow screen 04/23/16 11:26 Consult to Wound/ET Nurse [CONS] Routine Reason For Exam: wound eval 04/24/16 10:58 Consult to Physician [CONS] Routine Consulting Provider: ALICIA ALCAZAR Reason For Exam: PEG placement Place consult to:: Dr. Alcazar Notified:: Melody RN Phone number called:: Was contact made?: Yes If yes, spoke with:: Dony-Office Time called:: 11:19 04/25/16 08:26 Consult to Dietitian/Nutrition [CONS] Routine Physician Instructions: WRITE TUBE FEED ORDERS Reason For Exam: peg TUBE INSERTION TODAY Reason for Consult: Write/Manage Tube Feeding Primary care physician: CHRISTIAN PEACOCK Hospitalization Reason for admission: aspiration Condition: Stable Hospital course: Patient is a 66-year-old gentleman who is a resident of a snf facility, with a history of Alzheimer's dementia, oropharyngeal dysphagia was discharged from our facility on 04/20/16. Patient was diagnosed with dysphagia at that time but and PEG tube was declined by the . After arrival to the longterm, patient did not have any progressive improvement with oral intake. Patient was noted to have progressive decline in his mental status. He became very lethargic for which longterm staff brought the patient to the emergency department. Patient had vomited. Patient was admitted for possible aspiration and potential PEG tube placement. Patient was treated appropriately with IV antibiotics. Chest x-ray did not reveal pneumonia. Patient received GI consultation and had a PEG tube placed. Patient was felt to have received maximal hospital benefit and will be discharged back to the longterm. Dedicated discharge time 35 minutes. Disposition: DC/TX SNF [facility] Time spent for discharge: 35 Core Measure Documentation - Palliative Care Palliative Care/ Comfort Measures: Not Applicable - Core Measures Any of the following diagnoses?: none Exam - Constitutional Vitals: Temp Pulse Resp BP Pulse Ox 98.6 F 54 L 18 132/82 90 04/26/16 04:46 04/26/16 04:46 04/26/16 04:46 04/26/16 04:46 04/26/16 04:46 General appearance: Present: no acute distress, well-nourished - EENT Eyes: Present: PERRL ENT: hearing intact, clear oral mucosa - Neck Neck: Present: supple, normal ROM - Respiratory Respiratory effort: normal Respiratory: bilateral: diminished - Cardiovascular Heart Sounds: Present: S1 & S2. Absent: rub, click - Extremities Extremities: pulses symmetrical, No edema Peripheral Pulses: within normal limits - Abdominal General gastrointestinal: Present: soft, non-tender, non-distended, normal bowel sounds Male genitourinary: Present: normal - Integumentary Integumentary: Present: clear, warm, dry - Musculoskeletal Musculoskeletal: gait normal, strength equal bilaterally - Psychiatric Psychiatric: appropriate mood/affect, intact judgment & insight - Neurologic Neurologic: CNII-XII intact, moves all extremities Plan Activity: advance as tolerated Weight Bearing Status: Weight Bear as Tolerated Diet: per dietitian instruction, other (PEG tube feedings) Follow up with: CHRISTIAN PEACOCK MD [Primary Care Provider] - 3-5 Days Prescriptions: Amoxicillin/K Clav Tab [Augmentin 875 mg] 1 tab PO Q12HR #10 tab Enoxaparin [Lovenox] 70 mg SQ Q12HR 7 Days
[2016-04-26] MEDS ORDERED: Centrum Liq FEEDTUBE SCH (10:00)
--- NOTE | 2016-04-26 12:41 | Gastroenterology Progress Note ---
Assessment and Plan - Patient Problems (1) Neurogenic dysphagia Current Visit: Yes Status: Acute Plan to address problem: - S/p PEG 04/25 with no signs of complication. - OK to d/c home. - OK to resume anticoagulation (ASA/Plavix on 04/28). - Will sign off; please call if needed. Subjective Date of service: 04/26/16 Principal diagnosis: Neurogenic dysphagia Interval history: No problems with PEG overnight. Tolerating PEG feeds at 25ml/hour. No N/V and VSS. Objective - Constitutional Vitals: Temp Pulse Resp BP Pulse Ox 97.6 F 69 20 136/74 96 04/26/16 08:45 04/26/16 08:45 04/26/16 08:45 04/26/16 08:45 04/26/16 08:45 General appearance: no acute distress - Respiratory Respiratory effort: normal Respiratory: bilateral: CTA - Cardiovascular Rhythm: regular Heart Sounds: Present: S1 & S2 - Gastrointestinal General gastrointestinal: Present: soft, non-tender, non-distended, other (PEG bumper at 5.5cm - loosened to 6.5cm) - Labs CBC & Chem 7: 04/25/16 04:54 04/25/16 04:54 Labs: Laboratory Results - last 24 hr 04/25/16 04/25/16 04/25/16 12:01 13:58 16:25 POC Glucose 115 H 140 H 145 H 04/25/16 20:45 POC Glucose 100
[2016-04-26 12:50] VITALS: BP 137/80
[2016-04-26] MEDS: ZINC SULFATE PO SCH (13:10)
[2016-04-26] MEDS: NORVASC PO SCH (13:11)
[2016-04-26] MEDS: PROTONIX FEEDTUBE SCH (13:11)
[2016-04-26] MEDS: CATAPRES PO SCH (13:11)
[2016-04-26] MEDS: GLUCOPHAGE PO SCH (13:12)
== END 2016-04-26 14:24 | disposition home or self-care (01) | DRG 177 ==
LOC: ED 13:50 → 4A 17:43 → UNDODISIN 04-25 17:41
PROVIDERS: ADMIT Family Medicine; ATTEND Hospitalist
PROC: 0DH68UZ Insertion of Feeding Device into Stomach, Via Natural or Artificial Opening Endoscopic (ICD-10-PCS; principal; 2016-04-25)
DX: J69.0 Pneumonitis due to inhalation of food and vomit (principal); G93.41 Metabolic encephalopathy; E87.0 Hyperosmolality and hypernatremia; I69.354 Hemiplegia and hemiparesis following cerebral infarction affecting left non-dominant side; R13.19 Other dysphagia; I10 Essential (primary) hypertension; E11.9 Type 2 diabetes mellitus without complications; F43.10 Post-traumatic stress disorder, unspecified; G30.9 Alzheimer's disease, unspecified; K44.9 Diaphragmatic hernia without obstruction or gangrene; F02.80 Dementia in other diseases classified elsewhere, unspecified severity, without behavioral disturbance, psychotic disturbance, mood disturbance, and anxiety; J44.9 Chronic obstructive pulmonary disease, unspecified; E78.5 Hyperlipidemia, unspecified; E86.9 Volume depletion, unspecified; E11.65 Type 2 diabetes mellitus with hyperglycemia; L89.159 Pressure ulcer of sacral region, unspecified stage; Z88.8 Allergy status to other drugs, medicaments and biological substances; Z79.4 Long term (current) use of insulin
CPT/HCPCS: 36415; 71010; 80048; 80053; 80307; 80320; 81001; 82140; 82962; 83735; 84443; 85007; 85025; 85610; 87040; 93005; 93010; 96361; 96365; 96372; A9270-GY; G0480; G8996-GN; G8997-GN; G8998-GN; J0690; J1650; J1815; J1956; J2543; J2704; J2920; J3246; J3370; J3480; J7030

== ENCOUNTER 2016-04-30 09:24 | Emergency (ER) | payer MEDICARE ==
[2016-04-30 10:11] LABS: Basophils % (Auto) 0.3 % (0.0-1.8); Eosinophils % (Auto) 0.4 % (0.0-4.3); Hematocrit 36.3 % (35.5-45.6); Hemoglobin 11.5 gm/dl (11.8-15.2); Mean Corpuscular HGB Conc 32 % (32-34); Mean Corpuscular Volume 80 fl (84-94); Platelet Count 162 K/mm3 (140-440); Red Blood Count 4.55 M/mm3 (3.65-5.03); White Blood Count 9.7 K/mm3 (4.5-11.0)
[2016-04-30 10:20] LABS: Mean Corpuscular Hemoglobin 25 pg (28-32)
[2016-04-30 10:25] LABS: Blood Urea Nitrogen 15 mg/dL (9-20); Calcium 8.9 mg/dL (8.4-10.2); Carbon Dioxide 33 mmol/L (22-30); Chloride 107.3 mmol/L (98-107); Glucose 198 mg/dL (75-100); Potassium 4.1 mmol/L (3.6-5.0); Sodium 149 mmol/L (137-145)
[2016-04-30 10:27] LABS: Anion Gap 13 mmol/L
--- NOTE | 2016-04-30 10:30 | Emergency Department Report ---
HPI - General Chief Complaint: Medical Clearance Time Seen by Provider: 04/30/16 09:55 - HPI HPI: This is a 66-year-old Afro-[place] male who presents to the emergency department from [facility] with the complaint of bleeding around PEG tube. Patient has history of COPD, CVA, dementia, diabetes, hypertension, left- sided kaelyn-paresis. Patient had a PEG tube placed last , 5 days ago, by Dr. mclaughlin of gastroenterology. Patient is often nonverbal secondary to his dementia but his is bedside and she seems to think that he does not appear to be complaining of any discomfort. Patient is on Coumadin and has been since being in the hospital a few weeks ago. The PEG tube dressing was seen this morning around 6:15 and there was a moderate amount of blood saturating the dressing and this is the reason he was sent in to be seen today. 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 - Surgical History Past Surgical History?: Yes Additional Surgical History: PEG placement - Social History Smoking Status: Unknown if ever smoked Substance Use Type: None - Medications Home Medications: Home Medications Medication Instructions Recorded Confirmed Last Taken Type Atorvastatin Calcium [Lipitor] 20 mg PO HS 03/29/16 04/22/16 Unknown History amLODIPine [Norvasc] 10 mg PO QAM 03/29/16 04/22/16 Unknown History metFORMIN [Glucophage] 500 mg PO BIDDIAB tablet 04/01/16 04/22/16 Unknown Rx predniSONE [Deltasone] 10 mg PO QDAY 04/10/16 04/22/16 Unknown History Warfarin [Coumadin] 7.5 mg PO QDAY 14 Days 04/19/16 04/22/16 Unknown Rx Amoxicillin/K Clav Tab [Augmentin 1 tab PO Q12HR #10 tab 04/26/16 Unknown Rx 875 mg] Enoxaparin [Lovenox] 70 mg SQ Q12HR 7 Days 04/26/16 Unknown Rx Insulin Regular, Human [HumuLIN R] 0 units SUB-Q ACHS units 04/26/16 Unknown Rx Lipase/Protease/Amylase [Pancreaze 1 each FEEDTUBE PRN PRN #30 capsule 04/26/[address] 10,500 Unit] Multivitamins Liq [Multiple 5 ml FEEDTUBE QDAY oral.liqd 04/26/16 Unknown Rx Vitamin Liq (Theragran)] Simple Syrup 15 ml FEEDTUBE PRN PRN #30 04/26/16 Unknown Rx oral.liqd Simple Syrup 30 ml FEEDTUBE PRN PRN #30 04/26/16 Unknown Rx oral.liqd Sodium Bicarbonate 325 mg FEEDTUBE PRN PRN #30 tablet 04/26/16 Unknown Rx Zinc Sulfate 220 mg PO QDAY capsule 04/26/16 Unknown Rx cloNIDine [Catapres] 0.2 mg PO BID tablet 04/26/16 Unknown Rx ED Review of Systems ROS: Stated complaint: BLEEDING FROM GI TUBE SITE Other details as noted in HPI Comment: Unobtainable due to pts medical conditions Physical Exam - Physical Exam Vital Signs: Vital Signs 04/30/16 09:41 Temperature 99.2 F Pulse Rate 62 Respiratory 17 Rate Blood Pressure 143/90 O2 Sat by Pulse 100 Oximetry Physical Exam: GENERAL: The patient is well-developed well-nourished. Chronically debilitated appearing. HEENT: Normocephalic. Atraumatic. Pupils equal reactive to light bilaterally. Patient has moist mucous membranes. NECK: Supple. Trachea is midline. CHEST/LUNGS: Clear to auscultation. There is no respiratory distress noted. HEART/CARDIOVASCULAR: Regular. There is no tachycardia. There is no gallop rub or murmur. ABDOMEN: Abdomen is soft, nontender. Patient has normal bowel sounds. There is no abdominal distention. There is a PEG tube in place to the left upper middle region. There is a group of gauze pads surrounding the PEG tube that are saturated with blood. Once this is removed there is only a very small amount of blood seen around the PEG tube site. SKIN: No surrounding erythema, rash around the PEG tube. NEURO: Patient is awake but nonverbal. He does not follow many commands at this time. MUSCULOSKELETAL: There is no tenderness or deformity. There is no evidence of acute injury. ED Course Vital Signs 04/30/16 09:41 Temperature 99.2 F Pulse Rate 62 Respiratory 17 Rate Blood Pressure 143/90 O2 Sat by Pulse 100 Oximetry - Consultations Consultation #1: I spoke with the rapid transit operator on-call, Dr. Keane, regarding the patient's PEG tube site bleeding. Since the patient appears to have stable vitals, a relatively normal hemoglobin, and does not appear to be in any distress, he makes to recommendations. First, he suggested flushing the PEG tube. Second, a suture can be placed right around the PEG tube site to tighten the closure of the whole and try to stop the bleeding. 04/30/16 11:47 - Laceration /Wound Repair Abdomen Wound Location: abdomen (Peg tube ostomy site) Wound Length (cm): 1 Suture Size/Type: 5:0, proline Number of Sutures: 1 Layer Closure?: No Sterile Dressing Applied?: Yes Progress: A single simple interrupted suture was placed on the left side of the PEG tube to further close the ostomy site and stop the patient's bleeding. About 1 mL of 1% lidocaine with epinephrine was used with good local anesthesia prior to the suture placement. I did not feel as if the PEG tube was damaged. No obvious complications. Patient tolerated the procedure well. ED Medical Decision Making - Lab Data Result diagrams: 04/30/16 10:05 04/30/16 10:05 - Radiology Data Radiology results: report reviewed CT of the abdomen and pelvis with IV contrast shows no acute process. No discrete abnormality along the course of the PEG tube. Peter medically and trace left pleural effusion. Enlarged prostate gland. Abdominal x-ray was read by radiology as constipation. - Medical Decision Making 66-year-old male presents with bleeding around a PEG tube that was placed 5 days ago. Patient's labs and mostly unremarkable and do not show any significant anemia secondary to any blood loss. Patient's vital signs stable throughout his ED course. There was a moderate amount of bleeding seen oozing from around the PEG tube site. After speaking with GI, a single simple interrupted suture was placed to further close the ostomy around the PEG tube. Patient was sent for a CT to make sure that there was no significant intra- abdominal bleeding and came back without any acute process. It is been almost 2 hours since the suture was placed and there has not been any further bleeding. Patient appears safe for discharge home at this time. He will be encouraged to follow-up with the rapid transit operator to place the PEG tube and will be return to the ER with any worsening of symptoms or any acute distress. Critical Care Time: No Critical care attestation.: If time is entered above; I have spent that time in minutes in the direct care of this critically ill patient, excluding procedure time. ED Disposition Clinical Impression: Leaking PEG tube Post-op bleeding Qualifiers: Laterality: unspecified laterality Disposition: DISCHARGED TO HOME OR SELFCARE Is pt being admited?: No Condition: Stable Instructions: How to Use and Care for Your PEG Tube (ED) Additional Instructions: Follow up with your PCP and the Painting Instructor in the next few days. The suture needs to be removed in about 1 week. Return to the ED with any return of the bleeding, worsening of your symptoms or any acute distress. Referrals: PRIMARY CARE, [Primary Care Provider] - 3-5 Days ALICIA MCLAUGHLIN MD [Staff Physician] - 3-5 Days Time of Disposition: 14:49
[2016-04-30 11:00] LABS: INR 1.06 (0.87-1.13)
[2016-04-30 11:01] LABS: Partial Thromboplastin Time 32.8 Sec. (24.2-36.6)
[2016-04-30] MEDS ORDERED: XYLOCAINE 1%/ EPI 1:100,000 INFILTRATI ONE (12:38)
[2016-04-30] MEDS ORDERED: XYLOCAINE 2%/EPI 1:100,000 INFILTRATI ONE (12:38)
--- NOTE | 2016-04-30 14:16 | XRay Report ---
ABDOMEN, 2 VIEWS: HISTORY: Abdominal pain. FINDINGS: Supine and upright views of the abdomen demonstrate moderate fecal retention throughout the colon. There is no evidence for dilated bowel, fluid levels or free air. A PEG tube is in position. Mild cardiomegaly is suspected at the lung bases. IMPRESSION: Constipation.
--- NOTE | 2016-04-30 14:18 | Cat Scan Report ---
CT SCAN OF THE ABDOMEN AND PELVIS WITH CONTRAST: HISTORY: Abdominal pain, bleeding around PEG tube. TECHNIQUE: Helical CT in 1.25mm intervals following IV contrast. Sagittal and coronal reconstructions. FINDINGS: A PEG tube terminates in the mid stomach. There is no abnormality along the track of the PEG tube. No fluid collection or hematoma. The liver is normal in size and is without focal defect. No gallstones or biliary dilatation are noted. The spleen and pancreas demonstrate a normal size and attenuation with no evidence of abnormal mass. The kidneys are normal in size and position with no evidence of hydronephrosis or mass. The adrenal glands are normal. There is no intestinal obstruction or ascites. Normal appendix. The abdominal aorta is normal. No abnormalities are identified within the retroperitoneum or mesentery. There is no evidence of peritoneal air or fluid. There is no evidence of any abnormal masses or fluid collections within the pelvis. No adenopathy is identified. The bladder is normal. There is mild prostatic enlargement. IMPRESSION: No acute process. No discrete abnormality along the course of the PEG tube. Cardiomegaly and trace left pleural effusion. Enlarged prostate gland.
[2016-04-30 16:39] VITALS: BP 143/91
== END 2016-04-30 16:45 | disposition home or self-care (01) ==
LOC: ED 09:24
DX: K94.21 Gastrostomy hemorrhage (principal); I10 Essential (primary) hypertension; I63.9 Cerebral infarction, unspecified; E11.9 Type 2 diabetes mellitus without complications; J44.9 Chronic obstructive pulmonary disease, unspecified; Z79.4 Long term (current) use of insulin; Z79.01 Long term (current) use of anticoagulants; Z98.890 Other specified postprocedural states
CPT/HCPCS: 36415; 74020; 74177; 80048; 82962; 85025; 85610; 85730; 99285; Q9967

== ENCOUNTER 2016-05-04 08:24 | Inpatient (IN) | payer MEDICARE ==
[2016-05-04 11:02] LABS: Basophils % (Auto) 0.4 % (0.0-1.8); Eosinophils % (Auto) 0.3 % (0.0-4.3); Hematocrit 33.1 % (35.5-45.6); Hemoglobin 10.5 gm/dl (11.8-15.2); Mean Corpuscular HGB Conc 32 % (32-34); Mean Corpuscular Volume 80 fl (84-94); Platelet Count 141 K/mm3 (140-440); Red Blood Count 4.14 M/mm3 (3.65-5.03); Red Cell Distribution Width 19.2 % (13.2-15.2)
[2016-05-04 11:12] LABS: INR 1.01 (0.87-1.13)
[2016-05-04 11:21] LABS: Alanine Aminotransferase 10 units/L (7-56); Albumin/Globulin Ratio 0.9 %; Alkaline Phosphatase 72 units/L (35-129); Anion Gap 16 mmol/L; BUN/Creatinine Ratio 38.33; Bilirubin,Total 0.2 mg/dL (0.1-1.2); Blood Urea Nitrogen 23 mg/dL (9-20); Carbon Dioxide 30 mmol/L (22-30); Chloride 106.5 mmol/L (98-107); Glucose 176 mg/dL (75-100); Lipase 14 units/L (13-60); Potassium 4.4 mmol/L (3.6-5.0); Sodium 148 mmol/L (137-145); Total Protein 6.4 g/dL (6.3-8.2)
[2016-05-04 11:23] LABS: Bilirubin,Direct < 0.2 mg/dL (0-0.2)
[2016-05-04 11:43] LABS: Mean Corpuscular Hemoglobin 25 pg (28-32)
--- NOTE | 2016-05-04 12:15 | XRay Report ---
G-tube study: History: Bleeding from the tube site. Findings: The tip of the G-tube is noted in stomach. Contrast injected through the G-tube is noted in stomach and duodenum. No extravasation of contrast is seen. Impression: Normal position of G-tube.
--- NOTE | 2016-05-04 12:30 | Emergency Department Report ---
ED General Adult HPI - General Chief complaint: Tube Replacement Stated complaint: BLEEDING G TUBE Time Seen by Provider: 05/04/16 10:32 Source: EMS Mode of arrival: Ambulatory Limitations: Physical Limitation - History of Present Illness Initial comments: This is the second emergency department visit since 04/30/2016 for bleeding at site of a gastrostomy tube. There is no evidence of GI bleeding and has not been any. This is localized oozing from the ostomy area. It is not certain if the patient has been tugging at the tube or whether this has occurred during transfers. In any case he was seen by Dr. Henderson on the whereupon a single suture was placed. Apparently the bleeding was amply control. He again returns to this facility with the same problem. He seems to be losing diffusely from the ostomy site. I don't see any gross evidence of contusion,, tear or any actual GI bleeding. She has no specific complaints. He is essentially nonverbal. Does not appear to be in any discomfort. He is not agitated. Apparently the patient has been treated with anticoagulants for a DVT of his right upper extremity. However the last 2 visits he is not anticoagulated. -: days(s) Location: abdomen (oozing no reported pain) - Related Data Home Medications Medication Instructions Recorded Confirmed Last Taken Atorvastatin Calcium [Lipitor] 20 mg PO HS 03/29/16 05/04/16 05/03/16 amLODIPine [Norvasc] 10 mg PO QAM 03/29/16 05/04/16 Unknown predniSONE [Deltasone] 10 mg PO QDAY 04/10/16 05/04/16 Unknown Previous Rx's Medication Instructions Recorded Last Taken Type metFORMIN [Glucophage] 500 mg PO BIDDIAB tablet 04/01/16 Unknown Rx Amoxicillin/K Clav Tab [Augmentin 1 tab PO Q12HR #10 tab 04/26/16 Unknown Rx 875 mg] Enoxaparin [Lovenox] 70 mg SQ Q12HR 7 Days 04/26/16 05/03/16 Rx Lipase/Protease/Amylase [Pancreaze 1 each FEEDTUBE PRN PRN #30 capsule 04/26/16 Unknown Rx 10,500 Unit] Multivitamins Liq [Multiple 5 ml FEEDTUBE QDAY oral.liqd 04/26/16 Unknown Rx Vitamin Liq (Theragran)] Simple Syrup 15 ml FEEDTUBE PRN PRN #30 04/26/16 Unknown Rx oral.liqd Simple Syrup 30 ml FEEDTUBE PRN PRN #30 04/26/16 Unknown Rx oral.liqd Sodium Bicarbonate 325 mg FEEDTUBE PRN PRN #30 tablet 04/26/16 Unknown Rx Zinc Sulfate 220 mg PO QDAY capsule 04/26/16 Unknown Rx cloNIDine [Catapres] 0.2 mg PO BID tablet 04/26/16 Unknown Rx Allergies Allergy/AdvReac Type Severity Reaction Status Date / Time mirtazapine [From Remeron] Allergy Rash Verified 04/22/16 15:25 ED Review of Systems ROS: Stated complaint: BLEEDING G TUBE Other details as noted in HPI Comment: Unobtainable due to pts medical conditions 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; aphasic - Surgical History Past Surgical History?: Yes Additional Surgical History: PEG placement - Social History Smoking Status: Unknown if ever smoked Substance Use Type: None - Medications Home Medications: Home Medications Medication Instructions Recorded Confirmed Last Taken Type Atorvastatin Calcium [Lipitor] 20 mg PO HS 03/29/16 05/04/16 05/03/16 History amLODIPine [Norvasc] 10 mg PO QAM 03/29/16 05/04/16 Unknown History metFORMIN [Glucophage] 500 mg PO BIDDIAB tablet 04/01/16 05/04/16 Unknown Rx predniSONE [Deltasone] 10 mg PO QDAY 04/10/16 05/04/16 Unknown History Amoxicillin/K Clav Tab [Augmentin 1 tab PO Q12HR #10 tab 04/26/16 05/04/16 Unknown Rx 875 mg] Enoxaparin [Lovenox] 70 mg SQ Q12HR 7 Days 04/26/16 05/04/16 05/03/16 Rx Lipase/Protease/Amylase [Pancreaze 1 each FEEDTUBE PRN PRN #30 capsule 04/26/16 05/04/[address] 10,500 Unit] Multivitamins Liq [Multiple 5 ml FEEDTUBE QDAY oral.liqd 04/26/16 05/04/16 Unknown Rx Vitamin Liq (Theragran)] Simple Syrup 15 ml FEEDTUBE PRN PRN #30 04/26/16 05/04/16 Unknown Rx oral.liqd Simple Syrup 30 ml FEEDTUBE PRN PRN #30 04/26/16 05/04/16 Unknown Rx oral.liqd Sodium Bicarbonate 325 mg FEEDTUBE PRN PRN #30 tablet 04/26/16 05/04/16 Unknown Rx Zinc Sulfate 220 mg PO QDAY capsule 04/26/16 05/04/16 Unknown Rx cloNIDine [Catapres] 0.2 mg PO BID tablet 04/26/16 05/04/16 Unknown Rx ED Physical Exam - General Limitations: Physical Limitation General appearance: alert, in no apparent distress - Head Head exam: Present: atraumatic, normocephalic - Eye Eye exam: Present: normal appearance. Absent: scleral icterus - ENT ENT exam: Present: mucous membranes dry - Neck Neck exam: Present: normal inspection - Respiratory Respiratory exam: Present: normal lung sounds bilaterally. Absent: respiratory distress - Cardiovascular Cardiovascular Exam: Present: regular rate, normal rhythm. Absent: systolic murmur, diastolic murmur, rubs, gallop - GI/Abdominal GI/Abdominal exam: Present: soft, normal bowel sounds, other (oozing blood around the G-tube). Absent: distended, tenderness, guarding, rebound, rigid, organomegaly - Rectal Rectal exam: Present: deferred - Extremities Exam Extremities exam: Present: normal capillary refill, other (left upper extremity is edematous compared with the right). Absent: calf tenderness - Back Exam Back exam: Present: normal inspection - Neurological Exam Neurological exam: Present: alert, other (no acute focal deficit. old left hemiparesis) - Psychiatric Psychiatric exam: Present: normal mood, flat affect - Skin Skin exam: Present: warm, dry, normal color. Absent: rash ED Course Vital Signs 05/04/16 05/04/16 05/04/16 08:49 11:01 13:01 Temperature 98.1 F 98.7 F Pulse Rate 80 78 75 Respiratory 16 16 Rate Blood Pressure 136/88 Blood Pressure 128/74 138/88 [Left] O2 Sat by Pulse 100 99 Oximetry 05/04/16 13:49 Temperature Pulse Rate Respiratory 14 Rate Blood Pressure Blood Pressure [Left] O2 Sat by Pulse 100 Oximetry - Reevaluation(s) Reevaluation #1: I obtained adequate hemostasis with a healing instead dressing. I also did a field block with lidocaine with epi 1%. Consult GI. Admitted to hospitalist service. Discussed with Dr. Laird. 05/04/16 14:18 ED Medical Decision Making - Lab Data Result diagrams: 05/04/16 10:45 05/04/16 10:45 Laboratory Results - last 24 hr 05/04/16 05/04/16 05/04/16 10:45 10:45 10:45 WBC 8.0 RBC 4.14 Hgb 10.5 L Hct 33.1 L MCV 80 L MCH 25 L MCHC 32 RDW 19.2 H Plt Count 141 Lymph % (Auto) 9.7 L [place] % (Auto) 5.9 Eos % (Auto) 0.3 Baso % (Auto) 0.4 Lymph # 0.8 L [place] # 0.5 Eos # 0.0 Baso # 0.0 Seg Neutrophils % 83.7 H Seg Neutrophils # 6.7 PT 13.2 INR 1.01 Sodium Potassium Chloride Carbon Dioxide Anion Gap BUN Creatinine Estimated GFR BUN/Creatinine Ratio Glucose Calcium Total Bilirubin Direct Bilirubin Indirect Bilirubin AST ALT Alkaline Phosphatase Total Protein Albumin Albumin/Globulin Ratio Amylase 35 Lipase 05/04/16 10:45 WBC RBC Hgb Hct MCV MCH MCHC RDW Plt Count Lymph % (Auto) [place] % (Auto) Eos % (Auto) Baso % (Auto) Lymph # [place] # Eos # Baso # Seg Neutrophils % Seg Neutrophils # PT INR Sodium 148 H Potassium 4.4 Chloride 106.5 Carbon Dioxide 30 Anion Gap 16 BUN 23 H Creatinine 0.6 L Estimated GFR > 60 BUN/Creatinine Ratio 38.33 Glucose 176 H Calcium 9.0 Total Bilirubin 0.2 Direct Bilirubin < 0.2 Indirect Bilirubin 0.0 AST 13 ALT 10 Alkaline Phosphatase 72 Total Protein 6.4 Albumin 3.0 L Albumin/Globulin Ratio 0.9 Amylase Lipase 14 Laboratory Results - last 24 hr 05/04/16 05/04/16 05/04/16 10:45 10:45 10:45 WBC 8.0 RBC 4.14 Hgb 10.5 L Hct 33.1 L MCV 80 L MCH 25 L MCHC 32 RDW 19.2 H Plt Count 141 Lymph % (Auto) 9.7 L [place] % (Auto) 5.9 Eos % (Auto) 0.3 Baso % (Auto) 0.4 Lymph # 0.8 L [place] # 0.5 Eos # 0.0 Baso # 0.0 Seg Neutrophils % 83.7 H Seg Neutrophils # 6.7 PT 13.2 INR 1.01 Sodium Potassium Chloride Carbon Dioxide Anion Gap BUN Creatinine Estimated GFR BUN/Creatinine Ratio Glucose Calcium Total Bilirubin Direct Bilirubin Indirect Bilirubin AST ALT Alkaline Phosphatase Total Protein Albumin Albumin/Globulin Ratio Amylase 35 Lipase 05/04/16 10:45 WBC RBC Hgb Hct MCV MCH MCHC RDW Plt Count Lymph % (Auto) [place] % (Auto) Eos % (Auto) Baso % (Auto) Lymph # [place] # Eos # Baso # Seg Neutrophils % Seg Neutrophils # PT INR Sodium 148 H Potassium 4.4 Chloride 106.5 Carbon Dioxide 30 Anion Gap 16 BUN 23 H Creatinine 0.6 L Estimated GFR > 60 BUN/Creatinine Ratio 38.33 Glucose 176 H Calcium 9.0 Total Bilirubin 0.2 Direct Bilirubin < 0.2 Indirect Bilirubin 0.0 AST 13 ALT 10 Alkaline Phosphatase 72 Total Protein 6.4 Albumin 3.0 L Albumin/Globulin Ratio 0.9 Amylase Lipase 14 Critical care attestation.: If time is entered above; I have spent that time in minutes in the direct care of this critically ill patient, excluding procedure time. ED Disposition Clinical Impression: Complication of gastrostomy tube, Hemiparesis affecting left side as late effect of cerebrovascular accident, Hypernatremia, Prerenal azotemia, Dehydration Disposition: DISCHARGED TO HOME OR SELFCARE Is pt being admited?: Yes Does the pt Need Aspirin: No (bleeding issues will hold aspirin) Condition: Stable Time of Disposition: 14:22
[2016-05-04] MEDS ORDERED: NACL 0.9% 1000 ML 1,000 ML IV ONE (12:31)
[2016-05-04] MEDS ORDERED: XYLOCAINE 1%/ EPI 1:100,000 INFILTRATI ONE (13:39)
--- NOTE | 2016-05-04 14:15 | History and Physical Report ---
History of Present Illness Date of examination: 05/04/16 Date of admission: 05/04/16 Chief complaint: bleeding from PEG site History of present illness: History is obtained from the EMR; a shunt is nonverbal and no family is present Mr. Palomares is a 66-year-old -[place] man who was sent from the care home for reading from the PEG site. Of note the patient was seen in the emergency room on 04/30/2016 for similar problem and the ER physician at the time Dr. Whiteside put a suture in it and discharged patient back to the care home. He was seen in the emergency room and Dr. Kidd injected lidocaine and epinephrine with placement of a hemostat which he reported resulted in hemostasis. Past History Past Medical History: diabetes, hypertension, hyperlipidemia, other (dementia; DVT of the upper extremity) Past Surgical History: Other (peg) Family history: no significant family history Medications and Allergies Allergies Allergy/AdvReac Type Severity Reaction Status Date / Time mirtazapine [From Remeron] Allergy Rash Verified 04/22/16 15:25 Home Medications Medication Instructions Recorded Confirmed Last Taken Type Atorvastatin Calcium [Lipitor] 20 mg PO HS 03/29/16 05/04/16 05/03/16 History amLODIPine [Norvasc] 10 mg PO QAM 03/29/16 05/04/16 Unknown History metFORMIN [Glucophage] 500 mg PO BIDDIAB tablet 04/01/16 05/04/16 Unknown Rx predniSONE [Deltasone] 10 mg PO QDAY 04/10/16 05/04/16 Unknown History Amoxicillin/K Clav Tab [Augmentin 1 tab PO Q12HR #10 tab 04/26/16 05/04/16 Unknown Rx 875 mg] Enoxaparin [Lovenox] 70 mg SQ Q12HR 7 Days 04/26/16 05/04/16 05/03/16 Rx Lipase/Protease/Amylase [Pancreaze 1 each FEEDTUBE PRN PRN #30 capsule 04/26/16 05/04/16 Unknown Rx 10,500 Unit] Multivitamins Liq [Multiple 5 ml FEEDTUBE QDAY oral.liqd 04/26/16 05/04/16 Unknown Rx Vitamin Liq (Theragran)] Simple Syrup 15 ml FEEDTUBE PRN PRN #30 04/26/16 05/04/16 Unknown Rx oral.liqd Simple Syrup 30 ml FEEDTUBE PRN PRN #30 04/26/16 05/04/16 Unknown Rx oral.liqd Sodium Bicarbonate 325 mg FEEDTUBE PRN PRN #30 tablet 04/26/16 05/04/16 Unknown Rx Zinc Sulfate 220 mg PO QDAY capsule 04/26/16 05/04/16 Unknown Rx cloNIDine [Catapres] 0.2 mg PO BID tablet 04/26/16 05/04/16 Unknown Rx Active Meds: Active Medications Sodium Chloride (Nacl 0.9% 1000 Ml) 1,000 mls @ 250 mls/hr IV ONCE ONE Stop: 05/04/16 16:30 Review of Systems ROS unobtainable: due to mental status Exam - Constitutional Vitals: Temp Pulse Resp BP Pulse Ox 98.7 F 75 14 138/88 100 05/04/16 11:01 05/04/16 13:01 05/04/16 13:49 05/04/16 13:01 05/04/16 13:49 General appearance: Present: no acute distress, cachectic - EENT Eyes: Present: PERRL, EOM intact. Absent: scleral icterus, conjunctival injection ENT: hearing intact, poor dentition, no clear oral mucosa (dry) - Neck Neck: Present: supple, normal ROM. Absent: enlarged thyroid, masses or JVD - Respiratory Respiratory effort: normal Respiratory: bilateral: diminished, negative: rales, rhonchi, wheezing - Cardiovascular Rhythm: regular Heart Sounds: Present: S1 & S2. Absent: gallop - Extremities Extremities: no ischemia, pulses intact, pulses symmetrical Peripheral Pulses: within normal limits - Abdominal General gastrointestinal: Present: soft, non-tender, non-distended, other (PEG tube in place with dressing in place. No active bleeding) Male genitourinary: Present: deferred - Rectal Rectal Exam: deferred - Integumentary Integumentary: Present: warm - Musculoskeletal Musculoskeletal: generalized weakness - Psychiatric Psychiatric: no agitated, other (able to assess fully ) - Neurologic Neurologic: focal deficits (left hemiplegia, grade 3 power in the right lower extremity, no movement in the left lower extremity), no other (dysarthria) Results - Labs CBC & Chem 7: 05/04/16 10:45 05/04/16 10:45 Labs: Abnormal lab results 05/04/16 05/04/16 Range/Units 10:45 10:45 Hgb 10.5 L (11.8-15.2) gm/dl Hct 33.1 L (35.5-45.6) % MCV 80 L (84-94) fl MCH 25 L (28-32) pg RDW 19.2 H (13.2-15.2) % Lymph % (Auto) 9.7 L (13.4-35.0) % Lymph # 0.8 L (1.2-5.4) K/mm3 Seg Neutrophils % 83.7 H (40.0-70.0) % Sodium 148 H (137-145) mmol/L BUN 23 H (9-20) mg/dL Creatinine 0.6 L (0.8-1.5) mg/dL Glucose 176 H (75-100) mg/dL Albumin 3.0 L (3.9-5) g/dL Assessment and Plan 1. Bleeding from gastrostomy site-we'll admit as an inpatient as more than 2 midnights are required for treatment. We'll consult GI. We will DC Lovenox as per his home medication for treatment for apparently upper extremity DVT 2. Hypernatremia with dehydration-we'll start hydration with hypotonic IV fluids. Monitor electrolytes 3. Diabetes type 2-monitor Accu-Cheks, sliding scale insulin for now 4. Benign hypertension-on acute blood pressure, IV when necessary medication as patient is currently nothing by mouth and unable to use PEG tube. Will restart home meds once GI has cleared the tube for use 5. 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 Dementia-supportive care 7. DVT prophylaxis-SCDs. No chemical prophylaxis in view of bleeding from the PEG site
[2016-05-04] MEDS ORDERED: D50W (25GM) IV PRN (16:07)
[2016-05-04] MEDS ORDERED: REGLAN IV PRN (16:07)
[2016-05-04] MEDS ORDERED: TYLENOL PO PRN (16:07)
[2016-05-04] MEDS: NOVOLOG SUB-Q SCH ×2 (17:54→23:00)
[2016-05-04] MEDS: D5NS 0.2% 1,000 ML IV SCH (17:54)
--- NOTE | 2016-05-04 23:25 | Admit Criteria Form ---
Admission Criteria Documentation: GASTROINTESTINAL BLEEDING, UPPER Clinical Indications for Admission to Inpatient Care ( Place 'X' for any and all applicable criteria): Admission is indicated for ANY ONE of the following(1)(2)(3)(4)(5)(6): [ ]I. Active bleeding (eg, fresh voluminous blood in emesis or nasogastric aspirate) [ ]II. Associated conditions requiring hospitalization (eg, perforation, obstruction from ulcer) [X ]III. Inpatient admission required rather than observation care (Also use Gastrointestinal Bleeding, Upper: Observation Care as appropriate) because of ANY ONE of the following: [ ]a) Hemodynamic instability that is severe or persistent [ ]b) Anemia requiring inpatient admission as indicated by ALL of the following: [ ]1) Presence of significant clinical finding indicated by ANY ONE of the following: [ ]A. Tachycardia for age [ ]B. Orthostatic vital sign changes [ ]C. Cognitive impairment [ ]D. Heart failure [ ]E. Chest pain [ ]F. Exertional dyspnea [ ]G. Other findings suggesting inadequate perfusion (eg, peripheral or myocardial ischemia, end organ dysfunction) [ ]2) Initial (eg, emergency department, observation care) treatment with transfusion or volume replacement is judged inappropriate (due to severity of the finding) or has been ineffective [ ]c) Severe pain requiring acute inpatient management [ ]d) High-risk low platelet count [ ]e) IV fluid to replace significant ongoing losses (greater than 3 L/m2 per day) [ ]f) Immediate inpatient surgery [X ]g) Other condition, treatment or monitoring requiring inpatient admission [ ]IV. Severe liver disease (eg, cirrhosis) [ ]V. Significant active comorbid disease [ ]. Anticoagulation therapy [ ]VII. High-risk endoscopic features (arterial bleeding, adherent clot, nonbleeding visible vessel, varices, flat red spots, ulcer size greater than 2 cm, or portal hypertensive gastropathy) [ ]VIII. Previous aortic graft placement or known aortic aneurysm [ ]IX. Coagulopathy [ ]X. Syncope Extended stay beyond goal length of stay may be needed for(1)(2): [ ]a) Emergency surgery [ ]b) Varices [ ]c) Coagulation abnormalities [ ]d) Recurrent, obscure, or persistent bleeding or continued Hemodynamic instability [ ]e) Associated conditions requiring surgery (eg, perforated gastric ulcer, gastric outlet obstruction) [ ]f) Active comorbidities (eg, renal insufficiency, heart failure, pre- existing liver disease) The original [facility] [employer] content created by [facility] has been revised. The portions of the content which have been revised are identified through the use of italic text or in bold, and [facility] has neither reviewed nor approved the modified material. All other unmodified content is copyright [facility] [employer]. Please see references footnoted in the original [facility] [employer] edition 2016 Admission Criteria Met: Yes
[2016-05-05 06:06] LABS: Blood Urea Nitrogen 13 mg/dL (9-20); Calcium 8.2 mg/dL (8.4-10.2); Carbon Dioxide 29 mmol/L (22-30); Glucose 206 mg/dL (75-100); Potassium 3.6 mmol/L (3.6-5.0); Sodium 147 mmol/L (137-145)
[2016-05-05 06:11] LABS: Basophils % (Auto) 0.3 % (0.0-1.8); Eosinophils % (Auto) 0.9 % (0.0-4.3); Hematocrit 32.4 % (35.5-45.6); Hemoglobin 10.2 gm/dl (11.8-15.2); Mean Corpuscular HGB Conc 32 % (32-34); Mean Corpuscular Volume 79 fl (84-94); Platelet Count 128 K/mm3 (140-440); Red Blood Count 4.11 M/mm3 (3.65-5.03); Red Cell Distribution Width 19.4 % (13.2-15.2); White Blood Count 6.3 K/mm3 (4.5-11.0)
[2016-05-05 06:25] LABS: Anion Gap 16 mmol/L
[2016-05-05 06:30] LABS: Mean Corpuscular Hemoglobin 25 pg (28-32)
[2016-05-05] MEDS: D5NS 0.2% 1,000 ML IV SCH (06:44)
[2016-05-05] MEDS: NOVOLOG SUB-Q SCH ×2 (08:44→13:05)
--- NOTE | 2016-05-05 10:44 | Gastroenterology Consultation ---
History of Present Illness - Reason for Consult Consult date: 05/05/16 bleeding from PEG tube site - History of Present Illness Mr Palomares is a 66 yo aam with h/o dementia who presents from correction with bleeding from peg tube incision site. History primarily gathered from chart review and discussion with staff as pt unable to provide history. Hemostasis was achieved in ED with lidocaine/epi injection. No further bleeding episodes from peg tube site since that time. No melena, n/v/hematemesis/brbpr. Past History Past Medical History: diabetes, hypertension, hyperlipidemia, other (dementia; DVT of the upper extremity) Past Surgical History: Other (peg) Family history: no significant family history Medications and Allergies Allergies Allergy/AdvReac Type Severity Reaction Status Date / Time mirtazapine [From Remeron] Allergy Rash Verified 04/22/16 15:25 Home Medications Medication Instructions Recorded Confirmed Last Taken Type Atorvastatin Calcium [Lipitor] 20 mg PO HS 03/29/16 05/04/16 05/03/16 History amLODIPine [Norvasc] 10 mg PO QAM 03/29/16 05/04/16 Unknown History metFORMIN [Glucophage] 500 mg PO BIDDIAB tablet 04/01/16 05/04/16 Unknown Rx predniSONE [Deltasone] 10 mg PO QDAY 04/10/16 05/04/16 Unknown History Amoxicillin/K Clav Tab [Augmentin 1 tab PO Q12HR #10 tab 04/26/16 05/04/16 Unknown Rx 875 mg] Enoxaparin [Lovenox] 70 mg SQ Q12HR 7 Days 04/26/16 05/04/16 05/03/16 Rx Lipase/Protease/Amylase [Pancreaze 1 each FEEDTUBE PRN PRN #30 capsule 04/26/16 05/04/16 Unknown Rx 10,500 Unit] Multivitamins Liq [Multiple 5 ml FEEDTUBE QDAY oral.liqd 04/26/16 05/04/16 Unknown Rx Vitamin Liq (Theragran)] Simple Syrup 15 ml FEEDTUBE PRN PRN #30 04/26/16 05/04/16 Unknown Rx oral.liqd Simple Syrup 30 ml FEEDTUBE PRN PRN #30 04/26/16 05/04/16 Unknown Rx oral.liqd Sodium Bicarbonate 325 mg FEEDTUBE PRN PRN #30 tablet 04/26/16 05/04/16 Unknown Rx Zinc Sulfate 220 mg PO QDAY capsule 04/26/16 05/04/16 Unknown Rx cloNIDine [Catapres] 0.2 mg PO BID tablet 04/26/16 05/04/16 Unknown Rx Active Meds: Active Medications Acetaminophen (Tylenol) 650 mg PO Q4H PRN PRN Reason: Pain MILD(1-3)/Fever >100.5/SOUZA Dextrose (D50w (25gm)) 50 ml IV PRN PRN PRN Reason: Hypoglycemia Dextrose/Sodium Chloride (D5ns 0.2%) 1,000 mls @ 100 mls/hr IV DIRECT UMSAN Last Admin: 05/05/16 06:44 Dose: 100 mls/hr Insulin Aspart (Novolog) 0 units SUB-Q ACHS USMAN PRN Reason: Protocol Last Admin: 05/05/16 08:44 Dose: 2 units Metoclopramide HCl (Reglan) 10 mg IV Q6H PRN PRN Reason: Nausea And Vomiting Review of Systems - Review of Systems ROS unobtainable: due to mental status Exam - Exam Narrative Exam: Gen: NAD, unable to communicate/answer questions Head: nc/at Mouth: dry mucous membranes Neck: no JVD, LAD CV: RRR, no murmurs Lungs: CTAB, non labored Abd: soft, nt, nd, + peg tube site c/d/i without blood Ext: no c/c/e Skin: no obvious rash - Constitutional Vital Signs: Temp Pulse Resp BP Pulse Ox 97.7 F 70 14 132/84 99 05/05/16 08:00 05/05/16 08:00 05/05/16 08:00 05/05/16 08:00 05/05/16 08:00 - Labs CBC & Chem 7: 05/05/16 04:53 05/05/16 04:53 Lab Results: Laboratory Results - last 24 hr 05/04/16 05/05/16 05/05/16 21:12 04:53 04:53 WBC 6.3 RBC 4.11 Hgb 10.2 L Hct 32.4 L MCV 79 L MCH 25 L MCHC 32 RDW 19.4 H Plt Count 128 L Lymph % (Auto) 15.4 [place] % (Auto) 8.6 H Eos % (Auto) 0.9 Baso % (Auto) 0.3 Lymph # 1.0 L [place] # 0.5 Eos # 0.1 Baso # 0.0 Seg Neutrophils % 74.8 H Seg Neutrophils # 4.7 Sodium 147 H Potassium 3.6 Chloride 106.0 Carbon Dioxide 29 Anion Gap 16 BUN 13 Creatinine 0.5 L Estimated GFR > 60 BUN/Creatinine Ratio 26.00 Glucose 206 H POC Glucose 165 H Calcium 8.2 L 05/05/16 06:24 WBC RBC Hgb Hct MCV MCH MCHC RDW Plt Count Lymph % (Auto) [place] % (Auto) Eos % (Auto) Baso % (Auto) Lymph # [place] # Eos # Baso # Seg Neutrophils % Seg Neutrophils # Sodium Potassium Chloride Carbon Dioxide Anion Gap BUN Creatinine Estimated GFR BUN/Creatinine Ratio Glucose POC Glucose 195 H Calcium - Imaging Other: report reviewed (G-tube study) Assessment and Plan Mr Palomares is a 66 yo aam who presents from correction with bleeding from peg tube site. hemostasis received by ED physician. No further bleeding episodes since that time. Peg site appears c/d/i. hct stable. okay to resume tube feeds. If further bleeding, can tighten external bumper temporarilly and/or apply silver nitrate. Will sign off, please call with questions.
--- NOTE | 2016-05-05 11:20 | Discharge Summary ---
Providers - Providers Date of Admission: 05/04/16 14:09 Date of discharge: 05/05/16 Attending physician: ARETHA LBOCK 05/04/16 14:25 Consult to Physician [CONS] Urgent Consulting Provider: ALICIA FRANCISCO Reason For Exam: recurrent bleeding from gastrostomy (local site) Notified:: no 05/05/16 07:24 Consult to Wound/ET Nurse [CONS] Routine Reason For Exam: wound eval Primary care physician: BLASTING CLAY [employer]ER Hospitalization Condition: Stable Hospital course: per GI, Dr. Alton Cedeno: "Mr Palomares is a 66 yo aam who presents from residential with bleeding from peg tube site. hemostasis received by ED physician. No further bleeding episodes since that time. Peg site appears c/d/i. hct stable. okay to resume tube feeds. If further bleeding, can tighten external bumper temporarilly and/or apply silver nitrate. Will sign off, please call with questions." 1. Bleeding from gastrostomy site-we'll admit as an inpatient as more than 2 midnights are required for treatment. We'll consult GI. We will DC Lovenox as per his home medication for treatment for apparently upper extremity DVT 2. Hypernatremia with dehydration-we'll start hydration with hypotonic IV fluids. Monitor electrolytes 3. Diabetes type 2-monitor Accu-Cheks, sliding scale insulin for now 4. Benign hypertension-on acute blood pressure, IV when necessary medication as patient is currently nothing by mouth and unable to use PEG tube. Will restart home meds once GI has cleared the tube for use 5. 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 Dementia-supportive care 7. DVT prophylaxis-SCDs. No chemical prophylaxis in view of bleeding from the PEG site Time of discharge 33 minutes Disposition: DC/TX SNF W [facility] CERT Core Measure Documentation - Palliative Care Palliative Care/ Comfort Measures: Not Applicable - Core Measures Any of the following diagnoses?: none - VTE Discharge Requirements Deep Vein Thrombosis/Pulmonary Embolism Present on Admission: Yes Has pt received <5 days of overlap therapy or INR<2.0: No (on lovenox sq chronic ) Anticoagulant overlap therapy prescribed at discharge: No Contraindication No Overlap Therapy order at DC: Not Indicated Exam - Physical Exam Narrative exam: GEN: Thin frail NAD, AWAKE, ALERT, nonverbal CVS: RRR, NORMAL S1S2 LUNGS/CHEST: CTA B, NORMAL CHEST EXPANSION B, GOOD AIR ENTRY B ABD: SOFT, NONTENDER NONDISTENDED PEG TUBE CLEAN DRY AND INTACT GBS, NO REBOUND OR GUARDING NEURO: CN 2-12 GROSSLY INTACT, NO NEW FOCAL DEFICITS, 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 ), up only with assistance, fall precautions Diet: other (PEG) Follow up with: PRIMARY CARE, [Primary Care Provider] - 3-5 Days
[2016-05-05 13:19] VITALS: BP 124/78
== END 2016-05-05 15:05 | DRG 394 ==
LOC: ED 08:24 → 3A 14:09
PROVIDERS: ADMIT Hospitalist; ATTEND Hospitalist
DX: K94.21 Gastrostomy hemorrhage (principal); D62 Acute posthemorrhagic anemia; E87.0 Hyperosmolality and hypernatremia; I10 Essential (primary) hypertension; E11.9 Type 2 diabetes mellitus without complications; J44.9 Chronic obstructive pulmonary disease, unspecified; F03.90 Unspecified dementia, unspecified severity, without behavioral disturbance, psychotic disturbance, mood disturbance, and anxiety; F43.10 Post-traumatic stress disorder, unspecified; E78.5 Hyperlipidemia, unspecified; Z86.73 Personal history of transient ischemic attack (TIA), and cerebral infarction without residual deficits; Z86.718 Personal history of other venous thrombosis and embolism; Z88.8 Allergy status to other drugs, medicaments and biological substances
CPT/HCPCS: 36415; 74000; 80048; 80074; 82150; 82962; 83690; 85025; 85610; 96360; 96361; A6021; J1815; J7030; Q9963

== ENCOUNTER 2016-05-21 12:57 | Inpatient (IN) | payer MEDICARE, OTHER ==
[2016-05-21] MEDS ORDERED: NACL 0.9% 1000 ML 1,000 ML IV ONE (13:28)
[2016-05-21 14:21] LABS: Mean Corpuscular HGB Conc 30 % (32-34); Mean Corpuscular Volume 81 fl (84-94); Platelet Count 209 K/mm3 (140-440); Red Blood Count 4.62 M/mm3 (3.65-5.03); White Blood Count 11.8 K/mm3 (4.5-11.0)
[2016-05-21 14:22] LABS: Hematocrit 37.4 % (35.5-45.6); Hemoglobin 11.1 gm/dl (11.8-15.2); Mean Corpuscular Hemoglobin 24 pg (28-32); Red Cell Distribution Width 20.1 % (13.2-15.2)
[2016-05-21 14:26] LABS: INR 1.23 (0.87-1.13)
[2016-05-21] MEDS ORDERED: TYLENOL PR ONE ×2 (14:33→14:55)
[2016-05-21 14:36] LABS: Alanine Aminotransferase 8 units/L (7-56); Albumin 2.7 g/dL (3.9-5); Albumin/Globulin Ratio 0.6 %; Alkaline Phosphatase 130 units/L (35-129); Anion Gap 20 mmol/L; BUN/Creatinine Ratio 43.33; Bilirubin,Total 0.4 mg/dL (0.1-1.2); Blood Urea Nitrogen 52 mg/dL (9-20); Calcium 9.7 mg/dL (8.4-10.2); Carbon Dioxide 30 mmol/L (22-30); Chloride 115.4 mmol/L (98-107); Glucose 258 mg/dL (75-100); Potassium 4.6 mmol/L (3.6-5.0); Total Protein 7.4 g/dL (6.3-8.2)
[2016-05-21 14:55] LABS: Sodium 161 mmol/L (137-145)
--- NOTE | 2016-05-21 14:57 | Emergency Department Report ---
ED General Adult HPI - General Chief complaint: Dyspnea/Respdistress Stated complaint: PNUEMONIA Time Seen by Provider: 05/21/16 14:54 Source: patient, EMS Mode of arrival: Stretcher Limitations: No Limitations - History of Present Illness Initial comments: The patient was sent from the correction for evaluation of respiratory distress and a chest x-ray that was indicative of pneumonia. The patient has a gastrostomy tube and would be at risk for aspiration. This was a right lower lobe infiltrate. He has essentially functional Quadriparesis. He is a total care patient in the correction. He is a type II diabetic. He's been previously seen here for bleeding from his gastrostomy tube. He was seen by GI but no intervention was necessary. Status post stroke causing left kaelyn- plegia. According to his he does have bedsores. Eyes at this facility unable to provide any historical information. The states that he has been in this condition for quite some time. He does not have a living will. -: Gradual Severity scale (0 -10): 0 - Related Data Home Medications Medication Instructions Recorded Confirmed Last Taken Atorvastatin Calcium [Lipitor] 20 mg PO HS 03/29/16 05/04/16 05/03/16 amLODIPine [Norvasc] 10 mg PO QAM 03/29/16 05/04/16 Unknown predniSONE [Deltasone] 10 mg PO QDAY 04/10/16 05/04/16 Unknown Previous Rx's Medication Instructions Recorded Last Taken Type metFORMIN [Glucophage] 500 mg PO BIDDIAB tablet 04/01/16 Unknown Rx Amoxicillin/K Clav Tab [Augmentin 1 tab PO Q12HR #10 tab 04/26/16 Unknown Rx 875MG TAB] Enoxaparin [Lovenox] 70 mg SQ Q12HR 7 Days 04/26/16 05/03/16 Rx Lipase/Protease/Amylase [Pancreaze 1 each FEEDTUBE PRN PRN #30 capsule 04/26/16 Unknown Rx 10,500 Unit] Multivitamins Liq [Multiple 5 ml FEEDTUBE QDAY oral.liqd 04/26/16 Unknown Rx Vitamin Liq (Theragran)] Simple Syrup 15 ml FEEDTUBE PRN PRN #30 04/26/16 Unknown Rx oral.liqd Simple Syrup 30 ml FEEDTUBE PRN PRN #30 04/26/16 Unknown Rx oral.liqd Sodium Bicarbonate 325 mg FEEDTUBE PRN PRN #30 tablet 04/26/16 Unknown Rx Zinc Sulfate 220 mg PO QDAY capsule 04/26/16 Unknown Rx cloNIDine [Catapres] 0.2 mg PO BID tablet 04/26/16 Unknown Rx Allergies Allergy/AdvReac Type Severity Reaction Status Date / Time mirtazapine [From Remeron] Allergy Rash Verified 04/22/16 15:25 ED Review of Systems ROS: Stated complaint: PNUEMONIA Other details as noted in HPI Comment: Unobtainable due to pts medical conditions ED Past Medical Hx - Past Medical History Previous Medical History?: Yes Hx Hypertension: Yes Hx CVA: Yes Hx Diabetes: Yes Hx Deep Vein Thrombosis: Yes (Lt upper arm) Hx COPD: Yes Hx Dementia: Yes Hx HIV: No Additional medical history: PTSD, 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; aphasic - Surgical History Past Surgical History?: No Additional Surgical History: PEG placement - Social History Smoking Status: Never Smoker Substance Use Type: None - Medications Home Medications: Home Medications Medication Instructions Recorded Confirmed Last Taken Type Atorvastatin Calcium [Lipitor] 20 mg PO HS 03/29/16 05/04/16 05/03/16 History amLODIPine [Norvasc] 10 mg PO QAM 03/29/16 05/04/16 Unknown History metFORMIN [Glucophage] 500 mg PO BIDDIAB tablet 04/01/16 05/04/16 Unknown Rx predniSONE [Deltasone] 10 mg PO QDAY 04/10/16 05/04/16 Unknown History Amoxicillin/K Clav Tab [Augmentin 1 tab PO Q12HR #10 tab 04/26/16 05/04/16 Unknown Rx 875MG TAB] Enoxaparin [Lovenox] 70 mg SQ Q12HR 7 Days 04/26/16 05/04/16 05/03/16 Rx Lipase/Protease/Amylase [Pancreaze 1 each FEEDTUBE PRN PRN #30 capsule 04/26/16 05/04/16 Unknown Rx 10,500 Unit] Multivitamins Liq [Multiple 5 ml FEEDTUBE QDAY oral.liqd 04/26/16 05/04/16 Unknown Rx Vitamin Liq (Theragran)] Simple Syrup 15 ml FEEDTUBE PRN PRN #30 04/26/16 05/04/16 Unknown Rx oral.liqd Simple Syrup 30 ml FEEDTUBE PRN PRN #30 04/26/16 05/04/16 Unknown Rx oral.liqd Sodium Bicarbonate 325 mg FEEDTUBE PRN PRN #30 tablet 04/26/16 05/04/16 Unknown Rx Zinc Sulfate 220 mg PO QDAY capsule 04/26/16 05/04/16 Unknown Rx cloNIDine [Catapres] 0.2 mg PO BID tablet 04/26/16 05/04/16 Unknown Rx ED Physical Exam - General Limitations: Altered Mental Status, Physical Limitation General appearance: other (patient is awake he is tachypnea he is in respiratory distress) - Head Head exam: Present: atraumatic, normocephalic - Eye Eye exam: Present: normal appearance. Absent: scleral icterus - ENT ENT exam: Present: mucous membranes dry - Neck Neck exam: Present: normal inspection. Absent: tenderness - Respiratory Respiratory exam: Present: respiratory distress, rhonchi - Cardiovascular Cardiovascular Exam: Present: normal rhythm, tachycardia. Absent: systolic murmur, diastolic murmur, rubs, gallop - GI/Abdominal GI/Abdominal exam: Present: soft, normal bowel sounds, other (G-tube is present) . Absent: distended, tenderness, guarding, rebound, rigid - Rectal Rectal exam: Present: deferred - Extremities Exam Extremities exam: Present: normal inspection - Back Exam Back exam: Present: other (unable to visualize) - Neurological Exam Neurological exam: Present: altered, other (patient really not moving his extremities previous quadriplegia) - Psychiatric Psychiatric exam: Present: flat affect - Skin Skin exam: Present: warm, dry ED Course Vital Signs 05/21/16 05/21/16 05/21/16 14:10 14:51 14:55 Temperature 98.7 F 103.8 F H Pulse Rate 130 H Respiratory 22 42 H Rate Blood Pressure 106/71 [Right] O2 Sat by Pulse 87 91 Oximetry - Reevaluation(s) Reevaluation #1: The patient was maintaining a pulse oximetry of 95% on 40% Ventimask. His respiratory rate was consistently above 40. He was not however struggling to breathe. He has some mild rhonchi but no wheezes and probably just upper airway sounds. Obviously the patient is presenting with a sepsis syndrome. I spoke to the patient's about his outlook. He was found to be hypoxic but not hypercapnic. It was not obvious that he would benefit from BiPAP at this point. I increased his FiO2. Isolated to the that we can provide antibiotics but ultimately if he continues to be this tachypnea he will likely suffer a respiratory arrest. Therefore I discussed the options for end-of-life planning. I discussed this with Dr. Horn as well as Dr. Pineda. The decided to go with the noninvasive route and signed the appropriate forms. The patient was treated with triple antibiotics for presumed sepsis secondary to a hospital acquired pneumonia. However this may be secondary to aspiration as well. He was also found to be extremely hypernatremic and volume depleted. He was given a bolus of normal saline. Further care will be per critical care medicine and hospital medicine. 05/21/16 18:12 ED Medical Decision Making - Lab Data Result diagrams: 05/21/16 13:55 05/21/16 13:55 Laboratory Results - last 24 hr 05/21/16 05/21/16 05/21/16 13:55 13:55 13:55 WBC 11.8 H RBC 4.62 Hgb 11.1 L Hct 37.4 MCV 81 L MCH 24 L MCHC 30 L RDW 20.1 H Plt Count 209 PT 15.4 H INR 1.23 H Sodium 161 H* Potassium 4.6 Chloride 115.4 H Carbon Dioxide 30 Anion Gap 20 BUN 52 H Creatinine 1.2 Estimated GFR > 60 BUN/Creatinine Ratio 43.33 Glucose 258 H Calcium 9.7 Total Bilirubin 0.4 AST 16 ALT 8 Alkaline Phosphatase 130 H Total Protein 7.4 Albumin 2.7 L Albumin/Globulin Ratio 0.6 - EKG Data -: EKG Interpreted by Vt EKG shows normal: sinus rhythm Rate: tachycardia - EKG Data Interpretation: other (diffuse repolarization abnormality not clearly diagnostic of ischemia) - Radiology Data interpreted by nj: Chest x-ray shows a right lower lobe infiltrate which is moderately subtle. Critical care attestation.: If time is entered above; I have spent that time in minutes in the direct care of this critically ill patient, excluding procedure time. ED Disposition Clinical Impression: Respiratory distress, Hypernatremia, Prerenal azotemia, Volume depletion Pneumonia Qualifiers: Pneumonia type: due to unspecified organism Laterality: right Lung location: lower lobe of lung Qualified Code(s): J18.9 - Pneumonia, unspecified organism Decubitus ulcers Qualifiers: Pressure ulcer stage: unspecified pressure ulcer stage Qualified Code(s): L89.90 - Pressure ulcer of unspecified site, unspecified stage Disposition: OP ADMITTED IP TO THIS HOSP Is pt being admited?: Yes Does the pt Need Aspirin: Yes Condition: Stable Instructions: Bacterial Pneumonia (ED) Time of Disposition: 18:19
[2016-05-21] MEDS ORDERED: LEVAQUIN 750MG/150ML 750 MG/150 ML BAG IV ONE (14:58)
[2016-05-21] MEDS ORDERED: VANCOMYCIN PHARMACY TO DOSE IV SCH (15:00)
[2016-05-21 15:04] LABS: Basophils % (Manual) 0 % (0.0-1.8); Blastocytes % (Manual) 0 %; Eosinophils % (Manual) 0 % (0.0-4.3)
[2016-05-21 15:05] LABS: Anisocytosis Few; Diff Status Complete; Hypochromasia Few; Large Platelets Few
[2016-05-21 15:15] LABS: ISTAT Base Excess 9; ISTAT HCO3 32.2; ISTAT PCO2 39.9 (35-45); ISTAT PH 7.515 (7.35-7.45); ISTAT PO2 58 (80-105); ISTAT SO2 92; ISTAT TCO2 33
[2016-05-21 15:19] LABS: Bilirubin,Urine NEG (Negative); Blood,Urine NEG (Negative); Ketones,Urine NEG (Negative); Leukocyte Esterase,Urine NEG (Negative); Mucus,Urine FEW /HPF; Nitrite,Urine NEG (Negative)
--- NOTE | 2016-05-21 15:27 | XRay Report ---
Portable chest: There is a hazy opacity in the lower right lung. There is a focal area of atelectasis at the left lung base. These findings are both new compared to the prior study of April 22. The chest is not otherwise remarkable. Impression: Right middle or lower lobe infiltrate.
--- NOTE | 2016-05-21 15:39 | Admit Criteria Form ---
Admission Criteria Documentation: SEVERE SEPSIS Clinical Indications for Admission to Inpatient Care (Place 'X' for any and all applicable criteria): Hospital admission is needed for appropriate care of the patient because of ANY ONE of the following: [X]I. Hemodynamic instability indicated by ANY ONE of the following(1)(2)(3)( 4)(5): [X]a. Vital sign abnormality not readily corrected by appropriate treatment within 12 to 24 hours indicated by ANY ONE of the following: [X]i) Tachycardia that persists despite appropriate treatment []ii) Hypotension that persists despite appropriate treatment []iii) Orthostatic vital sign changes that persist despite appropriate treatment [X]b. Vital sign abnormality that is severe indicated by ANY ONE of the following: [X]i. Inadequate perfusion indicated by ANY ONE of the following: [X]1) Lactic acidosis (greater than 2 mmol/L) []2) New abnormal capillary refill (greater than 3 seconds) []3) Reduced urine output []4) New altered mental status []5) Myocardial Ischemia []ii. Mean arterial pressure [A] less than 60 mm Hg []iii. Mean arterial pressure[A] less than 70 mm Hg after 30 minutes of appropriate treatment (eg, fluid resuscitation) []iv. Sustained heart rate greater than 120 beats per minute in adult []v. IV inotropic or vasopressor medication required to maintain adequate blood pressure or perfusion [X]II. Systemic or infectious condition causing severe symptoms or findings not responsive to emergency or observation care treatment (as appropriate) indicated by ANY ONE of the following: []a. Cardiac arrhythmias of immediate concern(1)(2)(3) []b. Severe endocrine disorder (eg, thyrotoxicosis, adrenal insufficiency)(4)(5) []c. Seizures (eg, new or recurrent)(6) []d. New-onset end organ failure or dysfunction as indicated by ANY ONE of the following: []i. Acute unexplained hypoxemia (eg, not from lung infection or chronic disease)(7)(8)(9) []ii. Acute renal failure as indicated by new onset of ANY ONE of the following(10)(11)(12)(13)(14): []1) 3-fold rise in serum creatinine from baseline []2) Serum creatinine greater than 4 mg/dL (354 micromoles/L) with acute rise greater than 0.5 mg/dL (44.2 micromoles/L) []3) Reduction of more than 75% in estimated glomerular filtration rate from baseline. []4) Estimated glomerular filtration rate less than 35 mL/min/1.73m2 ( 0.59 mL/sec/1.73m2) in child younger than 18 years. []5) Cessation of urine output indicated by ALL of the following: []A. Adequate volume status []B. Inadequate urine output as indicated by ANY ONE of the following: []a. Urine output less than 0.3 mL/kg/hr for 24 hours []b. Anuria (urine output less than 0.1 mL/kg/hr) for 12 hours []iii. Acute mental status changes(15) []iv. Acute hepatic failure (eg, plasma bilirubin greater than 4 mg/ dL (68 micromoles/L), new INR greater than 2.0)(16)(17) []e. Unmanageable nausea and vomiting(18) []f. New-onset or uncontrolled central diabetes insipidus(19)(20) []g. Clinically significant dehydration(18)(21) []h. Hypoglycemia(22) [X]i. Acidosis (pH less than 7.35) or alkalosis (pH greater than 7.45)( 22)(23) []j. Toxic drug level that indicates need for specific monitoring or treatment(24)(25) [X]k. Severe electrolyte abnormalities indicated by ALL of the following (1)(2)(3): [X]i. Electrolytes and associated findings are not as expected for patient baseline or acceptable treatment effects. [X]ii. Severe abnormalities indicated by ANY ONE of the following: []1) Sodium less than 130 mEq/L (mmol/L) (new) []2) Sodium less than 135 mEq/L (mmol/L) with ANY ONE of the following: []A. Uncorrectable (to near normal or chronic baseline) after trial of outpatient and emergency treatment []B. Altered mental status []C. Seizures []D. Severe medical etiology requiring inpatient management (eg , heart failure, hypovolemia) [X]3) Sodium greater than 155 mEq/L (mmol/L) []4) Sodium greater than 150 mEq/L (mmol/L) with ANY ONE of the following: []A. Uncorrectable (to near normal or chronic baseline) with outpatient and emergency treatment []B. Altered mental status []C. Seizures []D. Severe medical etiology (eg, hypovolemia, diabetes insipidus) []5) Potassium less than 2.5 mEq/L (mmol/L) despite outpatient and emergency treatment []6) Potassium less than 3 mEq/L (mmol/L) with ANY ONE of the following : []A. Weakness []B. Cardiac abnormality (eg, arrhythmia, conduction disturbance ) []C. Cardiac ischemia []D. Ileus []E. Ongoing medical cause requiring inpatient management (eg, acute renal wasting or SIADH) []F. Other severe symptoms []7) Potassium greater than 6.5 mEq/L (mmol/L) []8) Potassium greater than 5 mEq/L (mmol/L) with ANY ONE of the following: []A. Uncorrectable (to near normal or chronic baseline) with outpatient and emergency treatment []B. Severe ECG findings[A] []C. Acute worsening of renal failure (creatinine greater than 2.5 mg/dL (221 micromoles/L) or significant elevation for age and size) []D. Severe weakness []E. Severe medical etiology (eg, hemolysis, infection, drug overdose) []9) Calcium less than 7 mg/dL (1.75 mmol/L) despite outpatient and emergency treatment(5) []10) Calcium less than 8 mg/dL (2 mmol/L) with significant symptoms or findings (eg, altered mental status, muscle spasms, seizures, breathing difficulty, cardiac abnormality (eg, arrhythmia or conduction disturbance))(5) []11) Calcium greater than 14 mg/dL (3.5 mmol/L)(5) []12) Calcium greater than 12 mg/dL (3 mmol/L) with ANY ONE of the following(5): []A. Uncorrectable (to near normal or chronic baseline) with outpatient and emergency treatment []B. Significant dehydration or hypovolemia as indicated by ALL of the following(3)(6)(7): []a. Not resolved with initial treatments []b. Clinically significant dehydration as indicated by ANY ONE of the following: [](1) Vomiting refractory to outpatient treatment (ie, precluding oral rehydration) [](2) Inability to drink [](3) Hypernatremia or other electrolyte abnormality unable to be corrected with outpatient and emergency treatment [](4) Failure to remain hydrated with outpatient therapy [](5) Reduced urine output [](6) Hypotension [](7) Serious cause for dehydration requiring acute hospitalization ( eg, bowel obstruction, increased intracranial pressure, infectious cause) [](8) Child with ANY ONE of the following(8): [](i) Severe abdominal tenderness [](ii) Adequate care not available at home [](iii) Severe dehydration (greater than 9% loss of body weight) []C. Significant symptoms or findings (eg, altered mental status , cardiac abnormality (eg, arrhythmia, conduction disturbance), malignant etiology requiring inpatient treatment) []13) Phosphorus less than 1 mg/dL (0.32 mmol/L) []14) Phosphorus less than 1.5 mg/dL (0.48 mmol/L) with ANY ONE of the following: []A. Patient unresponsive to outpatient and emergency treatment []B. Significant symptoms or findings (eg, weakness, altered mental status, breathing difficulty, seizures, rhabdomyolysis) []15) Phosphorus greater than 10 mg/dL (3.2 mmol/L) []16) Phosphorus greater than 4.5 mg/dL (1.45 mmol/L) (new) with ANY ONE of the following: []A. Severe medical etiology (eg, crush injury, acute renal failure) []B. Associated hypocalcemia with significant findings (eg, neurologic symptoms, altered mental status, muscle spasms, seizures, breathing difficulty, cardiac abnormality (eg, arrhythmia, conduction disturbance)) []16) Magnesium less than 1 mg/dL (0.41 mmol/L) []17) Magnesium less than 1.5 mg/dL (0.62 mmol/L) with ANY ONE of the following: []A. Patient unresponsive to outpatient and emergency treatment []B. Associated hypocalcemia with significant findings (eg, altered mental status, muscle spasms, seizures, breathing difficulty, cardiac abnormality (eg, arrhythmia, conduction disturbance)) []C. Associated hypokalemia (potassium less than 3 mEq/L (mmol/L )) with risk of arrhythmia []18) Magnesium greater than 4 mEq/L (2 mmol/L) []19) Magnesium greater than 2.5 mEq/L (1.25 mmol/L) with significant symptoms or findings (eg, weakness, altered mental status, cardiac abnormality (eg, arrhythmia, conduction disturbance), breathing difficulty, severe medical etiology (eg, renal failure, hypovolemia)) []20) Uric acid greater than 20 mg/dL (1190 micromoles/L)(9) []21) Uric acid greater than 8 mg/dL (476 micromoles/L) with significant symptoms or findings of tumor lysis syndrome (eg, creatinine greater than 1.5 times upper limit of normal, cardiac abnormality (eg , arrhythmia, conduction disturbance), seizure)(9) []III. High fever or other high-risk infection situation as indicated by ANY ONE of the following(26)(27)(28): []a. Outpatient and observation care antimicrobial treatment unavailable, not effective, or not appropriate []b. Documented bacteremia []c. Temperature greater than 104.9 degrees F (40.5 degrees C) (oral) []d. Temperature greater than 103.1 degrees F (39.5 degrees C) (oral) or less than 96.8 degrees F (36 degrees C) (rectal) that does not respond to emergency treatment and observation care []IV. High-risk febrile neutropenia[A] as indicated by ANY ONE of the following(29)(30)(31)(32): []a. Profound neutropenia[B] anticipated to extend for more than 7 days []b. Hemodynamic instability []c. Hypoxemia []d. Tachypnea []e. Altered mental status []f. New-onset abdominal pain []g. New-onset vomiting or diarrhea []h. Oral or gastrointestinal mucositis that interferes with swallowing or causes severe diarrhea []i. Focal infection (eg, cellulitis, pneumonia, central line or catheter infection, perirectal abscess) []j. Renal insufficiency (eg, GFR of less than 30 mL/min/1.73m2 (0.5 mL/sec /1.73m2)). []k. Severe liver dysfunction (transaminase levels greater than 5 times normal) []l. Platelet count less than 50,000/mm3 (50 x109/L)(33) []m. Leukemia or lymphoma induction therapy []n. Leukemia not in complete remission or with evidence of disease progression []o. Bone marrow transplant patient []p. Alemtuzumab being used for therapy []q. [employer] Association for Supportive Care in Cancer (MASCC) Risk Index score of less than 21[C](33)(35). []V. Isolation required (eg, tuberculosis that requires isolation, Ebola infection)[D](36)(37)(38)(39)(40) []. Gangrene that requires treatment beyond emergency or observation level care(41)(42) []VII. Antitoxin administration and ongoing observation required (eg, tetanus, botulism)(43)(44) []. Suspected infection with rapid progression or severe symptoms as indicated by ANY ONE of the following(45): []a. Streptococcal or staphylococcal toxic shock(46) []b. Diphtheria(47) []c. Hantavirus(48) []d. Severe acute respiratory syndrome(8)(49) []e. Anthrax(50) []f. Ebola[D](36)(37)(38) []g. Necrotizing soft tissue infection(41)(42) []h. Plague(50) []i. Other suspected infection that requires care beyond emergency or observation level care []VII. Severe adverse drug or systemic toxin reaction as indicated by ANY ONE of the following(24): []a. Serotonin syndrome(51)(52) []b. Neuroleptic malignant syndrome(51)(52) []c. Cholinergic syndrome with severe symptoms (eg, bronchorrhea, weakness , mental status changes, seizures)(53) []d. Anticholinergic syndrome []e. Sympathetic syndrome with severe symptoms (eg, seizures, mental status changes, cardiac dysrhythmias) []f. Other severe adverse drug or systemic toxin reaction that remains after emergency or observation level care (as appropriate) []VIII. Allergic reaction with severe symptoms (not responsive to emergency or observation care treatment as appropriate), including ANY ONE of the following(54): []a. Airway edema (pharyngeal, epiglottic, or laryngeal edema) []b. Stridor []c. Respiratory failure []d. Bronchospasm []e. Hypotension []IX. Environmental emergency (not responsive to emergency or observation care treatment as appropriate) as indicated by ANY ONE of the following(55)(56): []a. Hyperthermia []b. Heat stroke []c. Heat exhaustion []d. Hypothermia (temperature less than 95 degrees F (35 degrees C) rectal) (57) []e. Electrocution(58) []X. Complications of transplanted organ (ie, not covered elsewhere)[E] indicated by ANY ONE of the following(59): []a. Acute graft rejection (or graft vs. host disease)[F] requiring inpatient management (eg, intravenous immunosuppression)(60)(61)(62)( 63) []b. Acute failure of transplanted organ necessitating inpatient care (eg, cannot be managed in other setting) []c. Infection requiring inpatient management (eg, Hemodynamic instability, need for intravenous antimicrobial treatment)(64)(65) []d. Other complication of transplanted organ requiring inpatient management []XI. Systemic or Infectious Condition condition, symptom, or finding for which emergency and observation care have failed or are not considered appropriate. See General Criteria: Observation Care, General Admission Criteria or Pediatric General Admission Criteria guideline as appropriate. (Contents from SEVERE SEPSIS and SYSTEMIC OR INFECTIOUS CONDITION clinical indications for admission to inpatient care have been integrated in this form) The original [facility] content created by [facility] has been revised. The portions of the content which have been revised are identified through the use of italic text or in bold and [facility] has neither reviewed nor approved the modified material. All other unmodified content is copyright [facility]. Please see references footnoted in the original [facility] edition 2016 Admission Criteria Met: Yes
[2016-05-21] MEDS ORDERED: VANCOMYCIN VIAL 1,250 MG in NACL 0.9% 250ML 250 ML IV ONE (16:00)
--- NOTE | 2016-05-21 17:30 | History and Physical Report ---
History of Present Illness Date of examination: 05/21/16 Date of admission: 05/21/16 Chief complaint: Increasing SOB for one day History of present illness: 66 y/o AAM [place] resident sent in for increasing respiratory distress.NH says he has RLL pneumonia.Low grade fever.Worsening SOB.On 100 percent NRB Past History Past Medical History: COPD, diabetes, hypertension, hyperlipidemia, stroke, other (DVT Dementia) Past Surgical History: Other (Peg placement) Social history: AND/DNR-allow natural , other ([place] resident) Family history: hypertension Medications and Allergies Allergies Allergy/AdvReac Type Severity Reaction Status Date / Time mirtazapine [From Remeron] Allergy Rash Verified 04/22/16 15:25 Home Medications Medication Instructions Recorded Confirmed Last Taken Type Atorvastatin Calcium [Lipitor] 20 mg PO HS 03/29/16 05/04/16 05/03/16 History amLODIPine [Norvasc] 10 mg PO QAM 03/29/16 05/04/16 Unknown History metFORMIN [Glucophage] 500 mg PO BIDDIAB tablet 04/01/16 05/04/16 Unknown Rx predniSONE [Deltasone] 10 mg PO QDAY 04/10/16 05/04/16 Unknown History Amoxicillin/K Clav Tab [Augmentin 1 tab PO Q12HR #10 tab 04/26/16 05/04/16 Unknown Rx 875MG TAB] Enoxaparin [Lovenox] 70 mg SQ Q12HR 7 Days 04/26/16 05/04/16 05/03/16 Rx Lipase/Protease/Amylase [Pancreaze 1 each FEEDTUBE PRN PRN #30 capsule 04/26/16 05/04/16 Unknown Rx 10,500 Unit] Multivitamins Liq [Multiple 5 ml FEEDTUBE QDAY oral.liqd 04/26/16 05/04/16 Unknown Rx Vitamin Liq (Theragran)] Simple Syrup 15 ml FEEDTUBE PRN PRN #30 04/26/16 05/04/16 Unknown Rx oral.liqd Simple Syrup 30 ml FEEDTUBE PRN PRN #30 04/26/16 05/04/16 Unknown Rx oral.liqd Sodium Bicarbonate 325 mg FEEDTUBE PRN PRN #30 tablet 04/26/16 05/04/16 Unknown Rx Zinc Sulfate 220 mg PO QDAY capsule 04/26/16 05/04/16 Unknown Rx cloNIDine [Catapres] 0.2 mg PO BID tablet 04/26/16 05/04/16 Unknown Rx Active Meds: Active Medications Piperacillin Sod/Tazobactam Sod (Zosyn/Ns 3.375gm/50ml) 3.375 gm in 50 mls @ 0 mls/hr IV Q6H USMAN Vancomycin HCl (Vancomycin/Ns 1 Gm/250 Ml) 1 gm in 250 mls @ 166.667 mls/hr IV Q24H [facility]MAN Vancomycin HCl (Vancomycin Pharmacy To Dose) 1 each IV PKCONSULT USMAN PRN Reason: Protocol Review of Systems All systems: negative Respiratory: cough, shortness of breath, congestion, wheezing Neurological: paralysis (L hemiplegia Bed ridden) Exam - Constitutional Vitals: Temp Pulse Resp BP Pulse Ox 103.8 F H 130 H 42 H 106/71 91 05/21/16 14:55 05/21/16 14:10 05/21/16 14:51 05/21/16 14:10 05/21/16 14:51 General appearance: Present: cachectic - EENT Eyes: Present: PERRL ENT: hearing intact, clear oral mucosa - Neck Neck: Present: supple, normal ROM - Respiratory Respiratory effort: normal Respiratory: bilateral: rhonchi, wheezing - Cardiovascular Heart Sounds: Present: S1 & S2. Absent: rub, click - Extremities Extremities: pulses symmetrical, No edema Peripheral Pulses: within normal limits - Abdominal General gastrointestinal: Present: soft, non-tender, non-distended, normal bowel sounds, other (Peg in place) Male genitourinary: Present: normal - Integumentary Integumentary: Present: clear, warm, dry - Musculoskeletal Musculoskeletal: gait normal, strength equal bilaterally - Psychiatric Psychiatric: appropriate mood/affect, intact judgment & insight - Neurologic Neurologic: focal deficits (L Hemiplegia) - Allied Health Allied health notes reviewed: nursing Results - Labs CBC & Chem 7: 05/22/16 06:20 05/22/16 06:20 Labs: Abnormal lab results 05/21/16 05/21/16 05/21/16 Range/Units 13:55 13:55 13:55 WBC 11.8 H (4.5-11.0) K/mm3 Hgb 11.1 L (11.8-15.2) gm/dl MCV 81 L (84-94) fl MCH 24 L (28-32) pg MCHC 30 L (32-34) % RDW 20.1 H (13.2-15.2) % Lymphocytes % (Manual) 8.0 L (13.4-35.0) % Nucleated RBC % 1.0 H (0.0-0.9) % Seg Neutrophils # Man 8.3 H (1.8-7.7) K/mm3 Lymphocytes # (Manual) 0.9 L (1.2-5.4) K/mm3 PT 15.4 H (12.2-14.9) Sec. INR 1.23 H (0.87-1.13) POC ABG pH (7.35-7.45) POC ABG pO2 (80-105) VBG pH (7.320-7.420) Sodium 161 H* (137-145) mmol/L Chloride 115.4 H (98-107) mmol/L BUN 52 H (9-20) mg/dL Glucose 258 H (75-100) mg/dL Lactic Acid (0.7-2.0) mmol/L Alkaline Phosphatase 130 H (35-129) units/L Albumin 2.7 L (3.9-5) g/dL 05/21/16 05/21/16 05/21/16 Range/Units 13:55 13:55 15:06 WBC (4.5-11.0) K/mm3 Hgb (11.8-15.2) gm/dl MCV (84-94) fl MCH (28-32) pg MCHC (32-34) % RDW (13.2-15.2) % Lymphocytes % (Manual) (13.4-35.0) % Nucleated RBC % (0.0-0.9) % Seg Neutrophils # Man (1.8-7.7) K/mm3 Lymphocytes # (Manual) (1.2-5.4) K/mm3 PT (12.2-14.9) Sec. INR (0.87-1.13) POC ABG pH 7.515 H (7.35-7.45) POC ABG pO2 58 L (80-105) VBG pH 7.453 H (7.320-7.420) Sodium (137-145) mmol/L Chloride (98-107) mmol/L BUN (9-20) mg/dL Glucose (75-100) mg/dL Lactic Acid 4.6 H* (0.7-2.0) mmol/L Alkaline Phosphatase (35-129) units/L Albumin (3.9-5) g/dL Short CBC 05/21/16 05/22/16 Range/Units 13:55 06:20 WBC 11.8 H 7.9 (4.5-11.0) K/mm3 Hgb 11.1 L 9.8 L (11.8-15.2) gm/dl Hct 37.4 33.0 L (35.5-45.6) % Plt Count 209 167 (140-440) K/mm3 BMP 05/21/16 05/22/16 13:55 06:20 Sodium 161 H* TNR Potassium 4.6 3.8 Chloride 115.4 H 118.3 H Carbon Dioxide 30 30 BUN 52 H 54 H Creatinine 1.2 1.0 Glucose 258 H TNR Calcium 9.7 8.9 Liver Function 05/21/16 Range/Units 13:55 Total Bilirubin 0.4 (0.1-1.2) mg/dL AST 16 (5-40) units/L ALT 8 (7-56) units/L Alkaline Phosphatase 130 H (35-129) units/L Albumin 2.7 L (3.9-5) g/dL Urine 05/21/16 Range/Units 14:51 Urine Color Yellow (Yellow) Urine pH 7.0 (5.0-7.0) Ur Specific [place] 1.018 (1.003-1.030) Urine Protein 30 mg/dl (Negative) mg/dL Urine Glucose (UA) Neg (Negative) mg/dL - Imaging and Cardiology EKG: report reviewed (Non specific ST T wave changes) Chest x-ray: report reviewed (RLL PNA or RML PNA) Assessment and Plan - Patient Problems (1) Acute respiratory failure Current Visit: Yes Status: Acute Qualifiers: Respiratory failure complication: hypoxia Qualified Code(s): J96.01 - Acute respiratory failure with hypoxia Plan to address problem: Bipap duonebs steroids and ABX Initially was supposed to be admitted to ICU but b/c of DNR status was downgraded to Reg floor.Also patient improved to some extent (2) Pneumonia Current Visit: Yes Status: Acute Qualifiers: Pneumonia type: aspiration pneumonia Aspiration pneumonia type: A Laterality: right Lung location: lower lobe of lung Plan to address problem: IV ABX for now-Zosyn ivpb . (3) Hypernatremia Current Visit: Yes Status: Acute Plan to address problem: Severe-Free fluids for now IV/peg (4) Volume depletion Current Visit: No Status: Acute Plan to address problem: Same as in above (5) Acute renal failure Current Visit: Yes Status: Acute Qualifiers: Acute renal failure type: unspecified Qualified Code(s): N17.9 - Acute kidney failure, unspecified Plan to address problem: IV fluids (6) T2DM (type 2 diabetes mellitus) Current Visit: Yes Status: Acute Qualifiers: Diabetes mellitus complication status: with neurologic complications Diabetes mellitus complication detail: with other neurological complication Diabetic retinopathy severity: D Proliferative retinopathy type: P Diabetes mellitus macular edema: D Diabetes mellitus manager intermediate insulin use: without residential use Laterality: L Chronic kidney disease stage: C Qualified Code (s): E11.49 - Type 2 diabetes mellitus with other diabetic neurological complication Plan to address problem: Coverage for now.Will hold Metformin (7) CVA (cerebral vascular accident) Current Visit: No Status: Chronic Qualifiers: CVA mechanism: C Precerebral and cerebral artery: middle cerebral artery Laterality of affected vessel: right Plan to address problem: Supportive care (8) DVT prophylaxis Current Visit: Yes Status: Acute Plan to address problem: Lovenox 40 mg sq qd
[2016-05-21] MEDS ORDERED: PANCREAZE DR 10,500 UNIT FEEDTUBE PRN (17:31)
[2016-05-21] MEDS ORDERED: SODIUM BICARBONATE FEEDTUBE PRN (17:31)
[2016-05-21] MEDS ORDERED: MILK OF MAGNESIA PO PRN (17:32)
[2016-05-21] MEDS ORDERED: DULCOLAX PR PRN (17:32)
[2016-05-21] MEDS ORDERED: TYLENOL PO PRN (17:32)
[2016-05-21] MEDS ORDERED: ZOFRAN IV PRN (17:32)
[2016-05-21] MEDS ORDERED: DILAUDID IV PRN (17:32)
[2016-05-21] MEDS ORDERED: DUONEB 0.5 MG-3 MG/3 ML SOLN IH PRN (17:37)
[2016-05-21] MEDS ORDERED: PROVENTIL IH PRN (17:45)
[2016-05-21] MEDS ORDERED: D5NS 1,000 ML IV SCH (18:00)
[2016-05-21] MEDS ORDERED: ASPIRIN PR ONE (18:20)
--- NOTE | 2016-05-21 18:54 | Consultation ---
History of Present Illness Consult date: 05/21/16 Requesting physician: JAMILA LA Reason for consult: pneumonia, other (Sepsis Syndrome) History of present illness: PULMONARY/CCM CONSULT NOTE (Full dictation # [id number]) Please see dictated notes for full details Medications and Allergies Allergies Allergy/AdvReac Type Severity Reaction Status Date / Time mirtazapine [From Remeron] Allergy Rash Verified 04/22/16 15:25 Home Medications Medication Instructions Recorded Confirmed Last Taken Type Atorvastatin Calcium [Lipitor] 20 mg PO HS 03/29/16 05/04/16 05/03/16 History amLODIPine [Norvasc] 10 mg PO QAM 03/29/16 05/04/16 Unknown History metFORMIN [Glucophage] 500 mg PO BIDDIAB tablet 04/01/16 05/04/16 Unknown Rx predniSONE [Deltasone] 10 mg PO QDAY 04/10/16 05/04/16 Unknown History Amoxicillin/K Clav Tab [Augmentin 1 tab PO Q12HR #10 tab 04/26/16 05/04/16 Unknown Rx 875MG TAB] Enoxaparin [Lovenox] 70 mg SQ Q12HR 7 Days 04/26/16 05/04/16 05/03/16 Rx Lipase/Protease/Amylase [Pancreaze 1 each FEEDTUBE PRN PRN #30 capsule 04/26/16 05/04/16 Unknown Rx 10,500 Unit] Multivitamins Liq [Multiple 5 ml FEEDTUBE QDAY oral.liqd 04/26/16 05/04/16 Unknown Rx Vitamin Liq (Theragran)] Simple Syrup 15 ml FEEDTUBE PRN PRN #30 04/26/16 05/04/16 Unknown Rx oral.liqd Simple Syrup 30 ml FEEDTUBE PRN PRN #30 04/26/16 05/04/16 Unknown Rx oral.liqd Sodium Bicarbonate 325 mg FEEDTUBE PRN PRN #30 tablet 04/26/16 05/04/16 Unknown Rx Zinc Sulfate 220 mg PO QDAY capsule 04/26/16 05/04/16 Unknown Rx cloNIDine [Catapres] 0.2 mg PO BID tablet 04/26/16 05/04/16 Unknown Rx Active Meds: Active Medications Acetaminophen (Tylenol) 650 mg PO Q4H PRN PRN Reason: Pain MILD(1-3)/Fever >100.5/SOUZA Albuterol (Proventil) 2.5 mg IH Q3HRT PRN PRN Reason: Wheezing Albuterol/Ipratropium (Duoneb 0.5 Mg-3 Mg/3 Ml Soln) 1 ampul IH Q6HRT [facility] Lipase/Protease/Amylase (Pancreaze Dr 10,500 Unit) 1 each FEEDTUBE PRN PRN PRN Reason: For Clogged Feeding Tube Bisacodyl (Dulcolax) 10 mg [place] QDAY PRN PRN Reason: Constipation unrelieved by MOM Hydromorphone HCl (Dilaudid) 0.5 mg IV Q3H PRN PRN Reason: Pain , Severe (7-10) Piperacillin Sod/Tazobactam Sod (Zosyn/Ns 3.375gm/50ml) 3.375 gm in 50 mls @ 0 mls/hr IV Q6H [facility] Vancomycin HCl (Vancomycin/Ns 1 Gm/250 Ml) 1 gm in 250 mls @ 166.667 mls/hr IV Q24H [facility] Dextrose/Sodium Chloride (D5ns) 1,000 mls @ 100 mls/hr IV DIRECT [facility] Magnesium Hydroxide (Milk Of Magnesia) 30 ml PO Q4H PRN PRN Reason: Constipation Methylprednisolone Sodium Succinate (Solu-Medrol) 60 mg IV Q8HR [facility] Ondansetron HCl (Zofran) 4 mg IV Q8H PRN PRN Reason: N/V unrelieved by Reglan Sodium Bicarbonate (Sodium Bicarbonate) 325 mg FEEDTUBE PRN PRN PRN Reason: For Clogged Feeding Tube Vancomycin HCl (Vancomycin Pharmacy To Dose) 1 each IV PKCONSULT [facility]MAN PRN Reason: Protocol Zinc Sulfate (Zinc Sulfate) 220 mg PO QDAY [facility] Physical Examination Vital signs: Vital Signs Temp Pulse Resp BP Pulse Ox 98.7 F 130 H 22 106/71 87 05/21/16 14:10 05/21/16 14:10 05/21/16 14:10 05/21/16 14:10 05/21/16 14:10 Results - Laboratory Findings CBC and BMP: 05/21/16 13:55 05/21/16 13:55 ABG POC ABG pH 7.515 (7.35-7.45) H 05/21/16 15:06 POC ABG pCO2 39.9 (35-45) 05/21/16 15:06 POC ABG pO2 58 (80-105) L 05/21/16 15:06 POC ABG HCO3 32.2 05/21/16 15:06 POC ABG Total CO2 33 05/21/16 15:06 POC ABG O2 Sat 92 05/21/16 15:06 PT/INR, D-dimer PT 15.4 Sec. (12.2-14.9) H 05/21/16 13:55 INR 1.23 (0.87-1.13) H 05/21/16 13:55
[2016-05-21] MEDS ORDERED: ZOSYN/NS 3.375GM/50ML 3.375 GM/50 ML BAG IV ONE (19:13)
[2016-05-21] MEDS: ZOSYN/NS 3.375GM/50ML 3.375 GM/50 ML BAG IV SCH (19:20)
[2016-05-21] MEDS: ZINC SULFATE PO SCH (20:20)
[2016-05-21] MEDS: DUONEB 0.5 MG-3 MG/3 ML SOLN IH SCH (21:09)
[2016-05-22] MEDS: ZOSYN/NS 3.375GM/50ML 3.375 GM/50 ML BAG IV SCH ×4 (00:23→17:05)
[2016-05-22] MEDS: DUONEB 0.5 MG-3 MG/3 ML SOLN IH SCH ×3 (02:13→13:40)
--- NOTE | 2016-05-22 02:50 | Consultation ---
CONSULTING PHYSICIANS: 1. Elias Kidd MD 2. Ángela Pineda MD REASON FOR CONSULTATION: Acute hypoxemic respiratory failure, sepsis syndrome. CHIEF COMPLAINT AND HISTORY OF PRESENT ILLNESS: The patient is a 66-year-old -Chinese male known to me from recent admissions, with past medical history amongst other things significant for I believe the diagnosis of a CVA, prison resident, functional quadriparesis, total care patient, also history of diabetes, came in from the prison secondary to respiratory distress. He was diagnosed with pneumonia. He again has been treated for a GI bleed at that time. When I stopped by to see him, he was on 100% nonrebreather mask. He was lethargic, but able to answer questions, nodded his head no to pain. His daughter was also in the room. I do not have any history of emesis or overt aspiration, although I cannot rule that out. He is not a current smoker. Remote history is unknown. That really is as much of the history of presentation as I have. PAST MEDICAL HISTORY: Hypertension, cerebrovascular accident, diabetes, deep vein thrombosis in left upper, COPD, dementia, posttraumatic stress disorder, and a history of pemphigus vulgaris if I remember correctly. PAST SURGICAL HISTORY: He has had a PEG placed in the past. MEDICATIONS: He was on at the time I stopped by to see him, according to the medication administration record included the following: He was on p.r.n. albuterol. He was on DuoNeb treatments nebulized q. 6 hours. He was on Dulcolax 10 mg per rectum daily. He was on Dilaudid 0.5 mg IV q. 3 hours p.r.n. severe pain, D5 NS drip was going at 100 mL an hour, Solu-Medrol 60 mg IV q. 8 hours, Zofran 4 mg IV q. 8 hours, Zosyn 3.375 grams IV q. 6 hours, Vancomycin 1 gram IV q. 24 hours, and p.r.n. sodium bicarbonate for the feeding tube if clogged. ALLERGIES: Mirtazapine, nature of this allergy is unknown. DIET: Cachectic looking gentleman, does not seem to have lost significant weight since I last seen him though. FAMILY AND SOCIAL HISTORY: half-way resident. He is . She is in the room. He is a never smoker. No current alcohol or illicit drug use or abuse history. REVIEW OF SYSTEMS: No overt loss of consciousness. No new onset seizures. No new onset focal weakness. No gross hematochezia or melena reported. No gross hematuria. He denies chest pain. Complete review of systems obtained as best as I could. Pertinent positives and/or negatives as in body of history above, otherwise noncontributory. PHYSICAL EXAMINATION: VITAL SIGNS: At presentation, temperature was 98.7 Fahrenheit, pulse of 130, respiratory rate 42, blood pressure 106/71, oxygen sats were 87%, inspired oxygen concentration was not recorded. HEAD, EYES, EARS, NOSE, AND THROAT: Pupils are equal, round, about 3 mm, reactive to light. Extraocular muscle movements could not be adequately assessed. Grossly, there were no palpable lymph nodes in the supraclavicular or submandibular lymph node chains. He does have some supraclavicular and temporal wasting. LUNGS: Auscultation of both lung sanchez diminished bilateral breath sounds, scant basilar rales. No wheezing. HEART: Heart sounds 1 and 2 are heard at the time of my evaluation, regular tachycardia. ABDOMEN: Soft, flat. Bowel sounds are positive, nontender. EXTREMITIES: Without overt digital clubbing, cyanosis, or pedal edema. He has a rash, the pemphigus vulgaris rash to over the skin, most of the entire body, but it is well resolved compared to when last I saw him. NEUROLOGIC: He has residual deficits from the CVA. LABORATORY DATA: From my review are as follows: White cell count 11,800, hemoglobin 11.1, hematocrit 37.4, platelets 209. INR 1.23. Arterial blood gas showed a pH of 7.52, pCO2 of 40, pO2 of 58 on 40% FiO2 at that time. Serum sodium was 161, potassium 4.6, chloride 115, bicarbonate 30, BUN 52, creatinine 1.2, glucose 258. Lactic acid level was 4.6. Liver function tests essentially within normal limits. Albumin was low at 2.7. Urinalysis was negative for nitrites and leukocyte esterase. Radiographic studies have been reviewed. I have also reviewed the radiologist's interpretation and comparing this x-ray with the most recent x-ray from 04/22/2016, right lower lobe/right middle lobe infiltrate is new. ASSESSMENT AND PLAN: We have an elderly gentleman in with a sepsis syndrome. Respiratory french, we will keep him on a supplemental oxygen at this point. Bilevel positive airway pressure ventilation therapy will be offered on a p.r.n. basis, mostly for patient comfort at this time, I will hold from deploying it. He is not using any accessory muscles of respirations, appears to be responding to current therapies. Bronchodilators will be continued as ordered, sputum if he does cough up some will be sent for Gram stain, for cultures and sensitivities. Aspiration precautions will be maintained. From a cardiovascular standpoint, blood pressure is holding. No need for vasopressors at this time. Gentle volume resuscitation will be continued. We will follow him clinically. From a renal standpoint, numbers suggest element of prerenal azotemia. We will put him on isotonic fluids, half NS should be appropriate in light of the hypernatremia at this point, but I would rather use that as against free water because he still has a significant lactic acidosis and requiring some volume replenishment. Again, nonetheless, do appear prerenal. Inputs and outputs will be followed. Electrolytes will be monitored and corrected as necessary. He will get free water flushes also for the hypernatremia. From infectious disease standpoint, he is appropriately on broad-spectrum anti-infective therapy. He has been pancultured. Anti-infectives will ultimately be deescalated based on results of clinical and microbiologic data. Lactic acid level will be trended. From a ONCOLOGY ACCOUNT SPECIALIST standpoint, the exam does not show any new gross focal deficits, no acute indication for neuro imaging. He is responding appropriately to my questions. We will follow him clinically. From a GI and nutritional standpoint, enteral nutrition will be the feeding modality of choice. He will be placed on GI prophylaxis and aspiration precautions will be maintained. From a general and hospital healthcare maintenance standpoint, he is going to be on GI and DVT prophylaxis. Flu and pneumonia vaccination will be per protocol. Thank you very much for the consult Dr. Kidd and Dr. Pineda. We will follow along. We will make further recommendations as picture progresses/becomes clearer. At this point, I have spent about 30-35 minutes with him. He will benefit from critical care admission; however, I will be discussing his end of life wishes with his , and it appears she may be leaning towards comfort care. For now, we will continue to treat him aggressively. JOB# [id number] TAISHA/AZAM
[2016-05-22] MEDS ORDERED: VANCOMYCIN/NS 1 GM/250 ML 1 GM/250 ML BAG IV SCH ×2 (05:00→18:00)
[2016-05-22 07:22] LABS: Anion Gap 19 mmol/L; Blood Urea Nitrogen 54 mg/dL (9-20); Calcium 8.9 mg/dL (8.4-10.2); Carbon Dioxide 30 mmol/L (22-30); Chloride 118.3 mmol/L (98-107); Potassium 3.8 mmol/L (3.6-5.0)
[2016-05-22 07:23] LABS: Mean Corpuscular HGB Conc 30 % (32-34); Mean Corpuscular Volume 82 fl (84-94); Platelet Count 167 K/mm3 (140-440); Red Blood Count 4.04 M/mm3 (3.65-5.03); White Blood Count 7.9 K/mm3 (4.5-11.0)
[2016-05-22 07:25] LABS: Hemoglobin 9.8 gm/dl (11.8-15.2); Mean Corpuscular Hemoglobin 24 pg (28-32)
[2016-05-22 07:35] LABS: Sodium TNR mmol/L (137-145)
[2016-05-22 07:37] LABS: Glucose TNR mg/dL (75-100)
[2016-05-22 08:25] LABS: Basophils % (Manual) 0 % (0.0-1.8); Blastocytes % (Manual) 0 %; Eosinophils % (Manual) 0 % (0.0-4.3)
[2016-05-22 08:26] LABS: Anisocytosis Few; Diff Status Complete; Hypochromasia Few; Large Platelets 1+; Platelet Estimate Cons
[2016-05-22 09:50] LABS: Anion Gap 19 mmol/L; BUN/Creatinine Ratio 57.77; Blood Urea Nitrogen 52 mg/dL (9-20); Calcium 8.8 mg/dL (8.4-10.2); Carbon Dioxide 29 mmol/L (22-30); Chloride 120.5 mmol/L (98-107); Potassium 3.6 mmol/L (3.6-5.0)
[2016-05-22 09:55] LABS: Glucose 561 mg/dL (75-100)
[2016-05-22 09:56] LABS: Sodium 165 mmol/L (137-145)
[2016-05-22] MEDS ORDERED: NACL 0.9% 1000 ML 1,000 ML IV SCH (10:00)
[2016-05-22] MEDS ORDERED: SIMPLE SYRUP FEEDTUBE PRN ×2 (10:36)
[2016-05-22] MEDS ORDERED: PANCREAZE DR 10,500 UNIT FEEDTUBE PRN (10:36)
[2016-05-22] MEDS ORDERED: SODIUM BICARBONATE FEEDTUBE PRN (10:36)
[2016-05-22] MEDS ORDERED: D50W (25GM) IV PRN (10:42)
--- NOTE | 2016-05-22 10:43 | Consultation ---
History of Present Illness - Reason for Consult Consult date: 05/22/16 hypernatremia Requesting physician: LENI BENITEZ - History of Present Illness This is a 66 yo AAM with past medical history of Type 2 diabetes mellitus, hypertension, hyperlipidemia, ho/ CVA, dementia, DVT of the upper extremity, who was recently hospitalized for bleeding from PEG tube, now presents with complaints of acute respiratory distress, shortness of breath. CXR revealed evidence of R middle/lower lobe pneumonia and he is now admitted for IV ABX treatment for HCAP. labs also revealed significant hypernatremia with Na as high as 165 for which renal consult is requested. Pt has significant dementia at baseline, and not able to give any history. History obtained by family at bedside, chart review. Past History Past Medical History: COPD, diabetes, hypertension, hyperlipidemia, stroke, other (DVT Dementia) Past Surgical History: Other (Peg placement) Social history: AND/DNR-allow natural , other ([place] resident) Family history: hypertension Medications and Allergies Allergies Allergy/AdvReac Type Severity Reaction Status Date / Time mirtazapine [From Remeron] Allergy Rash Verified 04/22/16 15:25 Home Medications Medication Instructions Recorded Confirmed Last Taken Type Atorvastatin Calcium [Lipitor] 20 mg PO HS 03/29/16 05/04/16 05/03/16 History amLODIPine [Norvasc] 10 mg PO QAM 03/29/16 05/04/16 Unknown History metFORMIN [Glucophage] 500 mg PO BIDDIAB tablet 04/01/16 05/04/16 Unknown Rx predniSONE [Deltasone] 10 mg PO QDAY 04/10/16 05/04/16 Unknown History Amoxicillin/K Clav Tab [Augmentin 1 tab PO Q12HR #10 tab 04/26/16 05/04/16 Unknown Rx 875MG TAB] Enoxaparin [Lovenox] 70 mg SQ Q12HR 7 Days 04/26/16 05/04/16 05/03/16 Rx Lipase/Protease/Amylase [Pancreaze 1 each FEEDTUBE PRN PRN #30 capsule 04/26/16 05/04/16 Unknown Rx 10,500 Unit] Multivitamins Liq [Multiple 5 ml FEEDTUBE QDAY oral.liqd 04/26/16 05/04/16 Unknown Rx Vitamin Liq (Theragran)] Simple Syrup 15 ml FEEDTUBE PRN PRN #30 04/26/16 05/04/16 Unknown Rx oral.liqd Simple Syrup 30 ml FEEDTUBE PRN PRN #30 04/26/16 05/04/16 Unknown Rx oral.liqd Sodium Bicarbonate 325 mg FEEDTUBE PRN PRN #30 tablet 04/26/16 05/04/16 Unknown Rx Zinc Sulfate 220 mg PO QDAY capsule 04/26/16 05/04/16 Unknown Rx cloNIDine [Catapres] 0.2 mg PO BID tablet 04/26/16 05/04/16 Unknown Rx Active Meds: Active Medications Acetaminophen (Tylenol) 650 mg PO Q4H PRN PRN Reason: Pain MILD(1-3)/Fever >100.5/SOUZA Albuterol (Proventil) 2.5 mg IH Q3HRT PRN PRN Reason: Wheezing Albuterol/Ipratropium (Duoneb 0.5 Mg-3 Mg/3 Ml Soln) 1 ampul IH Q6HRT [facility] Last Admin: 05/22/16 07:56 Dose: 1 ampul Lipase/Protease/Amylase (Tania Chaudhry 10,500 Unit) 1 each FEEDTUBE PRN PRN PRN Reason: For Clogged Feeding Tube Lipase/Protease/Amylase (Pancrepedro Chaudhry 10,500 Unit) 1 each FEEDTUBE PRN PRN PRN Reason: For Clogged Feeding Tube Bisacodyl (Dulcolax) 10 mg [place] QDAY PRN PRN Reason: Constipation unrelieved by MOM Hydromorphone HCl (Dilaudid) 0.5 mg IV Q3H PRN PRN Reason: Pain , Severe (7-10) Piperacillin Sod/Tazobactam Sod (Zosyn/Ns 3.375gm/50ml) 3.375 gm in 50 mls @ 100 mls/hr IV Q6H [facility] Last Admin: 05/22/16 09:22 Dose: 100 mls/hr Vancomycin HCl (Vancomycin/Ns 1 Gm/250 Ml) 1 gm in 250 mls @ 166.667 mls/hr IV Q12H [facility] Sodium Chloride (Nacl 0.45% 1000 Ml) 1,000 mls @ 100 mls/hr IV DIRECT [facility] Insulin Aspart (Novolog) 20 units SUB-Q ONCE ONE Stop: 05/22/16 10:42 Magnesium Hydroxide (Milk Of Magnesia) 30 ml PO Q4H PRN PRN Reason: Constipation Methylprednisolone Sodium Succinate (Solu-Medrol) 40 mg IV Q8HR [facility] Ondansetron HCl (Zofran) 4 mg IV Q8H PRN PRN Reason: N/V unrelieved by Reglan Simple Syrup (Simple Syrup) 15 ml FEEDTUBE PRN PRN PRN Reason: Hypoglycemia Simple Syrup (Simple Syrup) 30 ml FEEDTUBE PRN PRN PRN Reason: Hypoglycemia Sodium Bicarbonate (Sodium Bicarbonate) 325 mg FEEDTUBE PRN PRN PRN Reason: For Clogged Feeding Tube Sodium Bicarbonate (Sodium Bicarbonate) 325 mg FEEDTUBE PRN PRN PRN Reason: For Clogged Feeding Tube Vancomycin HCl (Vancomycin Pharmacy To Dose) 1 each IV PKCONSULT [facility] PRN Reason: Protocol Zinc Sulfate (Zinc Sulfate) 220 mg PO QDAY [facility] Last Admin: 05/21/16 20:20 Dose: 220 mg Review of Systems ROS unobtainable: due to mental status Exam - Vital Signs Vital signs: Vital Signs Temp Pulse Resp BP Pulse Ox 98.7 F 130 H 22 106/71 87 05/21/16 14:10 05/21/16 14:10 05/21/16 14:10 05/21/16 14:10 05/21/16 14:10 - General Appearance General appearance: well-nourished, appears stated age, chronically ill EENT: ATNC, PERRL, mucous membranes dry Neck: Present: neck supple Respiratory: Rales, Ronchi Heart: regular, S1S2 Gastrointestinal: Present: normal, normoactive bowel sounds Integumentary: no rash, other (no edema ) Neurologic: no focal deficit, confused, disoriented Psychiatric: mood/affect appropriate, cooperative Results - Lab Results 05/22/16 06:20 05/22/16 09:22 Most recent lab results Calcium 8.8 mg/dL (8.4-10.2) 05/22/16 09:22 Laboratory Tests 05/21/16 05/21/16 05/21/16 13:55 13:55 13:55 PT 15.4 H INR 1.23 H POC ABG pH POC ABG pCO2 POC ABG pO2 POC ABG HCO3 POC ABG Total CO2 POC ABG O2 Sat POC ABG Base Excess VBG pH FiO2 Hemoglobin A1c Lactic Acid 4.6 H* Calcium 9.7 Total Bilirubin 0.4 AST 16 Alkaline Phosphatase 130 H Urine Color Urine Turbidity Urine pH Ur Specific [place] Urine Protein Urine Glucose (UA) Urine Ketones Urine Blood Urine Nitrite Urine Bilirubin Ur Leukocyte Esterase Urine RBC (Auto) Urine Mucus 05/21/16 05/21/16 05/21/16 13:55 14:51 15:06 PT INR POC ABG pH 7.515 H POC ABG pCO2 39.9 POC ABG pO2 58 L POC ABG HCO3 32.2 POC ABG Total CO2 33 POC ABG O2 Sat 92 POC ABG Base Excess 9 VBG pH 7.453 H FiO2 40 Hemoglobin A1c Lactic Acid Calcium Total Bilirubin AST Alkaline Phosphatase Urine Color Yellow Urine Turbidity Clear Urine pH 7.0 Ur Specific [place] 1.018 Urine Protein 30 mg/dl Urine Glucose (UA) Neg Urine Ketones Neg Urine Blood Neg Urine Nitrite Neg Urine Bilirubin Neg Ur Leukocyte Esterase Neg Urine RBC (Auto) 1.0 Urine Mucus Few 05/21/16 05/21/16 05/22/16 17:53 17:53 06:20 PT INR POC ABG pH POC ABG pCO2 POC ABG pO2 POC ABG HCO3 POC ABG Total CO2 POC ABG O2 Sat POC ABG Base Excess VBG pH FiO2 Hemoglobin A1c 8.8 H Lactic Acid 1.7 Calcium 8.9 Total Bilirubin AST Alkaline Phosphatase Urine Color Urine Turbidity Urine pH Ur Specific [place] Urine Protein Urine Glucose (UA) Urine Ketones Urine Blood Urine Nitrite Urine Bilirubin Ur Leukocyte Esterase Urine RBC (Auto) Urine Mucus 05/22/16 09:22 PT INR POC ABG pH POC ABG pCO2 POC ABG pO2 POC ABG HCO3 POC ABG Total CO2 POC ABG O2 Sat POC ABG Base Excess VBG pH FiO2 Hemoglobin A1c Lactic Acid Calcium 8.8 Total Bilirubin AST Alkaline Phosphatase Urine Color Urine Turbidity Urine pH Ur Specific [place] Urine Protein Urine Glucose (UA) Urine Ketones Urine Blood Urine Nitrite Urine Bilirubin Ur Leukocyte Esterase Urine RBC (Auto) Urine Mucus Assessment and Plan - Patient Problems (1) Hypernatremia Current Visit: Yes Status: Acute Plan to address problem: Hypernatremia due to free water deficit > 4L, will switch IVF to 1/2NS at 100ml/ hr and start free water flushes via PEG tube 250ml q 6hrs. Will monitor na and adjust IVF to target na correction at 8-10meq/24h. (2) Acute renal failure Current Visit: Yes Status: Acute Qualifiers: Acute renal failure type: unspecified Qualified Code(s): N17.9 - Acute kidney failure, unspecified Plan to address problem: Due to pre-renal azotemia, renal function improving on IVF (3) HCAP (healthcare-associated pneumonia) Current Visit: No Status: Acute Plan to address problem: continue ABX with vanco and zosyn, adjust dose for current GFR. BCx pending (4) Acute respiratory failure Current Visit: Yes Status: Acute Qualifiers: Respiratory failure complication: hypoxia Qualified Code(s): J96.01 - Acute respiratory failure with hypoxia Plan to address problem: due to acute HCAP, continue ABXs, bronchodilator therapy as per pulmonary recs (5) T2DM (type 2 diabetes mellitus) Current Visit: Yes Status: Acute Qualifiers: Diabetes mellitus complication status: with neurologic complications Diabetes mellitus complication detail: with other neurological complication Diabetic retinopathy severity: D Proliferative retinopathy type: P Diabetes mellitus macular edema: D Diabetes mellitus alf insulin use: without alf use Laterality: L Chronic kidney disease stage: C Qualified Code (s): E11.49 - Type 2 diabetes mellitus with other diabetic neurological complication Plan to address problem: glucose control as per primary team (6) Lactic acidosis Current Visit: No Status: Acute
[2016-05-22] MEDS ORDERED: NACL 0.45% 1000 ML 1,000 ML IV SCH (11:00)
[2016-05-22] MEDS ORDERED: NOVOLOG SUB-Q ONE (11:00)
[2016-05-22] MEDS: ZINC SULFATE PO SCH (11:10)
[2016-05-22] MEDS ORDERED: NOVOLOG SUB-Q SCH ×2 (11:30→18:00)
[2016-05-22 12:47] LABS: Fractional Sodium Excretion 0.2
--- NOTE | 2016-05-22 14:30 | Discharge Summary ---
Providers - Providers Date of Admission: 05/21/16 17:32 Date of discharge: 05/22/16 Attending physician: LENI BENITEZ MD 05/21/16 18:44 Consult to Physician [CONS] Stat Consulting Provider: SAIMA BLOOM Reason For Exam: sepsis resp distress Place consult to:: answering service Notified:: yes 05/22/16 07:57 Consult to Wound/ET Nurse [CONS] Routine Reason For Exam: wound eval 05/22/16 09:09 Consult to Dietitian/Nutrition [CONS] Routine Physician Instructions: Reason For Exam: Reason for Consult: Write/Manage Tube Feeding 05/22/16 10:00 Consult to Physician [CONS] Routine Consulting Provider: LUCY VALLEJO Reason For Exam: HYPERNATREMIA Place consult to:: DR. DOVER Notified:: DR. DOVER Phone number called:: IN HOUSE Was contact made?: Yes If yes, spoke with:: DR. DOVER Time called:: 10:13 Primary care physician: [employer] Hospitalization Reason for admission: bleeding from PEG tube Condition: Stable Hospital course: This is a 66 yo AAM with past medical history of Type 2 diabetes mellitus, hypertension, hyperlipidemia, ho/ CVA, dementia, DVT of the upper extremity, who was recently hospitalized for bleeding from PEG tube, now presents with complaints of acute respiratory distress, shortness of breath. CXR revealed evidence of R middle/lower lobe pneumonia and he is now admitted for IV ABX treatment for HCAP. labs also revealed significant hypernatremia with Na as high as 165 for family does have extensive discussion with color receiver yesterday and decided for hospice. I also discussed with him and case management today. The patient has had severe dementia for some time now. And has gradually declined.. Pt has significant dementia at baseline, and not able to give any history. w. Disposition: DC/TX SNF [facility] Time spent for discharge: 35 mins - Discharge Diagnoses (1) Acute renal failure Status: Acute Qualifiers: Acute renal failure type: unspecified Qualified Code(s): N17.9 - Acute kidney failure, unspecified (2) CVA (cerebral vascular accident) Status: Chronic Qualifiers: CVA mechanism: C Precerebral and cerebral artery: P Laterality of affected vessel: L (3) Decubitus ulcers Status: Chronic Qualifiers: Pressure ulcer stage: P Comment: poa (4) Hypernatremia Status: Acute (5) Pneumonia Status: Acute Qualifiers: Pneumonia type: aspiration pneumonia Aspiration pneumonia type: A Laterality: right Lung location: lower lobe of lung (6) Volume depletion Status: Acute (7) Acute hyperglycemia Status: Acute (8) Acute hypernatremia Status: Acute (9) Complication of gastrostomy tube Status: Acute (10) Dehydration Status: Acute Core Measure Documentation - Palliative Care Palliative Care/ Comfort Measures: Hospice Care - Core Measures Any of the following diagnoses?: none - VTE Discharge Requirements Deep Vein Thrombosis/Pulmonary Embolism Present on Admission: No Exam - Physical Exam Narrative exam: General appearance: Present: cachectic, contracted, nonverbal - EENT Eyes: Present: PERRL ENT: hearing intact, clear oral mucosa - Neck Neck: Present: supple, normal ROM - Respiratory Respiratory effort: normal Respiratory: bilateral: rhonchi, wheezing - Cardiovascular Heart Sounds: Present: S1 & S2. Absent: rub, click - Extremities Extremities: pulses symmetrical, No edema Peripheral Pulses: within normal limits - Abdominal General gastrointestinal: Present: soft, non-tender, non-distended, normal bowel sounds, other (Peg in place) Male genitourinary: Present: normal - Integumentary Integumentary: Present: clear, warm, dry - Musculoskeletal Musculoskeletal: gait normal, strength equal bilaterally - Psychiatric Psychiatric: appropriate mood/affect, - Neurologic Neurologic: focal deficits (L Hemiplegia) - Constitutional Vitals: Temp Pulse Resp BP Pulse Ox 97.9 F 96 H 16 113/74 99 05/22/16 08:41 05/22/16 13:59 05/22/16 13:59 05/22/16 08:41 05/22/16 08:41 Plan Activity: fall precautions Diet: per dietitian instruction (review of PEG tube) Special Instructions: home hospice, other (hospice) Follow up with: PRIMARY CARE, [Primary Care Provider] - 3-5 Days
[2016-05-22 16:26] VITALS: BP 114/78
--- NOTE | 2016-05-27 09:07 | Query- General ---
Deapenelope Sheridan Date:_05/27/16 Hospitality Specialist/CDS:Mckenzie Zhu Phone#: Exercise your independent professional judgment when responding to this query. Questions asked do not imply a particular answer is desired or expected. We greatly appreciate your clarification on this issue. Clinical Documentation States: 66 Y/O Male admitted on 05/21/16 with history of COPD, DM, HTN, Stroke presents from a shelter with increasing shortness of breath. Patient was found to have aspiration Pneumonia and acute respiratory failure. "Sepsis Syndrome" documented in consult by Dr. Plunkett Clinical Findings Show (include reference to source document): Given the above clinical scenario can you please provide an appropriate diagnosis based on your knowledge of the patient: PHYSICIAN RESPONSE: [ x ] Sepsis syndrome ruled in [ ] Sepsis syndrome ruled out [ ] Sepsis [ ] Other [ ] Unable to determine Present on Admission: [ x] Yes (Y) [ ] Clinically undeterminable (W) [ ]No(N) Please also document response in your Progress Notes and/or Discharge Summary and indicate if the condition was present on admission. ELSY
== END 2016-05-22 18:55 | disposition hospice, home (50) | DRG 177 ==
LOC: ED 12:57 → CC1 17:32 → 3A 18:55
PROVIDERS: ADMIT Internal Medicine; ATTEND Internal Medicine
PROC: 4A033R1 Measurement of Arterial Saturation, Peripheral, Percutaneous Approach (ICD-10-PCS; principal; 2016-05-21)
DX: J69.0 Pneumonitis due to inhalation of food and vomit (principal); J96.01 Acute respiratory failure with hypoxia; E87.0 Hyperosmolality and hypernatremia; N17.9 Acute kidney failure, unspecified; E87.2 Acidosis; I69.354 Hemiplegia and hemiparesis following cerebral infarction affecting left non-dominant side; Z66 Do not resuscitate; Z51.5 Encounter for palliative care; E86.0 Dehydration; E11.49 Type 2 diabetes mellitus with other diabetic neurological complication; J44.9 Chronic obstructive pulmonary disease, unspecified; L89.90 Pressure ulcer of unspecified site, unspecified stage; E11.65 Type 2 diabetes mellitus with hyperglycemia; E78.5 Hyperlipidemia, unspecified; F03.90 Unspecified dementia, unspecified severity, without behavioral disturbance, psychotic disturbance, mood disturbance, and anxiety; Z93.1 Gastrostomy status; Z98.890 Other specified postprocedural states; Z82.49 Family history of ischemic heart disease and other diseases of the circulatory system; Z88.8 Allergy status to other drugs, medicaments and biological substances; Z79.899 Other long term (current) drug therapy; Z86.718 Personal history of other venous thrombosis and embolism
CPT/HCPCS: 36415; 71010; 80048; 80053; 81001; 82010; 82140; 82565; 82570; 82803; 82805; 82962; 83036; 84295; 84300; 85007; 85025; 85610; 86403; 87040; 87086; 87186; 93005; 93010; 94640; 94760; 96361; 96365; J1815; J2543; J2920; J2930; J3370; J7030; J7042; J7050